=== PATIENT | male | born 1940 | race Caucasian/White ===

== ENCOUNTER 2016-10-29 13:57 | Emergency (ER) | payer BC ==
[~2016-10-29] VITALS: Ht 177.8 cm; Wt 97.7 kg
[~2016-10-29 13:57] MED LIST: CALC500C70 PO; IBUP-103 PO; LSX40 PO; Lasix PO; OXYC1TAB3 PO; PRLSR20 PO; Potassium PO; RANI300T2 PO; SERT25TA PO; TURM1CAP4 PO
[2016-10-29 14:00] VITALS: TEMP 36.5; Ht 177.8 cm; Wt 97.7 kg
--- NOTE | 2016-10-29 14:47 | EMERGENCY ROOM VISIT NOTE ---
ED Visit Note First contact with patient: 14:10 I did evaluate and examine this patient myself. I did guide management for the patient. I agree with the PA's assessment as discussed. Please see the PAs dictation for further details. I did independently review the head CT.
--- NOTE | 2016-10-29 15:18 | DIAGNOSTIC IMAGING REPORT ---
HEAD CT NONCONTRAST CT DOSE: 623.48 mGy.cm HISTORY: Trauma [facility] from fall TECHNIQUE: Multiaxial CT images of the head were performed without the use of intravenous contrast. Comparison: None. Findings: The paranasal sinuses and mastoid air cells are clear. Moderate prefrontal extracranial soft tissue edema. Density characteristics of the brain are unremarkable. Ventricular system is midline. There is no evidence for acute intracranial hemorrhage. Impression: 1. No acute intracranial abnormality. 2. Right prefrontal extracranial soft tissue edema. Electronically signed by: Rico Diaz M.D. 10/29/2016 3:16 PM Dictated Date/Time: 10/29/2016 3:14 PM
[2016-10-29 15:31] VITALS: BP 152/84; PULSE 73; O2SAT 99
--- NOTE | 2016-10-29 15:39 | EMERGENCY ROOM VISIT NOTE ---
History First contact with patient: 14:10 Chief Complaint: HEAD INJURY (MINOR) Stated Complaint: HEAD INJURY History of Present Illness The patient is a 76 year old male who presents to the Emergency Room with complaints of injuries after he tripped and fell while playing tennis this afternoon. The patient reports landing mostly on his face, but does report abrasions to his left knee. He can walk without significant pain. He denies any loss of consciousness, epistaxis, dental pain, neck pain or headache. Tetanus immunization is up-to-date. The patient rates his discomfort a 2 out of 10. Review of Systems 10 system review was performed and was negative except for pertinent positives and negatives as indicated in history of present illness Past Medical/Surgical History Medical Problems: (1) Metastatic adenocarcinoma to prostate (2) Secondary Malignant Neoplasm Of Bone (3) Spinal Stenosis, Lumbar Region (4) Tobacco Use Disorder Surgical Problems: (1) History of hernia repair (2) Previous back surgery Family History FH: diabetes mellitus FH: heart disease Social History Smoking Status: Never Smoker Alcohol Use: occasionally Marital Status: Occupation Status: retired Current/Historical Medications Scheduled Calcium/Vitamin D (Os-Rigo 500 Plus D), 1 TAB PO DAILY Furosemide (Furosemide), 1 TAB PO QOD Omeprazole (Prilosec), 20 MG PO DAILY Ranitidine Hcl (Zantac), 300 MG PO HS Sertraline (Zoloft), 1 TAB PO DAILY Turmeric (Curcuma Longa) (Turmeric), 1 CAP PO DAILY [Lasix], 60 MG PO QOD [Potassium], 10 MEQ PO with 40mg of Lasix [Potassium], 20 MEQ PO With 40mg of Lasix Scheduled PRN Ibuprofen Tab (Advil), 200 MG PO for Pain Oxycodone Immediate Rel Tab (Roxicodone Ir), 1 TAB PO QID PRN for Pain Oxycodone Ir (Roxicodone Ir), 10 MG PO Q12 PRN for Severe Pain Allergies Coded Allergies: NO KNOWN DRUG ALLERGIES (Verified Allergy, Unknown, NONE, 05/16/15) Dust (Verified Adverse Reaction, Mild, ITCHY EYES,RUNNY NOSE, 11/17/15) Common Ragweed (Verified Adverse Reaction, Unknown, RASH, 11/17/15) Physical Exam Vital Signs Date Time Temp Pulse Resp B/P Pulse Ox O2 Delivery O2 Flow Rate FiO2 10/29/16 15:31 73 16 152/84 99 10/29/16 14:02 20 10/29/16 14:00 36.5 77 20 145/83 95 Room Air Physical Exam CONSTITUTIONAL: Healthy and well nourished. Alert and oriented X 3 with positive affect. Patient does not appear in any acute distress. HEENT: Examination shows abrasions to the right forehead and bridge of the nose. No epistaxis, subconjunctival hemorrhage, hemotympanum, raccoon's eyes or Henriquez sign. Pupils equal, round and reactive. NECK: Full active range of motion without discomfort. RESPIRATORY: Clear to auscultation bilaterally with no wheezing, crackles, rhonchi or stridor. CARDIOVASCULAR: Regular rate and rhythm with no murmurs, rubs or gallops. GASTROINTESTINAL: Bowel sounds present in all quadrants. Soft and nontender to palpation. MUSCULOSKELETAL: Examination shows an abrasion to the left anterior knee, otherwise has full range of motion without discomfort. No tenderness to palpation through the thoracolumbar spine. Distal pulses are intact. INTEGUMENTARY: No rash or other significant dermatologic conditions noted. NEUROLOGIC: No focal neurologic deficits noted. Medical Decision & Procedures ER Provider Diagnostic Interpretation: Noncontrast CT of the head does not show any intracranial bleed or fracture. Radiologist report is as follows: HEAD CT NONCONTRAST CT DOSE: 623.48 mGy.cm HISTORY: Trauma [facility] from fall TECHNIQUE: Multiaxial CT images of the head were performed without the use of intravenous contrast. Comparison: None. Findings: The paranasal sinuses and mastoid air cells are clear. Moderate prefrontal extracranial soft tissue edema. Density characteristics of the brain are unremarkable. Ventricular system is midline. There is no evidence for acute intracranial hemorrhage. Impression: 1. No acute intracranial abnormality. 2. Right prefrontal extracranial soft tissue edema. ED Course Patient history and physical exam were performed. Nurse's notes were reviewed. The patient denied any significant discomfort on exam. Did recommend that the patient undergo head CT, but the patient initially refused. The patient was then seen and examined by Dr. Chapa, ED attending physician,. The patient was agreeable to undergo head CT imaging. CT of the head was performed and was normal. The patient was given additional wound care instructions, including use of an antibiotic ointment, vitamin E oil and high SPF factor sunblock in the future. The patient is leaving over the weekend for [place]. He was instructed to protect these wounds so that they do not burn, which would increase scarring in the future. The patient was encouraged to take ibuprofen or Tylenol as needed for pain. Ice as needed for swelling. The patient was happy with plan of care, voiced understanding of all discharge instructions, and denied any significant discomfort at the time of discharge. Medical Decision Impression Primary Impression: Facial abrasion Additional Impressions: Fall from slip, trip, or stumble Abrasion, left knee, initial encounter Departure Information Forms HOME CARE DOCUMENTATION FORM, IMPORTANT VISIT INFORMATION Patient Instructions [facility] Additional Instructions Keep wounds clean and covered with antibiotic ointment until they heal. After the tissue looks dry, apply vitamin E oil twice daily for 2 additional weeks. Keep wounds covered with gauze while in [place] to avoid tissue burning, which which will increase scarring in the future. Over the next year, anytime you are outside, apply a high SPF factor sunblock to avoid scar darkening. Watch for any signs of wound infection. Problem Qualifiers Primary Impression: Facial abrasion Encounter type: initial encounter Qualified Codes: S00.81XA - Abrasion of other part of head, initial encounter Additional Impressions: Fall from slip, trip, or stumble Encounter type: initial encounter Qualified Codes: W01.0XXA - Fall on same level from slipping, tripping and stumbling without subsequent striking against object, initial encounter
== END 2016-10-29 15:33 | disposition home or self-care (01) ==
LOC: C.EDB 13:58 → C.EDD 15:33
DX: S00.81XA Abrasion of other part of head, initial encounter (principal); W01.0XXA Fall on same level from slipping, tripping and stumbling without subsequent striking against object, initial encounter; C61 Malignant neoplasm of prostate; F17.200 Nicotine dependence, unspecified, uncomplicated; C79.51 Secondary malignant neoplasm of bone

== ENCOUNTER → 2016-11-18 | Outpatient (CLI) | payer BC ==
[~2016-11-18] MED LIST changes: +OPTIRAY 320 IV PRN
--- NOTE | 2016-11-18 14:11 | DIAGNOSTIC IMAGING REPORT ---
CHEST CT WITH CONTRAST CT DOSE: 1527.04 mGy.cm HISTORY: Prostate cancer. TECHNIQUE: Multiaxial CT images of the chest were performed following the intravenous administration of contrast. COMPARISON: Chest CT 05/13/2016. FINDINGS: Stable 8 mm nodule within the left upper lobe on image 112. There is new 6 mm linear density within the right upper lobe anteriorly on image 101. This may represent an area of scarring. Stable 6 mm nodule within the right lower lobe on image 123. No new pulmonary nodules identified. A few tiny nodular densities within the right lung base persist. No suspicious lytic or blastic osseous lesions. The mediastinal vascular structures are within normal limits. No mediastinal or hilar lymphadenopathy. No pleural effusion or pneumothorax. Limited views of the upper abdomen demonstrate a normal liver and spleen. IMPRESSION: No significant change compared to the prior study. Stable subcentimeter pulmonary nodules. Electronically signed by: Jared Jessica M.D. 11/18/2016 2:10 PM Dictated Date/Time: 11/18/2016 2:04 PM
--- NOTE | 2016-11-18 14:15 | DIAGNOSTIC IMAGING REPORT ---
ABDOMEN AND PELVIS CT WITH IV AND ORAL CONTRAST CT DOSE: HISTORY: Prostate carcinoma CT TECHNIQUE: Multiaxial CT images of the abdomen and pelvis were performed following the use of intravenous and oral contrast. COMPARISON STUDY: 05/13/2016 FINDINGS: Study is essentially unchanged in the prior exam. Blastic bony metastatic disease primarily involving the left pubic ring and bony pelvis remains stable. There are no new or interval blastic bony metastatic changes. Liver spleen and pancreas are unremarkable. Kidneys negative for hydronephrosis. There is no significant abdominal pelvic or inguinal althea change. Infiltrative change of the subcutaneous fat anterior and superior to the symphysis pubis is stable. This appears to be on a post treatment fibrotic basis. IMPRESSION: 1. Stable unchanged evaluation of the abdomen and pelvis. 2. Stable blastic bony metastatic change. 3. No evidence for new interval or progressive process Electronically signed by: Rico Diaz M.D. 11/18/2016 2:14 PM Dictated Date/Time: 11/18/2016 2:05 PM
== END | disposition home or self-care (01) ==
LOC: C.CTS 13:32
PROVIDERS: ATTEND Internal Medicine Hematology & Oncology
DX: C61 Malignant neoplasm of prostate (principal); C79.51 Secondary malignant neoplasm of bone; R91.8 Other nonspecific abnormal finding of lung field

== ENCOUNTER → 2017-05-29 | Outpatient (CLI) | payer BC ==
--- NOTE | 2017-05-29 11:57 | DIAGNOSTIC IMAGING REPORT ---
ABD/PELVIS IV CONTRAST ONLY CLINICAL HISTORY: 76 years-old Male presenting with PROSTATE CA. TECHNIQUE: Multidetector CT of the abdomen and pelvis was performed after the administration of oral and intravenous contrast. IV contrast: 93 mL of Optiray 320. A dose lowering technique was used consistent with the principles of ALARA (as low as reasonably achievable). COMPARISON: 11/18/2016. CT DOSE (mGy.cm): The estimated cumulative dose is 1531.26 mGy.cm. FINDINGS: Cost Estimating Clerk topogram: Unremarkable. Lung bases: Subpleural reticular and bandlike opacities at the lung bases likely atelectasis. Normal heart size. Aortic valve calcification. No pericardial or pleural effusion. Liver: Normal morphology. No liver lesion. Patent hepatic vasculature. Biliary: No intrahepatic or extrahepatic biliary ductal dilatation. Normal gallbladder. Pancreas: Mild parenchymal atrophy. Spleen: Normal. Adrenal glands: Normal. Kidneys and ureters: Normal. No hydronephrosis. Bladder: Moderate circumferential bladder wall thickening. Minimal associated perivesicular fat stranding in the space of Retzius. Pelvic organs: Prostate and seminal vesicles normal. Bowel: Normal. No bowel obstruction. Peritoneal cavity: No free fluid or intraperitoneal gas. Vasculature: Atherosclerosis of the normal caliber abdominal aorta. IVC patent. Lymph nodes: No enlarged lymph nodes in the abdomen or pelvis. Abdominal wall: Evidence of bilateral inguinal hernia repair with associated infiltration of the extraperitoneal ventral superior pelvis, unchanged from prior. Recurrent bilateral fat-containing hernias noted. Musculoskeletal: Significant sclerotic lesions in the pelvic bones similar distribution to prior exam consistent with known osseous metastatic disease. Degenerative changes of the spine noted. No new blastic lesion identified. Postsurgical changes of L4 laminectomy. IMPRESSION: 1. No change from the prior exam. Stable blastic osseous lesions in the pelvis without additional sites of metastatic disease identified. 2. 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 Electronically signed by: Baljit Del Valle M.D. 05/29/2017 11:56 AM Dictated Date/Time: 05/29/2017 11:49 AM
--- NOTE | 2017-05-29 12:12 | DIAGNOSTIC IMAGING REPORT ---
(CHEST) THORAX WITH CLINICAL HISTORY: 76 years-old Male presenting with PROSTATE CA. TECHNIQUE: Multidetector CT imaging of the chest was performed after the administration of intravenous contrast. IV contrast: 93 mL of Optiray 320. A dose lowering technique was used consistent with the principles of ALARA (as low as reasonably achievable). COMPARISON: 11/18/2016. CT DOSE (mGy.cm): The estimated cumulative dose is 1531.[address] of the abdomen and pelvis. FINDINGS: Business Reporting Developer topogram: Unremarkable. On soft tissue windows, normal thyroid and thoracic inlet. No axillary, supraclavicular, hilar, or mediastinal lymphadenopathy. Atherosclerosis of the aorta. Normal heart size. No pericardial or pleural effusion. Upper abdomen normal. On lung windows, bandlike opacities at the lung bases likely atelectasis or scarring. Respiratory motion mildly degrades evaluation of the lung bases. Solid fissural 5 mm nodule in the superior segment of the lower lobe (series 4 image 109) series, unchanged. Solid 7 mm nodule in the left upper lobe (series 499), unchanged. No new pulmonary nodule. Airways patent. Mild lower lobe bronchial wall thickening may be present. On bone windows, degenerative changes of the spine. Flowing anterior osteophytosis likely indicates diffuse radiographic skeletal hyperostosis. No osseous lesion identified. IMPRESSION: 1. Stable subcentimeter pulmonary nodules. No new nodule. No lymphadenopathy. Electronically signed by: Baljit Del Valle M.D. 05/29/2017 12:11 PM Dictated Date/Time: 05/29/2017 12:05 PM
== END | disposition home or self-care (01) ==
LOC: C.CTS 11:02
PROVIDERS: ATTEND Nurse Practitioner Family
DX: C61 Malignant neoplasm of prostate (principal); R91.8 Other nonspecific abnormal finding of lung field

== ENCOUNTER → 2017-06-11 | Outpatient (CLI) | payer BC ==
[~2017-06-11] MED LIST changes: -OPTIRAY 320 IV PRN
== END | disposition home or self-care (01) ==
LOC: C.FOODA 09:03
PROVIDERS: ATTEND Nurse Practitioner Family
DX: Z71.3 Dietary counseling and surveillance (principal); R73.03 Prediabetes; C61 Malignant neoplasm of prostate; C79.51 Secondary malignant neoplasm of bone; Z79.899 Other long term (current) drug therapy

== ENCOUNTER → 2017-11-21 | Outpatient (CLI) | payer BC ==
[~2017-11-21] MED LIST changes: +OPTIRAY 320 IV PRN
--- NOTE | 2017-11-21 12:16 | DIAGNOSTIC IMAGING REPORT ---
(CHEST) THORAX WITH CT DOSE: 1421.68 mGy.cm HISTORY: Prostate carcinoma PROSTATE CA TECHNIQUE: Multiaxial CT images of the chest were performed following the intravenous administration of contrast. A dose lowering technique was utilized adhering to the principles of ALARA. COMPARISON: 05/29/2017 FINDINGS: The lungs are clear. The mediastinal vascular structures are within normal limits. No mediastinal or hilar lymphadenopathy. No pleural effusion or pneumothorax. Limited views of the upper abdomen demonstrate a normal liver and spleen. Micronodular area procedure described is compatible is stable. There are no new or interval findings. Aeration of the lung bases is now within normal limits. Moderate degenerative change of the osseous structures considered stable. IMPRESSION: Stable micronodularity of the lungs with no evidence for new interval or progressive process. Lung bases are now clear. The above report was generated using voice recognition software. It may contain grammatical, syntax or spelling errors. Electronically signed by: Rico Diaz M.D. 11/21/2017 12:15 PM Dictated Date/Time: 11/21/2017 12:06 PM
--- NOTE | 2017-11-21 12:23 | DIAGNOSTIC IMAGING REPORT ---
ABD/PELVIS IV AND ORAL CONT CT DOSE: HISTORY: Prostate carcinoma PROSTATE CA TECHNIQUE: Multiaxial CT images of the abdomen and pelvis were performed following the use of intravenous and oral contrast. A dose lowering technique was utilized adhering to the principles of ALARA. COMPARISON STUDY: 05/29/2017 FINDINGS: The lung bases are clear. The liver, spleen, gallbladder, pancreas, kidneys, and adrenal glands are within normal limits. No bowel wall thickening or obstruction. The pelvic organs are unremarkable. The blastic metastatic deposits of the bony pelvis are considered stable. Blastic changes anterior aspect of the left femoral neck is also stable. Postoperative changes of the anterior abdominal wall are stable. IMPRESSION: 1. Stable blastic metastatic disease of the pelvis and left hip.. 2. Minimal/mild bladder wall thickening stable from the prior study. 3. Unchanged exam from the prior study with no new or interval process. The above report was generated using voice recognition software. It may contain grammatical, syntax or spelling errors. Electronically signed by: Rico Diaz M.D. 11/21/2017 12:21 PM Dictated Date/Time: 11/21/2017 12:15 PM
== END | disposition home or self-care (01) ==
LOC: C.CTS 11:41
PROVIDERS: ATTEND Internal Medicine Hematology & Oncology
DX: C61 Malignant neoplasm of prostate (principal)

== ENCOUNTER → 2018-04-10 | Outpatient (CLI) | payer BC ==
[~2018-04-10] MED LIST changes: -OPTIRAY 320 IV PRN; +OXYC-737 PO; +OXYC-90 PO; -OXYC1TAB3 PO
--- NOTE | 2018-04-10 15:15 | DIAGNOSTIC IMAGING REPORT ---
BONE SCAN WHOLE BODY CLINICAL HISTORY: PROSTATE CA COMPARISON STUDY: 08/02/2015 FINDINGS: The patient was injected with 27.5 mCi of technetium 99m MDP. Three-hour delayed whole body images were acquired. There are foci of increased activity within the shoulders, right cervical ventricular joint, wrists and knees and feet. This distribution favors a degenerative/arthritic etiology. There are foci of increased activity within the lumbar spine. A November 2017 CT scan of the abdomen and pelvis reveals corresponding arthritic change which likely explains this activity. There is mild increased activity at the level of the left acetabulum and left ischio pubic ring, and symphysis pubis.. There are corresponding blastic changes on the CT scan indicative of metastatic disease. The activity is significantly diminished when compared the prior July 2015 study suggesting interval treatment response. There is a new focus of unexplained increased activity within the left anterior fifth rib. There is a stable focus of increased activity within the right anterior first rib. There is a subtle focus of increased activity at the level of the right L1 pedicle IMPRESSION: 1. Interval decrease in the abnormal increased activity involving the left acetabulum and left ischio pubic ramus and symphysis pubis. The findings likely represent an interval treatment response 2. Subtle new unexplained focus of increased activity at the level of the right L1 pedicle 3. New focus of unexplained increased activity within the left anterior fifth rib. Electronically signed by: Jose Daniel Cody M.D. 04/10/2018 3:14 PM Dictated Date/Time: 04/10/2018 3:07 PM
== END | disposition home or self-care (01) ==
LOC: C.NUCL 10:59
PROVIDERS: ATTEND Nurse Practitioner Family
DX: C61 Malignant neoplasm of prostate (principal)

== ENCOUNTER 2023-08-30 11:50 | Inpatient (IN) ==
[~2023-08-30 11:50] MED LIST changes: -CALC500C70 PO; -IBUP-103 PO; -LSX40 PO; -Lasix PO; -OXYC-737 PO; -OXYC-90 PO; -PRLSR20 PO; -Potassium PO; -RANI300T2 PO; +RAPID SEQUENCE INDUCTION BAG ONE; -SERT25TA PO; -TURM1CAP4 PO
[2023-08-30] MEDS ORDERED: CEFEPIME 2,000 MG/20 ML VIAL IV STA (11:56)
--- NOTE | 2023-08-30 11:59 | Emergency Department Note ---
Impression & Plan Respiratory failure, Sepsis, Pneumonia ED Provider Note NAME: ARNOLD DEMPSEY AGE: 82 SEX: M : 1940 ARRIVES VIA: Ambulance INFORMANT: Patient ED PROVIDER(S): Nadir Ludwig DO CHIEF COMPLAINT: AMS HPI: Patient is an 82-year-old male who was feeling very weak last night per family. He was found unresponsive this morning. EMS was called. He was hypoxic into the 60s and unresponsive except to painful stimuli he would move. Upon arrival to the ER he is awake and able to state his name. He notes that he does have some right-sided chest pain. He denies any head pain belly pain or back pain. He denies any urinary symptoms. EMS notes additional information that they gave him a gram of Tylenol in combination with IV fluids and his mentation improved. He is a full code per EMS. ADDITIONAL HISTORY OBTAINED: Per HPI Chronic Medical/Social Conditions Affecting Care: Per HPI PAST MEDICAL HISTORY:See Below PAST SURGICAL HISTORY:See Below FAMILY HISTORY:See Below SOCIAL HISTORY:See Below HOME MEDICATIONS:See Below ALLERGIES:See Below VITALS:See Below PHYSICAL EXAMINATION: GENERAL: Sitting up in bed, alert, chronically ill-appearing on nonrebreather, disheveled, coughing EYE EXAM: normal conjunctiva. PERRL and EOM's grossly intact. OROPHARYNX: Dry mucous membranes NECK: supple, no nuchal rigidity, no adenopathy, non-tender LUNGS: Clear to auscultation. Normal chest wall mechanics HEART: no murmurs, S1 normal and S2 normal ABDOMEN: abdomen soft, non-tender, normo-active bowel sounds, no masses, no rebound or guarding. UPPER EXTREMITIES: upper extremities are grossly normal. LOWER EXTREMITIES: Left calf larger than right NEURO EXAM: Awake, alert, oriented to person and following commands. No focal weakness in the upper or lower extremities. Unable to perform drift or finger- nose. MEDICAL DECISION MAKING: Patient is an 82-year-old male who presents ER initially brought in unresponsive. Was found to be hypoxic placed on nonrebreather. IV was established blood work is obtained. Labs show no significant leukocytosis. No anemia. He was titrated down from nonrebreather to 5 L. INR therapeutic at 2.4. VBG with pH 7.4. BMP was unremarkable. Lactate slightly up at 2.1. Mag was mildly low at 1.6. CK elevated at 2500. Troponin elevated in the 30s. Pro-Rigo elevated at 30. Patient was covered with cefepime and IV vancomycin. He was given 2.5 L normal saline for more than 30 cc/kg of ideal body weight. Patient was updated bedside. Heart rate trended down. Mentation improved. CT head was negative. He was admitted to the hospital for further workup of his sepsis secondary to pneumonia. Consults/Care Managements Discussions: Per [facility] Triage Nursing notes reviewed. Limited review of prior medical records performed Vital Signs: reviewed and remarkable for hypoxic, tachycardic and febrile Differential diagnosis: Differential diagnosis includes etiologies such as sepsis, UTI, pneumonia, metabolic, electrolyte abnormalities, cardiac sources, intracerebral event, toxicologic, neurological, as well as others were entertained. ER treatment provided: See below Diagnostics interpreted by me include EKG and cardiac monitoring as listed below: -Cardiac Monitoring: An order was placed for continuous cardiac monitoring. The monitor shows a rate of 90 with sinus rhythm. -ECG: Sinus rhythm rate of 105 Normal axis Poor baseline QTc 430 -Laboratory studies:Interpreted by me as stated above in MDM and shown below. Imaging studies: Xrays: As interpreted by me: Portable AP upright 1 view of the chest shows right lower lobe infiltrate CTs show: CT head was negative Procedures:none Critical Care: I have personally spent 31 minutes of critical care time in the direct management of this patient. This includes bedside care, interpretation of diagnostic studies, and testing, discussion with consultants, patient, and family members, and other required patient management activities. This 31 minutes is in excess of all separately billable procedures. Past Med/Surg History Medical History Palliative care by specialist Cancer related pain Chronic anticoagulation Sacroiliac joint pain Trochanteric bursitis Avascular necrosis of bone of left hip (~06/26/23) History of DVT (deep vein thrombosis) History of skin cancer Hypertension Prostate cancer 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 ADVISED TO HOLD DOS.); Hx Alcohol Use: Yes Alcohol type: beer Hx Substance Use: No Preferred Language: Azeri Communication Ability: Effective Hearing Ability: Normal Rip Sawyer Required: No Beliefs That Will Affect Care: None marital status: Current Living Situation: Spouse current occupational status: retired current occupation: retired Feels Safe at Home: Yes Assistive Devices: Glasses Allergies Allergies Allergy/AdvReac Type Severity Reaction Status Date / Time No Known Drug Allergies Allergy Unknown NONE Verified 06/17/23 08:31 house dust AdvReac Mild ITCHY Verified 06/17/23 08:31 EYES, RUNNY NOSE ragweed pollen AdvReac Unknown RASH Verified 06/17/23 08:31 Home Meds Home Medications Medication Instructions Recorded Confirmed omega 3 350 mg-dha 235 mg-epa 90 1 tab PO QAM 05/26/18 08/30/23 mg-fish oil 597 mg capsule,delay rel ([place]-3) cyanocobalamin (vitamin B-12) 1,000 mcg PO DAILY 03/10/19 08/30/23 1,000 mcg capsule donepezil 10 mg tablet 10 mg PO DAILY 11/08/19 08/30/23 calcium carbonate 500 mg-vitamin 1 tab PO DAILY 10/03/20 08/30/23 D3 3.125 mcg (125 unit) tablet (Calcium) docusate sodium 100 mg capsule 200 mg PO DAILY 10/03/20 08/30/23 (Colace) multivitamin 1 tab PO DAILY 10/03/20 08/30/23 rosuvastatin 5 mg tablet (Crestor) 5 mg PO DAILY 12/26/21 08/30/23 polyethylene glycol 3350 17 17 g PO DAILY PRN constipation 10/15/22 08/30/23 gram/dose oral powder (Miralax) sennosides 8.6 mg capsule (senna) 17.2 mg PO HS PRN constipation 10/15/22 08/30/23 trazodone 50 mg tablet 25 mg PO HS sleep 05/08/23 08/30/23 venlafaxine 150 mg 150 mg PO DAILY 05/08/23 08/30/23 capsule,extended release 24 hr (Effexor XR) venlafaxine 37.5 mg 37.5 mg PO DAILY 05/08/23 08/30/23 capsule,extended release 24 hr warfarin 5 mg tablet See Rx Instructions PO UD 08/14/23 08/30/23 fentanyl 25 mcg/hr transdermal 25 mcg transdermal Q72H 08/30/23 08/30/23 patch gabapentin 300 mg capsule 300 mg PO TID 08/30/23 08/30/23 Previous Rx's Medication Instructions Recorded naloxone 4 mg/actuation nasal spray 1 spray intranasal Q3M PRN opioid 03/12/21 overdose #2 ea dexamethasone 0.5 mg tablet 1 mg (2 x 0.5 mg) PO DAILY bone 06/26/23 pain left posterior hip and back 30 days #60 tabs oxycodone 15 mg tablet 15 mg PO Q4H PRN pain 1 month #150 06/26/23 tabs fentanyl 50 mcg/hr transdermal 1 patch transdermal Q72H very 07/31/23 patch severe cancer pain 1 month #10 ea Results & Data (ED) Vital Signs Vital Signs - 24 hr 08/30/23 11:30 08/30/23 11:47 08/30/23 11:55 Temperature Temperature Source Pulse Rate 114 H 106 H Pulse Rate from SpO2 Sensor Pulse Rhythm Regular Pulse Strength Respiratory Rate Respiratory Effort / Characteristics Respiratory Depth Respiratory Pattern Blood Pressure 100/63 Blood Pressure Mean 75 Blood Pressure Position Pulse Oximetry 95 95 Oxygen Delivery Method Oxymask Oxymask Oxygen Flow Rate 5 5 Sepsis Recent Fever Within 48 Hours Sepsis New/Unexplained Change in Mental Status Sepsis Action Taken by Nursing 08/30/23 12:05 08/30/23 12:09 08/30/23 12:13 Temperature 38.8 C H Temperature Source Rectal Pulse Rate 114 H 110 H Pulse Rate from SpO2 Sensor 108 H Pulse Rhythm Regular Pulse Strength Normal Respiratory Rate 20 Respiratory Effort / Characteristics Non-Labored Spontaneous Labored Respiratory Depth Normal Normal Respiratory Pattern Regular Regular Blood Pressure 100/63 99/70 L Blood Pressure Mean 75 79 Blood Pressure Position Sitting Pulse Oximetry 95 96 Oxygen Delivery Method Non-rebreather Oxymask Oxymask Oxygen Flow Rate 5 5 Sepsis Recent Fever Within 48 Hours Yes Sepsis New/Unexplained Change in Mental Status Yes Sepsis Action Taken by Nursing Physician Notified 08/30/23 12:15 08/30/23 12:29 08/30/23 12:30 Temperature Temperature Source Pulse Rate 110 H 107 H 107 H Pulse Rate from SpO2 Sensor 110 H 105 H Pulse Rhythm Pulse Strength Respiratory Rate Respiratory Effort / Characteristics Respiratory Depth Respiratory Pattern Blood Pressure 95/62 L 97/66 L Blood Pressure Mean 73 76 Blood Pressure Position Pulse Oximetry 92 92 Oxygen Delivery Method Oxymask Oxygen Flow Rate 5 Sepsis Recent Fever Within 48 Hours Sepsis New/Unexplained Change in Mental Status Sepsis Action Taken by Nursing 08/30/23 12:45 08/30/23 13:02 08/30/23 13:10 Temperature Temperature Source Pulse Rate 105 H 104 H 101 H Pulse Rate from SpO2 Sensor 105 H 105 H 99 H Pulse Rhythm Pulse Strength Respiratory Rate 14 17 Respiratory Effort / Characteristics Respiratory Depth Respiratory Pattern Blood Pressure 100/67 112/64 102/62 Blood Pressure Mean 78 80 75 Blood Pressure Position Pulse Oximetry 93 91 98 Oxygen Delivery Method Oxymask Oxymask Oxygen Flow Rate 5 5 Sepsis Recent Fever Within 48 Hours Sepsis New/Unexplained Change in Mental Status Sepsis Action Taken by Nursing 08/30/23 13:15 08/30/23 13:30 08/30/23 13:45 Temperature Temperature Source Pulse Rate 100 H 101 H Pulse Rate from SpO2 Sensor 100 H 105 H Pulse Rhythm Pulse Strength Respiratory Rate 17 15 Respiratory Effort / Characteristics Respiratory Depth Respiratory Pattern Blood Pressure 102/62 100/62 116/68 Blood Pressure Mean 75 74 78 Blood Pressure Position Pulse Oximetry 95 82 L Oxygen Delivery Method Oxygen Flow Rate Sepsis Recent Fever Within 48 Hours Sepsis New/Unexplained Change in Mental Status Sepsis Action Taken by Nursing 08/30/23 13:45 08/30/23 14:00 08/30/23 14:16 Temperature Temperature Source Pulse Rate 100 H 97 H 99 H Pulse Rate from SpO2 Sensor 101 H 99 H Pulse Rhythm Pulse Strength Respiratory Rate 17 15 16 Respiratory Effort / Characteristics Respiratory Depth Respiratory Pattern Blood Pressure 116/68 107/59 L 110/54 L Blood Pressure Mean 84 75 72 Blood Pressure Position Pulse Oximetry 91 95 Oxygen Delivery Method Oxymask Oxygen Flow Rate 5 Sepsis Recent Fever Within 48 Hours Sepsis New/Unexplained Change in Mental Status Sepsis Action Taken by Nursing 08/30/23 14:45 08/30/23 15:00 08/30/23 15:15 Temperature Temperature Source Pulse Rate 94 H 90 85 Pulse Rate from SpO2 Sensor 92 H 93 H 86 Pulse Rhythm Pulse Strength Respiratory Rate 18 18 16 Respiratory Effort / Characteristics Respiratory Depth Respiratory Pattern Blood Pressure 102/59 L 108/63 91/65 L Blood Pressure Mean 73 78 73 Blood Pressure Position Pulse Oximetry 94 88 L 95 Oxygen Delivery Method Oxymask Oxygen Flow Rate 5 Sepsis Recent Fever Within 48 Hours Sepsis New/Unexplained Change in Mental Status Sepsis Action Taken by Nursing 08/30/23 15:30 08/30/23 17:08 Temperature Temperature Source Pulse Rate 88 90 Pulse Rate from SpO2 Sensor 89 Pulse Rhythm Pulse Strength Respiratory Rate 16 Respiratory Effort / Characteristics Respiratory Depth Respiratory Pattern Blood Pressure 108/62 Blood Pressure Mean 77 Blood Pressure Position Pulse Oximetry Oxygen Delivery Method Oxygen Flow Rate Sepsis Recent Fever Within 48 Hours Sepsis New/Unexplained Change in Mental Status Sepsis Action Taken by Nursing Laboratory Data 08/30/23 12:12 08/30/23 12:12 Lab Results 08/30/23 08/30/23 08/30/23 Range/Units 12:03 12:12 12:14 WBC 10.02 (4.8-10.8) K/ul RBC 4.09 L (4.70-6.10) M/uL Hgb 13.0 L (14.0-18.0) g/dl POC Hgb 13.3 L (14.0-18.0) g/dl Hct 40.3 L (42.0-52.0) % POC Hct 39 L (42-52) % MCV 98.5 (80.0-100.0) fL MCH 31.8 (25.0-34.0) pg MCHC 32.3 (32.0-36.0) g/dL RDW Std Deviation 55.3 H (36.4-46.3) fL RDW Coeff of Melissa 15.2 H (11.5-14.5) % Plt Count 204 (130-400) K/uL MPV 10.0 (9.4-12.4) fL Immature Gran % (Auto) 0.5 % Neut % (Auto) 79.1 % Lymph % (Auto) 10.9 % [place] % (Auto) 8.2 % Eos % (Auto) 0.9 % Baso % (Auto) 0.4 % Neut # (Auto) 7.93 H (1.40-6.50) K/uL Lymph # (Auto) 1.09 L (1.20-3.40) K/uL [place] # (Auto) 0.82 H (0.11-0.59) K/uL Eos # (Auto) 0.09 (0.00-0.50) K/uL Baso # (Auto) 0.04 (0.00-0.20) K/uL Immature Gran # (Auto) 0.05 (0.01-0.20) K/uL Absolute Nucleated RBC 0.02 (0.00-0.12) K/uL Nucleated RBC % (auto) 0.2 % Toxic Vacuolation 1+ Polychromasia 1+ Ovalocytes 1+ PT 24.4 H (9.0-12.0) Seconds INR 2.4 H (0.9-1.1) VBG pH (7.36-7.41) VBG pCO2 (38-50) mmHg VBG pO2 mmHg VBG HCO3 mmol/L VBG O2 Saturation % VBG Base Excess mEq/L POC Sodium 134 L (135-144) mmol/L Sodium 134 L (136-145) mmol/L POC Potassium 3.9 (3.3-5.0) mmol/L Potassium 3.9 (3.5-5.1) mmol/L POC Chloride 99 L (101-112) mmol/L Chloride 99 (98-107) mmol/L Carbon Dioxide 27 (21-32) mmol/L POC Total CO2 25 (24-31) mmol/L Anion Gap 8 (3-11) POC Anion Gap 15.0 L (16-25) mmol/L POC BUN 16 (7-18) mg/dl BUN 17 (6-23) mg/dl Creatinine 1.18 (0.6-1.4) mg/dl POC Creatinine 1.2 (0.6-1.3) mg/dl Est Cr Clr Drug Dosing 57.9 ml/min Est GFR ( Amer) 65.7 ml/min Est GFR (Non-Af Amer) 56.7 ml/min BUN/Creatinine Ratio 14.4 (10-20) Glucose 132 H (70-99(Fasting)) mg/dl POC Glucose (other) 131 H (70-99) mg/dl Lactate 2.1 H* (0.4-2.0) mmol/L Calcium 8.2 L (8.6-10.3) mg/dl POC Ioniz Calcium Black 1.11 L (1.12-1.32) mmol/l Magnesium 1.6 L (1.7-2.4) mg/dl Total Bilirubin 0.9 (0.2-1.0) mg/dl Direct Bilirubin 0.2 (0-0.2) mg/dl AST 65 H (13-39) U/L ALT 36 (7-52) U/L Alkaline Phosphatase 54 (34-104) U/L Total Creatine Kinase 2587 H (30-223) U/L Troponin I High Sens 22.7 H (0-20) pg/ml Total Protein 6.0 (6.0-8.3) gm/dl Albumin 3.2 L (3.4-5.0) gm/dl Procalcitonin 29.72 H (0-0.5) ng/ml Random Cortisol mcg/dl Urine Color Urine Appearance (Clear) Urine pH (4.5-7.5) Ur Specific [place] (1.000-1.030) Urine Protein (Negative) Urine Glucose (UA) (Negative) Urine Ketones (Negative) Urine Blood (Negative) Urine Nitrite (Negative) Urine Bilirubin (Negative) Urine Urobilinogen (Negative) Ur Leukocyte Esterase (Negative) Adenovirus (PCR) Not Detected (NotDetected) B. pertussis DNA (PCR) Not Detected (NotDetected) B.parapertussis DNA PCR Not Detected (NotDetected) C. pneumoniae DNA (PCR) Not Detected (NotDetected) Coronavirus OC43 (PCR) Not Detected (NotDetected) Coronavirus HKU1 (PCR) Not Detected (NotDetected) Coronavirus 229E (PCR) Not Detected (NotDetected) SARS-CoV-2 (PCR) Not Detected (NotDetected) Coronavirus NL63 (PCR) Not Detected (NotDetected) Human Metapneumovir PCR Not Detected (NotDetected) Influenza Type A (PCR) Not Detected (NotDetected) Influenza Type B (PCR) Not Detected (NotDetected) M. pneumoniae (PCR) Not Detected (NotDetected) Parainfluenza 1 (PCR) Not Detected (NotDetected) Parainfluenza 2 (PCR) Not Detected (NotDetected) Parainfluenza 3 (PCR) Not Detected (NotDetected) Parainfluenza 4 (PCR) Not Detected (NotDetected) RSV (PCR) Not Detected (NotDetected) Entero/Rhino (PCR) Not Detected (NotDetected) 08/30/23 08/30/23 08/30/23 Range/Units 12:16 12:31 14:09 WBC (4.8-10.8) K/ul RBC (4.70-6.10) M/uL Hgb (14.0-18.0) g/dl POC Hgb (14.0-18.0) g/dl Hct (42.0-52.0) % POC Hct (42-52) % MCV (80.0-100.0) fL MCH (25.0-34.0) pg MCHC (32.0-36.0) g/dL RDW Std Deviation (36.4-46.3) fL RDW Coeff of Melissa (11.5-14.5) % Plt Count (130-400) K/uL MPV (9.4-12.4) fL Immature Gran % (Auto) % Neut % (Auto) % Lymph % (Auto) % [place] % (Auto) % Eos % (Auto) % Baso % (Auto) % Neut # (Auto) (1.40-6.50) K/uL Lymph # (Auto) (1.20-3.40) K/uL [place] # (Auto) (0.11-0.59) K/uL Eos # (Auto) (0.00-0.50) K/uL Baso # (Auto) (0.00-0.20) K/uL Immature Gran # (Auto) (0.01-0.20) K/uL Absolute Nucleated RBC (0.00-0.12) K/uL Nucleated RBC % (auto) % Toxic Vacuolation Polychromasia Ovalocytes PT (9.0-12.0) Seconds INR (0.9-1.1) VBG pH 7.39 (7.36-7.41) VBG pCO2 45 (38-50) mmHg VBG pO2 35 mmHg VBG HCO3 27 mmol/L VBG O2 Saturation < 60.0 % VBG Base Excess 1.8 mEq/L POC Sodium (135-144) mmol/L Sodium (136-145) mmol/L POC Potassium (3.3-5.0) mmol/L Potassium (3.5-5.1) mmol/L POC Chloride (101-112) mmol/L Chloride (98-107) mmol/L Carbon Dioxide (21-32) mmol/L POC Total CO2 (24-31) mmol/L Anion Gap (3-11) POC Anion Gap (16-25) mmol/L POC BUN (7-18) mg/dl BUN (6-23) mg/dl Creatinine (0.6-1.4) mg/dl POC Creatinine (0.6-1.3) mg/dl Est Cr Clr Drug Dosing ml/min Est GFR ( Amer) ml/min Est GFR (Non-Af Amer) ml/min BUN/Creatinine Ratio (10-20) Glucose (70-99(Fasting)) mg/dl POC Glucose (other) (70-99) mg/dl Lactate (0.4-2.0) mmol/L Calcium (8.6-10.3) mg/dl POC Ioniz Calcium Black (1.12-1.32) mmol/l Magnesium (1.7-2.4) mg/dl Total Bilirubin (0.2-1.0) mg/dl Direct Bilirubin (0-0.2) mg/dl AST (13-39) U/L ALT (7-52) U/L Alkaline Phosphatase (34-104) U/L Total Creatine Kinase (30-223) U/L Troponin I High Sens 32.6 H (0-20) pg/ml Total Protein (6.0-8.3) gm/dl Albumin (3.4-5.0) gm/dl Procalcitonin (0-0.5) ng/ml Random Cortisol 7.51 mcg/dl Urine Color Yellow Urine Appearance Clear (Clear) Urine pH 6.0 (4.5-7.5) Ur Specific [place] 1.017 (1.000-1.030) Urine Protein Negative (Negative) Urine Glucose (UA) Negative (Negative) Urine Ketones Negative (Negative) Urine Blood Negative (Negative) Urine Nitrite Negative (Negative) Urine Bilirubin Negative (Negative) Urine Urobilinogen Negative (Negative) Ur Leukocyte Esterase Negative (Negative) Adenovirus (PCR) (NotDetected) B. pertussis DNA (PCR) (NotDetected) B.parapertussis DNA PCR (NotDetected) C. pneumoniae DNA (PCR) (NotDetected) Coronavirus OC43 (PCR) (NotDetected) Coronavirus HKU1 (PCR) (NotDetected) Coronavirus 229E (PCR) (NotDetected) SARS-CoV-2 (PCR) (NotDetected) Coronavirus NL63 (PCR) (NotDetected) Human Metapneumovir PCR (NotDetected) Influenza Type A (PCR) (NotDetected) Influenza Type B (PCR) (NotDetected) M. pneumoniae (PCR) (NotDetected) Parainfluenza 1 (PCR) (NotDetected) Parainfluenza 2 (PCR) (NotDetected) Parainfluenza 3 (PCR) (NotDetected) Parainfluenza 4 (PCR) (NotDetected) RSV (PCR) (NotDetected) Entero/Rhino (PCR) (NotDetected) 08/30/23 08/30/23 Range/Units 14:16 16:20 WBC (4.8-10.8) K/ul RBC (4.70-6.10) M/uL Hgb (14.0-18.0) g/dl POC Hgb (14.0-18.0) g/dl Hct (42.0-52.0) % POC Hct (42-52) % MCV (80.0-100.0) fL MCH (25.0-34.0) pg MCHC (32.0-36.0) g/dL RDW Std Deviation (36.4-46.3) fL RDW Coeff of Melissa (11.5-14.5) % Plt Count (130-400) K/uL MPV (9.4-12.4) fL Immature Gran % (Auto) % Neut % (Auto) % Lymph % (Auto) % [place] % (Auto) % Eos % (Auto) % Baso % (Auto) % Neut # (Auto) (1.40-6.50) K/uL Lymph # (Auto) (1.20-3.40) K/uL [place] # (Auto) (0.11-0.59) K/uL Eos # (Auto) (0.00-0.50) K/uL Baso # (Auto) (0.00-0.20) K/uL Immature Gran # (Auto) (0.01-0.20) K/uL Absolute Nucleated RBC (0.00-0.12) K/uL Nucleated RBC % (auto) % Toxic Vacuolation Polychromasia Ovalocytes PT (9.0-12.0) Seconds INR (0.9-1.1) VBG pH (7.36-7.41) VBG pCO2 (38-50) mmHg VBG pO2 mmHg VBG HCO3 mmol/L VBG O2 Saturation % VBG Base Excess mEq/L POC Sodium (135-144) mmol/L Sodium (136-145) mmol/L POC Potassium (3.3-5.0) mmol/L Potassium (3.5-5.1) mmol/L POC Chloride (101-112) mmol/L Chloride (98-107) mmol/L Carbon Dioxide (21-32) mmol/L POC Total CO2 (24-31) mmol/L Anion Gap (3-11) POC Anion Gap (16-25) mmol/L POC BUN (7-18) mg/dl BUN (6-23) mg/dl Creatinine (0.6-1.4) mg/dl POC Creatinine (0.6-1.3) mg/dl Est Cr Clr Drug Dosing ml/min Est GFR ( Amer) ml/min Est GFR (Non-Af Amer) ml/min BUN/Creatinine Ratio (10-20) Glucose (70-99(Fasting)) mg/dl POC Glucose (other) (70-99) mg/dl Lactate 3.0 H* 1.9 (0.4-2.0) mmol/L Calcium (8.6-10.3) mg/dl POC Ioniz Calcium Black (1.12-1.32) mmol/l Magnesium (1.7-2.4) mg/dl Total Bilirubin (0.2-1.0) mg/dl Direct Bilirubin (0-0.2) mg/dl AST (13-39) U/L ALT (7-52) U/L Alkaline Phosphatase (34-104) U/L Total Creatine Kinase (30-223) U/L Troponin I High Sens (0-20) pg/ml Total Protein (6.0-8.3) gm/dl Albumin (3.4-5.0) gm/dl Procalcitonin (0-0.5) ng/ml Random Cortisol mcg/dl Urine Color Urine Appearance (Clear) Urine pH (4.5-7.5) Ur Specific [place] (1.000-1.030) Urine Protein (Negative) Urine Glucose (UA) (Negative) Urine Ketones (Negative) Urine Blood (Negative) Urine Nitrite (Negative) Urine Bilirubin (Negative) Urine Urobilinogen (Negative) Ur Leukocyte Esterase (Negative) Adenovirus (PCR) (NotDetected) B. pertussis DNA (PCR) (NotDetected) B.parapertussis DNA PCR (NotDetected) C. pneumoniae DNA (PCR) (NotDetected) Coronavirus OC43 (PCR) (NotDetected) Coronavirus HKU1 (PCR) (NotDetected) Coronavirus 229E (PCR) (NotDetected) SARS-CoV-2 (PCR) (NotDetected) Coronavirus NL63 (PCR) (NotDetected) Human Metapneumovir PCR (NotDetected) Influenza Type A (PCR) (NotDetected) Influenza Type B (PCR) (NotDetected) M. pneumoniae (PCR) (NotDetected) Parainfluenza 1 (PCR) (NotDetected) Parainfluenza 2 (PCR) (NotDetected) Parainfluenza 3 (PCR) (NotDetected) Parainfluenza 4 (PCR) (NotDetected) RSV (PCR) (NotDetected) Entero/Rhino (PCR) (NotDetected) Administered Medications Discontinued Medications Sodium Chloride (Nss) 1,000 mls @ 999 mls/hr IV .Q1H1M SABINE Stop: 08/30/23 14:00 Last Admin: 08/30/23 12:34 Dose: 999 mls/hr Documented By: Infusion: 08/30/23 12:34 Dose: Infused Documented By: Admin: 08/30/23 12:12 Dose: 999 mls/hr Documented By: MEME Cefepime HCl (Maxipime) 2,000 mg in 20 mls @ 5 mls/min IV NOW STA; Protocol Stop: 08/30/23 11:59 Last Admin: 08/30/23 12:17 Dose: 5 mls/min Documented By: MEME Vancomycin HCl 1,750 mg/ (Sodium Chloride) 535 mls @ 200 mls/hr IV NOW ONE Stop: 08/30/23 14:32 Last Admin: 08/30/23 12:34 Dose: 200 mls/hr Documented By: MEME Sodium Chloride (Nss) 500 mls @ 999 mls/hr IV .Q31M ONE Stop: 08/30/23 13:26 Last Admin: 08/30/23 14:10 Dose: 999 mls/hr Documented By: MEME Piperacillin Sod/Tazobactam (Sod 4.5 gm/ Dextrose) 100 mls @ 200 mls/hr IV NOW ONE; Protocol Stop: 08/30/23 14:08 Last Admin: 08/30/23 13:54 Dose: 200 mls/hr Documented By: FELICE Magnesium Sulfate/Dextrose (Magnesium Sulfate / D5w) 1 gm in 100 mls @ 100 mls/hr IV NOW STA Stop: 08/30/23 14:49 Last Admin: 08/30/23 14:07 Dose: 100 mls/hr Documented By: MEME Sodium Chloride (Nss) 500 mls @ 999 mls/hr IV .Q31M ONE Stop: 08/30/23 15:18 Last Admin: 08/30/23 16:27 Dose: 999 mls/hr Documented By: FLORINA Sodium Chloride (Nss) 500 mls @ 500 mls/hr IV .Q1H SABINE Stop: 08/30/23 16:44 Last Admin: 08/30/23 16:27 Dose: 500 mls/hr Documented By: FLORINA Miscellaneous (Rapid Sequence Induction Bag) Confirm Administered Dose 1 each N/A .STK-MED ONE Stop: 08/30/23 11:44 Last Admin: 08/30/23 12:23 Dose: Not Given Documented By: MEME Imaging Data Radiologist's Impression: Chest X-Ray 08/30/23 11:47 SINGLE VIEW CHEST CLINICAL HISTORY: Sepsis. FINDINGS: An AP, portable, upright chest radiograph is compared to study dated 07/31/2016 and correlated with chest CT dated 03/04/2022. Correlation is made with PET/CT dated 06/11/2023. The heart is enlarged. The pulmonary vasculature is noncongested. Chronic mucosal thickening similar to previous. Airspace consolidation there is typical for pneumonia. Suspect a small right pleural effusion. The left lung is grossly clear noting basilar atelectasis. No pneumothorax is seen. The skeletal structures are osteopenic. Known thoracic spinal metastases are not well visualized by x-ray. The bony thorax is grossly intact. Arthritic change is seen in the shoulders. IMPRESSION: 1. Airspace consolidation at the right lung base is typical for pneumonia/aspiration pneumonitis. Clinical correlation will be required and radiographic follow-up to resolution is recommended. 2. Cardiomegaly without radiographic evidence of congestive failure. ACT 112: Negative or not required by law. Electronically signed by: Abel Adams M.D. 08/30/2023 12:[address] 08/30/23 11:56 CT SCAN OF THE BRAIN WITHOUT IV CONTRAST CLINICAL HISTORY: Change in mental status. COMPARISON STUDY: CT of the brain dated 10/29/2016. TECHNIQUE: Unenhanced axial CT scan of the brain is performed from the vertex to the skull base. A dose lowering technique was utilized adhering to the principles of ALARA. CT DOSE: 1375.09 mGy.cm FINDINGS: Brain parenchyma: There is age-related involutional change noting mild subcortical and periventricular microangiopathic disease. There is no hemorrhage, mass effect, or evidence of acute territorial ischemia by CT criteria. Diane-white matter differentiation is preserved. No extra-axial fluid collection is seen. Ventricles, sulci, cisterns: Prominent secondary to involutional change. Intracranial vasculature: There is atherosclerotic calcification of the cavernous carotid and vertebral arteries. Calvarium: Unremarkable. Sinuses and mastoids: There is trace mucosal thickening within the maxillary antra and ethmoid sinuses. The remaining paranasal sinuses are clear. The mastoid air cells are well pneumatized. Cerumen is noted in the external auditory canals. Orbits: The bony orbits are grossly intact. There are bilateral ocular lens implants. IMPRESSION: There is no hemorrhage, mass effect, or evidence of acute territorial ischemia by CT criteria. ACT 112: Negative or not required by law. Electronically signed by: Abel Adams M.D. 08/30/2023 1:05 PM Discharge Plan Visit Data Chief Complaint: Respiratory Distress ED Provider: Nadir Ludwig Discharge Problem: Respiratory failure, Sepsis, Pneumonia Forms Stand Alone Forms: My [facility] Prescriptions Prescriptions: No Action cyanocobalamin (vitamin B-12) 1,000 mcg capsule 1,000 mcg PO DAILY trazodone 50 mg tablet 25 mg PO HS rosuvastatin [Crestor] 5 mg tablet 5 mg PO DAILY senna 8.6 mg capsule 17.2 mg PO HS PRN (Reason: constipation) polyethylene glycol 3350 [Miralax] 17 gram/dose powder 17 g PO DAILY PRN (Reason: constipation) venlafaxine 37.5 mg capsule,extended release 24hr 37.5 mg PO DAILY multivitamin Tablet 1 tab PO DAILY docusate sodium [Colace] 100 mg capsule 200 mg PO DAILY venlafaxine [Effexor XR] 150 mg capsule,extended release 24hr 150 mg PO DAILY naloxone 4 mg/actuation spray,non-aerosol 1 spray intranasal Q3M PRN (Reason: opioid overdose) Qty: 2 0RF Rx Instructions: administer 1 dose into ONE nostril; alternate nostrils w each dose until assistance arrives warfarin 5 mg tablet See Rx Instructions PO UD Rx Instructions: 2.5mg q Sun, 5mg x 6 days per [facility] orally use as directed dexamethasone 0.5 mg tablet 1 mg PO DAILY 30 Days Qty: 60 2RF oxycodone 15 mg tablet 15 mg PO Q4H PRN (Reason: pain) 30 Days Qty: 150 0RF Rx Instructions: dose increased fentanyl 50 mcg/hr patch 72 hour 1 patch transdermal Q72H 30 Days Qty: 10 0RF [place]-3 350 mg-235 mg- 90 mg-597 mg Capsule,Delayed Release(Dr/Ec) 1 tab PO QAM donepezil 10 mg tablet 10 mg PO DAILY calcium carbonate-vitamin D3 [Calcium 500 + D (D3)] 500 mg(1,250mg) -125 unit tablet 1 tab PO DAILY gabapentin 300 mg Capsule 300 mg PO TID fentanyl 25 mcg/hr patch 72 hour 25 mcg transdermal Q72H Referrals Referrals: Lidya Barbour MD [Primary Care Provider] - Discharge Problem: Respiratory failure Qualifiers: Chronicity: acute Respiratory failure complication: hypoxia Qualified Code(s): J96.01 - Acute respiratory failure with hypoxia Sepsis Qualifiers: Sepsis type: sepsis due to unspecified organism Sepsis acute organ dysfunction status: unspecified Qualified Code(s): A41.9 - Sepsis, unspecified organism Pneumonia Qualifiers: Pneumonia type: due to unspecified organism Laterality: unspecified laterality
[2023-08-30] MEDS ORDERED: VANCOMYCIN CONSULT ACTIVE PRN (12:03)
[2023-08-30] MEDS ORDERED: VANCOMYCIN HCL 1,750 MG in SODIUM CHLORIDE 0.9% 500 ML IV ONE (12:03)
[2023-08-30] MEDS: SODIUM CHLORIDE 0.9% 1,000 ML IV SCH ×2 (12:12→12:34)
[2023-08-30 12:28] LABS: iSTAT Creatinine 1.2 mg/dl (0.6-1.3); iSTAT Hemoglobin 13.3 g/dl (14.0-18.0); iSTAT Ionized Calcium 1.11 mmol/l (1.12-1.32); iSTAT Potassium 3.9 mmol/L (3.3-5.0)
--- NOTE | 2023-08-30 12:29 | XRay Report ---
SINGLE VIEW CHEST CLINICAL HISTORY: Sepsis. FINDINGS: An AP, portable, upright chest radiograph is compared to study dated 07/31/2016 and correla ja with chest CT dated 03/04/2022. Correlation is made with PET/CT dated 06/11/2023. The heart is enla rged. The pulmonary vasculature is noncongested. Chronic mucosal thickening similar to previous. Airs pace consolidation there is typical for pneumonia. Suspect a small right pleural effusion. The left l zahraa is grossly clear noting basilar atelectasis. No pneumothorax is seen. The skeletal structures are osteopenic. Known thoracic spinal metastases are not well visualized by x-ray. The bony thorax is gr ossly intact. Arthritic change is seen in the shoulders. IMPRESSION: 1. Airspace consolidation at the right lung base is typical for pneumonia/aspiration pneumonitis. Cli nical correlation will be required and radiographic follow-up to resolution is recommended. 2. Cardiomegaly without radiographic evidence of congestive failure. ACT 112: Negative or not required by law. Electronically signed by: Abel Adams M.D. 08/30/2023 12:27 PM
[2023-08-30 12:30] LABS: Base Excess VBG 1.8 mEq/L; HCO3 VBG 27 mmol/L; Oxygen Saturation VBG < 60.0 %; PCO2 VBG 45 mmHg (38-50); PO2 VBG 35 mmHg; pH VBG 7.39 (7.36-7.41)
[2023-08-30 12:36] LABS: Hematocrit (blood only) 40.3 % (42.0-52.0); Mean Corpuscular Hemoglobin 31.8 pg (25.0-34.0); Mean Corpuscular Hgb Conc 32.3 g/dL (32.0-36.0); Mean Corpuscular Volume 98.5 fL (80.0-100.0); Nucleated RBC # (auto) 0.02 K/uL (0.00-0.12); Nucleated RBC % (auto) 0.2 %; Platelet Count 204 K/uL (130-400); RDW Coefficient of Variation 15.2 % (11.5-14.5); RDW Standard Deviation 55.3 fL (36.4-46.3); Red Blood Count 4.09 M/uL (4.70-6.10); White Blood Count 10.02 K/ul (4.8-10.8)
[2023-08-30 12:56] LABS: Appearance Urine Clear (Clear); Bilirubin Urine Negative (Negative); Blood Urine Negative (Negative); Color Urine Yellow; Glucose Urine UA Negative (Negative); Ketones Urine Negative (Negative); Leukocyte Esterase Urine Negative (Negative); Nitrite Urine Negative (Negative); Protein Urine Negative (Negative); Specific Gravity Urine 1.017 (1.000-1.030); Urobilinogen Urine Negative (Negative)
[2023-08-30] MEDS ORDERED: SODIUM CHLORIDE 0.9% 500 ML IV ONE ×2 (12:56→14:48)
[2023-08-30 12:58] LABS: Basophils # (auto) 0.04 K/uL (0.00-0.20); Basophils % (auto) 0.4 %; Eosinophils # (auto) 0.09 K/uL (0.00-0.50); Eosinophils % (auto) 0.9 %; Immature Granulocytes # (auto) 0.05 K/uL (0.01-0.20); Immature Granulocytes % (auto) 0.5 %; Lymphocytes # (auto) 1.09 K/uL (1.20-3.40); Lymphocytes % (auto) 10.9 %; Monocytes # (auto) 0.82 K/uL (0.11-0.59); Monocytes % (auto) 8.2 %; Neutrophils # (auto) 7.93 K/uL (1.40-6.50); Neutrophils % (auto) 79.1 %; Ovalocytes 1+; Polychromasia 1+; Toxic Vacuolation 1+
[2023-08-30 12:59] LABS: BUN Creatinine Ratio 14.4 (10-20); Calcium 8.2 mg/dl (8.6-10.3); Creatinine Clr Calc Pharmacy 57.9 ml/min; Est GFR (African American) 65.7 ml/min; Est GFR (Non-African American) 56.7 ml/min; Potassium 3.9 mmol/L (3.5-5.1)
[2023-08-30 13:02] LABS: Albumin Level 3.2 gm/dl (3.4-5.0); Bilirubin Direct 0.2 mg/dl (0-0.2); Bilirubin,Total 0.9 mg/dl (0.2-1.0); Magnesium 1.6 mg/dl (1.7-2.4)
[2023-08-30 13:03] LABS: INR 2.4 (0.9-1.1); Prothrombin Time 24.4 Seconds (9.0-12.0)
[2023-08-30 13:05] LABS: Troponin I High Sensitivity 22.7 pg/ml (0-20)
--- NOTE | 2023-08-30 13:06 | CT Scan Report ---
CT SCAN OF THE BRAIN WITHOUT IV CONTRAST CLINICAL HISTORY: Change in mental status. COMPARISON STUDY: CT of the brain dated 10/29/2016. TECHNIQUE: Unenhanced axial CT scan of the brain is performed from the vertex to the skull base. A do se lowering technique was utilized adhering to the principles of ALARA. CT DOSE: 1375.09 mGy.cm FINDINGS: Brain parenchyma: There is age-related involutional change noting mild subcortical and periventricula r microangiopathic disease. There is no hemorrhage, mass effect, or evidence of acute territorial isc hemia by CT criteria. Diane-white matter differentiation is preserved. No extra-axial fluid collection is seen. Ventricles, sulci, cisterns: Prominent secondary to involutional change. Intracranial vasculature: There is atherosclerotic calcification of the cavernous carotid and vertebr al arteries. Calvarium: Unremarkable. Sinuses and mastoids: There is trace mucosal thickening within the maxillary antra and ethmoid sinuse s. The remaining paranasal sinuses are clear. The mastoid air cells are well pneumatized. Cerumen is noted in the external auditory canals. Orbits: The bony orbits are grossly intact. There are bilateral ocular lens implants. IMPRESSION: There is no hemorrhage, mass effect, or evidence of acute territorial ischemia by CT crit gi. ACT 112: Negative or not required by law. Electronically signed by: Abel Adams M.D. 08/30/2023 1:05 PM
[2023-08-30 13:12] LABS: Adenovirus PCR Not Detected (NotDetected); Bordetella parapertussis PCR Not Detected (NotDetected); Bordetella pertussis PCR Not Detected (NotDetected); Chlamydia pneumoniae PCR Not Detected (NotDetected); Coronavirus 229E PCR Not Detected (NotDetected); Coronavirus CoV-2 (COVID19)PCR Not Detected (NotDetected); Coronavirus HKU1 PCR Not Detected (NotDetected); Coronavirus NL63 PCR Not Detected (NotDetected); Coronavirus OC43PCR Not Detected (NotDetected); Human Metapneumovirus PCR Not Detected (NotDetected); Influenza A PCR Not Detected (NotDetected); Influenza B PCR Not Detected (NotDetected); Mycoplasma pneumoniae PCR Not Detected (NotDetected); Parainfluenza Virus 1 PCR Not Detected (NotDetected); Parainfluenza Virus 2 PCR Not Detected (NotDetected); Parainfluenza Virus 3 PCR Not Detected (NotDetected); Parainfluenza Virus 4 PCR Not Detected (NotDetected); Respiratory Syncytial VirusPCR Not Detected (NotDetected); Rhinovirus/Enterovirus PCR Not Detected (NotDetected)
[2023-08-30] MEDS ORDERED: PIPERACILLIN/TAZOBACTAM 4.5 GM in DEXTROSE 5% MINI-B 100 ML IV ONE (13:39)
[2023-08-30] MEDS ORDERED: MAGNESIUM SULFATE / D5W 1 GM/100 ML BAG IV STA (13:50)
--- NOTE | 2023-08-30 13:58 | History & Physical Report ---
Date of Service August 30, 2023 Assessment & Plan (1) Acute metabolic encephalopathy: (2) Sepsis: (3) Acute hypoxic respiratory failure: (4) Pneumonia: (5) Lactic acidosis: (6) Rhabdomyolysis: (7) Hypomagnesemia: (8) Metastatic adenocarcinoma to prostate: (9) History of DVT (deep vein thrombosis): (10) Chronic anticoagulation: Plan: This is an 82-year-old male who has a significant past medical history of metastatic prostate cancer to bone, diet-controlled T2DM, chronic DVT on warfarin, asthma, dementia, chronic pain and depression with anxiety who presents to ED via EMS secondary to unresponsiveness. Acute metabolic encephalopathy Acute hypoxic respiratory failure Severe Sepsis Right lower lobe pneumonia -likely aspiration Lactic acidosis Admit to PCU continue supplemental oxygen received vanco/cefepime in ED will place on IV zosyn and doxy for now likely aspiration as hx states he choked on his pills carbon cutter on 08/29 and is immunosuppressed blood culture pending IV solumedorl 40 q8h IVF 80cc/hr x2L re eval fluid needs at that time trend lactate consult speech for swallow eval consider pulm consult if worsens pulm toilet with ISP, nebs, flutter valve consider vibration vest Elevated trop likely demand ischemia in setting of sepsis no st t wave changes, no chest pain will trend Rhabdomyolysis, nontraumatic setting of sepsis hold statin, continue IVF, trend CK Hypomagnesemia 1.6, replete Metastatic prostate to bone Chronic pain Follows with Dr. Senior, Dr. Barbour for radiation and cynthia Wilson for pain manage Continue fentanyl patch, will hold as needed oxycodone until encephalopathy He takes oxycodone for severe left hip pain Chronic DVT Long-term anticoagulation Continue warfarin, INR therapeutic Diet controlled T2DM Monitor fasting glucose Last A1c 6.0 in December, will repeat Dementia Depression with anxiety continue Effexor, trazodone, aricept DVT ppx: Warfarin FULL CODE Dispo: PCU PCP: Lidya Barbour Pt was seen and examined in collaboration with Dr. Skinner, please see addendum CBC, CMP, Mag, Trop, A1c, CK ordered for am. A total of 89 was spent coordinating, documenting, and providing care for this patient excluding time spent in the performance of separately billed services. This included personally viewing all current laboratories and imaging studies, medication reconciliation, outpatient chart review, and discussion with specialists. 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 Patient's is at bedside to elicit history. She states he was in his normal state of health unti l yesterday. Yesterday morning he was taking his morning pills whenever he started choking on them. He then tried to eat a cookie and continue to have difficulty swallowing. Since that time he had gotten a deeper voice. Later on throughout the day he developed a wet cough. Last night when he went to bed she felt his head felt warm, but did not take his temperature. She also started to note some congestion in his chest. She states he got up to go the bathroom in the middle the night and had difficulty getting back in bed; therefore, she helped him. When she woke up this morning he was still sleeping and she felt maybe he was tired at due to feeling ill. She thought maybe he was starting to get the flu. She went in to see him at approximately 10 AM whenever she was not able to arouse him despite numerous attempts including a wet washcloth and pulling the pillow out from under him. She then noticed his toenails were blue and therefore called EMS. He was noted to be hypoxic in the 60s upon their arrival. He was placed on a nonrebreather.En route he received 1 g of Tylenol as well as IV fluids and his mentation started to improve slightly. In ED patient meets sepsis criteria in setting of fever, tachycardia and chest x-ray with evidence of significant right-sided lower lobe pneumonia. He currently is hypoxic saturating in the low 90s on 5 L of oxygen. He was ordered IV cefepime, IV vancomycin and IV fluids. His CBC, CMP, VBG, troponin, CK, lactate, urinalysis, respiratory BioFire panel was independently interpreted by myself. His H&H is 13.0 and 40.3. He does not have a significant leukocytosis. His INR is therapeutic at 2.4. He does have a mildly elevated lactic acid at 2.1, elevated troponin at 22.7 and significantly elevated total creatinine kinase 25 87. His urinalysis and respiratory bio fire panel is negative. Initial head CT negative for acute abnormality. ROS limited but pt does complain of L hip pain and cough. He denies any chest pain, dizziness, lightheaded, BEE, neck pain, neck stiffness, n/v/d, abd pain, difficulty with bowel/bladder prior to today. Of significance in regards to patient's prostate cancer he follows with Dr. Senior. He also follows with Dr. Barbour of radiation oncology. Currently he is receiving Lupron, Zometa and has received palliative radiation. He is on chronic anticoagulation therapy and this is managed by Dr. Saravia. He follows with pain management and Jyoti Dick due to chronic pain in setting of metastatic prostate cancer. He is on a regimen of a 75 mcg fentanyl patch every 72 hours as well as 15 mg oxycodone every 4 hours as needed. states he typically takes this approximately twice a day. He is to follow with Dr. Cee of orthopedics this coming week due to chronic left hip pain. Initially there was concern this may be related to prostate cancer, but this has since been ruled out. Allergies Allergy/AdvReac Type Severity Reaction Status Date / Time No Known Drug Allergies Allergy Unknown NONE Verified 06/17/23 08:31 house dust AdvReac Mild ITCHY Verified 06/17/23 08:31 EYES, RUNNY NOSE ragweed pollen AdvReac Unknown RASH Verified 06/17/23 08:31 Home Medications Medication Instructions Recorded Confirmed Type omega 3 350 mg-dha 235 mg-epa 90 1 tab PO QAM 05/26/18 08/30/23 History mg-fish oil 597 mg capsule,delay rel (Morgan-3) cyanocobalamin (vitamin B-12) 1,000 mcg PO DAILY 03/10/19 08/30/23 History 1,000 mcg capsule donepezil 10 mg tablet 10 mg PO DAILY 11/08/19 08/30/23 History calcium carbonate 500 mg-vitamin 1 tab PO DAILY 10/03/20 08/30/23 History D3 3.125 mcg (125 unit) tablet (Calcium) docusate sodium 100 mg capsule 200 mg PO DAILY 10/03/20 08/30/23 History (Colace) multivitamin 1 tab PO DAILY 10/03/20 08/30/23 History naloxone 4 mg/actuation nasal spray 1 spray intranasal Q3M PRN opioid 03/12/21 08/30/23 Rx overdose #2 ea rosuvastatin 5 mg tablet (Crestor) 5 mg PO DAILY 12/26/21 08/30/23 History polyethylene glycol 3350 17 17 g PO DAILY PRN constipation 10/15/22 08/30/23 History gram/dose oral powder (Miralax) sennosides 8.6 mg capsule (senna) 17.2 mg PO HS PRN constipation 10/15/22 08/30/23 History trazodone 50 mg tablet 25 mg PO HS sleep 05/08/23 08/30/23 History venlafaxine 150 mg 150 mg PO DAILY 05/08/23 08/30/23 History capsule,extended release 24 hr (Effexor XR) venlafaxine 37.5 mg 37.5 mg PO DAILY 05/08/23 08/30/23 History capsule,extended release 24 hr dexamethasone 0.5 mg tablet 1 mg (2 x 0.5 mg) PO DAILY bone 06/26/23 08/30/23 Rx pain left posterior hip and back 30 days #60 tabs oxycodone 15 mg tablet 15 mg PO Q4H PRN pain 1 month #150 06/26/23 08/30/23 Rx tabs fentanyl 50 mcg/hr transdermal 1 patch transdermal Q72H very 07/31/23 08/30/23 Rx patch severe cancer pain 1 month #10 ea warfarin 5 mg tablet See Rx Instructions PO UD 08/14/23 08/30/23 History fentanyl 25 mcg/hr transdermal 25 mcg transdermal Q72H 08/30/23 08/30/23 History patch gabapentin 300 mg capsule 300 mg PO TID 08/30/23 08/30/23 History Past Med/Surg History Medical History Palliative care by specialist Cancer related pain Chronic anticoagulation Sacroiliac joint pain Trochanteric bursitis Avascular necrosis of bone of left hip (~06/26/23) History of DVT (deep vein thrombosis) History of skin cancer Hypertension Prostate cancer 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 ADVISED TO HOLD DOS.); Hx Alcohol Use: Yes Alcohol type: beer Hx Substance Use: No Preferred Language: Armenian Communication Ability: Effective Hearing Ability: Normal Countersinker Balance Screw Hole Required: No Beliefs That Will Affect Care: None marital status: Current Living Situation: Spouse current occupational status: retired current occupation: retired Feels Safe at Home: Yes Assistive Devices: Glasses Review of Systems Review of Systems: Unobtainable due to cognitive status and Unobtainable due to reduced consciousness Physical Exam Physical Exam: Constitutional: Critically ill male, no acute distress, nonrebreather in place, vitals as above, sitting up in bed, awake and alert and responds to verbal stimuli Head: Normocephalic, Atraumatic Eyes: conjunctivae normal, anicteric sclerae ENMT: external ear and nose normal, oropharynx normal, mucous membranes dry Neck: trachea midline, no thyromegaly normal visual inspection Respiratory: normal respiratory effort, course breath sounds throughout + rhonchi. Normal insp/exp effort, no accessory muscle use Cardiovascular: tachycardic rate, reg rhythm, no murmur, no edema, b/l venous stasis changes Vessels: no JVD or carotid bruit Chest: normal inspection of chest Abdomen: normal bowel sounds, soft, nontender, no hepatosplenomegaly Musculoskeletal: no cyanosis or clubbing, extremities AROM x 4 Skin: no rashes, warm and dry normal turgor Neurologic: PERRL, EOMI, accommodation nl, no face palsy, no dysarthria CN's II-XI intact bilaterally and moves all extremities Psychiatric: A+Ox1 self/, not oriented to date/time/place, euthymic affect : naranjo cath draining yellow urine Results & Data Results & Data Vital Signs (Past 12 Hours) Vital Signs Temp Pulse Resp BP Pulse Ox O2 Del Method O2 Flow Rate 08/30/23 13:02 104 H 14 112/64 91 Oxymask 5 08/30/23 12:45 105 H 100/67 93 Oxymask 5 08/30/23 12:30 107 H 97/66 L 92 Oxymask 5 08/30/23 12:29 107 H 08/30/23 12:15 110 H 95/62 L 92 08/30/23 12:13 110 H 99/70 L 96 Oxymask 5 08/30/23 12:09 Oxymask 5 08/30/23 12:05 38.8 C H 114 H 20 100/63 95 Non-rebreather 08/30/23 11:55 106 H 100/63 08/30/23 11:47 114 H 95 Oxymask 5 08/30/23 11:30 95 Oxymask 5 Laboratory Results I have independently reviewed and interpreted patient's admitting labs including CBC, CMP, PTT, PT/INR, mag, ck, lactate, and troponin. As well as biofire, UA, PT/INR. Diagnostic Findings Chest X-Ray 08/30/23 11:47 SINGLE VIEW CHEST CLINICAL HISTORY: Sepsis. FINDINGS: An AP, portable, upright chest radiograph is compared to study dated 07/31/2016 and correlated with chest CT dated 03/04/2022. Correlation is made with PET/CT dated 06/11/2023. The heart is enlarged. The pulmonary vasculature is noncongested. Chronic mucosal thickening similar to previous. Airspace consolidation there is typical for pneumonia. Suspect a small right pleural effusion. The left lung is grossly clear noting basilar atelectasis. No pneumothorax is seen. The skeletal structures are osteopenic. Known thoracic spinal metastases are not well visualized by x-ray. The bony thorax is grossly intact. Arthritic change is seen in the shoulders. IMPRESSION: 1. Airspace consolidation at the right lung base is typical for pneumonia/aspiration pneumonitis. Clinical correlation will be required and radiographic follow-up to resolution is recommended. 2. Cardiomegaly without radiographic evidence of congestive failure. ACT 112: Negative or not required by law. Electronically signed by: Abel Adams M.D. 08/30/2023 12:[address] 08/30/23 11:56 CT SCAN OF THE BRAIN WITHOUT IV CONTRAST CLINICAL HISTORY: Change in mental status. COMPARISON STUDY: CT of the brain dated 10/29/2016. TECHNIQUE: Unenhanced axial CT scan of the brain is performed from the vertex to the skull base. A dose lowering technique was utilized adhering to the principles of ALARA. CT DOSE: 1375.09 mGy.cm FINDINGS: Brain parenchyma: There is age-related involutional change noting mild subcortical and periventricular microangiopathic disease. There is no hemorrhage, mass effect, or evidence of acute territorial ischemia by CT criteria. Diane-white matter differentiation is preserved. No extra-axial fluid collection is seen. Ventricles, sulci, cisterns: Prominent secondary to involutional change. Intracranial vasculature: There is atherosclerotic calcification of the cavernous carotid and vertebral arteries. Calvarium: Unremarkable. Sinuses and mastoids: There is trace mucosal thickening within the maxillary antra and ethmoid sinuses. The remaining paranasal sinuses are clear. The mastoid air cells are well pneumatized. Cerumen is noted in the external auditory canals. Orbits: The bony orbits are grossly intact. There are bilateral ocular lens implants. IMPRESSION: There is no hemorrhage, mass effect, or evidence of acute territorial ischemia by CT criteria. ACT 112: Negative or not required by law. Electronically signed by: Abel Adams M.D. 08/30/2023 1:05 PM Medications Administered Current Inpatient Medications Vancomycin HCl 1,750 mg/ (Sodium Chloride) 535 mls @ 200 mls/hr IV NOW ONE Stop: 08/30/23 14:32 Last Admin: 08/30/23 12:34 Dose: 200 mls/hr Piperacillin Sod/Tazobactam (Sod 4.5 gm/ Dextrose) 100 mls @ 200 mls/hr IV NOW ONE; Protocol Stop: 08/30/23 14:08 Last Admin: 08/30/23 13:54 Dose: 200 mls/hr Magnesium Sulfate/Dextrose (Magnesium Sulfate / D5w) 1 gm in 100 mls @ 100 mls/hr IV NOW STA Stop: 08/30/23 14:49 Miscellaneous Information (Vancomycin Consult Active) 1 each N/A UD PRN PRN Reason: Consult Stop: 09/29/23 12:02 ECG Additional Comments: I have independently reviewed and interpreted patient's admitting EKG which revealed: 105, ST, nonspecific st t wave changes, artifact Code Status & VTE Plan Code Status FULL CODE VTE Prophylaxis Plan VTE Prophylaxis will be ordered: No Supervising Physician Co-Signing Physician Notes Care coordinated with Flower Wilson PA-C. Agree with above note. Patient seen and examined. Please refer to her notes for full details. Vital signs reviewed. Physical exam: General exam: Alert and awake oriented x 2 . Not in acute distress. CVS: S1 and S2 heard, regular rate and rhythm, no murmurs. RS: Clear to auscultation, b/l ronchi ABD: Soft, bowel sounds present, nontender, no distention. IMAGE ARCHIVIST: alert and oriented x2 obeys simple commands, moves extremities. EXT: No edema, no erythema. Labs: Reviewed. Assessment and plan: 82M with hx of metastatic prostrate cancer, chronic pain on pain meds, hx of DVT on Coumadin, DM was found to be unresponsive today am. For EMS his oxygen sats were in 60;'s.He was placed on non rebreather, given tylenol and fluids and brought to ER. He was spiking temp. noticed choking on pills and cookie yesterday. CXR showed possible aspiration pneumonia. HIS mental status was better in ER. Initially he was only oriented to name . By Evening he was oriented x2. Has difficulty with dates. He was more alert and answering simple questions. CT head was ok. Whole day he was saturating fine on 5lts but in evening he was requiring 11lts.Neb was given.Received fluids for sepsis. Got repeat cxr but no congestion seen. Sepsis Aspiration pneumonia lactic acid 2.1 to 3.0 to 1.6 received iv vanco and cefepime in er placed on iv zosyn and doxy mrsa screen iv fluids ns@100ml/hr on dexamethasone 1mg at home rhonchi on exam placed on solumedrol 40mg tid close monitor Hypoxia from aspiration pneumonia initially required 5lts currently requiring 11lts repeat cxr no congstion nebs prn close monitor. Chronic pain continue fentanyl patch held po pain meds if mental status worsens need to d/c fentanyl patch close monitor. Rhabdomyolysis iv fluids follow repeat labs. Hx of DVT on coumadin inr 2.4 Other diagnosis and plan of care as per Flower Wilson PA-C.. Hemant dale MD. (2) Sepsis Sepsis acute organ dysfunction status: with acute organ dysfunction Sepsis type: sepsis due to unspecified organism Severe sepsis acute organ dysfunction type: encephalopathy Severe sepsis shock status: without septic shock Qualified Code(s): A41.9 - Sepsis, unspecified organism; R65.20 - Severe sepsis without septic shock; G93.41 - Metabolic encephalopathy (4) Pneumonia Aspiration pneumonia type: due to regurgitated food Laterality: right Lung location: lower lobe of lung Pneumonia type: aspiration pneumonia Qualified Code(s): J69.0 - Pneumonitis due to inhalation of food and vomit (6) Rhabdomyolysis Rhabdomyolysis type: non-traumatic Qualified Code(s): M62.82 - Rhabdomyolysis
[2023-08-30] MEDS ORDERED: SODIUM CHLORIDE 0.9% 500 ML IV SCH (15:45)
[2023-08-30] MEDS ORDERED: ALBUTEROL 0.083% NEBU SOLN 3 ML VIAL ONE (19:28)
[2023-08-30] MEDS ORDERED: SODIUM CHLORIDE 0.9% 1,000 ML IV SCH (19:33)
[2023-08-30] MEDS ORDERED: MAGNESIUM HYDROXIDE SUSP 30 ML UDC PO PRN (19:33)
[2023-08-30] MEDS ORDERED: POLYETHYLENE (MIRALAX) 17 GM PACK PO PRN (19:33)
[2023-08-30] MEDS ORDERED: ALUMINUM/MAGNESIUM SUSP 30 ML UDC PO PRN (19:33)
[2023-08-30] MEDS ORDERED: ALBUTEROL 0.083% NEBU SOLN 3 ML VIAL NEB PRN (19:33)
[2023-08-30] MEDS ORDERED: ONDANSETRON INJ 2 MG/ML 2 ML VIAL IV PRN (19:33)
--- NOTE | 2023-08-30 19:56 | XRay Report ---
SINGLE VIEW CHEST CLINICAL HISTORY: Hypoxia. FINDINGS: 2 AP, portable, upright chest radiographs are compared to study performed earlier the same day 08/30/2023 and correlated with chest CT dated 03/04/2022. Correlation is made with PET/CT dated . The heart is enlarged. The pulmonary vasculature is noncongested. Chronic interstitial thick ening similar to previous. Airspace consolidation at the right lung base there is unchanged and typic al for pneumonia. Suspect a small right pleural effusion. The left lung is grossly clear noting basil ar atelectasis. No pneumothorax is seen. The skeletal structures are osteopenic. Known thoracic spina l metastases are not well visualized by x-ray. The bony thorax is grossly intact. Arthritic change is seen in the shoulders. IMPRESSION: 1. Airspace consolidation at the right lung base is unchanged from today's earlier examination. 2. Cardiomegaly without radiographic evidence of congestive failure. ACT 112: Negative or not required by law. Electronically signed by: Abel Adams M.D. 08/30/2023 7:54 PM
[2023-08-30] MEDS ORDERED: WARFARIN SOD 5 MG TAB PO SCH (20:00)
[2023-08-30] MEDS: methylPREDNISolone 40 MG in SYRINGE 0 ML IV SCH (21:32)
[2023-08-30] MEDS ORDERED: LEVALBUTEROL 1.25 MG/3 ML NEB NEB STA (21:46)
[2023-08-30] MEDS ORDERED: XOPENEX/ATROVENT 1.25mg/0.5MG NEB COMBO NEB STA (21:46)
[2023-08-30] MEDS ORDERED: ACETAMINOPHEN 325 MG TAB PO STA (21:50)
[2023-08-30] MEDS ORDERED: IPRATROPIUM BROMIDE NEB SOLN 0.02% 2.5 ML VIAL INH STA (21:50)
[2023-08-30] MEDS ORDERED: [UNRECOGNIZED DRUG - REMARK] SCH (21:59)
[2023-08-30] MEDS ORDERED: [UNRECOGNIZED DRUG - REMARK] SCH (21:59)
[2023-08-30] MEDS ORDERED: fentaNYL 25 MCG/HR TDSY TD SCH (22:00)
[2023-08-30] MEDS ORDERED: fentaNYL 50 MCG/HR TDSY TD SCH (22:00)
[2023-08-30] MEDS ORDERED: MAGNESIUM SULFATE / D5W 1 GM/100 ML BAG IV ONE (22:00)
[2023-08-30] MEDS: DOXYCYCLINE HYCLATE 100 MG in DEXTROSE 5% MINI-B 100 ML IV SCH (22:33)
[2023-08-30] MEDS: PIPERACILLIN/TAZOBACTAM 4.5 GM in DEXTROSE 5% MINI-B 100 ML IV SCH (22:33)
[2023-08-30] MEDS ORDERED: FUROSEMIDE INJ 20 MG/2 ML VIAL IV ONE (22:54)
[2023-08-30 23:16] LABS: Base Excess ABG -3.4 mEq/L (-9-1.8); HCO3 ABG 21 mmol/L (19-24); Oxygen Saturation ABG 94.9 % (90-95); PCO2 ABG 37 mmHg (35-46); PO2 ABG 67 mmHg (80-95); pH ABG 7.37 (7.35-7.45)
--- NOTE | 2023-08-30 23:19 | Communication Note ---
Date of Service: August 30, 2023 Patient noted to have bloody Lopez catheter drainage and urinary retention despite Lopez catheter replacement. Possible Lopez trauma during ER stay from patient trying to get out of bed as per RN. Hemoglobin 11 from 13 yesterday INR 2.2 AP Painful hematuria History metastatic prostate cancer as per records Acute on chronic anemia secondary to above, hemoglobin drop from baseline Coumadin coagulopathy, past history DVT Check UA CT abdomen pelvis Re: Painful hematuria Urology consult Re: Urinary tension, hematuria Hold Coumadin Vitamin K given hematuria causing significant hemoglobin drop Follow H&H, transfuse PRBC if hemoglobin less than 7 and or for symptomatic anemia Phone consent for prospective blood transfusion obtained from over the phone given patient dementia. Patient mentioned increased confusion at home from pain medicine. Continue to hold fentanyl patch given patient admission for delirium until follow-up evaluation inpatient by patient's palliative care provider (Dr. Wilson).
[2023-08-30 23:31] LABS: Allen Test Pos (Pos)
[2023-08-30] MEDS: POTASSIUM CHLORIDE / WTR 10 MEQ/100 ML PLCT IV SCH (23:57)
[2023-08-31] MEDS ORDERED: CHECK FENTANYL 50 MCG SCH
--- NOTE | 2023-08-31 00:10 | XRay Report ---
SINGLE VIEW CHEST CLINICAL HISTORY: Dyspnea. FINDINGS: An AP, portable, upright chest radiograph is compared to study of performed earlier the day 08/30/2023 and correlated with chest CT dated 03/04/2022. Correlation is made with PET/CT dated 06/11/2023. The heart is enlarged. The pulmonary vasculature is noncongested. Chronic interstitial th ickening similar to previous. Airspace consolidation in the right middle lower lung has minimally inc reased from examination. Suspect a small right pleural effusion. The left lung is grossly clear notin g basilar atelectasis. No pneumothorax is seen. The skeletal structures are osteopenic. Known thoraci c spinal metastases are not well visualized by x-ray. The bony thorax is grossly intact. Arthritic ch erin is seen in the shoulders. IMPRESSION: 1. Airspace consolidation in the right mid to lower lung has minimally increased as compared to today 's earlier examinations. 2. Cardiomegaly without radiographic evidence of congestive failure. ACT 112: Negative or not required by law. Electronically signed by: Abel Adams M.D. 08/31/2023 12:08 AM
[2023-08-31] MEDS: POTASSIUM CHLORIDE / WTR 10 MEQ/100 ML PLCT IV SCH (01:13)
[2023-08-31] MEDS ORDERED: ACETAMINOPHEN 1,000 MG/100 ML VIAL IV STA (02:43)
[2023-08-31 03:57] LABS: Albumin Globulin Ratio 1.1 (0.9-2); Albumin Level 2.8 gm/dl (3.4-5.0); BUN Creatinine Ratio 16.8 (10-20); Bilirubin,Total 1.1 mg/dl (0.2-1.0); Calcium 7.7 mg/dl (8.6-10.3); Creatinine Clr Calc Pharmacy 52.1 ml/min; Est GFR (African American) 57.9 ml/min; Globulin 2.5 gm/dl (2.5-4.0); Magnesium 2.1 mg/dl (1.7-2.4); Potassium 4.3 mmol/L (3.5-5.1); Total Protein 5.3 gm/dl (6.0-8.3)
[2023-08-31 04:03] LABS: Basophils # (auto) 0.02 K/uL (0.00-0.20); Basophils % (auto) 0.3 %; Dohle Bodies 1+; Hematocrit (blood only) 34.5 % (42.0-52.0); Hemoglobin 11.5 g/dl (14.0-18.0); Immature Granulocytes # (auto) 0.03 K/uL (0.01-0.20); Immature Granulocytes % (auto) 0.4 %; Lymphocytes # (auto) 0.24 K/uL (1.20-3.40); Lymphocytes % (auto) 3.2 %; Mean Corpuscular Hemoglobin 32.1 pg (25.0-34.0); Mean Corpuscular Hgb Conc 33.3 g/dL (32.0-36.0); Mean Corpuscular Volume 96.4 fL (80.0-100.0); Mean Platelet Volume 10.1 fL (9.4-12.4); Monocytes # (auto) 0.35 K/uL (0.11-0.59); Monocytes % (auto) 4.7 %; Neutrophils # (auto) 6.88 K/uL (1.40-6.50); Neutrophils % (auto) 91.4 %; Platelet Count 160 K/uL (130-400); RDW Standard Deviation 52.9 fL (36.4-46.3); Red Blood Count 3.58 M/uL (4.70-6.10); White Blood Count 7.52 K/ul (4.8-10.8)
[2023-08-31 04:07] LABS: INR 2.2 (0.9-1.1)
[2023-08-31] MEDS: methylPREDNISolone 40 MG in SYRINGE 0 ML IV SCH ×3 (04:40→20:20)
[2023-08-31] MEDS: PIPERACILLIN/TAZOBACTAM 4.5 GM in DEXTROSE 5% MINI-B 100 ML IV SCH ×3 (04:50→20:37)
--- NOTE | 2023-08-31 04:52 | Urology Consultation ---
Date of Consultation August 31, 2023 Assessment & Plan (1) Urinary retention: As noted in the history of present illness the patient had an 18 [place] coud catheter placed secondary to urinary retention/hematuria. Approximately 1 hour after the Lopez catheter was placed I revisited the patient at the bedside and his Lopez catheter was patent and draining some blood-tinged urine. Would recommend keeping the Lopez catheter to gravity drainage If the patient's Lopez catheter becomes clogged can be manually irrigated and flushed. History of Present Illness Reason for Consultation: Hematuria and urinary retention Attending Physician: Hemant Skinner MD History of Present Illness I was contacted by the shift supervisor film processing urologist noting that patient previously had a Lopez catheter in that was inadvertently pulled out. The patient, earlier this evening, noted to the floor nurses that he was having some suprapubic dis comfort. The patient was bladder scanned for in excess of 300 cc of urine. Nursing staff attempted to place a Lopez catheter success and therefore urology was consulted. I arrived to the floor patient noted he did have some suprapubic discomfort. He did consent to me attempting to place a Lopez catheter. Patient's chart was reviewed and patient does not have any listed allergies to latex or Betadine. I attempted to place a regular 16 [place] Lopez without success under sterile conditions. I therefore obtained an 18 [place] coud catheter and under sterile conditions was able to place this catheter. Upon placing the Lopez blood-tinged urine immediately began draining. There were no clots noted in the catheter. The patient's foreskin was replaced to the anatomic position to prevent a paraphimosis. I then flushed and irrigated the catheter which was performed easily. The patient was bladder scan immediately following this procedure and there is only 10 cc of residual urine left. The patient noted that his suprapubic discomfort had improved. Allergies Allergy/AdvReac Type Severity Reaction Status Date / Time No Known Drug Allergies Allergy Unknown NONE Verified 06/17/23 08:31 house dust AdvReac Mild ITCHY Verified 06/17/23 08:31 EYES, RUNNY NOSE ragweed pollen AdvReac Unknown RASH Verified 06/17/23 08:31 Home Medications Medication Instructions Recorded Confirmed Type omega 3 350 mg-dha 235 mg-epa 90 1 tab PO QAM 05/26/18 08/30/23 History mg-fish oil 597 mg capsule,delay rel ([place]ook-3) cyanocobalamin (vitamin B-12) 1,000 mcg PO DAILY 03/10/19 08/30/23 History 1,000 mcg capsule donepezil 10 mg tablet 10 mg PO DAILY 11/08/19 08/30/23 History calcium carbonate 500 mg-vitamin 1 tab PO DAILY 10/03/20 08/30/23 History D3 3.125 mcg (125 unit) tablet (Calcium) docusate sodium 100 mg capsule 200 mg PO DAILY 10/03/20 08/30/23 History (Colace) multivitamin 1 tab PO DAILY 10/03/20 08/30/23 History naloxone 4 mg/actuation nasal spray 1 spray intranasal Q3M PRN opioid 03/12/21 08/30/23 Rx overdose #2 ea rosuvastatin 5 mg tablet (Crestor) 5 mg PO DAILY 12/26/21 08/30/23 History polyethylene glycol 3350 17 17 g PO DAILY PRN constipation 10/15/22 08/30/23 History gram/dose oral powder (Miralax) sennosides 8.6 mg capsule (senna) 17.2 mg PO HS PRN constipation 10/15/22 08/30/23 History trazodone 50 mg tablet 25 mg PO HS sleep 05/08/23 08/30/23 History venlafaxine 150 mg 150 mg PO DAILY 05/08/23 08/30/23 History capsule,extended release 24 hr (Effexor XR) venlafaxine 37.5 mg 37.5 mg PO DAILY 05/08/23 08/30/23 History capsule,extended release 24 hr dexamethasone 0.5 mg tablet 1 mg (2 x 0.5 mg) PO DAILY bone 06/26/23 08/30/23 Rx pain left posterior hip and back 30 days #60 tabs oxycodone 15 mg tablet 15 mg PO Q4H PRN pain 1 month #150 06/26/23 08/30/23 Rx tabs fentanyl 50 mcg/hr transdermal 1 patch transdermal Q72H very 07/31/23 08/30/23 Rx patch severe cancer pain 1 month #10 ea warfarin 5 mg tablet See Rx Instructions PO UD 08/14/23 08/30/23 History fentanyl 25 mcg/hr transdermal 25 mcg transdermal Q72H 08/30/23 08/30/23 History patch gabapentin 300 mg capsule 300 mg PO TID 08/30/23 08/30/23 History Patient History Medical History Palliative care by specialist Cancer related pain Chronic anticoagulation Sacroiliac joint pain Trochanteric bursitis Avascular necrosis of bone of left hip (~06/26/23) History of DVT (deep vein thrombosis) History of skin cancer Hypertension Prostate cancer 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 ADVISED TO HOLD D OS.); Hx Alcohol Use: Yes Alcohol type: beer Hx Substance Use: No Preferred Language: Yoruba Communication Ability: Impaired Communication Ability Comment: Baseline Dementia, Hearing Ability: Normal Home Economist Required: No Beliefs That Will Affect Care: None marital status: Current Living Situation: Spouse current occupational status: retired current occupation: retired Other Information That Helps Us Care for You: No Feels Safe at Home: Yes Safety Concerns: Feels Safe At This Time Assistive Devices: Glasses Review of Systems Constitutional: no fever and no chills Gastrointestinal: + abdominal pain (Suprapubic discomfort) Genitourinary: + as per Subjective / HPI Physical Exam Gastrointestinal (Abdomen): Abdomen is soft and nonrigid. Palpation of the suprapubic region did appear to cause the patient some discomfort. Results & Data Vital Signs (Past 12 Hours) Vital Signs Temp Pulse Pulse Pulse Resp BP BP 08/31/23 03:45 37.5 C 77 18 107/68 08/30/23 22:15 37 C 85 18 143/83 H 08/30/23 22:07 83 22 08/30/23 19:50 91 H 19 08/30/23 19:40 90 19 08/30/23 19:31 89 18 08/30/23 19:30 84 19 133/78 08/30/23 19:24 133/78 08/30/23 19:24 82 16 08/30/23 19:20 84 20 08/30/23 19:10 88 19 08/30/23 19:00 87 18 151/88 H 08/30/23 18:08 85 19 117/63 08/30/23 17:08 90 08/30/23 17:00 94 H 17 115/67 Pulse Ox O2 Del Method O2 Flow Rate 08/31/23 03:45 99 Aerosol Mask 10 08/30/23 22:15 94 Oxymask 10 08/30/23 22:07 89 L Oxymask 13 08/30/23 19:50 08/30/23 19:40 93 08/30/23 19:31 91 Oxymask 11 08/30/23 19:30 92 Oxymask 5 08/30/23 19:24 08/30/23 19:24 89 L 08/30/23 19:20 83 L 08/30/23 19:10 75 L 08/30/23 19:00 91 Oxymask 5 08/30/23 18:08 98 Oxymask 5 08/30/23 17:08 08/30/23 17:00 93 Oxymask 5 PG Care Time/CCT Total # of Minutes Spent Total Time Spent with Patient: Total time spent is greater than 50% in coordination of care (as documented) at patient's floor/unit and/or counseling patient: Coding Level of Care Code 75244 INT INP/OBS CARE 2/55MIN Diagnoses Urinary retention R33.9
[2023-08-31] MEDS ORDERED: PHYTONADIONE 5 MG in DEXTROSE 5% 50 ML IV ONE (06:15)
[2023-08-31 07:16] LABS: Hematocrit (blood only) 35.1 % (42.0-52.0); Hemoglobin 11.4 g/dl (14.0-18.0)
[2023-08-31 07:34] LABS: Estimated Average Glucose 160 mg/dl; Hemoglobin A1C 7.2 % (4.5-5.6)
--- NOTE | 2023-08-31 08:30 | CT Scan Report ---
Exam(s): CT ABDOMEN + PELVIS Without Contrast EXAM: CT Abdomen and Pelvis Without Intravenous Contrast CLINICAL HISTORY: Reason for exam: painful hematuria. TECHNIQUE: Axial computed tomography images of the abdomen and pelvis without intravenous contrast. CTDI is 28.14 mGy and DLP is 1676.25 mGy-cm. Automated exposure control was utilized for the study. A dose lowering technique was utilized adhering to the principles of ALARA. COMPARISON: No relevant prior studies available. FINDINGS: Limitations: Limited evaluation in the absence of contrast. Lung bases: Dependent airspace disease in the lungs with bronchiectasis which may relate to chronic infection/aspiration changes. Pleural space: Small right pleural effusion. ABDOMEN: Liver: Unremarkable. Gallbladder and bile ducts: Unremarkable. No calcified stones. No ductal dilation. Pancreas: Unremarkable. No ductal dilation. Spleen: Unremarkable. No splenomegaly. Adrenals: Unremarkable. No mass. Kidneys and ureters: No evidence of radiopaque renal calculi or signs of collecting system dilatation. Stomach and bowel: Unremarkable. No obstruction. No mucosal thickening. PELVIS: Appendix: No findings to suggest acute appendicitis. Bladder: Lopez within the bladder with diffuse gas in the bladder dome. Cystitis not excluded. Consider correlation with laboratory values. Reproductive: Unremarkable as visualized. ABDOMEN and PELVIS: Intraperitoneal space: Surgical material and Catherine noted within the lower anterior abdomen. No free air. No significant fluid collection. Bones/joints: Abnormal sclerosis noted within the right symphysis pubis and left superior pubic ramus, inferior pubic ramus, and pubis symphysis. Abnormal sclerosis in the left acetabulum. Additional abnormal sclerosis noted within the thoracic spine. Findings may be due to osteoblastic metastatic disease. Please note that no history of metastatic disease was provided. Recommend further workup with bone scintigraphy and correlation with PSA values. Degenerative changes in the spine. Laminectomy changes noted at L4. No acute fracture. No dislocation. Soft tissues: Unremarkable. Vasculature: Atherosclerotic disease. No abdominal aortic aneurysm. Lymph nodes: Unremarkable. No enlarged lymph nodes. IMPRESSION: 1. Limited evaluation in the absence of contrast. 2. No evidence of radiopaque renal calculi or signs of collecting system dilatation. 3. Lopez within the bladder with diffuse gas in the bladder dome. Cystitis not excluded. Consider correlation with laboratory values. 4. Abnormal sclerosis noted within the right symphysis pubis and left superior pubic ramus, inferior pubic ramus, and pubis symphysis. Abnormal sclerosis in the left acetabulum. Additional abnormal sclerosis noted within the thoracic spine. Findings may be due to osteoblastic metastatic disease. Please note that no history of metastatic disease was provided. Recommend further workup with bone scintigraphy and correlation with PSA values. 5. Small right pleural effusion. 6. Dependent airspace disease in the lungs with bronchiectasis which may relate to chronic infection/aspiration changes. Electronically signed by: Vamsi Nicolas MD 08/31/23 08:30 AM
[2023-08-31] MEDS: DOXYCYCLINE HYCLATE 100 MG in DEXTROSE 5% MINI-B 100 ML IV SCH ×2 (09:18→20:40)
[2023-08-31] MEDS: OMEGA-3 (PURIFIED FISH OIL) 1 GM CAP PO SCH (09:19)
[2023-08-31] MEDS: DONEPEZIL HCL 10 MG TAB PO SCH (09:19)
[2023-08-31] MEDS: DOCUSATE SODIUM 100 MG CAP PO SCH (09:19)
[2023-08-31] MEDS: VENLAFAXINE HCL XR 37.5 MG CAPXR PO SCH (09:20)
[2023-08-31] MEDS: VENLAFAXINE HCL XR 150 MG CAPXR PO SCH (09:21)
--- NOTE | 2023-08-31 10:56 | Hospitalist Progress Note ---
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 Acute metabolic encephalopathy Acute hypoxic respiratory failure Severe Sepsis Right lower lobe pneumonia -likely aspiration Lactic acidosis Pt tachycardic, febrile at 38.8 with pulmonary infection Procalcitonin sig elevated at 29.72 lactate was elevated at 2.1 to 3.0 before being normal at 1.9 after fluid resuscitation Increased oxygen requirement Chest XR noted RML/RLL opacities, UA with no signs of infection received vanco/cefepime in ED Continue on IV zosyn and doxy blood culture x 2 pending, sputum Cx pending IV solumedorl 40 q8h (pt on dexamethasone at home) Received 2 bags of IVF consult speech for swallow eval- video swallow in AM pulm toilet with ISP, nebs, flutter valve Consider pulm consult Elevated trop hs-trop elevated at 22.7 to 32.6 to 30.5 Echo ordered and pending no st t wave changes on EKG, no chest pain likely demand ischemia in setting of sepsis Rhabdomyolysis, nontraumatic CK elevated at 2587 setting of sepsis hold statin, continue IVF, trend CK with AM labs Hypomagnesemia 1.6 on admission replete as needed Metastatic prostate to bone Chronic pain Follows with Dr. Senior, Dr. Barbour for radiation and cynthia Wilson for pain management Continue fentanyl patch, will hold as needed oxycodone until encephalopathy He takes oxycodone for severe left hip pain Appreciate pain management/palliative recs for meds in setting of acute encephalopathy Chronic DVT Long-term anticoagulation Continue warfarin INR therapeutic Trend INR with daily labs Diet controlled T2DM hgba1c of 7.2 on admission Pt on high dose steroids ISS while hospitalized, consider basal with persistent elevated blood glucose levels Glycemic consult placed Dementia Depression with anxiety continue Effexor, trazodone, aricept Diet: currently NPO until video swallow in AM DVT ppx: Warfarin FULL CODE Dispo: PT/OT ordered Admission and Anticipated Discharge Date Admission Date: August 30, 2023 Subjective Pt seen in the AM, at bedside. states that his mental status is much better. States that his fentanyl patch dose was increased in the last month. Pt does not use oxygen at baseline. Pt AAOx2, states he is comfortable. Review of Systems Review of Systems: All systems reviewed & are unremarkable except as noted in Subjective Physical Exam Physical Exam: General: Alert. No acute distress Skin: No noted rashes or bruises Psych: Appropriate mood and affect Neuro: difficulty with movements in the bed HEENT: NC/AT Chest: Nontender to palpation. Resp: no increased effort of breathing while using oxymask Abdomen: Soft Extremities: edema in lower extremities bilaterally. Results & Data Results & Data Vital Signs (Past 12 Hours) Vital Signs Temp Pulse Pulse Resp BP Pulse Ox O2 Del Method 08/31/23 07:16 36.1 C L 71 20 125/72 100 Oxymask 08/31/23 06:52 36.7 C 74 18 150/88 H 100 Oxymask 08/31/23 06:37 36.5 C 74 20 123/75 100 Oxymask 08/31/23 03:45 37.5 C 77 18 107/68 99 Aerosol Mask O2 Flow Rate 08/31/23 07:16 11.0 08/31/23 06:52 11 08/31/23 06:37 08/31/23 03:45 10 (2) Sepsis Sepsis acute organ dysfunction status: with acute organ dysfunction Sepsis type: sepsis due to unspecified organism Severe sepsis acute organ dysfunction type: encephalopathy Severe sepsis shock status: without septic shock Qualified Code(s): A41.9 - Sepsis, unspecified organism; R65.20 - Severe sepsis without septic shock; G93.41 - Metabolic encephalopathy (4) Pneumonia Aspiration pneumonia type: due to regurgitated food Laterality: right Lung location: lower lobe of lung Pneumonia type: aspiration pneumonia Qualified Code(s): J69.0 - Pneumonitis due to inhalation of food and vomit (6) Rhabdomyolysis Rhabdomyolysis type: non-traumatic Qualified Code(s): M62.82 - Rhabdomyolysis
[2023-08-31] MEDS ORDERED: WARFARIN SOD 2.5 MG TAB PO SCH (16:00)
[2023-08-31] MEDS ORDERED: CARBOHYDRATES FOR HYPOGLYCEMIA PO PRN (16:39)
[2023-08-31] MEDS ORDERED: GLUCOSE 10 TAB/TUBE PO PRN (16:39)
[2023-08-31] MEDS ORDERED: GLUCAGON FOR INJ 1 MG VIAL SQ PRN (16:39)
[2023-08-31] MEDS ORDERED: GLUCOSE 40% GEL 15 GM TUBE PO PRN (16:39)
[2023-08-31] MEDS ORDERED: DEXTROSE 50% 50 ML SYRINGE IV PRN (16:39)
[2023-08-31] MEDS ORDERED: PHARMACY GLYCEMIC MGMT CONSULT PRN (16:39)
[2023-08-31] MEDS: INSULIN ASPART PER UNIT CHARGE SC SCH (17:10)
[2023-08-31] MEDS ORDERED: INSULIN ASPART PER UNIT CHARGE SC SCH (21:00)
[2023-09-01] MEDS: INSULIN ASPART PER UNIT CHARGE SC SCH ×5 (00:42→21:17)
[2023-09-01] MEDS: ACETAMINOPHEN 325 MG TAB PO PRN ×2 (00:45→08:08)
[2023-09-01] MEDS ORDERED: OLANZapine 10 MG/2.1 ML SDV IM PRN ×2 (03:06→21:06)
[2023-09-01] MEDS: methylPREDNISolone 40 MG in SYRINGE 0 ML IV SCH ×3 (05:33→19:28)
[2023-09-01] MEDS: PIPERACILLIN/TAZOBACTAM 4.5 GM in DEXTROSE 5% MINI-B 100 ML IV SCH ×3 (05:33→19:28)
--- NOTE | 2023-09-01 06:07 | Electrocardiogram Report ---
Test Reason : Blood Pressure : / mmHG Vent. Rate : 105 BPM Atrial Rate : 105 BPM P-R Int : 164 ms QRS Dur : 072 ms QT Int : 326 ms P-R-T Axes : 075 043 060 degrees QTc Int : 430 ms Sinus tachycardia Nonspecific ST abnormality Abnormal ECG When compared with ECG of 05-MAY-2015 09:47, Vent. rate has increased BY 40 BPM QRS voltage has decreased Confirmed by Carl Treviño ([id number]) on 09/01/2023 6:06:58 AM Referred By: REFERRED SELF Confirmed By:Carl Treviño
[2023-09-01 06:52] LABS: Hematocrit (blood only) 35.3 % (42.0-52.0); Hemoglobin 11.9 g/dl (14.0-18.0); Mean Corpuscular Hemoglobin 31.6 pg (25.0-34.0); Mean Corpuscular Hgb Conc 33.7 g/dL (32.0-36.0); Mean Corpuscular Volume 93.9 fL (80.0-100.0); Mean Platelet Volume 10.4 fL (9.4-12.4); Platelet Count 181 K/uL (130-400); RDW Coefficient of Variation 14.7 % (11.5-14.5); RDW Standard Deviation 50.8 fL (36.4-46.3); Red Blood Count 3.76 M/uL (4.70-6.10); White Blood Count 10.84 K/ul (4.8-10.8)
[2023-09-01 07:14] LABS: Basophils # (auto) 0.02 K/uL (0.00-0.20); Basophils % (auto) 0.2 %; Immature Granulocytes # (auto) 0.15 K/uL (0.01-0.20); Immature Granulocytes % (auto) 1.4 %; Lymphocytes % (auto) 3.7 %; Monocytes # (auto) 0.41 K/uL (0.11-0.59); Monocytes % (auto) 3.8 %; Neutrophils # (auto) 9.86 K/uL (1.40-6.50); Neutrophils % (auto) 90.9 %; Polychromasia 1+
[2023-09-01 07:15] LABS: Albumin Level 3.1 gm/dl (3.4-5.0); BUN Creatinine Ratio 29.3 (10-20); Calcium 8.3 mg/dl (8.6-10.3); Creatinine Clr Calc Pharmacy 78.9 ml/min; Est GFR (African American) 94.8 ml/min; Est GFR (Non-African American) 81.8 ml/min; Potassium 3.6 mmol/L (3.5-5.1); Total Protein 6.1 gm/dl (6.0-8.3)
[2023-09-01 07:26] LABS: INR 1.3 (0.9-1.1)
[2023-09-01] MEDS: DOCUSATE SODIUM 100 MG CAP PO SCH (07:46)
[2023-09-01] MEDS: OMEGA-3 (PURIFIED FISH OIL) 1 GM CAP PO SCH (07:46)
[2023-09-01] MEDS: DOXYCYCLINE HYCLATE 100 MG in DEXTROSE 5% MINI-B 100 ML IV SCH ×2 (07:47→21:54)
[2023-09-01] MEDS ORDERED: LANTUS PER UNIT CHARGE SC ONE (08:00)
[2023-09-01] MEDS: VENLAFAXINE HCL XR 150 MG CAPXR PO SCH (08:08)
[2023-09-01] MEDS: DONEPEZIL HCL 10 MG TAB PO SCH (08:08)
[2023-09-01] MEDS: VENLAFAXINE HCL XR 37.5 MG CAPXR PO SCH (08:09)
[2023-09-01] MEDS ORDERED: POTASSIUM PHOS 3 MMOL/1 ML INFUSION IV STA (08:31)
[2023-09-01] MEDS ORDERED: POTASSIUM PHOSPHATE 21 MMOL in SODIUM CHLORIDE 0.9% 500 ML IV ONE (08:45)
[2023-09-01] MEDS: SODIUM CHLORIDE 0.9% 1,000 ML IV SCH (10:26)
[2023-09-01] MEDS: fentaNYL 25 MCG/HR TDSY TD SCH (10:26)
--- NOTE | 2023-09-01 10:31 | Pharmacy Report ---
Pharmacy Glycemic Short Note 2 - Date of Service September 01, 2023 - Glycemic Short BSG Results (Last 24 hours): 08/31/23 09/01/23 09/01/23 17:07 00:02 06:06 Glucose POC Glucose 252 H 165 H 173 H 09/01/23 06:11 Glucose 182 H POC Glucose OUTPATIENT ANTIDIABETIC REGIMEN: * diet controlled ASSESSMENT: * 82 year old admitted with concerns for aspiration pneumonia. Pharmacy consulted for glycemic management. Patient ordered ongoing steroids. Patient received 9 units of insulin yesterday, all of which were correctional insulin * Fasting BSG 173 mg/dL - patient NPO for video swallow test this morning. Will add conservative dose of basal insulin this AM as likely BSGs trending up from ongoing steroids. PLAN FOR INPATIENT GLYCEMIC CONTROL: * Hold outpatient oral diabetes medications * Basal insulin * Lantus 8 units x 1 now * Bolus insulin * NovoLog per scale ACHS or Q6hrs while NPO * Goal Range: Low 110 mg/dL - High 140 mg/dL * Correction Factor: 15 mg/dL/unit * Nutritional / Prandial insulin per carb ratio of 1 unit per 6 grams CHO consumed
--- NOTE | 2023-09-01 10:32 | Hospitalist Progress Note ---
Date of Service September 01, 2023 Assessment & Plan (1) Acute metabolic encephalopathy: (2) Sepsis: (3) Acute hypoxic respiratory failure: (4) Pneumonia: (5) Lactic acidosis: (6) Rhabdomyolysis: (7) Hypomagnesemia: (8) Metastatic adenocarcinoma to prostate: (9) History of DVT (deep vein thrombosis): (10) Chronic anticoagulation: Plan: This is an 82-year-old male who has a significant past medical history of metastatic prostate cancer to bone, diet-controlled T2DM, chronic DVT on warfarin, asthma, dementia, chronic pain and depression with anxiety who presented to the ED via EMS secondary to unresponsiveness. Acute metabolic encephalopathy Acute hypoxic respiratory failure Severe Sepsis Right lower lobe pneumonia -likely aspiration Lactic acidosis Pt tachycardic, febrile at 38.8 with pulmonary infection on admission Procalcitonin sig elevated at 29.72 lactate was elevated at 2.1 to 3.0 before being normal at 1.9 after fluid resuscitation Increased oxygen requirement, does not use oxygen at baseline Chest XR noted RML/RLL opacities, UA with no signs of infection received vanco/cefepime in ED Continue on IV zosyn and doxy blood culture x 2 with NGTD, sputum Cx with NGTD UA unremarkable on admission, repeated 08/31 with urine Cx pending IV solumedrol 40mg q8h (pt on dexamethasone at home) consult speech for swallow eval - video swallow on 09/01 noted zenker's diverticulm, GI consult placed -minced and moist diet, thin liquids, no straws, mouth care ACHS. pulm toilet with ISP, nebs, flutter valve Consider pulm consult Delirium in the setting of Dementia Pt with history of Dementia, Depression with anxiety On Effexor, trazodone, aricept at home Episodes of agitation, has Zyprexa ordered prn Delirium precautions. Frequent reorientation, avoid sedating medications Holding home oxycodone, fentanyl patch decreased to 25mcg Hematuria Urinary Retention Pt with episode of hematuria and urinary retention with naranjo on 08/31 Seen by urology -recommended keeping the naranjo catheter w/ gravity drainage - manually irrigating and flushing if clogged Warfarin was discontinued on 08/31 and received Vit K INR dropped from 2.2 to 1.3 Warfarin re-started on 09/01 Chronic DVT Long-term anticoagulation On warfarin Warfarin was discontinued on 08/31 and received Vit K for hematuria INR dropped from 2.2 to 1.3 Warfarin re-started on 09/01, consider Lovenox bridge in setting of cancer while balancing need to avoid bleeding/hematuria Elevated trop hs-trop elevated at 22.7 to 32.6 to 30.5 Echo ordered and pending no st t wave changes on EKG, no chest pain likely demand ischemia in setting of sepsis Rhabdomyolysis, nontraumatic CK elevated at 2587 to 2243 setting of sepsis IVF fluids again, gentle on 09/01 hold statin, continue IVF, trend CK with AM labs Hypomagnesemia 1.6 on admission replete as needed Metastatic prostate to bone Chronic pain Follows with Dr. Senior, Dr. Barbour for radiation and Jyoti Wilson DNP for pain management Continue fentanyl patch, will hold as needed oxycodone until encephalopathy resolves He takes oxycodone for severe left hip pain Appreciate pain management/palliative recs for meds in setting of acute encephalopathy Fentanyl patch resumed at lower dose of 25mcg DMII hgba1c of 7.2 on admission Pt on high dose steroids ISS while hospitalized, consider basal with persistent elevated blood glucose levels Glycemic consult placed Diet:Minced and moist diet due to aspiration concerns DVT ppx: Warfarin FULL CODE Dispo: PT/OT ordered Admission and Anticipated Discharge Date Admission Date: August 30, 2023 Subjective Pt seen in the AM, at bedside. states that his mental status is much better. States that his fentanyl patch dose was increased in the last month. Pt does not use oxygen at baseline. Pt AAOx2, states he is comfortable. Review of Systems Review of Systems: All systems reviewed & are unremarkable except as noted in Subjective Physical Exam Physical Exam: General: Alert. Agitated, moving Skin: No noted rashes or bruises Neuro: difficulty with movements in the bed HEENT: NC/AT Chest: Nontender to palpation. Resp: no increased effort of breathing Abdomen: Soft Extremities: edema in lower extremities bilaterally. Results & Data Results & Data Vital Signs (Past 12 Hours) Vital Signs Temp Pulse Resp BP Pulse Ox O2 Del Method O2 Flow Rate 09/01/23 08:06 36.3 C L 108 H 18 159/93 H 94 Nasal Cannula 2 09/01/23 03:14 36.8 C 71 18 158/96 H 96 Nasal Cannula 4 (2) Sepsis Sepsis acute organ dysfunction status: with acute organ dysfunction Sepsis type: sepsis due to unspecified organism Severe sepsis acute organ dysfunction type: encephalopathy Severe sepsis shock status: without septic shock Qualified Code(s): A41.9 - Sepsis, unspecified organism; R65.20 - Severe sepsis without septic shock; G93.41 - Metabolic encephalopathy (4) Pneumonia Aspiration pneumonia type: due to regurgitated food Laterality: right Lung location: lower lobe of lung Pneumonia type: aspiration pneumonia Qualified Code(s): J69.0 - Pneumonitis due to inhalation of food and vomit (6) Rhabdomyolysis Rhabdomyolysis type: non-traumatic Qualified Code(s): M62.82 - Rhabdomyolysis
[2023-09-01 11:11] LABS: Appearance Urine Cloudy (Clear); Bacteria Urine Automated Negative (Negative); Bilirubin Urine Negative (Negative); Blood Urine 3+ (Negative); Color Urine Yellow; Epithelial Cell Urine Auto 20-30 /lpf (0-5); Glucose Urine UA Negative (Negative); Ketones Urine Trace (Negative); Leukocyte Esterase Urine Trace (Negative); Nitrite Urine Negative (Negative); Protein Urine 2+ (Negative); Specific Gravity Urine 1.035 (1.000-1.030); Urobilinogen Urine Negative (Negative); pH Urine 5.5 (4.5-7.5)
[2023-09-01 11:32] LABS: RBC Urine Automated >30 /hpf (0-4)
[2023-09-01] MEDS: NICOTINE 14 MG/24 HR PATCH TD SCH (12:26)
--- NOTE | 2023-09-01 12:48 | Fluoroscopy Report ---
FL video swallow HISTORY: Assess for aspiration/silent aspiration TECHNIQUE: Video fluoroscopic evaluation of swallowing was performed in the AP and lateral projection s by the speech pathology staff. The patient is fed nectar-thick and thin liquid barium, a barium coa ja wafer, and barium pudding. FLUOROSCOPY TIME: 2 minutes and 19 seconds. A cine loop submitted. Ka,r: 14.6 mGy COMPARISON STUDY: None. FINDINGS: There is normal hyoid excursion and epiglottic deflection. Trace silent aspiration with the thin liquid barium only. There is moderate cricopharyngeus dysfunction seen throughout the examinati on. There is a questionable tiny associated Zenker's diverticulum. IMPRESSION: 1. Trace silent aspiration with the thin liquid barium. 2. Moderate cricopharyngeus dysfunction seen throughout the examination with a questionable tiny asso ciated Zenker's diverticulum. 3. Please see the speech pathologist report for detailed findings and recommendations. ACT 112: Negative or not required by law. Electronically signed by: Jared eJssica M.D. 09/01/2023 12:47 PM
[2023-09-01] MEDS: WARFARIN SOD 5 MG TAB PO SCH (15:48)
[2023-09-01] MEDS: CHECK fentaNYL PATCH PLACEMENT SCH (15:49)
[2023-09-01] MEDS: traZODone HCL 50 MG TAB PO SCH (20:56)
[2023-09-01] MEDS ORDERED: OLANZapine 10 MG/2.1 ML SDV IM STA (21:02)
[2023-09-01] MEDS: LANTUS PER UNIT CHARGE SC SCH (21:20)
[2023-09-02] MEDS: SODIUM CHLORIDE 0.9% 1,000 ML IV SCH ×2 (00:06→20:36)
[2023-09-02] MEDS: CHECK fentaNYL PATCH PLACEMENT SCH ×3 (00:32→16:56)
[2023-09-02] MEDS: PIPERACILLIN/TAZOBACTAM 4.5 GM in DEXTROSE 5% MINI-B 100 ML IV SCH ×3 (03:32→20:07)
[2023-09-02] MEDS: methylPREDNISolone 40 MG in SYRINGE 0 ML IV SCH ×3 (03:32→20:33)
[2023-09-02 08:09] LABS: Hematocrit (blood only) 35.1 % (42.0-52.0); Hemoglobin 12.1 g/dl (14.0-18.0); Mean Corpuscular Hemoglobin 32.4 pg (25.0-34.0); Mean Corpuscular Hgb Conc 34.5 g/dL (32.0-36.0); Mean Corpuscular Volume 93.9 fL (80.0-100.0); Mean Platelet Volume 10.4 fL (9.4-12.4); Platelet Count 177 K/uL (130-400); RDW Coefficient of Variation 15.2 % (11.5-14.5); RDW Standard Deviation 52.1 fL (36.4-46.3); Red Blood Count 3.74 M/uL (4.70-6.10); White Blood Count 8.25 K/ul (4.8-10.8)
[2023-09-02 08:32] LABS: BUN Creatinine Ratio 29.1 (10-20); Bilirubin,Total 0.8 mg/dl (0.2-1.0); Calcium 7.8 mg/dl (8.6-10.3); Est GFR (African American) 96.2 ml/min; Globulin 2.9 gm/dl (2.5-4.0); Magnesium 2.2 mg/dl (1.7-2.4); Phosphorus 2.2 mg/dl (2.5-4.9); Potassium 3.8 mmol/L (3.5-5.1); Total Protein 5.9 gm/dl (6.0-8.3)
[2023-09-02] MEDS ORDERED: POTASSIUM PHOS 3 MMOL/1 ML INFUSION IV STA (08:40)
[2023-09-02] MEDS ORDERED: STAT IV/IM STA (08:42)
[2023-09-02 08:43] LABS: Basophils # (auto) 0.01 K/uL (0.00-0.20); Basophils % (auto) 0.1 %; Immature Granulocytes # (auto) 0.02 K/uL (0.01-0.20); Immature Granulocytes % (auto) 0.2 %; Lymphocytes # (auto) 0.34 K/uL (1.20-3.40); Lymphocytes % (auto) 4.1 %; Monocytes # (auto) 0.31 K/uL (0.11-0.59); Monocytes % (auto) 3.8 %; Neutrophils # (auto) 7.57 K/uL (1.40-6.50); Neutrophils % (auto) 91.8 %
[2023-09-02 08:53] LABS: INR 1.2 (0.9-1.1); Prothrombin Time 12.5 Seconds (9.0-12.0)
[2023-09-02] MEDS: INSULIN ASPART PER UNIT CHARGE SC SCH ×4 (09:07→20:37)
[2023-09-02] MEDS: DOCUSATE SODIUM 100 MG CAP PO SCH (09:08)
[2023-09-02] MEDS: OMEGA-3 (PURIFIED FISH OIL) 1 GM CAP PO SCH (09:09)
[2023-09-02] MEDS: DONEPEZIL HCL 10 MG TAB PO SCH (09:09)
[2023-09-02] MEDS: LANTUS PER UNIT CHARGE SC SCH ×2 (09:09→20:37)
[2023-09-02] MEDS: DOXYCYCLINE HYCLATE 100 MG in DEXTROSE 5% MINI-B 100 ML IV SCH ×2 (09:09→20:33)
[2023-09-02] MEDS: NICOTINE 14 MG/24 HR PATCH TD SCH (09:10)
[2023-09-02] MEDS: VENLAFAXINE HCL XR 37.5 MG CAPXR PO SCH (09:10)
[2023-09-02] MEDS: VENLAFAXINE HCL XR 150 MG CAPXR PO SCH (09:10)
[2023-09-02] MEDS ORDERED: ENOXAPARIN 1 MG/KG SC SCH (09:15)
[2023-09-02] MEDS ORDERED: POTASSIUM PHOSPHATE 21 MMOL in SODIUM CHLORIDE 0.9% 500 ML IV ONE (09:30)
[2023-09-02] MEDS: CALCIUM GLUCONATE 10% 1,000 MG in SODIUM CHLOR 0.9% MINI-B 50 ML IV SCH ×2 (09:52→10:09)
--- NOTE | 2023-09-02 10:08 | Gastrointestinal Consultation ---
Date of Consultation September 02, 2023 Assessment & Plan (1) Zenker diverticulum: Plan 1. Diet per speech path w aspiration precautions. 2. OP EGD to be scheduled w Dr. Joyce Tijerina who may be able to endoscopically repair the Zenker's during the procedure. Our office will contact the pt's family to arrange. Will also notify OP PCP - pt is also receiving palliative care though is a full code - would want PCP to cancel if not appropriate for overall goals at that time. Supervising Physician Co-Signing Physician Notes Patient was seen and examined on 09/02 with CARLO Appiah whose note reflects our findings and plan. Questionable small Zencker's noted on video swallow study. Patient with multiple comorbidities as well as demetia and metastatic prostate cancer. WOuld not pursue aggressive diagnostics at this time given acute presentation. This can be further discussed between patient and PCP once he recovers from this acute illness. please call with questions. History of Present Illness Reason for Consultation: doloress on video swallow Requesting Physician: Dr. Villanueva Attending Physician: Taina Villanueva MD History of Present Illness Mr. Baljit Quesada is an 82 yr old male pt of Dr. Lidya martin a hx of metastatic prostate cancer (to bones), dementia, T2DM, chronic DVT on warfarin, asthma, chronic pain on narcotics, depression/anxiety who was brought to the ED yesterday when he was found unresponsive. He is being tx for rhabdo, sepsis, RLQ pneumonia. GI is consulted for Zenker's. A video swallow (per speech) reported moderate pharyngeal dysphagia, suggestion of esophageal dysphagia as well as films showing a small Zenker's. This morning, with assist from nursing he ate small amts of a soft diet. He is awake, alert and though doesn't provide much of a history, clearly asked me to take his restraints off, saying, "I'm not going anywhere." Allergies Allergy/AdvReac Type Severity Reaction Status Date / Time No Known Drug Allergies Allergy Unknown NONE Verified 06/17/23 08:31 house dust AdvReac Mild ITCHY Verified 06/17/23 08:31 EYES, RUNNY NOSE ragweed pollen AdvReac Unknown RASH Verified 06/17/23 08:31 Home Medications Medication Instructions Recorded Confirmed Type omega 3 350 mg-dha 235 mg-epa 90 1 tab PO QAM 05/26/18 08/30/23 History mg-fish oil 597 mg capsule,delay rel (Excelsior-3) cyanocobalamin (vitamin B-12) 1,000 mcg PO DAILY 03/10/19 08/30/23 History 1,000 mcg capsule donepezil 10 mg tablet 10 mg PO DAILY 11/08/19 08/30/23 History calcium carbonate 500 mg-vitamin 1 tab PO DAILY 10/03/20 08/30/23 History D3 3.125 mcg (125 unit) tablet (Calcium) docusate sodium 100 mg capsule 200 mg PO DAILY 10/03/20 08/30/23 History (Colace) multivitamin 1 tab PO DAILY 10/03/20 08/30/23 History naloxone 4 mg/actuation nasal spray 1 spray intranasal Q3M PRN opioid 03/12/21 08/30/23 Rx overdose #2 ea rosuvastatin 5 mg tablet (Crestor) 5 mg PO DAILY 12/26/21 08/30/23 History polyethylene glycol 3350 17 17 g PO DAILY PRN constipation 10/15/22 08/30/23 History gram/dose oral powder (Miralax) sennosides 8.6 mg capsule (senna) 17.2 mg PO HS PRN constipation 10/15/22 08/30/23 History trazodone 50 mg tablet 25 mg PO HS sleep 05/08/23 08/30/23 History venlafaxine 150 mg 150 mg PO DAILY 05/08/23 08/30/23 History capsule,extended release 24 hr (Effexor XR) venlafaxine 37.5 mg 37.5 mg PO DAILY 05/08/23 08/30/23 History capsule,extended release 24 hr dexamethasone 0.5 mg tablet 1 mg (2 x 0.5 mg) PO DAILY bone 06/26/23 08/30/23 Rx pain left posterior hip and back 30 days #60 tabs oxycodone 15 mg tablet 15 mg PO Q4H PRN pain 1 month #150 06/26/23 08/30/23 Rx tabs fentanyl 50 mcg/hr transdermal 1 patch transdermal Q72H very 07/31/23 08/30/23 Rx patch severe cancer pain 1 month #10 ea warfarin 5 mg tablet See Rx Instructions PO UD 08/14/23 08/30/23 History fentanyl 25 mcg/hr transdermal 25 mcg transdermal Q72H 08/30/23 08/30/23 History patch gabapentin 300 mg capsule 300 mg PO TID 08/30/23 08/30/23 History Patient History Medical History Palliative care by specialist Cancer related pain Chronic anticoagulation Sacroiliac joint pain Trochanteric bursitis Avascular necrosis of bone of left hip (~06/26/23) History of DVT (deep vein thrombosis) History of skin cancer Hypertension Prostate cancer 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 ADVISED TO HOLD DOS.); Hx Alcohol Use: Yes Alcohol type: beer Hx Substance Use: No Preferred Language: Arabic Communication Ability: Impaired Communication Ability Comment: Baseline Dementia, Hearing Ability: Normal Slubber Operator Required: No Beliefs That Will Affect Care: None marital status: Current Living Situation: Spouse current occupational status: retired current occupation: retired Feels Safe at Home: Yes Assistive Devices: Cane Review of Systems Review of Systems: Unable to obtain ROS from the pt. Physical Exam Constitutional: Awake, alert, responsive, verbal, though limited insight - indirect brief answer. Eyes: PERRL, conjunctivae normal, anicteric sclerae ENMT: external ear and nose normal, oropharynx normal Neck: trachea midline, no thyromegaly Respiratory: normal respiratory effort, lungs clear to auscultation Cardiovascular: RRR, no murmur, no edema Gastrointestinal (Abdomen): normal bowel sounds, soft, nontender, no hepatosplenomegaly Musculoskeletal: no cyanosis or clubbing, extremities motor strength 5/5 Skin: no rashes, warm and dry Psychiatric: Orientation: alert and cooperative Apperance: appropriately groomed Eye Contact: good eye contact Though falls back asleep quickly when talking to him. Lymphatic: no cervical or axillary lymphadenopathy Results & Data Vital Signs (Past 12 Hours) Vital Signs Temp Pulse Resp BP Pulse Ox O2 Del Method O2 Flow Rate 09/02/23 07:35 36.5 C 68 18 149/84 H 95 Nasal Cannula 2 09/02/23 02:45 36.3 C L 66 20 146/79 H 96 Room Air 09/01/23 23:22 36.6 C 84 18 151/88 H 96 Room Air Laboratory Results WBC 10.8, Hb 11.9, Hct 35.3, Plts 181, PT 14, INR 1.3, Na 136, K 3.6, Cl 105, CO2 25, BUN 7 , Cr 0.58, glucose 94 Diagnostic Findings Video Swallow: 1. Trace silent aspiration with the thin liquid barium. 2. Moderate cricopharyngeus dysfunction seen throughout the examination with a questionable tiny associated Zenker's diverticulum. 3. Please see the speech pathologist report for detailed findings and recommendations. Speech path summary reviewed.
[2023-09-02] MEDS: ENOXAPARIN 100 MG/1ML SYR SQ SCH ×3 (12:08→23:38)
--- NOTE | 2023-09-02 16:24 | Hospitalist Progress Note ---
Date of Service September 02, 2023 Assessment & Plan (1) Acute metabolic encephalopathy: (2) Sepsis: (3) Acute hypoxic respiratory failure: (4) Pneumonia: (5) Lactic acidosis: (6) Rhabdomyolysis: (7) Hypomagnesemia: (8) Metastatic adenocarcinoma to prostate: (9) History of DVT (deep vein thrombosis): (10) Chronic anticoagulation: Plan: This is an 82-year-old male who has a significant past medical history of metastatic prostate cancer to bone, diet-controlled T2DM, chronic DVT on warfarin, asthma, dementia, chronic pain and depression with anxiety who presented to the ED via EMS secondary to unresponsiveness. Discussed code status with the and her sister at bedside on 09/01- want pt to be FULL CODE, all heroic measures taken. Acute metabolic encephalopathy Acute hypoxic respiratory failure Severe Sepsis Right lower lobe pneumonia -likely aspiration Lactic acidosis Pt tachycardic, febrile at 38.8 with pulmonary infection on admission Procalcitonin sig elevated at 29.72 lactate was elevated at 2.1 to 3.0 before being normal at 1.9 after fluid resuscitation Increased oxygen requirement, does not use oxygen at baseline. Currently requiring 2L and at times on RA Chest XR noted RML/RLL opacities, UA with no signs of infection received vanco/cefepime in ED Continue on IV zosyn and doxy blood culture x 2 with NGTD, sputum Cx with NGTD UA unremarkable on admission, repeated 08/31 with urine Cx with NGTD IV solumedrol 40mg q8h (pt on dexamethasone at home) consult speech for swallow eval - video swallow on 09/01 noted zenker's diverticulm, GI consult placed- recommending EGD outpt -minced and moist diet, thin liquids, no straws, mouth care ACHS. pulm toilet with ISP, nebs, flutter valve Consider pulm consult Delirium in the setting of Dementia Pt with history of Dementia, Depression with anxiety On Effexor, trazodone, aricept at home Episodes of agitation, has Zyprexa ordered prn Delirium precautions. Frequent reorientation, avoid sedating medications Holding home oxycodone, fentanyl patch decreased to 25mcg Hematuria Urinary Retention Pt with episode of hematuria and urinary retention with naranjo on 08/31 Seen by urology -recommended keeping the naranjo catheter w/ gravity drainage - manually irrigating and flushing if clogged Warfarin was discontinued on 08/31 and received Vit K Has since been restarted (see discussion below) Chronic DVT Long-term anticoagulation On warfarin Warfarin was discontinued on 08/31 and received Vit K for hematuria INR dropped from 2.2 to 1.2 Warfarin re-started on 09/01, lovenox bridge started on 09/02 Elevated trop hs-trop elevated at 22.7 to 32.6 to 30.5 Echo with no hypokinesis no st t wave changes on EKG, no chest pain likely demand ischemia in setting of sepsis Rhabdomyolysis, nontraumatic CK elevated at 2587 to 2243 to 1310 setting of sepsis IVF fluids again, gentle on 09/01, 09/02 hold statin, continue IVF, trend CK with AM labs Hypomagnesemia 1.6 on admission replete as needed Metastatic prostate to bone Chronic pain Follows with Dr. Senior, Dr. Barbour for radiation and Jyoti Wilson DNP for pain management Continue fentanyl patch, will hold as needed oxycodone until encephalopathy resolves He takes oxycodone for severe left hip pain Appreciate pain management/palliative recs for meds in setting of acute encephalopathy Fentanyl patch resumed at lower dose of 25mcg Discussed code status with the and her sister at bedside on 09/01- want pt to be FULL CODE, all heroic measures taken. DMII hgba1c of 7.2 on admission Pt on high dose steroids ISS while hospitalized, consider basal with persistent elevated blood glucose levels Glycemic consult placed Diet:Minced and moist diet due to aspiration concerns DVT ppx: Warfarin with lovenox bridge FULL CODE Dispo: PT/OT ordered Admission and Anticipated Discharge Date Admission Date: August 30, 2023 Subjective Pt seen in the AM, in restraints. Noone at bedside. Was drowsy. Review of Systems Review of Systems: Unobtainable due to cognitive status Physical Exam Physical Exam: General: Drowsy. Skin: No noted rashes or bruises Neuro: no gross deficits while laying in bed HEENT: NC/AT Chest: Nontender to palpation. Resp: no increased effort of breathing Abdomen: Soft Extremities: edema in lower extremities bilaterally. Results & Data Results & Data Vital Signs (Past 12 Hours) Vital Signs Temp Pulse Pulse Resp BP Pulse Ox O2 Del Method 09/02/23 15:28 36.4 C L 79 18 132/78 96 Nasal Cannula 09/02/23 11:20 36.4 C L 73 18 146/87 H 95 Nasal Cannula 09/02/23 07:59 67 09/02/23 07:35 36.5 C 68 18 149/84 H 95 Nasal Cannula O2 Flow Rate 09/02/23 15:28 2 09/02/23 11:20 2 09/02/23 07:59 09/02/23 07:35 2 (2) Sepsis Sepsis acute organ dysfunction status: with acute organ dysfunction Sepsis type: sepsis due to unspecified organism Severe sepsis acute organ dysfunction type: encephalopathy Severe sepsis shock status: without septic shock Qualified Code(s): A41.9 - Sepsis, unspecified organism; R65.20 - Severe sepsis without septic shock; G93.41 - Metabolic encephalopathy (4) Pneumonia Aspiration pneumonia type: due to regurgitated food Laterality: right Lung location: lower lobe of lung Pneumonia type: aspiration pneumonia Qualified Code(s): J69.0 - Pneumonitis due to inhalation of food and vomit (6) Rhabdomyolysis Rhabdomyolysis type: non-traumatic Qualified Code(s): M62.82 - Rhabdomyolysis
[2023-09-02] MEDS: WARFARIN SOD 5 MG TAB PO SCH (16:56)
[2023-09-02] MEDS: traZODone HCL 50 MG TAB PO SCH (20:37)
--- NOTE | 2023-09-02 23:03 | Palliative Care Consultation ---
Date of Consultation September 02, 2023 Assessment & Plan (1) Cancer related pain: TDF restarted at 25mcg Suggest dilaudid 0.1mg IV q4h prn BTP or dyspnea, hold for somnolence or RR<14/min As he recovers and regains mobility/activity, TDF dosing will likely need to be readjusted given his high level of activity He was due to see ortho this week for possible hip surgery but this appt has been cancelled for now and needs t be resched for after dc (2) Dyspnea and respiratory abnormalities: (3) Palliative care by specialist: Met with pt/family. Provided overview of Palliative Medicine, a subspecialty that provides specialized medical care for people living with a serious illness by offering a focus on quality of life. Palliative Medicine is often conflated with hospice: I advised patient/family that Palliative and hospice can be partners but we are not the same. It is important to understand the difference so that we may be informed, and not afraid. Palliative Medicine works to improve QOL through reduction of symptom burden/more control over their illness, for both the patient and family. Palliative medicine clinicians are board certified, specially-trained and another member of the patient's medical care team. We often provide an extra layer of support because our care is based on the needs of the patient, not the prognosis; as such, it's appropriate at any age/advancing stage of a serious illness and can be provided along with curative treatment. Palliative Medicine clinicians are also trained in advanced communication methodologies, to facilitate complex discussions about advanced illness planning, which are needed to help assure that the treatment choices match the patient's goals, aka delivering Goal Concordant care. Finally, we discussed that hospice is a visiting nurse service that focuses on care delivered at the very end of life for patients with terminal illness, with life expectancy less than 6 month. (4) Avascular necrosis of bone of left hip: (5) Prostate cancer metastatic to bone: (6) Acute hypoxic respiratory failure: (7) Metastatic adenocarcinoma to prostate: Plan * Please begin airway clearance with flutter and IS * Pain mgt reccs as noted above * Israel has a relatively high pain threshold and high activity level prior to this admission. 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 We reviewed he will need formal PT eval to determine where his needs are from a dc planning aspect. Pt and are very clear they would prefer to come home and are willing to engage VNS and home PT +/- outpatient PT if needed but do not want inpatient rehab or SNF rehab. * I will continue following Israel and his family through this admission with plans for follow up in outpatient [facility] within4 weeks of dc. Thank you for allowing us to participate in the ongoing care of this patient. Please don't hesitate to call or page with any additional concerns. Dr. Jyoti Wilson DNP Director, Palliative Care History of Present Illness Reason for Consultation: cancer pain mgt Attending Physician: Edilson Tompkins MD History of Present Illness Baljit Quesada (Fox) is well known to me from outpatient [facility] where he is followed for cancer related symptom mgt He is seen today with , daughter and niece at bedside reports he had an aspiration of his pills over the weekend with growing resp failure soon thereafter. She reports he always has some trouble with swallowing but usually it is when he tries to take all his meds together rather than a few at a time. She says she tries to space out his meds thru the day to avoid this but sometimes he ignores her and "just throws them all in his mouth and well, this time, some of them went down his windpipe. I heard him coughing a bit but nothing unusual for him." He then became more lethargic, less responsive, she could not get him to respond to her and then she noticed his nailbeds were getting blue and called 911. Israel is now admitted with aspiration PNA HIs also shares he was due for TDF change on Friday but came to hospital. During admission process she reports "they stopped all his pain meds" and as a result, he went into opioid withdrawal by Friday with worsening mental status changes, agitation, delirium, restlessness and states he was needing restraints. His TDF was restarted at a lower dose and today she feels he seems a bit more like himself, awake and alert at times and more appropriately answering the family. Israel is lying in bed and appears tired He states he is feeling exhausted but hates being in the hospital and wants to go home He feels pain is ok for now, though it is noted that this is gentleman who is very physically active and for past few days has not had his usual level of activity which includes playing tennis and cardio for 3-5 miles daily Allergies Allergy/AdvReac Type Severity Reaction Status Date / Time No Known Drug Allergies Allergy Unknown NONE Verified 06/17/23 08:31 house dust AdvReac Mild ITCHY Verified 06/17/23 08:31 EYES, RUNNY NOSE ragweed pollen AdvReac Unknown RASH Verified 06/17/23 08:31 Home Medications Medication Instructions Recorded Confirmed Type omega 3 350 mg-dha 235 mg-epa 90 1 tab PO QAM 05/26/18 08/30/23 History mg-fish oil 597 mg capsule,delay rel ([place]-3) cyanocobalamin (vitamin B-12) 1,000 mcg PO DAILY 03/10/19 08/30/23 History 1,000 mcg capsule donepezil 10 mg tablet 10 mg PO DAILY 11/08/19 08/30/23 History calcium carbonate 500 mg-vitamin 1 tab PO DAILY 10/03/20 08/30/23 History D3 3.125 mcg (125 unit) tablet (Calcium) docusate sodium 100 mg capsule 200 mg PO DAILY 10/03/20 08/30/23 History (Colace) multivitamin 1 tab PO DAILY 10/03/20 08/30/23 History naloxone 4 mg/actuation nasal spray 1 spray intranasal Q3M PRN opioid 03/12/21 08/30/23 Rx overdose #2 ea rosuvastatin 5 mg tablet (Crestor) 5 mg PO DAILY 12/26/21 08/30/23 History polyethylene glycol 3350 17 17 g PO DAILY PRN constipation 10/15/22 08/30/23 History gram/dose oral powder (Miralax) sennosides 8.6 mg capsule (senna) 17.2 mg PO HS PRN constipation 10/15/22 08/30/23 History trazodone 50 mg tablet 25 mg PO HS sleep 05/08/23 08/30/23 History venlafaxine 150 mg 150 mg PO DAILY 05/08/23 08/30/23 History capsule,extended release 24 hr (Effexor XR) venlafaxine 37.5 mg 37.5 mg PO DAILY 05/08/23 08/30/23 History capsule,extended release 24 hr dexamethasone 0.5 mg tablet 1 mg (2 x 0.5 mg) PO DAILY bone 06/26/23 08/30/23 Rx pain left posterior hip and back 30 days #60 tabs oxycodone 15 mg tablet 15 mg PO Q4H PRN pain 1 month #150 06/26/23 08/30/23 Rx tabs fentanyl 50 mcg/hr transdermal 1 patch transdermal Q72H very 07/31/23 08/30/23 Rx patch severe cancer pain 1 month #10 ea warfarin 5 mg tablet See Rx Instructions PO UD 08/14/23 08/30/23 History fentanyl 25 mcg/hr transdermal 25 mcg transdermal Q72H 08/30/23 08/30/23 History patch gabapentin 300 mg capsule 300 mg PO TID 08/30/23 08/30/23 History Patient History Medical History Palliative care by specialist Cancer related pain Chronic anticoagulation Sacroiliac joint pain Trochanteric bursitis Avascular necrosis of bone of left hip (~06/26/23) History of DVT (deep vein thrombosis) History of skin cancer Hypertension Prostate cancer 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: No Beliefs That Will Affect Care: None marital status: Current Living Situation: Spouse current occupational status: retired current occupation: retired Feels Safe at Home: Yes Assistive Devices: Cane Review of Systems Review of Systems: see HPI Physical Exam Physical Exam: Resting in bed, semi reclined around 90 degrees Awake and alert but drifts off easily flushed and tired appearing mild resp distress with prolonged conversation limited anterior exam without gross wheezing, few scatt rhonchi s1s2, no gross JVD abd soft, nontender generalized weakness noted skin flushed, warm to touch but not diaphoretic Results & Data Vital Signs (Past 12 Hours) Vital Signs Temp Pulse Resp BP Pulse Ox O2 Del Method O2 Flow Rate 09/02/23 19:32 170/94 H 09/02/23 19:02 36.8 C 81 18 170/98 H 96 Nasal Cannula 2 09/02/23 15:28 36.4 C L 79 18 132/78 96 Nasal Cannula 2 09/02/23 11:20 36.4 C L 73 18 146/87 H 95 Nasal Cannula 2 PG Care Time/CCT Total # of Minutes Spent Total Time Spent: 90 Total Time Spent with Patient: Total time spent is greater than 50% in coordination of care (as documented) at patient's floor/unit and/or counseling patient: I spent 90 minutes overall addressing this case: 15 min in medical data review/discussion with referring provider(s) and/or preparation for the visit 30 min in direct interaction with the patient/exam 10 min in Advance Care Planning/Goals of Care discussions as detailed above in note (must be >16min) 15 min in subsequent review and synthesis of assessment and plan 20 min communicating with other providers regarding the patient's case: [place] [address] IN/OBS CONSULT LVL 5,80M Patient Type New Medical Decision Making High Complexity Diagnoses Cancer related pain G89.3 Dyspnea and respiratory abnormalities R06.00; R06.89 Palliative care by specialist Z51.5 Avascular necrosis of bone of left hip M87.052 Prostate cancer metastatic to bone C61; C79.51 Acute hypoxic respiratory failure J96.01 Metastatic adenocarcinoma to prostate C79.82
[2023-09-03] MEDS: CHECK fentaNYL PATCH PLACEMENT SCH ×3 (00:30→17:21)
[2023-09-03] MEDS: methylPREDNISolone 40 MG in SYRINGE 0 ML IV SCH ×3 (03:52→20:29)
[2023-09-03] MEDS: PIPERACILLIN/TAZOBACTAM 4.5 GM in DEXTROSE 5% MINI-B 100 ML IV SCH ×3 (03:52→20:27)
[2023-09-03 06:45] LABS: Basophils # (auto) 0.01 K/uL (0.00-0.20); Basophils % (auto) 0.1 %; Hematocrit (blood only) 35.1 % (42.0-52.0); Hemoglobin 11.7 g/dl (14.0-18.0); Immature Granulocytes # (auto) 0.07 K/uL (0.01-0.20); Immature Granulocytes % (auto) 0.7 %; Lymphocytes % (auto) 5.2 %; Mean Corpuscular Hgb Conc 33.3 g/dL (32.0-36.0); Mean Corpuscular Volume 95.9 fL (80.0-100.0); Mean Platelet Volume 10.1 fL (9.4-12.4); Monocytes % (auto) 4.1 %; Neutrophils % (auto) 89.9 %; Platelet Count 161 K/uL (130-400); RDW Standard Deviation 53.7 fL (36.4-46.3); Red Blood Count 3.66 M/uL (4.70-6.10); White Blood Count 9.68 K/ul (4.8-10.8)
[2023-09-03 07:22] LABS: Albumin Globulin Ratio 1.1 (0.9-2); Albumin Level 2.8 gm/dl (3.4-5.0); BUN Creatinine Ratio 30.7 (10-20); Bilirubin,Total 0.7 mg/dl (0.2-1.0); Calcium 7.7 mg/dl (8.6-10.3); Creatinine Clr Calc Pharmacy 87.7 ml/min; Est GFR (African American) 98.3 ml/min; Est GFR (Non-African American) 84.8 ml/min; Globulin 2.6 gm/dl (2.5-4.0); INR 1.4 (0.9-1.1); Phosphorus 2.4 mg/dl (2.5-4.9); Potassium 3.8 mmol/L (3.5-5.1); Prothrombin Time 15.5 Seconds (9.0-12.0); Total Protein 5.4 gm/dl (6.0-8.3)
[2023-09-03] MEDS: INSULIN ASPART PER UNIT CHARGE SC SCH ×4 (08:18→20:42)
[2023-09-03] MEDS: VENLAFAXINE HCL XR 37.5 MG CAPXR PO SCH (08:23)
[2023-09-03] MEDS: OMEGA-3 (PURIFIED FISH OIL) 1 GM CAP PO SCH (08:23)
[2023-09-03] MEDS: DONEPEZIL HCL 10 MG TAB PO SCH (08:23)
[2023-09-03] MEDS: VENLAFAXINE HCL XR 150 MG CAPXR PO SCH (08:23)
[2023-09-03] MEDS: NICOTINE 14 MG/24 HR PATCH TD SCH (08:24)
[2023-09-03] MEDS: DOXYCYCLINE HYCLATE 100 MG in DEXTROSE 5% MINI-B 100 ML IV SCH ×2 (08:24→21:36)
[2023-09-03] MEDS: DOCUSATE SODIUM 100 MG CAP PO SCH (08:32)
[2023-09-03] MEDS: LANTUS PER UNIT CHARGE SC SCH ×2 (08:32→20:44)
[2023-09-03] MEDS: SODIUM CHLORIDE 0.9% 1,000 ML IV SCH (09:09)
[2023-09-03] MEDS: ENOXAPARIN 100 MG/1ML SYR SQ SCH ×2 (09:10→21:35)
--- NOTE | 2023-09-03 15:40 | Hospitalist Progress Note ---
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 Discussed code status with the and her sister at bedside on 09/01- want pt to be FULL CODE, all heroic measures taken. Acute metabolic encephalopathy Acute hypoxic respiratory failure Severe Sepsis Right lower lobe pneumonia -likely aspiration Lactic acidosis Pt tachycardic, febrile at 38.8 with pulmonary infection on admission Procalcitonin sig elevated at 29.72 lactate was elevated at 2.1 to 3.0 before being normal at 1.9 after fluid resuscitation Increased oxygen requirement, does not use oxygen at baseline. Currently requiring 2L and at times on RA Chest XR noted RML/RLL opacities, UA with no signs of infection received vanco/cefepime in ED Continue on IV zosyn and doxy blood culture x 2 with NGTD, sputum Cx with NGTD UA unremarkable on admission, repeated 08/31 with urine Cx with NGTD IV solumedrol 40mg q8h (pt on dexamethasone at home) consult speech for swallow eval - video swallow on 09/01 noted zenker's diverticulm, GI consult placed- recommending EGD outpt -minced and moist diet, thin liquids, no straws, mouth care ACHS. pulm toilet with ISP, nebs, flutter valve Clinically much better today without any respiratory symptoms at rest Will continue current IV antibiotic and plan to discharge on oral to finish the course He will get PT OT evaluation prior to discharge likely tomorrow Delirium in the setting of Dementia Pt with history of Dementia, Depression with anxiety On Effexor, trazodone, aricept at home Episodes of agitation, has Zyprexa ordered prn Delirium precautions. Frequent reorientation, avoid sedating medications Holding home oxycodone, fentanyl patch decreased to 25mcg Clinically much better but remains weak and lethargic Advised to take less of narcotic pain medications on discharge Hematuria Urinary Retention Pt with episode of hematuria and urinary retention with naranjo on 08/31 Seen by urology -recommended keeping the naranjo catheter w/ gravity drainage - manually irrigating and flushing if clogged Warfarin was discontinued on 08/31 and received Vit K Has since been restarted (see discussion below) Hematuria has been resolved Chronic DVT Long-term anticoagulation On warfarin Warfarin was discontinued on 08/31 and received Vit K for hematuria INR dropped from 2.2 to 1.2 Warfarin re-started on 09/01, lovenox bridge started on 09/02 We will continue Coumadin and Lovenox for now and check INR tomorrow Elevated trop hs-trop elevated at 22.7 to 32.6 to 30.5 Echo with no hypokinesis no st t wave changes on EKG, no chest pain likely demand ischemia in setting of sepsis Rhabdomyolysis, nontraumatic CK elevated at 2587 to 2243 to 1310 setting of sepsis IVF fluids again, gentle on 09/01, 09/02 hold statin, continue IVF, trend CK with AM labs Hypomagnesemia 1.6 on admission replete as needed Metastatic prostate to bone Chronic pain Follows with Dr. Senior, Dr. Barbour for radiation and Jyoti Wilson DNP for pain management Continue fentanyl patch, will hold as needed oxycodone until encephalopathy resolves He takes oxycodone for severe left hip pain Appreciate pain management/palliative recs for meds in setting of acute encephalopathy Fentanyl patch resumed at lower dose of 25mcg Discussed code status with the and her sister at bedside on 09/01- want pt to be FULL CODE, all heroic measures taken. DMII hgba1c of 7.2 on admission Pt on high dose steroids ISS while hospitalized, consider basal with persistent elevated blood glucose levels Glycemic consult placed Diet:Minced and moist diet due to aspiration concerns DVT ppx: Warfarin with lovenox bridge FULL CODE Dispo: PT/OT ordered Admission and Anticipated Discharge Date Admission Date: August 30, 2023 Subjective 09/03/2023 The patient was seen and examined in telemetry unit in presence of the He remains very weak and lethargic but wants to go home No fever and or chills and denies any other significant symptoms Will have formal PT and OT evaluation prior to discharge Review of Systems Review of Systems: All systems reviewed and are unremarkable except as noted below Physical Exam Physical Exam: Sitting at the edge of the bed without any apparent distress Constitutional: well developed, well nourished, + ill appearing and + obese Eyes: PERRL, conjunctivae normal, anicteric sclerae ENMT: external ear and nose normal, oropharynx normal Neck: trachea midline, no thyromegaly Respiratory: no respiratory distress Auscultation: lungs clear to auscultation bilaterally Cardiovascular: Rate/Rhythm: regular rate and regular rhythm; not tachycardic Heart Sounds: normal S1 and normal S2; no murmur Extremities: no edema Gastrointestinal (Abdomen): Inspection/Auscultation: + abdomen distended (Soft) and normal bowel sounds Percussion/Palpation: abdomen soft; abdomen nontender Musculoskeletal: No acute arthritis involving any of the joint Neurologic: normal touch/pain/proprioception and moves all extremities; no focal motor deficits Lymphatic: no cervical or axillary lymphadenopathy Results & Data Results & Data Vital Signs (Past 12 Hours) Vital Signs Temp Pulse Pulse Resp BP BP Pulse Ox 09/03/23 11:21 36.4 C L 83 19 176/93 H 97 09/03/23 10:58 78 09/03/23 07:35 36.5 C 71 18 174/95 H 95 O2 Del Method 09/03/23 11:21 Room Air 09/03/23 10:58 09/03/23 07:35 Room Air Laboratory Results Short CBC 09/03/23 Range/Units 06:19 WBC 9.68 (4.8-10.8) K/ul Hgb 11.7 L (14.0-18.0) g/dl Hct 35.1 L (42.0-52.0) % Plt Count 161 (130-400) K/uL BMP 09/03/23 06:19 Sodium 138 Potassium 3.8 Chloride 108 H Carbon Dioxide 24 BUN 23 Creatinine 0.75 Glucose 144 H Calcium 7.7 L Cardiac Enzymes 09/03/23 Range/Units 06:19 Total Creatine Kinase 484 H (30-223) U/L Liver Function 09/03/23 Range/Units 06:19 Total Bilirubin 0.7 (0.2-1.0) mg/dl AST 62 H (13-39) U/L ALT 63 H (7-52) U/L Alkaline Phosphatase 47 (34-104) U/L Albumin 2.8 L (3.4-5.0) gm/dl Medications Administered Current Inpatient Medications Acetaminophen (Acetaminophen 325 Mg Tab) 650 mg PO Q4H PRN PRN Reason: Pain or Fever Stop: 09/29/23 19:32 Last Admin: 09/01/23 08:08 Dose: 650 mg Al Hydrox/Mg Hydrox/Simethicone (Aluminum/Magnesium Susp 30 Ml Udc) 15 ml PO Q4H PRN PRN Reason: Dyspepsia Stop: 09/29/23 19:32 Albuterol (Albuterol 0.083% Nebu Soln 3 Ml Vial) 2.5 mg NEB Q6R PRN; Protocol PRN Reason: sob/wheezing Stop: 09/29/23 19:32 Dextrose (Dextrose 50% 50 Ml Syringe) 25 - 50 ml IV UD PRN; Protocol PRN Reason: Hypoglycemia Protocol Stop: 09/30/23 16:38 Docusate Sodium (Docusate Sodium 100 Mg Cap) 200 mg PO DAILY SABINE Stop: 09/30/23 08:59 Last Admin: 09/03/23 08:32 Dose: 200 mg Donepezil HCl (Donepezil Hcl 10 Mg Tab) 10 mg PO DAILY SABINE Stop: 09/30/23 08:59 Last Admin: 09/03/23 08:23 Dose: 10 mg Enoxaparin Sodium (Enoxaparin 100 Mg/1ml Syr) 90 mg SQ Q12H SABINE Stop: 10/02/23 09:59 Last Admin: 09/03/23 09:10 Dose: 90 mg Fentanyl (Fentanyl 25 Mcg/Hr Tdsy) 25 mcg TD Q3D SABINE Stop: 09/15/23 09:14 Last Admin: 09/01/23 10:26 Dose: 25 mcg Fish Oil (Prince-3 (Purified Fish Oil) 1 Gm Cap) 1 gm PO QAM SABINE Stop: 09/30/23 08:59 Last Admin: 09/03/23 08:23 Dose: 1 gm Glucagon (Glucagon For Inj 1 Mg Vial) 1 mg SQ UD PRN; Protocol PRN Reason: Hypoglycemia Protocol Stop: 09/30/23 16:38 Glucose (Glucose 10 Tab/Tube) 4 - 8 tab PO UD PRN; Protocol PRN Reason: Hypoglycemia Treatment Stop: 09/30/23 16:38 Glucose (Glucose 40% Gel 15 Gm Tube) 15 - 30 gm PO UD PRN; Protocol PRN Reason: Hypoglycemia Protocol Stop: 09/30/23 16:38 Piperacillin Sod/Tazobactam (Sod 4.5 gm/ Dextrose) 100 mls @ 25 mls/hr IV Q8H [facility]; Protocol Stop: 09/06/23 19:59 Last Admin: 09/03/23 13:01 Dose: 25 mls/hr Doxycycline Hyclate 100 mg/ (Dextrose) 100 mls @ 50 mls/hr IV Q12H [facility] Stop: 09/06/23 20:59 Last Infusion: 09/03/23 10:38 Dose: Infused Methylprednisolone 40 mg/ (Syringe) 0.64 mls @ 1.5 mls/min IV Q8H [facility] Stop: 09/29/23 19:59 Last Admin: 09/03/23 13:01 Dose: 1.5 mls/min Sodium Chloride (Nss) 1,000 mls @ 80 mls/hr IV .[id number] [facility] Stop: 09/03/23 18:59 Last Admin: 09/03/23 09:09 Dose: 80 mls/hr Insulin Aspart (Insulin Aspart Per Unit Charge) 0 units SC ACHS [facility] Stop: 10/01/23 16:29 Last Admin: 09/03/23 12:59 Dose: 2 units Insulin Glargine (Lantus Per Unit Charge) 0 units SC BID [facility]; Protocol Stop: 10/01/23 20:59 Last Admin: 09/03/23 08:32 Dose: 8 units Magnesium Hydroxide (Magnesium Hydroxide Susp 30 Ml Udc) 30 ml PO Q12H PRN PRN Reason: Constipation Stop: 09/29/23 19:32 Miscellaneous (Carbohydrates For Hypoglycemia ) 15 - 30 gm PO UD PRN PRN Reason: Hypoglycemia Protocol Stop: 09/30/23 16:38 Miscellaneous (Check Fentanyl Patch Placement) 1 each N/A QS [facility] Stop: 10/01/23 15:59 Last Admin: 09/03/23 08:21 Dose: 1 each Miscellaneous (Fentanyl Patch Remove & Waste) 1 each N/A Q3D [facility] Stop: 10/01/23 09:14 Last Admin: 09/01/23 10:26 Dose: Not Given Miscellaneous (Remove Nicoderm Patch) 1 each N/A DAILY@0859 [facility] Stop: 10/02/23 08:58 Last Admin: 09/03/23 08:22 Dose: 1 each Miscellaneous Information (Pharmacy Glycemic Mgmt Consult) 1 each N/A UD PRN PRN Reason: Consult Stop: 09/30/23 16:38 Nicotine (Nicotine 14 Mg/24 Hr Patch) 14 mg TD QAM [facility] Stop: 10/01/23 09:44 Last Admin: 09/03/23 08:24 Dose: 14 mg Olanzapine (Olanzapine 10 Mg/2.1 Ml Sdv) 5 mg IM Q6H PRN PRN Reason: Agitation Stop: 10/01/23 03:05 Ondansetron HCl (Ondansetron Inj 2 Mg/Ml 2 Ml Vial) 4 mg IV Q6H PRN PRN Reason: Nausea Stop: 09/29/23 19:32 Polyethylene Glycol (Polyethylene (Miralax) 17 Gm Pack) 17 gm PO DAILY PRN PRN Reason: Constipation Stop: 09/29/23 19:32 Trazodone HCl (Trazodone Hcl 50 Mg Tab) 50 mg PO HS [facility] Stop: 10/01/23 20:59 Last Admin: 09/02/23 20:37 Dose: 50 mg Venlafaxine HCl (Venlafaxine Hcl Xr 37.5 Mg Capxr) 37.5 mg PO DAILY [facility] Stop: 09/30/23 08:59 Last Admin: 09/03/23 08:23 Dose: 37.5 mg Venlafaxine HCl (Venlafaxine Hcl Xr 150 Mg Capxr) 150 mg PO DAILY [facility] Stop: 09/30/23 08:59 Last Admin: 09/03/23 08:23 Dose: 150 mg Warfarin Sodium (Warfarin Sod 5 Mg Tab) 5 mg PO [id number]@1600 [facility] Stop: 10/01/23 15:59 Last Admin: 09/02/23 16:56 Dose: 5 mg Warfarin Sodium (Warfarin Sod 2.5 Mg Tab) 2.5 mg PO Nolan@1600 [facility] Stop: 10/07/23 15:59 (2) Sepsis Sepsis type: sepsis due to unspecified organism Sepsis acute organ dysfunction status: with acute organ dysfunction Severe sepsis acute organ dysfunction type: encephalopathy Severe sepsis shock status: without septic shock Qualified Code(s): A41.9 - Sepsis, unspecified organism; R65.20 - Severe sepsis without septic shock; G93.41 - Metabolic encephalopathy (4) Pneumonia Pneumonia type: aspiration pneumonia Aspiration pneumonia type: due to regurgitated food Laterality: right Lung location: lower lobe of lung Qualified Code(s): J69.0 - Pneumonitis due to inhalation of food and vomit (6) Rhabdomyolysis Rhabdomyolysis type: non-traumatic Qualified Code(s): M62.82 - Rhabdomyolysis
[2023-09-03] MEDS ORDERED: WARFARIN SOD 2 MG TAB PO ONE (16:00)
[2023-09-03] MEDS: WARFARIN SOD 5 MG TAB PO SCH (17:21)
[2023-09-03] MEDS: ACETAMINOPHEN 325 MG TAB PO PRN (17:47)
[2023-09-03] MEDS ORDERED: cloNIDine HCL 0.1 MG TAB PO ONE (20:05)
[2023-09-03] MEDS ORDERED: LABETALOL HCL IV 5 MG/ML 20ML IV STA (20:06)
[2023-09-03] MEDS: traZODone HCL 50 MG TAB PO SCH (20:21)
[2023-09-04] MEDS: CHECK fentaNYL PATCH PLACEMENT SCH ×2 (01:02→08:59)
[2023-09-04] MEDS: PIPERACILLIN/TAZOBACTAM 4.5 GM in DEXTROSE 5% MINI-B 100 ML IV SCH ×2 (04:16→11:46)
[2023-09-04] MEDS: methylPREDNISolone 40 MG in SYRINGE 0 ML IV SCH ×2 (04:17→11:47)
[2023-09-04] MEDS: DOCUSATE SODIUM 100 MG CAP PO SCH (09:02)
[2023-09-04] MEDS: INSULIN ASPART PER UNIT CHARGE SC SCH ×2 (09:03→13:13)
[2023-09-04] MEDS: OMEGA-3 (PURIFIED FISH OIL) 1 GM CAP PO SCH (09:03)
[2023-09-04] MEDS: DONEPEZIL HCL 10 MG TAB PO SCH (09:03)
[2023-09-04] MEDS: DOXYCYCLINE HYCLATE 100 MG in DEXTROSE 5% MINI-B 100 ML IV SCH (09:03)
[2023-09-04] MEDS: VENLAFAXINE HCL XR 37.5 MG CAPXR PO SCH (09:04)
[2023-09-04] MEDS: LANTUS PER UNIT CHARGE SC SCH (09:04)
[2023-09-04] MEDS: VENLAFAXINE HCL XR 150 MG CAPXR PO SCH (09:04)
[2023-09-04] MEDS: ENOXAPARIN 100 MG/1ML SYR SQ SCH (09:12)
[2023-09-04] MEDS: NICOTINE 14 MG/24 HR PATCH TD SCH (10:50)
[2023-09-04] MEDS: fentaNYL 25 MCG/HR TDSY TD SCH (10:51)
--- NOTE | 2023-09-04 10:51 | Hospitalist Progress Note ---
Date of Service September 04, 2023 Assessment & Plan (1) Acute metabolic encephalopathy: (2) Sepsis: (3) Acute hypoxic respiratory failure: (4) Pneumonia: (5) Lactic acidosis: (6) Rhabdomyolysis: (7) Hypomagnesemia: (8) Metastatic adenocarcinoma to prostate: (9) History of DVT (deep vein thrombosis): (10) Chronic anticoagulation: Plan: This is an 82-year-old male who has a significant past medical history of metastatic prostate cancer to bone, diet-controlled T2DM, chronic DVT on warfarin, asthma, dementia, chronic pain and depression with anxiety who presented to the ED via EMS secondary to unresponsiveness. Discussed code status with the and her sister at bedside on 09/01- want pt to be FULL CODE, all heroic measures taken. Acute metabolic encephalopathy Acute hypoxic respiratory failure Severe Sepsis Right lower lobe pneumonia -likely aspiration Lactic acidosis Pt tachycardic, febrile at 38.8 with pulmonary infection on admission Procalcitonin sig elevated at 29.72 lactate was elevated at 2.1 to 3.0 before being normal at 1.9 after fluid resuscitation Increased oxygen requirement, does not use oxygen at baseline. Currently requiring 2L and at times on RA Chest XR noted RML/RLL opacities, UA with no signs of infection received vanco/cefepime in ED Continue on IV zosyn and doxy blood culture x 2 with NGTD, sputum Cx with NGTD UA unremarkable on admission, repeated 08/31 with urine Cx with NGTD IV solumedrol 40mg q8h (pt on dexamethasone at home) consult speech for swallow eval - video swallow on 09/01 noted zenker's diverticulm, GI consult placed- recommending EGD outpt -minced and moist diet, thin liquids, no straws, mouth care ACHS. pulm toilet with ISP, nebs, flutter valve Clinically much better today without any respiratory symptoms at rest Will continue current IV antibiotic and plan to discharge on oral to finish the course PT OT evaluation recommended to go to rehab The patient and the are refusing to go to rehab Remains medically stable though generally weak He will be discharged home this afternoon Delirium in the setting of Dementia Pt with history of Dementia, Depression with anxiety On Effexor, trazodone, aricept at home Episodes of agitation, has Zyprexa ordered prn Delirium precautions. Frequent reorientation, avoid sedating medications Holding home oxycodone, fentanyl patch decreased to 25mcg Clinically much better but remains weak and lethargic Advised to take less of narcotic pain medications on discharge No more acute delirium Hematuria Urinary Retention Pt with episode of hematuria and urinary retention with naranjo on 08/31 Seen by urology -recommended keeping the naranjo catheter w/ gravity drainage - manually irrigating and flushing if clogged Warfarin was discontinued on 08/31 and received Vit K Has since been restarted (see discussion below) Hematuria has been resolved Need to have an appointment with urologist as an outpatient Chronic DVT Long-term anticoagulation On warfarin Warfarin was discontinued on 08/31 and received Vit K for hematuria INR dropped from 2.2 to 1.2 Warfarin re-started on 09/01, lovenox bridge started on 09/02 We will continue Coumadin and Lovenox for now and check INR tomorrow INR is pending for today Elevated trop hs-trop elevated at 22.7 to 32.6 to 30.5 Echo with no hypokinesis no st t wave changes on EKG, no chest pain likely demand ischemia in setting of sepsis Rhabdomyolysis, nontraumatic CK elevated at 2587 to 2243 to 1310 setting of sepsis IVF fluids again, gentle on 09/01, 09/02 hold statin, continue IVF, trend CK with AM labs CK has been normalized-at 230 Hypomagnesemia 1.6 on admission replete as needed Metastatic prostate to bone Chronic pain Follows with Dr. Senior, Dr. Barbour for radiation and Jyoti Wilson DNP for pain management Continue fentanyl patch, will hold as needed oxycodone until encephalopathy resolves He takes oxycodone for severe left hip pain Appreciate pain management/palliative recs for meds in setting of acute encephalopathy Fentanyl patch resumed at lower dose of 25mcg Discussed code status with the and her sister at bedside on 09/01- want pt to be FULL CODE, all heroic measures taken. DMII [id number] of 7.2 on admission Pt on high dose steroids ISS while hospitalized, consider basal with persistent elevated blood glucose levels Glycemic consult placed Diet:Minced and moist diet due to aspiration concerns DVT ppx: Warfarin with lovenox bridge FULL CODE Dispo: PT/OT ordered Likely discharge this afternoon Discussed with the patient and the in detail The patient wants to go home even knowing the risk of falling at home is more compared with the [facility] or rehab facility He will be discharged home this afternoon Admission and Anticipated Discharge Date Admission Date: August 30, 2023 Subjective 09/03/2023 The patient was seen and examined in telemetry unit in presence of the He remains very weak and lethargic but wants to go home No fever and or chills and denies any other significant symptoms Will have formal PT and OT evaluation prior to discharge 09/04/2023 The patient was seen and examined in telemetry unit He has been feeling much better but remains generally weak He has had physical therapy and recommended rehab The patient and the are refusing rehab and will likely go home this afternoon Review of Systems Review of Systems: All systems reviewed and are unremarkable except as noted below Physical Exam Physical Exam: Sitting at the edge of the bed without any apparent distress Constitutional: well developed, well nourished, + ill appearing and + obese Eyes: PERRL, conjunctivae normal, anicteric sclerae ENMT: external ear and nose normal, oropharynx normal Neck: trachea midline, no thyromegaly Respiratory: no respiratory distress Auscultation: lungs clear to auscultation bilaterally Cardiovascular: Rate/Rhythm: regular rate and regular rhythm; not tachycardic Heart Sounds: normal S1 and normal S2; no murmur Extremities: no edema Gastrointestinal (Abdomen): Inspection/Auscultation: + abdomen distended (Soft) and normal bowel sounds Percussion/Palpation: abdomen soft; abdomen nontender Neurologic: normal touch/pain/proprioception and moves all extremities; no focal motor deficits Lymphatic: no cervical or axillary lymphadenopathy Results & Data Results & Data Vital Signs (Past 12 Hours) Vital Signs Temp Pulse Pulse Resp BP Pulse Ox O2 Del Method 09/04/23 07:27 36.4 C L 81 20 167/97 H 92 Room Air 09/04/23 04:40 36.4 C L 67 18 178/84 H 95 Room Air 09/03/23 23:40 37.0 C 71 18 145/82 H 94 Room Air 09/03/23 23:00 72 Laboratory Results Cardiac Enzymes 09/04/23 Range/Units 05:32 Total Creatine Kinase 230 H (30-223) U/L Medications Administered Current Inpatient Medications Acetaminophen (Acetaminophen 325 Mg Tab) 650 mg PO Q4H PRN PRN Reason: Pain or Fever Stop: 09/29/23 19:32 Last Admin: 09/03/23 17:47 Dose: 650 mg Al Hydrox/Mg Hydrox/Simethicone (Aluminum/Magnesium Susp 30 Ml Udc) 15 ml PO Q4H PRN PRN Reason: Dyspepsia Stop: 09/29/23 19:32 Albuterol (Albuterol 0.083% Nebu Soln 3 Ml Vial) 2.5 mg NEB Q6R PRN; Protocol PRN Reason: sob/wheezing Stop: 09/29/23 19:32 Dextrose (Dextrose 50% 50 Ml Syringe) 25 - 50 ml IV UD PRN; Protocol PRN Reason: Hypoglycemia Protocol Stop: 09/30/23 16:38 Docusate Sodium (Docusate Sodium 100 Mg Cap) 200 mg PO DAILY [facility] Stop: 09/30/23 08:59 Last Admin: 09/04/23 09:02 Dose: 200 mg Donepezil HCl (Donepezil Hcl 10 Mg Tab) 10 mg PO DAILY [facility] Stop: 09/30/23 08:59 Last Admin: 09/04/23 09:03 Dose: 10 mg Enoxaparin Sodium (Enoxaparin 100 Mg/1ml Syr) 90 mg SQ Q12H [facility] Stop: 10/02/23 09:59 Last Admin: 09/04/23 09:12 Dose: 90 mg Fentanyl (Fentanyl 25 Mcg/Hr Tdsy) 25 mcg TD Q3D [facility] Stop: 09/15/23 09:14 Last Admin: 09/01/23 10:26 Dose: 25 mcg Fish Oil ([place]-3 (Purified Fish Oil) 1 Gm Cap) 1 gm PO QAM [facility] Stop: 09/30/23 08:59 Last Admin: 09/04/23 09:03 Dose: 1 gm Glucagon (Glucagon For Inj 1 Mg Vial) 1 mg SQ UD PRN; Protocol PRN Reason: Hypoglycemia Protocol Stop: 09/30/23 16:38 Glucose (Glucose 10 Tab/Tube) 4 - 8 tab PO UD PRN; Protocol PRN Reason: Hypoglycemia Treatment Stop: 09/30/23 16:38 Glucose (Glucose 40% Gel 15 Gm Tube) 15 - 30 gm PO UD PRN; Protocol PRN Reason: Hypoglycemia Protocol Stop: 09/30/23 16:38 Piperacillin Sod/Tazobactam (Sod 4.5 gm/ Dextrose) 100 mls @ 25 mls/hr IV Q8H [facility]; Protocol Stop: 09/06/23 19:59 Last Infusion: 09/04/23 08:16 Dose: Infused Doxycycline Hyclate 100 mg/ (Dextrose) 100 mls @ 50 mls/hr IV Q12H [facility] Stop: 09/06/23 20:59 Last Admin: 09/04/23 09:03 Dose: 50 mls/hr Methylprednisolone 40 mg/ (Syringe) 0.64 mls @ 1.5 mls/min IV Q8H [facility] Stop: 09/29/23 19:59 Last Admin: 09/04/23 04:17 Dose: 1.5 mls/min Insulin Aspart (Insulin Aspart Per Unit Charge) 0 units SC ACHS [facility] Stop: 10/01/23 16:29 Last Admin: 09/04/23 09:03 Dose: 2 units Insulin Glargine (Lantus Per Unit Charge) 0 units SC BID [facility]; Protocol Stop: 10/01/23 20:59 Last Admin: 09/04/23 09:04 Dose: 8 units Magnesium Hydroxide (Magnesium Hydroxide Susp 30 Ml Udc) 30 ml PO Q12H PRN PRN Reason: Constipation Stop: 09/29/23 19:32 Miscellaneous (Carbohydrates For Hypoglycemia ) 15 - 30 gm PO UD PRN PRN Reason: Hypoglycemia Protocol Stop: 09/30/23 16:38 Miscellaneous (Check Fentanyl Patch Placement) 1 each N/A QS [facility] Stop: 10/01/23 15:59 Last Admin: 09/04/23 08:59 Dose: 1 each Miscellaneous (Fentanyl Patch Remove & Waste) 1 each N/A Q3D [facility] Stop: 10/01/23 09:14 Last Admin: 09/01/23 10:26 Dose: Not Given Miscellaneous (Remove Nicoderm Patch) 1 each N/A DAILY@0859 [facility] Stop: 10/02/23 08:58 Last Admin: 09/04/23 09:00 Dose: 1 each Miscellaneous Information (Pharmacy Glycemic Mgmt Consult) 1 each N/A UD PRN PRN Reason: Consult Stop: 09/30/23 16:38 Nicotine (Nicotine 14 Mg/24 Hr Patch) 14 mg TD QAM [facility] Stop: 10/01/23 09:44 Last Admin: 09/03/23 08:24 Dose: 14 mg Olanzapine (Olanzapine 10 Mg/2.1 Ml Sdv) 5 mg IM Q6H PRN PRN Reason: Agitation Stop: 10/01/23 03:05 Ondansetron HCl (Ondansetron Inj 2 Mg/Ml 2 Ml Vial) 4 mg IV Q6H PRN PRN Reason: Nausea Stop: 09/29/23 19:32 Polyethylene Glycol (Polyethylene (Miralax) 17 Gm Pack) 17 gm PO DAILY PRN PRN Reason: Constipation Stop: 09/29/23 19:32 Trazodone HCl (Trazodone Hcl 50 Mg Tab) 50 mg PO HS [facility] Stop: 10/01/23 20:59 Last Admin: 09/03/23 20:21 Dose: 50 mg Venlafaxine HCl (Venlafaxine Hcl Xr 37.5 Mg Capxr) 37.5 mg PO DAILY [facility] Stop: 09/30/23 08:59 Last Admin: 09/04/23 09:04 Dose: 37.5 mg Venlafaxine HCl (Venlafaxine Hcl Xr 150 Mg Capxr) 150 mg PO DAILY [facility] Stop: 09/30/23 08:59 Last Admin: 09/04/23 09:04 Dose: 150 mg Warfarin Sodium (Warfarin Sod 5 Mg Tab) 5 mg PO [id number] [facility] Stop: 10/01/23 15:59 Last Admin: 09/03/23 17:21 Dose: 5 mg Warfarin Sodium (Warfarin Sod 2.5 Mg Tab) 2.5 mg PO Nolan@1600 [facility] Stop: 10/07/23 15:59 (2) Sepsis Sepsis acute organ dysfunction status: with acute organ dysfunction Sepsis type: sepsis due to unspecified organism Severe sepsis acute organ dysfunction type: encephalopathy Severe sepsis shock status: without septic shock Qualified Code(s): A41.9 - Sepsis, unspecified organism; R65.20 - Severe sepsis without septic shock; G93.41 - Metabolic encephalopathy (4) Pneumonia Aspiration pneumonia type: due to regurgitated food Laterality: right Lung location: lower lobe of lung Pneumonia type: aspiration pneumonia Qualified Code(s): J69.0 - Pneumonitis due to inhalation of food and vomit (6) Rhabdomyolysis Rhabdomyolysis type: non-traumatic Qualified Code(s): M62.82 - Rhabdomyolysis
[2023-09-04 11:10] VITALS: BP 164/96; RESP 19; TEMP 98.2; O2SAT 94
[2023-09-04 11:44] LABS: INR 2.2 (0.9-1.1); Prothrombin Time 22.8 Seconds (9.0-12.0)
[2023-09-04] MEDS ORDERED: DOXYCYCLINE HYCLATE 100 MG CAP PO STA (16:37)
[2023-09-04] MEDS ORDERED: CEFDINIR 300 MG CAP PO STA (16:37)
--- NOTE | 2023-09-04 16:47 | Discharge Summary ---
Date of Service September 04, 2023 Admission HPI Per Admitting Provider This is an 82-year-old male who has a significant past medical history of metastatic prostate cancer to bone, diet-controlled T2DM, chronic DVT on warfarin, asthma, dementia, chronic pain and depression with anxiety who presents to ED via EMS secondary to unresponsiveness. Patient's is at bedside to elicit history. She states he was in his normal state of health until yesterday. Yesterday morning he was taking his morning pills whenever he started choking on them. He then tried to eat a cookie and continue to have difficulty swallowing. Since that time he had gotten a deeper voice. Later on throughout the day he developed a wet cough. Last night when he went to bed she felt his head felt warm, but did not take his temperature. She also started to note some congestion in his chest. She states he got up to go the bathroom in the middle the night and had difficulty getting back in bed; therefore, she helped him. When she woke up this morning he was still sleeping and she felt maybe he was tired at due to feeling ill. She thought maybe he was starting to get the flu. She went in to see him at approximately 10 AM whenever she was not able to arouse him despite numerous attempts including a wet washcloth and pulling the pillow out from under him. She then noticed his toenails were blue and therefore called EMS. He was noted to be hypoxic in the 60s upon their arrival. He was placed on a nonrebreather.En route he received 1 g of Tylenol as well as IV fluids and his mentation started to improve slightly. In ED patient meets sepsis criteria in setting of fever, tachycardia and chest x-ray with evidence of significant right-sided lower lobe pneumonia. He currently is hypoxic saturating in the low 90s on 5 L of oxygen. He was ordered IV cefepime, IV vancomycin and IV fluids. His CBC, CMP, VBG, troponin, CK, lactate, urinalysis, respiratory BioFire panel was independently interpreted by myself. His H&H is 13.0 and 40.3. He does not have a significant leukocytosis. His INR is therapeutic at 2.4. He does have a mildly elevated lactic acid at 2.1, elevated troponin at 22.7 and significantly elevated total creatinine kinase 2587. His urinalysis and respiratory bio fire panel is negative. Initial head CT negative for acute abnormality. ROS limited but pt does complain of L hip pain and cough. He denies any chest pain, dizziness, lightheaded, BEE, neck pain, neck stiffness, n/v/d, abd pain, difficulty with bowel/bladder prior to today. Of significance in regards to patient's prostate cancer he follows with Dr. Senior. He also follows with Dr. Barbour of radiation oncology. Currently he is receiving Lupron, Zometa and has received palliative radiation. He is on chronic anticoagulation therapy and this is managed by Dr. Saravia. He follows with pain management and Jyoti Dick due to chronic pain in setting of metastatic prostate cancer. He is on a regimen of a 75 mcg fentanyl patch every 72 hours as well as 15 mg oxycodone every 4 hours as needed. states he typically takes this approximately twice a day. He is to follow with Dr. Cee of orthopedics this coming week due to chronic left hip pain. Initially there was concern this may be related to prostate cancer, but this has since been ruled out. Admission Exam Per Admitting Provider Physical Exam: Constitutional: Critically ill male, no acute distress, nonrebreather in place, vitals as above, sitting up in bed, awake and alert and responds to verbal stimuli Head: Normocephalic, Atraumatic Eyes: conjunctivae normal, anicteric sclerae ENMT: external ear and nose normal, oropharynx normal, mucous membranes dry Neck: trachea midline, no thyromegaly normal visual inspection Respiratory: normal respiratory effort, course breath sounds throughout + rhonchi. Normal insp/exp effort, no accessory muscle use Cardiovascular: tachycardic rate, reg rhythm, no murmur, no edema, b/l venous stasis changes Vessels: no JVD or carotid bruit Chest: normal inspection of chest Abdomen: normal bowel sounds, soft, nontender, no hepatosplenomegaly Musculoskeletal: no cyanosis or clubbing, extremities AROM x 4 Skin: no rashes, warm and dry normal turgor Neurologic: PERRL, EOMI, accommodation nl, no face palsy, no dysarthria CN's II-XI intact bilaterally and moves all extremities Psychiatric: A+Ox1 self/, not oriented to date/time/place, euthymic affect : naranjo cath draining yellow urine Principal Diagnosis Acute metabolic and cephalopathy, acute hypoxic respiratory failure, sepsis secondary to right lower lobe pneumonia, chronic DVT, hematuria with urinary retention, metastatic prostate cancer Discharge Exam Sitting at the edge of the bed without any apparent distress Constitutional well developed, well nourished, + ill appearing and + obese Eyes PERRL, conjunctivae normal, anicteric sclerae ENMT external ear and nose normal, oropharynx normal Neck trachea midline, no thyromegaly Respiratory no respiratory distress Auscultation: lungs clear to auscultation bilaterally Cardiovascular Rate/Rhythm: regular rate and regular rhythm; not tachycardic Heart Sounds: normal S1 and normal S2; no murmur Extremities: no edema Gastrointestinal (Abdomen) Inspection/Auscultation: + abdomen distended (Soft) and normal bowel sounds Percussion/Palpation: abdomen soft; abdomen nontender Neurologic normal touch/pain/proprioception and moves all extremities; no focal motor deficits Lymphatic no cervical or axillary lymphadenopathy Discharge Data Allergies Allergy/AdvReac Type Severity Reaction Status Date / Time No Known Drug Allergies Allergy Unknown NONE Verified 06/17/23 08:31 house dust AdvReac Mild ITCHY Verified 06/17/23 08:31 EYES, RUNNY NOSE ragweed pollen AdvReac Unknown RASH Verified 06/17/23 08:31 Consultations 08/30/23 12:55 ED Decision to Admit Stat 08/31/23 03:24 Consult Urology Routine 08/31/23 06:15 Consult Palliative Care Routine 09/01/23 15:15 Consult Gastroenterology Routine Ordered Studies 08/30/23 11:56 CT head/brain wo con Stat 08/31/23 02:43 CT abd pelvis wo con Urgent 09/01/23 13:20 FL video swallow Routine Hospital Course (1) Acute metabolic encephalopathy: (2) Sepsis: (3) Acute hypoxic respiratory failure: (4) Pneumonia: (5) Lactic acidosis: (6) Rhabdomyolysis: (7) Hypomagnesemia: (8) Metastatic adenocarcinoma to prostate: (9) History of DVT (deep vein thrombosis): (10) Chronic anticoagulation: This is an 82-year-old male who has a significant past medical history of metastatic prostate cancer to bone, diet-controlled T2DM, chronic DVT on warfarin, asthma, dementia, chronic pain and depression with anxiety who presented to the ED via EMS secondary to unresponsiveness. Discussed code status with the and her sister at bedside on 12/18- want pt to be FULL CODE, all heroic measures taken. Acute metabolic encephalopathy Acute hypoxic respiratory failure Severe Sepsis Right lower lobe pneumonia -likely aspiration Lactic acidosis Pt tachycardic, febrile at 38.8 with pulmonary infection on admission Procalcitonin sig elevated at 29.72 lactate was elevated at 2.1 to 3.0 before being normal at 1.9 after fluid resuscitation Increased oxygen requirement, does not use oxygen at baseline. Currently requiring 2L and at times on RA Chest XR noted RML/RLL opacities, UA with no signs of infection received vanco/cefepime in ED Continue on IV zosyn and doxy blood culture x 2 with NGTD, sputum Cx with NGTD UA unremarkable on admission, repeated 08/31 with urine Cx with NGTD IV solumedrol 40mg q8h (pt on dexamethasone at home) consult speech for swallow eval - video swallow on 09/01 noted zenker's diverticulm, GI consult placed- recommending EGD outpt -minced and moist diet, thin liquids, no straws, mouth care ACHS. pulm toilet with ISP, nebs, flutter valve Clinically much better today without any respiratory symptoms at rest Will continue current IV antibiotic and plan to discharge on oral to finish the course PT OT evaluation recommended to go to rehab The patient and the are refusing to go to rehab Remains medically stable though generally weak He will be discharged home this afternoon Delirium in the setting of Dementia Pt with history of Dementia, Depression with anxiety On Effexor, trazodone, aricept at home Episodes of agitation, has Zyprexa ordered prn Delirium precautions. Frequent reorientation, avoid sedating medications Holding home oxycodone, fentanyl patch decreased to 25mcg Clinically much better but remains weak and lethargic Advised to take less of narcotic pain medications on discharge No more acute delirium Hematuria Urinary Retention Pt with episode of hematuria and urinary retention with naranjo on 08/31 Seen by urology -recommended keeping the naranjo catheter w/ gravity drainage - manually irrigating and flushing if clogged Warfarin was discontinued on 08/31 and received Vit K Has since been restarted (see discussion below) Hematuria has been resolved Need to have an appointment with urologist as an outpatient Chronic DVT Long-term anticoagulation On warfarin Warfarin was discontinued on 08/31 and received Vit K for hematuria INR dropped from 2.2 to 1.2 Warfarin re-started on 09/01, lovenox bridge started on 09/02 We will continue Coumadin and Lovenox for now and check INR tomorrow INR is pending for today Elevated trop hs-trop elevated at 22.7 to 32.6 to 30.5 Echo with no hypokinesis no st t wave changes on EKG, no chest pain likely demand ischemia in setting of sepsis Rhabdomyolysis, nontraumatic CK elevated at 2587 to 2243 to 1310 setting of sepsis IVF fluids again, gentle on 09/01, 09/02 hold statin, continue IVF, trend CK with AM labs CK has been normalized-at 230 Hypomagnesemia 1.6 on admission replete as needed Metastatic prostate to bone Chronic pain Follows with Dr. Senior, Dr. Barbour for radiation and Jyoti Wilson DNP for pain management Continue fentanyl patch, will hold as needed oxycodone until encephalopathy resolves He takes oxycodone for severe left hip pain Appreciate pain management/palliative recs for meds in setting of acute encephalopathy Fentanyl patch resumed at lower dose of 25mcg Discussed code status with the and her sister at bedside on 09/01- want pt to be FULL CODE, all heroic measures taken. DMII hgba1c of 7.2 on admission Pt on high dose steroids ISS while hospitalized, consider basal with persistent elevated blood glucose levels Glycemic consult placed Diet:Minced and moist diet due to aspiration concerns DVT ppx: Warfarin with lovenox bridge FULL CODE Dispo: PT/OT ordered Likely discharge this afternoon Discussed with the patient and the in detail The patient wants to go home even knowing the risk of falling at home is more compared with the penitentiary or rehab facility He will be discharged home this afternoon Total Time Total Time Spent Total Time Spent (In Minutes): 45 minutes Discharge Plan Discharge Items Patient Disposition: Home - Home Health Services Reason For Visit: PNEUMONIA, RESPIRATORY FAILURE Discharge Diagnosis: Acute metabolic and cephalopathy, acute hypoxic respiratory failure, sepsis secondary to right lower lobe pneumonia, chronic DVT, hematuria with urinary retention, metastatic prostate cancer Condition on Discharge: Fair Activity: Resume your previous activity Non-emergency contact: Primary Care Provider Call non-emergency contact if: you have any medication questions and your symptoms worsen Follow-up/Referrals: Lidya Barbour MD [Primary Care Provider] - (Date & Time 09/10/2023 9:40 AM Provider Paige Paula MD Department General Internal Medicine [facility] ) Darrell Washington MD [Physician] - 09/18/23 10:00 am Diet: Carb Consistent or DM2 and Heart Healthy Addtl Attending Provider Instructions: Please take precautions to avoid falls Please finish the course of antibiotic Take your other medications as advised Please have regular follow-up with the coagulation clinic to maintain your INR between 2-3 Please give appointment with the healthcare providers Try to use less of your narcotic pain medication to avoid confusion and constipation Pending Studies at Discharge: No Stand-Alone Forms: My [facility] [email or web address], Smoking Cessation Medications and DC Order Prescriptions: New doxycycline hyclate 100 mg tablet 100 mg PO BID 5 Days Qty: 10 0RF cefdinir 300 mg capsule 300 mg PO BID 5 Days Qty: 10 0RF nicotine 14 mg/24 hr patch 24 hour 1 patch transdermal DAILY Qty: 28 0RF Continued cyanocobalamin (vitamin B-12) 1,000 mcg capsule 1,000 mcg PO DAILY trazodone 50 mg tablet 25 mg PO HS rosuvastatin [Crestor] 5 mg tablet 5 mg PO DAILY senna 8.6 mg capsule 17.2 mg PO HS PRN (Reason: constipation) polyethylene glycol 3350 [Miralax] 17 gram/dose powder 17 g PO DAILY PRN (Reason: constipation) venlafaxine 37.5 mg capsule,extended release 24hr 37.5 mg PO DAILY multivitamin Tablet 1 tab PO DAILY docusate sodium [Colace] 100 mg capsule 200 mg PO DAILY venlafaxine [Effexor XR] 150 mg capsule,extended release 24hr 150 mg PO DAILY naloxone 4 mg/actuation spray,non-aerosol 1 spray intranasal Q3M PRN (Reason: opioid overdose) Qty: 2 0RF Rx Instructions: administer 1 dose into ONE nostril; alternate nostrils w each dose until assistance arrives warfarin 5 mg tablet See Rx Instructions PO UD Rx Instructions: 2.5mg q Sun, 5mg x 6 days per [facility] orally use as directed dexamethasone 0.5 mg tablet 1 mg PO DAILY 30 Days Qty: 60 2RF [place]-3 350 mg-235 mg- 90 mg-597 mg Capsule,Delayed Release(Dr/Ec) 1 tab PO QAM donepezil 10 mg tablet 10 mg PO DAILY calcium carbonate-vitamin D3 [Calcium 500 + D (D3)] 500 mg(1,250mg) -125 unit tablet 1 tab PO DAILY gabapentin 300 mg Capsule 300 mg PO TID fentanyl 25 mcg/hr patch 72 hour 25 mcg transdermal Q72H Discontinued oxycodone 15 mg tablet 15 mg PO Q4H PRN (Reason: pain) 30 Days Qty: 150 0RF Rx Instructions: dose increased fentanyl 50 mcg/hr patch 72 hour 1 patch transdermal Q72H 30 Days Qty: 10 0RF Discharge Orders: Discharge Order (Routine); Ordered 09/04/23 Ordered By: Edilson Lucio/Other Patient Handouts: Managing Type 2 Diabetes Admission Data Admit Date/Time: 08/30/23 13:01 Attending Provider: Edilson Tompkins Admit Provider: Hemant Skinner Primary Care Provider: Lidya Barbour Other Providers: Hemant Skinner; Prashant Richardson; Brett Alberto; Josias Jensen; Ethel Joseph; Hai Lozano; Cyndi Doe; Charu Puri; Juan Diaz; Naomi Ceballos; Duncan Rosenthal; Darrell Washington; Jyoti Wilson; Lachelle Dubon; [facility]; [facility]Referral [facility] Other Interventions: Discharge Summary Assessment (RN) Last Done: 09/04/23 16:24
[2023-09-04 16:59] VITALS: PULSE 84
[2023-09-07] MEDS ORDERED: WARFARIN SOD 2.5 MG TAB PO SCH (16:00)
--- NOTE | 2023-09-08 15:21 | Discharge Summary ---
Date of Service September 08, 2023 Admission HPI Per Admitting Provider This is an 82-year-old male who has a significant past medical history of metastatic prostate cancer to bone, diet-controlled T2DM, chronic DVT on warfarin, asthma, dementia, chronic pain and depression with anxiety who presents to ED via EMS secondary to unresponsiveness. Patient's is at bedside to elicit history. She states he was in his normal state of health until yesterday. Yesterday morning he was taking his morning pills whenever he started choking on them. He then tried to eat a cookie and continue to have difficulty swallowing. Since that time he had gotten a deeper voice. Later on throughout the day he developed a wet cough. Last night when he went to bed she felt his head felt warm, but did not take his temperature. She also started to note some congestion in his chest. She states he got up to go the bathroom in the middle the night and had difficulty getting back in bed; therefore, she helped him. When she woke up this morning he was still sleeping and she felt maybe he was tired at due to feeling ill. She thought maybe he was starting to get the flu. She went in to see him at approximately 10 AM whenever she was not able to arouse him despite numerous attempts including a wet washcloth and pulling the pillow out from under him. She then noticed his toenails were blue and therefore called EMS. He was noted to be hypoxic in the 60s upon their arrival. He was placed on a nonrebreather.En route he received 1 g of Tylenol as well as IV fluids and his mentation started to improve slightly. In ED patient meets sepsis criteria in setting of fever, tachycardia and chest x-ray with evidence of significant right-sided lower lobe pneumonia. He currently is hypoxic saturating in the low 90s on 5 L of oxygen. He was ordered IV cefepime, IV vancomycin and IV fluids. His CBC, CMP, VBG, troponin, CK, lactate, urinalysis, respiratory BioFire panel was independently interpreted by myself. His H&H is 13.0 and 40.3. He does not have a significant leukocytosis. His INR is therapeutic at 2.4. He does have a mildly elevated lactic acid at 2.1, elevated troponin at 22.7 and significantly elevated total creatinine kinase 2587. His urinalysis and respiratory bio fire panel is negative. Initial head CT negative for acute abnormality. ROS limited but pt does complain of L hip pain and cough. He denies any chest pain, dizziness, lightheaded, BEE, neck pain, neck stiffness, n/v/d, abd pain, difficulty with bowel/bladder prior to today. Of significance in regards to patient's prostate cancer he follows with Dr. Senior. He also follows with Dr. Barbour of radiation oncology. Currently he is receiving Lupron, Zometa and has received palliative radiation. He is on chronic anticoagulation therapy and this is managed by Dr. Saravia. He follows with pain management and Jyoti Dick due to chronic pain in setting of metastatic prostate cancer. He is on a regimen of a 75 mcg fentanyl patch every 72 hours as well as 15 mg oxycodone every 4 hours as needed. states he typically takes this approximately twice a day. He is to follow with Dr. Cee of orthopedics this coming week due to chronic left hip pain. Initially there was concern this may be related to prostate cancer, but this has since been ruled out. Admission Exam Per Admitting Provider Physical Exam: Constitutional: Critically ill male, no acute distress, nonrebreather in place, vitals as above, sitting up in bed, awake and alert and responds to verbal stimuli Head: Normocephalic, Atraumatic Eyes: conjunctivae normal, anicteric sclerae ENMT: external ear and nose normal, oropharynx normal, mucous membranes dry Neck: trachea midline, no thyromegaly normal visual inspection Respiratory: normal respiratory effort, course breath sounds throughout + rhonchi. Normal insp/exp effort, no accessory muscle use Cardiovascular: tachycardic rate, reg rhythm, no murmur, no edema, b/l venous stasis changes Vessels: no JVD or carotid bruit Chest: normal inspection of chest Abdomen: normal bowel sounds, soft, nontender, no hepatosplenomegaly Musculoskeletal: no cyanosis or clubbing, extremities AROM x 4 Skin: no rashes, warm and dry normal turgor Neurologic: PERRL, EOMI, accommodation nl, no face palsy, no dysarthria CN's II-XI intact bilaterally and moves all extremities Psychiatric: A+Ox1 self/, not oriented to date/time/place, euthymic affect : naranjo cath draining yellow urine Principal Diagnosis Acute metabolic and cephalopathy, acute hypoxic respiratory failure, sepsis secondary to right lower lobe pneumonia, chronic DVT, hematuria with urinary retention, metastatic prostate cancer Discharge Exam Sitting at the edge of the bed without any apparent distress Constitutional well developed, well nourished, + ill appearing and + obese Eyes PERRL, conjunctivae normal, anicteric sclerae ENMT external ear and nose normal, oropharynx normal Neck trachea midline, no thyromegaly Respiratory no respiratory distress Auscultation: lungs clear to auscultation bilaterally Cardiovascular Rate/Rhythm: regular rate and regular rhythm; not tachycardic Heart Sounds: normal S1 and normal S2; no murmur Extremities: no edema Gastrointestinal (Abdomen) Inspection/Auscultation: + abdomen distended (Soft) and normal bowel sounds Percussion/Palpation: abdomen soft; abdomen nontender Neurologic normal touch/pain/proprioception and moves all extremities; no focal motor deficits Lymphatic no cervical or axillary lymphadenopathy Discharge Data Allergies Allergy/AdvReac Type Severity Reaction Status Date / Time ragweed pollen Allergy Intermediate RASH Verified 09/07/23 23:10 house dust Allergy Mild ITCHY Verified 09/07/23 23:10 EYES, RUNNY NOSE Consultations 08/30/23 12:55 ED Decision to Admit Stat 08/31/23 03:24 Consult Urology Routine 08/31/23 06:15 Consult Palliative Care Routine 09/01/23 15:15 Consult Gastroenterology Routine Ordered Studies 08/30/23 11:56 CT head/brain wo con Stat 08/31/23 02:43 CT abd pelvis wo con Urgent 09/01/23 13:20 FL video swallow Routine Hospital Course (1) Acute metabolic encephalopathy: (2) Sepsis: (3) Acute hypoxic respiratory failure: (4) Pneumonia: (5) Lactic acidosis: (6) Rhabdomyolysis: (7) Hypomagnesemia: (8) Metastatic adenocarcinoma to prostate: (9) History of DVT (deep vein thrombosis): (10) Chronic anticoagulation: This is an 82-year-old male who has a significant past medical history of metastatic prostate cancer to bone, diet-controlled T2DM, chronic DVT on warfarin, asthma, dementia, chronic pain and depression with anxiety who presented to the ED via EMS secondary to unresponsiveness. Discussed code status with the and her sister at bedside on 09/01- want pt to be FULL CODE, all heroic measures taken. Acute metabolic encephalopathy Acute hypoxic respiratory failure Severe Sepsis Right lower lobe pneumonia -likely aspiration Lactic acidosis Pt tachycardic, febrile at 38.8 with pulmonary infection on admission Procalcitonin sig elevated at 29.72 lactate was elevated at 2.1 to 3.0 before being normal at 1.9 after fluid resuscitation Increased oxygen requirement, does not use oxygen at baseline. Currently requiring 2L and at times on RA Chest XR noted RML/RLL opacities, UA with no signs of infection received vanco/cefepime in ED Continue on IV zosyn and doxy blood culture x 2 with NGTD, sputum Cx with NGTD UA unremarkable on admission, repeated 08/31 with urine Cx with NGTD IV solumedrol 40mg q8h (pt on dexamethasone at home) consult speech for swallow eval - video swallow on 09/01 noted zenker's diverticulm, GI consult placed- recommending EGD outpt -minced and moist diet, thin liquids, no straws, mouth care ACHS. pulm toilet with ISP, nebs, flutter valve Clinically much better today without any respiratory symptoms at rest Will continue current IV antibiotic and plan to discharge on oral to finish the course PT OT evaluation recommended to go to rehab The patient and the are refusing to go to rehab Remains medically stable though generally weak He will be discharged home this afternoon Delirium in the setting of Dementia Pt with history of Dementia, Depression with anxiety On Effexor, trazodone, aricept at home Episodes of agitation, has Zyprexa ordered prn Delirium precautions. Frequent reorientation, avoid sedating medications Holding home oxycodone, fentanyl patch decreased to 25mcg Clinically much better but remains weak and lethargic Advised to take less of narcotic pain medications on discharge No more acute delirium Hematuria Urinary Retention Pt with episode of hematuria and urinary retention with naranjo on 08/31 Seen by urology -recommended keeping the naranjo catheter w/ gravity drainage - manually irrigating and flushing if clogged Warfarin was discontinued on 08/31 and received Vit K Has since been restarted (see discussion below) Hematuria has been resolved Need to have an appointment with urologist as an outpatient Chronic DVT Long-term anticoagulation On warfarin Warfarin was discontinued on 08/31 and received Vit K for hematuria INR dropped from 2.2 to 1.2 Warfarin re-started on 09/01, lovenox bridge started on 09/02 We will continue Coumadin and Lovenox for now and check INR tomorrow INR is pending for today Elevated trop hs-trop elevated at 22.7 to 32.6 to 30.5 Echo with no hypokinesis no st t wave changes on EKG, no chest pain likely demand ischemia in setting of sepsis Rhabdomyolysis, nontraumatic CK elevated at 2587 to 2243 to 1310 setting of sepsis IVF fluids again, gentle on 09/01, 09/02 hold statin, continue IVF, trend CK with AM labs CK has been normalized-at 230 Hypomagnesemia 1.6 on admission replete as needed Metastatic prostate to bone Chronic pain Follows with Dr. Senior, Dr. Barbour for radiation and Jyoti Wilson DNP for pain management Continue fentanyl patch, will hold as needed oxycodone until encephalopathy resolves He takes oxycodone for severe left hip pain Appreciate pain management/palliative recs for meds in setting of acute encephalopathy Fentanyl patch resumed at lower dose of 25mcg Discussed code status with the and her sister at bedside on 09/01- want pt to be FULL CODE, all heroic measures taken. DMII [id number] of 7.2 on admission Pt on high dose steroids ISS while hospitalized, consider basal with persistent elevated blood glucose levels Glycemic consult placed Diet:Minced and moist diet due to aspiration concerns DVT ppx: Warfarin with lovenox bridge FULL CODE Dispo: PT/OT ordered Likely discharge this afternoon Discussed with the patient and the in detail The patient wants to go home even knowing the risk of falling at home is more compared with the halfway or rehab facility He will be discharged home this afternoon Total Time Total Time Spent Total Time Spent (In Minutes): 40 minutes Discharge Plan Discharge Items Patient Disposition: Home - Home Health Services Reason For Visit: PNEUMONIA, RESPIRATORY FAILURE Discharge Diagnosis: Acute metabolic and cephalopathy, acute hypoxic respiratory failure, sepsis secondary to right lower lobe pneumonia, chronic DVT, hematuria with urinary retention, metastatic prostate cancer Condition on Discharge: Fair Activity: Resume your previous activity Non-emergency contact: Primary Care Provider Call non-emergency contact if: you have any medication questions and your symptoms worsen Follow-up/Referrals: Lidya Barbour MD [Primary Care Provider] - (Date & Time 09/10/2023 9:40 AM Provider Paige Paual MD Department General Internal Medicine [facility] ) Darrell Washington MD [Physician] - 09/18/23 10:00 am Diet: Carb Consistent or DM2 and Heart Healthy Addtl Attending Provider Instructions: Please take precautions to avoid falls Please finish the course of antibiotic Take your other medications as advised Please have regular follow-up with the coagulation clinic to maintain your INR between 2-3 Please give appointment with the healthcare providers Try to use less of your narcotic pain medication to avoid confusion and constipation Pending Studies at Discharge: No Stand-Alone Forms: My [facility] [employer], Smoking Cessation Medications and DC Order Prescriptions: New doxycycline hyclate 100 mg tablet 100 mg PO BID 5 Days Qty: 10 0RF Rx Instructions: STARTED 09/04/23 FOR 5 DAYS cefdinir 300 mg capsule 300 mg PO BID 5 Days Qty: 10 0RF Rx Instructions: STARTED 09/04/23 FOR 5 DAYS nicotine 14 mg/24 hr patch 24 hour 1 patch transdermal DAILY Qty: 28 0RF Continued cyanocobalamin (vitamin B-12) 1,000 mcg capsule 1,000 mcg PO DAILY trazodone 50 mg tablet 25 mg PO HS rosuvastatin [Crestor] 5 mg tablet 5 mg PO DAILY senna 8.6 mg capsule 17.2 mg PO HS PRN (Reason: constipation) polyethylene glycol 3350 [Miralax] 17 gram/dose powder 17 g PO DAILY PRN (Reason: constipation) venlafaxine 37.5 mg capsule,extended release 24hr 37.5 mg PO DAILY Rx Instructions: TOTAL DOSE 187.5 MG--TAKES 150 MG CAP. multivitamin Tablet 1 tab PO DAILY docusate sodium [Colace] 100 mg capsule 200 mg PO DAILY venlafaxine [Effexor XR] 150 mg capsule,extended release 24hr 150 mg PO DAILY Rx Instructions: TOTAL DOSE 187.5 MG--TAKES WITH 37.5 MG CAP. naloxone 4 mg/actuation spray,non-aerosol 1 spray intranasal Q3M PRN (Reason: opioid overdose) Qty: 2 0RF Rx Instructions: administer 1 dose into ONE nostril; alternate nostrils w each dose until assistance arrives warfarin 5 mg tablet See Rx Instructions PO UD Rx Instructions: 2.5mg q Sun, 5mg x 6 days per [facility] orally use as directed dexamethasone 0.5 mg tablet 1 mg PO DAILY 30 Days Qty: 60 2RF Mobile-3 350 mg-235 mg- 90 mg-597 mg Capsule,Delayed Release(Dr/Ec) 1 tab PO QAM donepezil 10 mg tablet 10 mg PO DAILY gabapentin 300 mg Capsule 300 mg PO TID Discontinued oxycodone 15 mg tablet 15 mg PO Q4H PRN (Reason: pain) 30 Days Qty: 150 0RF Rx Instructions: dose increased fentanyl 50 mcg/hr patch 72 hour 1 patch transdermal Q72H 30 Days Qty: 10 0RF No Action fentanyl 25 mcg/hr patch 72 hour 25 mcg transdermal Q72H 30 Days Qty: 10 0RF calcium carbonate-vitamin D3 500 mg-3.125 mcg (125 unit) Tablet 1 tab PO DAILY Discharge Orders: Discharge Order (Routine); Ordered 09/04/23 Ordered By: Edilson Lucio/Other Patient Handouts: Managing Type 2 Diabetes Admission Data Admit Date/Time: 08/30/23 13:01 Attending Provider: Edilson Tompkins Admit Provider: Hemant Skinner Primary Care Provider: Lidya Barbour Other Providers: Hemant Skinner; Prashant Richardson; Brett Alberto; Josias Jensen; Ethel Joseph; Hai Lozano; Wallace Doe; Charu Puri; Juan Diaz; Naomi Ceballos; Duncan Rosenthal; Darrell Washington; Jyoti Wilson; Lachelle Dubon; [facility]; [facility],Referral [facility] Other Interventions: Discharge Summary Assessment (RN) Last Done: 09/04/23 16:24
== END 2023-09-04 16:55 | disposition home health service (06) | DRG 871 ==
LOC: ED 11:50 → EDINP 13:01 → SUATTDRO 13:01 → 2S 19:34

== ENCOUNTER 2023-09-07 20:34 | Observation (INO) ==
--- OUTSIDE RECORDS SUMMARY | 2023-09-07 20:42 | External Medical Summary | Summary of Care ---
Author Name Unknown Organization [facility] [address] [facility] [address] Phone [phone] Care Team Providers Care Pick[employer] Material Handlers Name Role Phone Lidya Barbour MD Primary Care Provider + Reason for Visit * Reason Onset Date Comments Hospital Follow-Up 09/05/2023 [facility] Encounter Details Date Type Department Care Team (Late st Contact Info) Description 09/05/2023 Telephone Ancillary [place] [address] [place] [address] Narcisa Martinez, [facility] Hospital Follow-Up ([facility]) Allergies Active Allergy Reactions Criticality Noted Date Comments Dust Low 03/02/2019 Other reaction(s): ITCHY EYES,RUNNY NOSE Pollen 09/07/2018 documented as of this encounter (statuses as of 09/05/2023) Medications Medication Sig Dispensed Refills Start Date End Date Status vitamin b 12 (CYANOCOBALAMIN) 1000 MCG TABSIndications:Depre ssion with anxiety (1) pill twice daily- per Dr. Damon 60 Tab 5 07/17/2016 Active Zoledronic Acid 4 MG/5ML Intravenous Concentrate Administer 4 mg intravenously. Every 3 months 0 05/28/2018 Active fish oil concentrate (OMEGA-3) 1000 MG CAPSIndications:[place] ja triglycerides with high cholesterol Take 1 Capsule by mouth in the morning. 0 10/16/2018 Active cholestyramine (QUESTRAN) 4 GM powderIndications:Jocelyn rrhea TAKE 4g (1 PACKET) BY MOUTH 2 TIMES A DAY WITH MORNING AND EVENING MEALS NEEDED FOR DIARRHEA. 60 Packet 5 09/22/2019 Active venlafaxine XR (EFFEXOR XR) 150 MG CP24 Take 1 Capsule by mouth in the morning. 0 12/15/2019 Active warfarin sodium (COUMADIN) 5 MG Tablet Take 1 Tablet by mouth every evening. 30 Tab 0 12/15/2019 Active LUPRON DEPOT, 3-MONTH, 22.5 MG KIT Inject 22.56 mg into a large muscle every 3 months. 0 12/15/2019 Active fentaNYL 62.5 MCG/HR Transdermal Patch 72 Hour Apply to skin every three days. 0 08/28/2020 Active Donepezil HCl 10 MG Oral Tablet (ARICEPT) Take 1 Tablet by mouth in the morning. 0 08/22/2020 Active Docusate Sodium 100 MG Oral Capsule Take 1 Capsule by mouth in the morning and 1 Capsule before bedtime. 0 Active oxyCODONE HCl 10 MG Oral Tablet (Roxicodone) Take 1.5 Tablets by mouth every 4 hours as needed for Pain. 0 12/12/2021 Active Calcium-Vitamin D 500-125 MG-UNIT Oral Tablet Take by mouth . 0 Active Sildenafil Citrate 100 MG Oral Tablet (Viagra)Indications:I mpotence of organic origin Take by mouth 1 Tablet as needed for Erectile Dysfunction. 10 Tablet 5 07/09/2022 Active Venlafaxine HCl ER 37.5 MG Oral Capsule Extended Release 24 Hour (Effexor XR) Take 1 Capsule by mouth daily. 0 02/11/2023 Active Rosuvastatin Calcium 5 MG Oral Tablet (Crestor)Indications: Hyperlipidemia with target LDL less than 100 Take 1 Tablet by mouth in the morning. 30 Tablet 5 06/16/2023 Active Gabapentin 300 MG Oral Capsule (Neurontin)Indication s:Peripheral polyneuropathy One pill once a day for 2 days then 1 pill twice a day for 2 days and then switch to 1 pill 3 times a day. 90 Capsule 5 07/04/2023 Active dexAMETHasone 0.5 MG Oral Tablet (Decadron) 2 Tablets. 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 03/14/2020 Intermittent asthma with rel iever use up to twice per week without complication 12/15/2019 Multiple pulmonary nodules 12/15/2019 MCI (mild cognitive impairment) 03/26/2017 Anxiety 03/26/2017 Controlled substance agreement signed 01/27/2016 Prostate cancer metastatic to bone 10/05/2015 Lumbar spinal stenosis 03/11/2015 documented as of this encounter (statuses as of 09/05/2023) Resolved Problems Problem Noted Date Diagnosed Date Resolved Date Skin cancer 05/31/2013 12/14/2020 BILAT INGUINAL HERNIA 10/01/20042018 documented as of this encounter (statuses as of 09/05/2023) Immunizations Name Administration Dates Next Due COVID-19 mRNA, LNP-s, No Pre serve, 2-Dose Series (Moderna) 07/11/2021,11/03/2020,10/07/2020 COVID-19, MRNA-LNP, 23-24, P F, 50 MCG/0.5 mL, 12 YRS AND ABOVE, IM (MODERNA-Spikevax) 08/03/2023 Covid-19, Mrna, Lnp-s, Pf, B ivalent, 50 Mcg, IM, 12 yrs and above (Moderna) 06/29/2022 Pneumococcal Conjugate Vacc, 13 Valent (Prevnar) 07/17/2016 Pneumococcal Polysaccharide PPV23 (Pneumovax) 05/17/2012,02/01/2010 Season Influenza, Quad, PF, Adjuvanted, 65+ Yrs, IM (FLUAD) 07/07/2020 Seasonal Influenza, PF, 6 M & above, IM , (FluLaval or Fluzone) 05/28/2018 Seasonal Influenza, Quadriva lent Hd (Fluzone Hd) 06/19/2021 Seasonal Influenza, Quadriva lent, No Preserve, IM 05/27/2017,06/07/2016,08/23/2015 Seasonal Influenza, Split, I IV3, With Preserve, Inj 06/16/2014,05/31/2013,08/27/2012 Seasonal Influenza, Trivalen t, Adjuvanted, 65+ yrs 06/29/2022,06/18/2019 TDAP (age 10 and older)(Boostrix) 01/07/2023, Zoster Vaccine Recombinant (Shingrix) 03/13/2022 ,12/19/2021 documented as of this encounter Social History Tobacco Use Types Packs/Day Years Used Date Smoking Tobacco: Never Cigarettes 8 Smokeless Tobacco: Current Snuff Comments:Pt uses chewing tob acco Alcohol Use Standard Drinks/Week Comments Yes 0 (1 standard drink = 0.6 oz pur e alcohol) occasional- 2/week PHQ-2 Answer Date Recorded PHQ Adult Total Score 0 07/09/2023 Hunger Vital Sign Answer Date Recorded Worried About Running Out of Food in the Last Ye ar Never true 03/14/2020 Ran Out of Food in the Last Year Never true 03/14/2020 Sex and Gender Information Value Date Recorded Sex Assigned at Male 01/08/2019 8:48 AM EDT Gender Identity Male 01/08/2019 8:48 AM EDT Sexual Orientation Straight 01/08/2019 8: 48 AM EDT Job Start Date Occupation Industry Not on file Not on file Not on file documented as of this encounter Miscellaneous Notes * Telephone Encounter - Narcisa Martinez RN - 09/05/2023 9:48 AM EST Images from the original note were not included. Transitions of Care Note Reason for Referral:Recent Admission Phone visit for follow up: [facility] Admitted to: [facility], Date: 08/30/2023 Discharged to: Home with home health, Date: 09/04/23 Diagnosis driving hospitalization: Acute metabolic ad cephalopathy Acute hypoxic respiratory failure Sepsis secondary to right lower lob pneumonia Chronic DVT Hematuria with urinary retention Metastatic prostate cancer Source/Contact: Spouse SUBJECTIVE Consent: Verbal consent for review of hospital discharge: Yes REVIEW OF SYSTEMS Patient/Other Reports: Current patient/caregiver problems or concerns: Patient is sleeping at this time CV: Denies problems Pulmonary: SOB- with exertion Cough- occasional productive cough with white to brown sputum Chills/Sweats/Fever:Denies chills/sweats Denies fever Appetite:not much of an appetite. Drinking Boost Current diet: minced and moist, car consistent and heart healthy Bowel: episode of incontinence yesterday, stool soft not formed date of last BM: 09/04/2023 Bladder: ostomy/indwelling catheter: Lopez catheter dark yellow urine Wound (If applicable): N/A Pain:Location- L hip pain Current pain management effective: Yes Sleep:Denies problems FUNCTIONAL STATUS: ADL'S: Needs Assistance With:Bathing and Transferring IADL'S: Needs Assistance With:Grocery Shopping, Cooking food, Routine Housework, Taking medications, and Attending to safety Cognitive and Mental Health: denies problems, alert and oriented x 3, and able to communicate, understand instructions, process information. MEDICATION RECONCILIATION Medications: Discharge med list reviewed with patient or caregiver New medication(s) filled since hospitalization- see below Changed medication(s) since hospitalization see below Discontinued medication(s) since hospitalization- see below Reports all medications taken as prescribed. Encouraged Mone to purchase probiotics at pharmacy while Baljit is on antibiotics ASSESSMENT Medication Risk Assessment: No risks identified Did patient fail outpatient treatment? No Discharge instructions available for review? Yes PLAN Symptom Monitoring Interventions:Member/caregiver education - signs and symptoms to contact PrimaryCare (DO NOT DELETE-Three bhatia symptoms patient is to report to PCP) 1. Pain is uncontrolled by current medications 2. Cough worsens, develops wheezing or more SOB 3. Fever Chills DishwasherDirector Of Sustainability of Care interventions/Action Plan: 5 - 7 day follow-up with PCP in place - Date: Dr. Paula 09/[address] [place] 09/18/2023 at 10 am Educated on role of [facility] completed with patient/caregiver. Educated patient/caregiver on patient right to have input on [facility] plan of care. Verification of Home Health/DME if indicated: YES Waiting to hear from Home Health Identified Care Gaps: Yes Care Gaps closed this call: Appointment made or confirmed and Transition of Care follow-up communication Re-evaluation of Plan of Care and progress towards goals achievement: Patient education this visit: Verbal, Encouraged po fluids, suggested encourage Baljit to take 3 deep breaths during commercial breaks while watching TV take probiotic while on antibiotic Plan to discharge needs met, verbalizes understanding and agrees with plan. Narcisa Rdz, RN documented in this encounter Plan of Treatment Upcoming Encounters Date Type Department Care Team (Late st Contact Info) Description 09/10/2023 9:40 AM EST Office Visit General Internal Medicine [facility] [place] [address] [facility] [address] [place] [address] Paige Paula MD [address] [facility] [place] [id number] 01/15/2024 9:20 AM EDT Office Visit General Internal Medicine [place] Ilana Delvalle [address] [place] [address] Lidya Barbour MD [address] [facility] [place] [id number] Health Maintenance Due Date Last Done Comments Diabetic Eye Exam 1957 Diabetic Foot Exam 1957 Hepatitis B (1 of 3 - Risk 3-dose series) 1999 Influenza Vaccine (FLU shot) (#1) 2023 06/29/2022, 06/19/2021, 07/07/2020, Additional history exists HbA1c 01/08/2024 07/09/2023, 12/15, 07/09/2022, Additional history exists Albumin/Creatinine Ratio 07/04/2024 023, 07/09/2022, 08/29/2020 GFR 07/04/2024 07/04/2023, 03/16, 12/11/2021, Additional history exists Depression Screening 07/09/2024 07/09/2023 DTaP,Tdap,and Td Vaccines (3 - Td or Tdap) 01/07/2033 01/07/2023, 05/29/2012 Pneumococcal Vaccine: 65+ Years Completed 07/17/2016, 05/17/2012, 02/01/2010 Zoster Vaccines Completed 03/13/2022, 12/19/2021 COVID-19 Vaccine Completed 08/03/2023, , 07/11/2021, Additional history exists GARDASIL-HPV IMMUNIZATION SERIES Aged Out No longer eligible based on patient's age to complete this topic MENINGOCOCCAL (MENACTRA/MENVEO) Aged Out No longer eligible based on patient's age to complete this topic documented as of this encounter Medical Devices Not on filedocumented as of this encounter Advance Directives Latest Code Status on File Code Status Date Activated Date Inactivated Comments Full Code 09/05/2015 11:19 AM 09/05/2015 4:46 PM Th is order reflects the patients wishes and were consensually agreed upon. Care Teams Pickers Material Handlers Relationship Specialty Start Date End Date Lidya Barbour MD [address] [place] [id number] PCP - General Internal Medicine 09/25/16 documented as of this encounter
[2023-09-07 21:45] LABS: Alanine Aminotransferase 43 U/L (7-52); Albumin Globulin Ratio 1.1 (0.9-2); Albumin Level 3.1 gm/dl (3.4-5.0); Alkaline Phosphatase 54 U/L (34-104); Anion Gap 9 (3-11); BUN Creatinine Ratio 29.2 (10-20); Bilirubin,Total 0.7 mg/dl (0.2-1.0); Blood Urea Nitrogen 28 mg/dl (6-23); Calcium 8.3 mg/dl (8.6-10.3); Carbon Dioxide 24 mmol/L (21-32); Chloride 102 mmol/L (98-107); Creatinine Clr Calc Pharmacy 66.1 ml/min; Est GFR (African American) 84.4 ml/min; Est GFR (Non-African American) 72.8 ml/min; Globulin 2.9 gm/dl (2.5-4.0); Glucose 184 mg/dl (70-99(Fasting)); Sodium 135 mmol/L (136-145)
[2023-09-07 21:53] LABS: Basophils # (auto) 0.02 K/uL (0.00-0.20); Basophils % (auto) 0.1 %; Eosinophils # (auto) 0.22 K/uL (0.00-0.50); Eosinophils % (auto) 1.6 %; Hematocrit (blood only) 37.7 % (42.0-52.0); Hemoglobin 12.5 g/dl (14.0-18.0); Immature Granulocytes # (auto) 0.13 K/uL (0.01-0.20); Lymphocytes # (auto) 1.27 K/uL (1.20-3.40); Lymphocytes % (auto) 9.4 %; Mean Corpuscular Hemoglobin 32.1 pg (25.0-34.0); Mean Corpuscular Hgb Conc 33.2 g/dL (32.0-36.0); Mean Corpuscular Volume 96.7 fL (80.0-100.0); Mean Platelet Volume 10.5 fL (9.4-12.4); Monocytes # (auto) 0.44 K/uL (0.11-0.59); Monocytes % (auto) 3.2 %; Neutrophils # (auto) 11.47 K/uL (1.40-6.50); Neutrophils % (auto) 84.7 %; Platelet Count 291 K/uL (130-400); RDW Coefficient of Variation 15.4 % (11.5-14.5); RDW Standard Deviation 54.5 fL (36.4-46.3); White Blood Count 13.55 K/ul (4.8-10.8)
--- NOTE | 2023-09-07 22:20 | Emergency Department Note ---
History of Present Illness General Chief complaint: Urinary Symptoms Stated complaint: CATHETOR PAIN, BLEEDING, Time Seen by Provider: 09/07/23 22:02 History of Present Illness Maximum Pain Intensity: 7 This is an 82-year-old male that presents to the emergency department via private vehicle with complaints of "catheter pain, bleeding". The patient notes that he was discharged from here following several day hospitalization. He notes that the catheter was in place and left in place at time of discharge. A follow-up was scheduled with urology but not until September 18. Patient notes yesterday some discomfort in the lower abdomen and lower back. at bedside also helps provide some of the history and notes that the output has been dark and last amount was about 150 cc around 6 PM. She has been administering oxycodone which he was prescribed previously. No fevers, chills, nausea or vomiting. Home Medications Medication Instructions Recorded Confirmed Type omega 3 350 mg-dha 235 mg-epa 90 1 tab PO QAM 05/26/18 09/07/23 History mg-fish oil 597 mg capsule,delay rel (Lynco-3) cyanocobalamin (vitamin B-12) 1,000 mcg PO DAILY 03/10/19 09/07/23 History 1,000 mcg capsule donepezil 10 mg tablet 10 mg PO DAILY 11/08/19 09/07/23 History docusate sodium 100 mg capsule 200 mg PO DAILY 10/03/20 09/07/23 History (Colace) multivitamin 1 tab PO DAILY 10/03/20 09/07/23 History naloxone 4 mg/actuation nasal spray 1 spray intranasal Q3M PRN opioid 03/12/21 09/07/23 Rx overdose #2 ea rosuvastatin 5 mg tablet (Crestor) 5 mg PO DAILY 12/26/21 09/07/23 History polyethylene glycol 3350 17 17 g PO DAILY PRN constipation 10/15/22 09/07/23 History gram/dose oral powder (Miralax) sennosides 8.6 mg capsule (senna) 17.2 mg PO HS PRN constipation 10/15/22 09/07/23 History trazodone 50 mg tablet 25 mg PO HS sleep 05/08/23 09/07/23 History venlafaxine 150 mg 150 mg PO DAILY 05/08/23 09/07/23 History capsule,extended release 24 hr (Effexor XR) venlafaxine 37.5 mg 37.5 mg PO DAILY 05/08/23 09/07/23 History capsule,extended release 24 hr dexamethasone 0.5 mg tablet 1 mg (2 x 0.5 mg) PO DAILY bone 06/26/23 09/07/23 Rx pain left posterior hip and back 30 days #60 tabs warfarin 5 mg tablet See Rx Instructions PO UD 08/14/23 09/07/23 History gabapentin 300 mg capsule 300 mg PO TID 08/30/23 09/07/23 History cefdinir 300 mg capsule 300 mg PO BID 5 days #10 caps 09/04/23 09/07/23 Rx doxycycline hyclate 100 mg tablet 100 mg PO BID 5 days #10 tabs 09/04/23 09/07/23 Rx nicotine 14 mg/24 hr daily 1 patch transdermal DAILY #28 ea 09/04/23 09/07/23 Rx transdermal patch fentanyl 25 mcg/hr transdermal 25 mcg transdermal Q72H very 09/05/23 09/07/23 Rx patch severe bony metastatic cancer pain 1 month #10 ea calcium carbonate 500 mg-vitamin 1 tab PO DAILY 09/07/23 09/07/23 History D3 3.125 mcg (125 unit) tablet Allergies Allergy/AdvReac Type Severity Reaction Status Date / Time ragweed pollen Allergy Intermediate RASH Verified 09/07/23 23:10 house dust Allergy Mild ITCHY Verified 09/07/23 23:10 EYES, RUNNY NOSE Past Med/Surg History Medical History Palliative care by specialist Cancer related pain Chronic anticoagulation Sacroiliac joint pain Trochanteric bursitis Avascular necrosis of bone of left hip (~06/26/23) History of DVT (deep vein thrombosis) History of skin cancer Hypertension Prostate cancer 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 ADVISED TO HOLD DOS.); Preferred Language: Lao Communication Ability: Impaired Communication Ability Comment: BASELINE DEMENTIA Visual Impairment: No Limitations Hearing Ability: Normal Manager Energy Required: No Beliefs That Will Affect Care: None marital status: Current Living Situation: Spouse current occupational status: retired current occupation: retired Feels Safe at Home: Yes Safety Concerns: Feels Safe At This Time Assistive Devices: Cane Review of Systems A total of 10 systems reviewed and were otherwise negative Physical Exam Vital Signs Vital Signs - 24 hr 09/07/23 20:42 09/07/23 21:45 09/07/23 23:36 Temperature 36.5 C Temperature Source Temporal Artery Scan Pulse Rate 118 H Pulse Rate [Apical] 86 Pulse Rhythm Regular Pulse Strength Normal Respiratory Rate 18 18 Respiratory Effort / Characteristics Non-Labored Spontaneous Non-Labored Respiratory Depth Normal Respiratory Pattern Regular Blood Pressure 142/89 H Blood Pressure [Right Arm] 134/84 134/84 Blood Pressure Mean 106 Blood Pressure Mean [Right Arm] 100 100 Blood Pressure Position Sitting Pulse Oximetry 96 95 98 Oxygen Delivery Method Room Air Room Air Sepsis Recent Fever Within 48 Hours No Sepsis New/Unexplained Change in Mental Status N/A Sepsis Action Taken by Nursing No Action Required 09/08/23 00:25 09/08/23 01:28 Temperature Temperature Source Pulse Rate 86 Pulse Rate [Apical] 93 H Pulse Rhythm Pulse Strength Respiratory Rate 17 18 Respiratory Effort / Characteristics Non-Labored Respiratory Depth Normal Respiratory Pattern Blood Pressure Blood Pressure [Right Arm] 145/89 H Blood Pressure Mean Blood Pressure Mean [Right Arm] 107 Blood Pressure Position Pulse Oximetry 96 100 Oxygen Delivery Method Room Air Room Air Sepsis Recent Fever Within 48 Hours Sepsis New/Unexplained Change in Mental Status Sepsis Action Taken by Nursing VITAL SIGNS - Vital signs and nursing notes were reviewed. Stable and afebrile. GENERAL - 82-year-old male appearing his stated age who is in no acute distress. Communicates well with provider and answers questions appropriately. SKIN - Without rashes. HEAD - NC/AT. EYES - PERRL with EOMI bilaterally. Sclera anicteric. EARS - No deformities of external structures noted on gross examination bilaterally. NOSE - Midline and without cyanosis. No epistaxis or purulent drainage noted. MOUTH/OROPHARYNX - Without perioral cyanosis. NECK - No nuchal rigidity. LUNGS - Chest wall symmetric without accessory muscle use, intercostals retractions, or central cyanosis. Normal vesicular breath sounds CTA B/L. No wheezes, rales, or rhonchi appreciated. CARDIAC - RRR ABDOMEN - Abdominal contour normal without pulsations or visible masses. BS normoactive all four quadrants. Suprapubic abd ttp noted. No palpable masses, hepatosplenomegaly, or ascites noted. EXTREMITIES - No clubbing or peripheral cyanosis. +5/5 strength noted in UE/LE bilaterally. NEUROLOGIC - Cranial nerves II through XII grossly intact. PSYCH - A&O, and cooperates fully with examiner. Pt is very pleasant and interacts well with examiner. GUFoley catheter in place. There is some mild ecchymosis circumferentially to the penis. There is no urine in the collection bag. Course Administered Medications Discontinued Medications Fentanyl Citrate (Fentanyl Citrate Pf 100 Mcg/2 Ml Vial) 25 mcg IV NOW ONE Stop: 09/08/23 00:25 Last Admin: 09/08/23 00:30 Dose: 25 mcg Documented By: WILL Sodium Chloride (Nss) 500 mls @ 999 mls/hr IV .Q31M ONE Stop: 09/08/23 01:28 Last Infusion: 09/08/23 03:08 Dose: Infused Documented By: Admin: 09/08/23 01:15 Dose: 999 mls/hr Documented By: WILL Oxycodone HCl (Oxycodone Hcl Ir 5 Mg Tab (Immediate Release)) 5 mg PO NOW STA Stop: 09/07/23 22:22 Last Admin: 09/07/23 22:29 Dose: 5 mg Documented By: CHELY Medical Decision Making Laboratory Data 09/07/23 21:00 09/07/23 23:00 Lab Results 09/07/23 09/07/23 Range/Units 21:00 23:00 WBC 13.55 H (4.8-10.8) K/ul RBC 3.90 L (4.70-6.10) M/uL Hgb 12.5 L (14.0-18.0) g/dl Hct 37.7 L (42.0-52.0) % MCV 96.7 (80.0-100.0) fL MCH 32.1 (25.0-34.0) pg MCHC 33.2 (32.0-36.0) g/dL RDW Std Deviation 54.5 H (36.4-46.3) fL RDW Coeff of Melissa 15.4 H (11.5-14.5) % Plt Count 291 (130-400) K/uL MPV 10.5 (9.4-12.4) fL Immature Gran % (Auto) 1.0 % Neut % (Auto) 84.7 % Lymph % (Auto) 9.4 % [place] % (Auto) 3.2 % Eos % (Auto) 1.6 % Baso % (Auto) 0.1 % Neut # (Auto) 11.47 H (1.40-6.50) K/uL Lymph # (Auto) 1.27 (1.20-3.40) K/uL [place] # (Auto) 0.44 (0.11-0.59) K/uL Eos # (Auto) 0.22 (0.00-0.50) K/uL Baso # (Auto) 0.02 (0.00-0.20) K/uL Immature Gran # (Auto) 0.13 (0.01-0.20) K/uL PT 26.0 H (9.0-12.0) Seconds INR 2.5 H (0.9-1.1) APTT 35 H (21-31) Seconds PTT Ratio 1.2 Sodium 135 L (136-145) mmol/L Potassium TNP 3.1 L Chloride 102 (98-107) mmol/L Carbon Dioxide 24 (21-32) mmol/L Anion Gap 9 (3-11) BUN 28 H (6-23) mg/dl Creatinine 0.96 (0.6-1.4) mg/dl Est Cr Clr Drug Dosing 66.1 ml/min Est GFR ( Amer) 84.4 ml/min Est GFR (Non-Af Amer) 72.8 ml/min BUN/Creatinine Ratio 29.2 H (10-20) Glucose 184 H (70-99(Fasting)) mg/dl Calcium 8.3 L (8.6-10.3) mg/dl Total Bilirubin 0.7 (0.2-1.0) mg/dl AST TNP 24 ALT 43 (7-52) U/L Alkaline Phosphatase 54 (34-104) U/L Total Protein 6.0 (6.0-8.3) gm/dl Albumin 3.1 L (3.4-5.0) gm/dl Globulin 2.9 (2.5-4.0) gm/dl Albumin/Globulin Ratio 1.1 (0.9-2) Procalcitonin Cancelled 0.66 H Imaging Data Radiologist's Impression: Abdomen/Pelvis CT 09/07/23 22:20 Exam(s): CT ABDOMEN + PELVIS Without Contrast EXAM: CT Abdomen and Pelvis Without Intravenous Contrast CLINICAL HISTORY: Reason for exam: Low back/lower abd pain, Lopez catheter. TECHNIQUE: Axial computed tomography images of the abdomen and pelvis without intravenous contrast. CTDI is 24.05 mGy and DLP is 1326.81 mGy-cm. Automated exposure control was utilized for the study. A dose lowering technique was utilized adhering to the principles of ALARA. COMPARISON: August 31, 2023 and March 04, 2022. FINDINGS: Lung bases: See below. Pleural space: Very small right pleural effusion with mild adjacent right lower lobe atelectasis. ABDOMEN: Liver: Unremarkable. Gallbladder and bile ducts: Unremarkable. No calcified stones. No ductal dilation. Pancreas: Unremarkable. No ductal dilation. Spleen: Unremarkable. No splenomegaly. Adrenals: Unremarkable. No mass. Kidneys and ureters: Unremarkable. No obstructing stones. No hydronephrosis. Stomach and bowel: Unremarkable. No obstruction. No mucosal thickening. PELVIS: Appendix: No findings to suggest acute appendicitis. Bladder: Unremarkable. No stones. Reproductive: Unremarkable as visualized. ABDOMEN and PELVIS: Intraperitoneal space: Unremarkable. No free air. No significant fluid collection. Bones/joints: There is very heterogeneous abnormal sclerosis in the pelvis involving the pubic bones as well as left acetabulum and ischium. This likely represents metastatic disease; however, it is stable relative to prior studies. There is also stable sclerosis of the T8 vertebral body. No acute fracture. No dislocation. Soft tissues: Unremarkable. Vasculature: Unremarkable. No abdominal aortic aneurysm. Lymph nodes: Unremarkable. No enlarged lymph nodes. IMPRESSION: No acute findings in the abdomen or pelvis. Electronically signed by: Franco Moran MD 09/08/23 00:37 AM MDM Narrative Patient was seen and evaluated as above in room D06. Review was performed of nursing notes and vital signs. I did review pertinent previous visits and patient history. After obtaining a thorough history and physical examination the above work up was performed. Patient presents to us today with pain in the lower abdomen/suprapubic area. This has been ongoing for the past 2 days but worsened today. He is currently on doxycycline as well as cefdinir per review of notes following his recent hospitalization and discharge from this hospital. The notes that the last emptied the collection bag around 1800 hrs. and there has been no urine output since then. Patient also has been having trouble managing pain in the outpatient setting. Options of care were discussed with patient as well as . IV access was established. Labs were drawn. There is leukocytosis 13.55. Anemia with hemoglobin of 12.5. INR 2.5. There is hyponatremia 135. Hypokalemia 3.1. Hyperglycemia 184. Procalcitonin 0.66. CT scan was obtained of the abdomen and pelvis and revealed no acute findings. Bladder scans were performed multiple times and there was 100 cc seen. Several hours then passed and there was still no urine output. IV fluids were given and there was still no output. Lopez catheter was removed as it was felt to be malfunctioning. The patient continues to be in pain and has required analgesia here. At this time we will proceed with inpatient management to see if the patient can spontaneously void and manage his discomfort. He may require replacing his Lopez catheter versus further workup depending on clinical course. EKG reveals sinus tachycardia at a rate of 117 bpm. QTc 440. QRS 76. T wave abnormalities are noted. No chest pain or suspicion of ACS. While in the department, I personally reevaluated the patient several times and each time the patient was found to be resting comfortably. The patient was educated upon management, educated upon todays findings/results, educated upon importance of follow up from today's visit, educated upon symptoms in which to return, had questions answered prior to discharge, verbalized understanding, and was discharged home in good condition. Case was discussed with the attending physician. In the evaluation and treatment of this patient the following differential diagnoses were entertained: UTI, pyelonephritis, sepsis, bowel obstruction, among others. Impression & Plan Malfunction of Lopez catheter, Urinary retention, Abdominal pain, lower Discharge Plan Visit Data Chief Complaint: Urinary Symptoms Stated Complaint: CATHETOR PAIN, BLEEDING, ED Provider: Ira Ellis ED Midlevel Provider: Telly Monteiro Discharge Problem: Malfunction of Lopez catheter, Urinary retention, Abdominal pain, lower Patient Disposition: Admitted As Inpatient Condition: Good Discharge Instructions Interventions: ED Discharge Assessment Last Done: 09/08/23 03:36
[2023-09-07] MEDS ORDERED: oxyCODONE HCL IR 5 MG TAB (IMMEDIATE RELEASE) PO STA (22:21)
[2023-09-07 23:45] LABS: Potassium 3.1 mmol/L (3.5-5.1)
[2023-09-08 00:03] LABS: INR 2.5 (0.9-1.1); Partial Thromboplastin Ratio 1.2; Partial Thromboplastin Time 35 Seconds (21-31)
[2023-09-08] MEDS ORDERED: fentaNYL citrate PF 100 MCG/2 ML VIAL IV ONE (00:24)
--- NOTE | 2023-09-08 00:38 | CT Scan Report ---
Exam(s): CT ABDOMEN + PELVIS Without Contrast EXAM: CT Abdomen and Pelvis Without Intravenous Contrast CLINICAL HISTORY: Reason for exam: Low back/lower abd pain, Lopez catheter. TECHNIQUE: Axial computed tomography images of the abdomen and pelvis without intravenous contrast. CTDI is 24.05 mGy and DLP is 1326.81 mGy-cm. Automated exposure control was utilized for the study. A dose lowering technique was utilized adhering to the principles of ALARA. COMPARISON: August 31, 2023 and March 04, 2022. FINDINGS: Lung bases: See below. Pleural space: Very small right pleural effusion with mild adjacent right lower lobe atelectasis. ABDOMEN: Liver: Unremarkable. Gallbladder and bile ducts: Unremarkable. No calcified stones. No ductal dilation. Pancreas: Unremarkable. No ductal dilation. Spleen: Unremarkable. No splenomegaly. Adrenals: Unremarkable. No mass. Kidneys and ureters: Unremarkable. No obstructing stones. No hydronephrosis. Stomach and bowel: Unremarkable. No obstruction. No mucosal thickening. PELVIS: Appendix: No findings to suggest acute appendicitis. Bladder: Unremarkable. No stones. Reproductive: Unremarkable as visualized. ABDOMEN and PELVIS: Intraperitoneal space: Unremarkable. No free air. No significant fluid collection. Bones/joints: There is very heterogeneous abnormal sclerosis in the pelvis involving the pubic bones as well as left acetabulum and ischium. This likely represents metastatic disease; however, it is stable relative to prior studies. There is also stable sclerosis of the T8 vertebral body. No acute fracture. No dislocation. Soft tissues: Unremarkable. Vasculature: Unremarkable. No abdominal aortic aneurysm. Lymph nodes: Unremarkable. No enlarged lymph nodes. IMPRESSION: No acute findings in the abdomen or pelvis. Electronically signed by: Franco Moran MD 09/08/23 00:37 AM
[2023-09-08] MEDS ORDERED: SODIUM CHLORIDE 0.9% 500 ML IV ONE (00:58)
--- NOTE | 2023-09-08 01:31 | Emergency Department Note ---
ED Visit Note I was consulted by the Advanced Practice Provider, Telly Monteiro PA-C. I saw the patient personally and performed a substantive portion of the visit. This includes aspects of the HPI, MDM, diagnostic interpretations, and disposition/plan. Patient is an 82-year-old male presents with lower abdominal pain. Patient reportedly has been having increasing abdominal pain today. reports that they have not empty the Lopez bag in a number of hours. Reports there is nothing in the Lopez for the last few hours. Patient is having suprapubic and lower abdominal pain. Denies any nausea or vomiting. Denies any fevers. I personally interpreted the following studies: - Laboratory workup showed leukocytosis (WBC 13.55); hypokalemia (K 3.1); stable creatinine - CT abdomen/pelvis wo contrast negative for acute pathology. Lopez is noted in the bladder. On my assessment, patient is very uncomfortable and palpation of the suprapubic region does elicit some discomfort. However, with palpation of the dome of his bladder, no urine is expressed into his leg bag. Concern for Lopez catheter issue. Discussed options with the patient and his and they would like to try to remove the catheter. He is required multiple doses of opioid pain medication in the emergency department to control his pain. Will plan to admit the patient for pain control and will remove his Lopez catheter and he can be monitored on the inpatient setting for his spontaneous voiding trial and whether a Lopez needs to be reinserted. .
--- NOTE | 2023-09-08 03:05 | History & Physical Report ---
Date of Service September 08, 2023 Assessment & Plan (1) Penile pain: Plan: 82-year-old male with past medical history significant for metastatic prostate cancer to bone, diet-controlled T2DM, chronic DVT on warfarin, asthma, dementia, chronic pain and depression with anxiety recently in hospital for acute metabolic encephalopathy, sepsis and acute hypoxic respiratory failure secondary pneumonia, lactic acidosis rhabdomyolysis and was treated with IV antibiotics did okay and discharged on p.o. cefdinir and Doxy on 09/04/23. During hospitalization he was also had video swallow which showed Zenker's diverticulum and GI recommended EGD as outpatient. Speech recommended minced and moist diet, thin liquids no straws mouth care ACHS. Patient refused to go to rehab.He was also placed on naranjo for urinary retention. And today evening when the drained his catheter bag ,patient had lot of pain in lower abdomen and penile region. The penis seemed turned blue and black. Was brought in here. Naranjo catheter was removed. Currently patient is feeling better. Resting comfortably. Except for pain while pressing he does not have any significant symptoms currently. Denies any fevers. No cough. No runny nose or sore throat. Vision is okay. No headaches. No chest pain or shortness of breath. No nausea. No abdominal pain.Not drinking much water as per and also eating very less. His stools are dark in color. And urine is very d ark. Current resting comfortably and hemodynamically stable. Saturating okay on room air. Currently ambulating with walker. states the walker he got from the hospital was not much helpful so she is renting a rollator walker. Penile pain Ecchymosis seen on the penis Was placed on Naranjo last admission Naranjo was removed in the ER Will monitor for urinary retention with bladder scans Consult urology in a.m. Recent pneumonia Complete doxycycline course Placed on IV Unasyn for now Pro-Rigo is elevated but is much better than last admission Metastatic prostate cancer to bone Chronic pain Follows with Dr. Bush, Dr. Barbour for radiation Dr. Sarah Wilson for pain management Continue home pain medications Chronic DVT On Coumadin Follow PT/INR Diet-controlled diabetes Will monitor Dementia Depression with anxiety Continue Effexor, trazodone and Aricept Dark stools will check close Hemoccult DVT prophylaxis On Coumadin Follow-up with PT/INR Disposition Observation medical floor PT OT Full code History of Present Illness Chief Complaint: Urinary symptoms Primary Care Provider: Lidya Barbour MD 82-year-old male with past medical history significant for metastatic prostate cancer to bone, diet-controlled T2DM, chronic DVT on warfarin, asthma, dementia, chronic pain and depression with anxiety recently in hospital for acute metabolic encephalopathy, sepsis and acute hypoxic respiratory failure secondar y pneumonia, lactic acidosis rhabdomyolysis and was treated with IV antibiotics did okay and discharged on p.o. cefdinir and Doxy on 09/04/23. During hospitalization he was also had video swallow which showed Zenker's diverticulum and GI recommended EGD as outpatient. Speech recommended minced and moist diet, thin liquids no straws mouth care ACHS. Patient refused to go to rehab.He was also placed on naranjo for urinary retention. And today evening when the drained his catheter bag ,patient had lot of pain in lower abdomen and penile region. The penis seemed turned blue and black. Was brought in here. Naranjo catheter was removed. Currently patient is feeling better. Resting comfortably. Except for pain while pressing he does not have any significant symptoms currently. Denies any fevers. No cough. No runny nose or sore throat. Vision is okay. No headaches. No chest pain or shortness of breath. No nausea. No abdominal pain.Not drinking much water as per and also eating very less. His stools are dark in color. And urine is very dark. Current resting comfortably and hemodynamically stable. Saturating okay on room air. Currently ambulating with walker. states the walker he got from the hospital was not much helpful so she is renting a rollator walker. Past medical history. As mentioned above Past surgical history. Bone biopsy. Laparoscopic bilateral repair of recurrent hernia. Social history. . No smoking. Alcohol occasional. No drug use. Family history. Father had AL. Allergies Allergy/AdvReac Type Severity Reaction Status Date / Time ragweed pollen Allergy Intermediate RASH Verified 09/07/23 23:10 house dust Allergy Mild ITCHY Verified 09/07/23 23:10 EYES, RUNNY NOSE Home Medications Medication Instructions Recorded Confirmed Type omega 3 350 mg-dha 235 mg-epa 90 1 tab PO QAM 05/26/18 09/07/23 History mg-fish oil 597 mg capsule,delay rel ([place]-3) cyanocobalamin (vitamin B-12) 1,000 mcg PO DAILY 03/10/19 09/07/23 History 1,000 mcg capsule donepezil 10 mg tablet 10 mg PO DAILY 11/08/19 09/07/23 History docusate sodium 100 mg capsule 200 mg PO DAILY 10/03/20 09/07/23 History (Colace) multivitamin 1 tab PO DAILY 10/03/20 09/07/23 History naloxone 4 mg/actuation nasal spray 1 spray intranasal Q3M PRN opioid 03/12/21 09/07/23 Rx overdose #2 ea rosuvastatin 5 mg tablet (Crestor) 5 mg PO DAILY 12/26/21 09/07/23 History polyethylene glycol 3350 17 17 g PO DAILY PRN constipation 10/15/22 09/07/23 History gram/dose oral powder (Miralax) sennosides 8.6 mg capsule (senna) 17.2 mg PO HS PRN constipation 10/15/22 09/07/23 History trazodone 50 mg tablet 25 mg PO HS sleep 05/08/23 09/07/23 History venlafaxine 150 mg 150 mg PO DAILY 05/08/23 09/07/23 History capsule,extended release 24 hr (Effexor XR) venlafaxine 37.5 mg 37.5 mg PO DAILY 05/08/23 09/07/23 History capsule,extended release 24 hr dexamethasone 0.5 mg tablet 1 mg (2 x 0.5 mg) PO DAILY bone 06/26/23 09/07/23 Rx pain left posterior hip and back 30 days #60 tabs warfarin 5 mg tablet See Rx Instructions PO UD 08/14/23 09/07/23 History gabapentin 300 mg capsule 300 mg PO TID 08/30/23 09/07/23 History cefdinir 300 mg capsule 300 mg PO BID 5 days #10 caps 09/04/23 09/07/23 Rx doxycycline hyclate 100 mg tablet 100 mg PO BID 5 days #10 tabs 09/04/23 09/07/23 Rx nicotine 14 mg/24 hr daily 1 patch transdermal DAILY #28 ea 09/04/23 09/07/23 Rx transdermal patch fentanyl 25 mcg/hr transdermal 25 mcg transdermal Q72H very 09/05/23 09/07/23 Rx patch severe bony metastatic cancer pain 1 month #10 ea calcium carbonate 500 mg-vitamin 1 tab PO DAILY 09/07/23 09/07/23 History D3 3.125 mcg (125 unit) tablet Past Med/Surg History Medical History Palliative care by specialist Cancer related pain Chronic anticoagulation Sacroiliac joint pain Trochanteric bursitis Avascular necrosis of bone of left hip (~06/26/23) History of DVT (deep vein thrombosis) History of skin cancer Hypertension Prostate cancer 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 ADVISED TO HOLD DOS.); Preferred Language: Uzbek Communication Ability: Impaired Communication Ability Comment: BASELINE DEMENTIA Visual Impairment: No Limitations Hearing Ability: Normal Piping Manager Required: No Beliefs That Will Affect Care: None marital status: Current Living Situation: Spouse current occupational status: retired current occupation: retired Feels Safe at Home: Yes Safety Concerns: Feels Safe At This Time Assistive Devices: Cane Review of Systems Review of Systems: All systems reviewed & are unremarkable except as noted in HPI & below Physical Exam Physical Exam: General-Not in distress. Head- atraumatic Eyes- PERRL. ENT- oropharynx dry. Neck- supple, no JVD. Lungs- clear to auscultation no wheezing or crackles. Heart- regular rhythm; no murmur, no gallop. Abdomen- normal bowel sounds, soft, nontender, no distension. Extremities- no pretibial edema, no erythema seen. Neuro- alert, oriented ; PERRL, no facial palsy; no dysarthria; moves extremities. Ecchymosis seen on penis Skin- warm & dry Results & Data Results & Data Vital Signs (Past 12 Hours) Vital Signs Temp Pulse Pulse Resp BP BP Pulse Ox 09/08/23 01:28 93 H 18 145/89 H 100 09/08/23 00:25 86 17 96 09/07/23 23:36 134/84 98 09/07/23 21:45 86 18 134/84 95 09/07/23 20:42 36.5 C 118 H 18 142/89 H 96 O2 Del Method 09/08/23 01:28 Room Air 09/08/23 00:25 Room Air 09/07/23 23:36 09/07/23 21:45 Room Air 09/07/23 20:42 Room Air Diagnostic Findings Laboratory Results WBC 13.55 K/ul (4.8-10.8) H 09/07/23 21:00 RBC 3.90 M/uL (4.70-6.10) L 09/07/23 21:00 Hgb 12.5 g/dl (14.0-18.0) L 09/07/23 21:00 Hct 37.7 % (42.0-52.0) L 09/07/23 21:00 MCV 96.7 fL (80.0-100.0) 09/07/23 21:00 MCH 32.1 pg (25.0-34.0) 09/07/23 21:00 MCHC 33.2 g/dL (32.0-36.0) 09/07/23 21:00 RDW Std Deviation 54.5 fL (36.4-46.3) H 09/07/23 21:00 RDW Coeff of Melissa 15.4 % (11.5-14.5) H 09/07/23 21:00 Plt Count 291 K/uL (130-400) 09/07/23 21:00 MPV 10.5 fL (9.4-12.4) 09/07/23 21:00 Immature Gran % (Auto) 1.0 % 09/07/23 21:00 Neut % (Auto) 84.7 % 09/07/23 21:00 Lymph % (Auto) 9.4 % 09/07/23 21:00 [place] % (Auto) 3.2 % 09/07/23 21:00 Eos % (Auto) 1.6 % 09/07/23 21:00 Baso % (Auto) 0.1 % 09/07/23 21:00 Neut # (Auto) 11.47 K/uL (1.40-6.50) H 09/07/23 21:00 Lymph # (Auto) 1.27 K/uL (1.20-3.40) 09/07/23 21:00 [place] # (Auto) 0.44 K/uL (0.11-0.59) 09/07/23 21:00 Eos # (Auto) 0.22 K/uL (0.00-0.50) 09/07/23 21:00 Baso # (Auto) 0.02 K/uL (0.00-0.20) 09/07/23 21:00 Immature Gran # (Auto) 0.13 K/uL (0.01-0.20) 09/07/23 21:00 PT 26.0 Seconds (9.0-12.0) H 09/07/23 23:00 INR 2.5 (0.9-1.1) H 09/07/23 23:00 APTT 35 Seconds (21-31) H 09/07/23 23:00 PTT Ratio 1.2 09/07/23 23:00 Sodium 135 mmol/L (136-145) L 09/07/23 21:00 Potassium 3.1 mmol/L (3.5-5.1) L 09/07/23 23:00 Chloride 102 mmol/L (98-107) 09/07/23 21:00 Carbon Dioxide 24 mmol/L (21-32) 09/07/23 21:00 Anion Gap 9 (3-11) 09/07/23 21:00 BUN 28 mg/dl (6-23) H 09/07/23 21:00 Creatinine 0.96 mg/dl (0.6-1.4) 09/07/23 21:00 Est Cr Clr Drug Dosing 66.1 ml/min 09/07/23 21:00 Est GFR ( Amer) 84.4 ml/min 09/07/23 21:00 Est GFR (Non-Af Amer) 72.8 ml/min 09/07/23 21:00 BUN/Creatinine Ratio 29.2 (10-20) H 09/07/23 21:00 Glucose 184 mg/dl (70-99(Fasting)) H 09/07/23 21:00 Calcium 8.3 mg/dl (8.6-10.3) L 09/07/23 21:00 Total Bilirubin 0.7 mg/dl (0.2-1.0) 09/07/23 21:00 AST 24 U/L (13-39) 09/07/23 23:00 ALT 43 U/L (7-52) 09/07/23 21:00 Alkaline Phosphatase 54 U/L (34-104) 09/07/23 21:00 Total Protein 6.0 gm/dl (6.0-8.3) 09/07/23 21:00 Albumin 3.1 gm/dl (3.4-5.0) L 09/07/23 21:00 Globulin 2.9 gm/dl (2.5-4.0) 09/07/23 21:00 Albumin/Globulin Ratio 1.1 (0.9-2) 09/07/23 21:00 Procalcitonin 0.66 ng/ml (0-0.5) H 09/07/23 23:00 Impressions Abdomen/Pelvis CT 09/07/23 22:20 Exam(s): CT ABDOMEN + PELVIS Without Contrast EXAM: CT Abdomen and Pelvis Without Intravenous Contrast CLINICAL HISTORY: Reason for exam: Low back/lower abd pain, Naranjo catheter. TECHNIQUE: Axial computed tomography images of the abdomen and pelvis without intravenous contrast. CTDI is 24.05 mGy and DLP is 1326.81 mGy-cm. Automated exposure control was utilized for the study. A dose lowering technique was utilized adhering to the principles of ALARA. COMPARISON: August 31, 2023 and March 04, 2022. FINDINGS: Lung bases: See below. Pleural space: Very small right pleural effusion with mild adjacent right lower lobe atelectasis. ABDOMEN: Liver: Unremarkable. Gallbladder and bile ducts: Unremarkable. No calcified stones. No ductal dilation. Pancreas: Unremarkable. No ductal dilation. Spleen: Unremarkable. No splenomegaly. Adrenals: Unremarkable. No mass. Kidneys and ureters: Unremarkable. No obstructing stones. No hydronephrosis. Stomach and bowel: Unremarkable. No obstruction. No mucosal thickening. PELVIS: Appendix: No findings to suggest acute appendicitis. Bladder: Unremarkable. No stones. Reproductive: Unremarkable as visualized. ABDOMEN and PELVIS: Intraperitoneal space: Unremarkable. No free air. No significant fluid collection. Bones/joints: There is very heterogeneous abnormal sclerosis in the pelvis involving the pubic bones as well as left acetabulum and ischium. This likely represents metastatic disease; however, it is stable relative to prior studies. There is also stable sclerosis of the T8 vertebral body. No acute fracture. No dislocation. Soft tissues: Unremarkable. Vasculature: Unremarkable. No abdominal aortic aneurysm. Lymph nodes: Unremarkable. No enlarged lymph nodes. IMPRESSION: No acute findings in the abdomen or pelvis. Electronically signed by: Franco Moran MD 09/08/23 00:37 AM ECG Additional Comments: ECG. Sinus tach rate of 117. Nonspecific ST abnormalities. Code Status & VTE Plan VTE Prophylaxis Plan VTE Prophylaxis will be ordered: Yes
[2023-09-08] MEDS ORDERED: NALOXONE NASAL SPRAY 4 MG ER HOMEPACK PRN (04:58)
[2023-09-08] MEDS ORDERED: POTASSIUM CHLORIDE CRTAB 20 MEQ TABCR PO STA (04:58)
[2023-09-08] MEDS ORDERED: POLYETHYLENE (MIRALAX) 17 GM PACK PO PRN (04:58)
[2023-09-08] MEDS ORDERED: SODIUM CHLORIDE 0.9% 1,000 ML IV SCH (04:58)
[2023-09-08] MEDS ORDERED: SENNA 8.6 MG TAB PO PRN (04:58)
[2023-09-08] MEDS ORDERED: ACETAMINOPHEN 325 MG TAB PO PRN (04:58)
[2023-09-08] MEDS ORDERED: AMPICILLIN SOD/SULBACTAM SOD 3 GM VIAL IV SCH (04:58)
[2023-09-08 05:29] VITALS: RESP 18
[2023-09-08] MEDS: UNASYN 3000MG / NS q6h IV SCH ×2 (06:21→12:00)
--- NOTE | 2023-09-08 06:54 | Electrocardiogram Report ---
Test Reason : Blood Pressure : / mmHG Vent. Rate : 117 BPM Atrial Rate : 117 BPM P-R Int : 120 ms QRS Dur : 076 ms QT Int : 316 ms P-R-T Axes : 082 017 130 degrees QTc Int : 440 ms Sinus tachycardia Nonspecific ST and T wave abnormality Abnormal ECG When compared with ECG of 30-AUG-2023 11:55, Nonspecific T wave abnormality now evident in Lateral leads Confirmed by Prashant Hagan ([id number]) on 09/08/2023 6:54:02 AM Referred By: REFERRED SELF Confirmed By:Prashant Hagan
[2023-09-08] MEDS: POTASSIUM CHLORIDE / WTR 10 MEQ/100 ML PLCT IV SCH ×4 (06:58→10:56)
[2023-09-08 07:37] LABS: Basophils # (auto) 0.01 K/uL (0.00-0.20); Basophils % (auto) 0.1 %; Eosinophils # (auto) 0.12 K/uL (0.00-0.50); Eosinophils % (auto) 1.1 %; Hematocrit (blood only) 33.4 % (42.0-52.0); Hemoglobin 11.1 g/dl (14.0-18.0); Immature Granulocytes # (auto) 0.06 K/uL (0.01-0.20); Immature Granulocytes % (auto) 0.6 %; Lymphocytes # (auto) 0.82 K/uL (1.20-3.40); Lymphocytes % (auto) 7.7 %; Mean Corpuscular Hgb Conc 33.2 g/dL (32.0-36.0); Mean Corpuscular Volume 96.3 fL (80.0-100.0); Mean Platelet Volume 10.2 fL (9.4-12.4); Monocytes # (auto) 0.34 K/uL (0.11-0.59); Monocytes % (auto) 3.2 %; Neutrophils # (auto) 9.36 K/uL (1.40-6.50); Neutrophils % (auto) 87.3 %; Platelet Count 205 K/uL (130-400); RDW Coefficient of Variation 15.3 % (11.5-14.5); RDW Standard Deviation 53.3 fL (36.4-46.3); Red Blood Count 3.47 M/uL (4.70-6.10); White Blood Count 10.71 K/ul (4.8-10.8)
[2023-09-08 07:43] LABS: BUN Creatinine Ratio 35.6 (10-20); Calcium 7.8 mg/dl (8.6-10.3); Creatinine Clr Calc Pharmacy 86.4 ml/min; Est GFR (African American) 99.4 ml/min; Est GFR (Non-African American) 85.8 ml/min; Potassium 3.3 mmol/L (3.5-5.1)
[2023-09-08 08:54] VITALS: BP 128/78; PULSE 89; TEMP 98.1; O2SAT 98
[2023-09-08] MEDS ORDERED: VENLAFAXINE HCL XR 37.5 MG CAPXR PO SCH (09:00)
[2023-09-08] MEDS ORDERED: fentaNYL 25 MCG/HR TDSY TD SCH (09:00)
[2023-09-08] MEDS ORDERED: CALCIUM 600MG + VIT D 400 IU TAB PO SCH (09:00)
[2023-09-08] MEDS ORDERED: CYANOCOBALAMIN (B-12) 500 MCG TABLET PO SCH (09:00)
[2023-09-08] MEDS ORDERED: VENLAFAXINE HCL XR 150 MG CAPXR PO SCH (09:00)
[2023-09-08] MEDS ORDERED: dexAMETHasone 1 MG TAB PO SCH (09:00)
[2023-09-08] MEDS ORDERED: DOCUSATE SODIUM 100 MG CAP PO SCH (09:00)
[2023-09-08] MEDS ORDERED: MULTIVITAMIN TAB PO SCH (09:00)
[2023-09-08] MEDS ORDERED: DOXYCYCLINE HYCLATE 100 MG CAP PO SCH (09:00)
[2023-09-08] MEDS ORDERED: GABAPENTIN 300 MG CAP PO SCH (09:00)
[2023-09-08] MEDS ORDERED: ROSUVASTATIN CALCIUM 5 MG TAB PO SCH (09:00)
[2023-09-08] MEDS ORDERED: NICOTINE 14 MG/24 HR PATCH TD SCH (09:00)
--- NOTE | 2023-09-08 10:54 | Urology Consultation ---
Date of Consultation September 08, 2023 Assessment & Plan (1) Penile pain: Plan Metastatic prostate cancer; penile pain with a Lopez catheter in place Has been voiding adequately since catheter removal Will check a bladder scan to confirm this but it seems that he saturating diap ers appropriately No discomfort at the moment Can follow-up as an outpatient with Maximo Mccallumno acute issues to address right now from a standpoint History of Present Illness Attending Physician: Edilson Tompkins MD History of Present Illness 82-year-old gentleman with metastatic prostate cancer he was previously followed with Maximo Mccallum from urology Consulted because of some penile discomfort and bruising upon arrival Had a Lopez catheter in place, however this was removed in the ER and he reports that he has been voiding well since that time He is wearing a diaper and his diaper is saturated on arrival today He denies any significant discomfort at the moment and is much happier not having his catheter in place He is very anxious to go home Allergies Allergy/AdvReac Type Severity Reaction Status Date / Time ragweed pollen Allergy Intermediate RASH Verified 09/07/23 23:10 house dust Allergy Mild ITCHY Verified 09/07/23 23:10 EYES, RUNNY NOSE Home Medications Medication Instructions Recorded Confirmed Type omega 3 350 mg-dha 235 mg-epa 90 1 tab PO QAM 05/26/18 09/07/23 History mg-fish oil 597 mg capsule,delay rel ([place]-3) cyanocobalamin (vitamin B-12) 1,000 mcg PO DAILY 03/10/19 09/07/23 History 1,000 mcg capsule donepezil 10 mg tablet 10 mg PO DAILY 11/08/19 09/07/23 History docusate sodium 100 mg capsule 200 mg PO DAILY 10/03/20 09/07/23 History (Colace) multivitamin 1 tab PO DAILY 10/03/20 09/07/23 History naloxone 4 mg/actuation nasal spray 1 spray intranasal Q3M PRN opioid 03/12/21 09/07/23 Rx overdose #2 ea rosuvastatin 5 mg tablet (Crestor) 5 mg PO DAILY 12/26/21 09/07/23 History polyethylene glycol 3350 17 17 g PO DAILY PRN constipation 10/15/22 09/07/23 History gram/dose oral powder (Miralax) sennosides 8.6 mg capsule (senna) 17.2 mg PO HS PRN constipation 10/15/22 09/07/23 History trazodone 50 mg tablet 25 mg PO HS sleep 05/08/23 09/07/23 History venlafaxine 150 mg 150 mg PO DAILY 05/08/23 09/07/23 History capsule,extended release 24 hr (Effexor XR) venlafaxine 37.5 mg 37.5 mg PO DAILY 05/08/23 09/07/23 History capsule,extended release 24 hr dexamethasone 0.5 mg tablet 1 mg (2 x 0.5 mg) PO DAILY bone 06/26/23 09/07/23 Rx pain left posterior hip and back 30 days #60 tabs warfarin 5 mg tablet See Rx Instructions PO UD 08/14/23 09/07/23 History gabapentin 300 mg capsule 300 mg PO TID 08/30/23 09/07/23 History cefdinir 300 mg capsule 300 mg PO BID 5 days #10 caps 09/04/23 09/07/23 Rx doxycycline hyclate 100 mg tablet 100 mg PO BID 5 days #10 tabs 09/04/23 09/07/23 Rx nicotine 14 mg/24 hr daily 1 patch transdermal DAILY #28 ea 09/04/23 09/07/23 Rx transdermal patch fentanyl 25 mcg/hr transdermal 25 mcg transdermal Q72H very 09/05/23 09/07/23 Rx patch severe bony metastatic cancer pain 1 month #10 ea calcium carbonate 500 mg-vitamin 1 tab PO DAILY 09/07/23 09/07/23 History D3 3.125 mcg (125 unit) tablet Patient History Medical History Palliative care by specialist Cancer related pain Chronic anticoagulation Sacroiliac joint pain Trochanteric bursitis Avascular necrosis of bone of left hip (~06/26/23) History of DVT (deep vein thrombosis) History of skin cancer Hypertension Prostate cancer 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 ADVISED TO HOLD DOS.); Preferred Language: Palauan Communication Ability: Impaired Communication Ability Comment: BASELINE DEMENTIA Visual Impairment: No Limitations Hearing Ability: Normal Career Counselor Required: No Beliefs That Will Affect Care: None marital status: Current Living Situation: Spouse current occupational status: retired current occupation: retired Feels Safe at Home: Yes Safety Concerns: Feels Safe At This Time Assistive Devices: Cane Physical Exam Physical Exam: Ecchymosis of the penile skinuncircumcised phallus No gross abnormalities Saturated diaper Results & Data Vital Signs (Past 12 Hours) Vital Signs Temp Pulse Pulse Pulse Resp BP BP 09/08/23 08:52 36.7 C 89 18 128/78 09/08/23 04:00 37 C 95 H 18 159/94 H 09/08/23 03:36 82 19 136/78 09/08/23 01:28 93 H 18 145/89 H 09/08/23 00:25 86 17 09/07/23 23:36 134/84 Pulse Ox O2 Del Method 09/08/23 08:52 98 Room Air 09/08/23 04:00 97 Room Air 09/08/23 03:36 95 Room Air 09/08/23 01:28 100 Room Air 09/08/23 00:25 96 Room Air 09/07/23 23:36 98 PG Care Time/CCT Total # of Minutes Spent Total Time Spent with Patient: Total time spent is greater than 50% in coordination of care (as documented) at patient's floor/unit and/or counseling patient: Coding Level of Care Code 90692 OP VST NEW SF 15-29 MIN Diagnoses Penile pain N48.89
--- NOTE | 2023-09-08 13:01 | Hospitalist Progress Note ---
Date of Service September 08, 2023 Assessment & Plan (1) Penile pain: Plan: 82-year-old male with past medical history significant for metastatic prostate cancer to bone, diet-controlled T2DM, chronic DVT on warfarin, asthma, dementia, chronic pain and depression with anxiety recently in hospital for acute metabolic encephalopathy, sepsis and acute hypoxic respiratory failure secondary pneumonia, lactic acidosis rhabdomyolysis and was treated with IV antibiotics did okay and discharged on p.o. cefdinir and Doxy on 09/04/23. During hospitalization he was also had video swallow which showed Zenker's diverticulum and GI recommended EGD as outpatient. Speech recommended minced and moist diet, thin liquids no straws mouth care ACHS. Patient refused to go to rehab.He was also placed on naranjo for urinary retention. And today evening when the drained his catheter bag ,patient had lot of pain in lower abdomen and penile region. The penis seemed turned blue and black. Was brought in here. Naranjo catheter was removed. Currently patient is feeling better. Resting comfortably. Except for pain while pressing he does not have any significant symptoms currently. Denies any fevers. No cough. No runny nose or sore throat. Vision is okay. No headaches. No chest pain or shortness of breath. No nausea. No abdominal pain.Not drinking much water as per and also eating very less. His stools are dark in color. And urine is very d ark. Current resting comfortably and hemodynamically stable. Saturating okay on room air. Currently ambulating with walker. states the walker he got from the hospital was not much helpful so she is renting a rollator walker. Penile pain--- secondary to Naranjo catheter which has been removed on admission Ecchymosis seen on the penis Has been voiding since removal of Naranjo Will monitor for urinary retention with bladder scans Consult urology in a.m.-appreciate input and recommendation Urology signed out and outpatient appointment advised PT and OT recommendation During his recent admission he was recommended to go to rehab The patient and the refused to go to rehab Will get repeat PT OT evaluation and likely will need placement Palliative care encounter He has had palliative evaluation during last admission Consider to have outpatient palliative evaluation following discharge Not in hospice care right now Recent pneumonia Complete doxycycline course Placed on IV Unasyn for now Pro-Rigo is elevated but is much better than last admission We will continue the IV Unasyn for a day or 2 and can be stopped after getting further test results back Metastatic prostate cancer to bone Chronic pain Follows with Dr. Bush, Dr. Barbour for radiation Dr. Sarah Wilson for pain management Continue home pain medications Chronic DVT On Coumadin Follow PT/INR Diet-controlled diabetes Will monitor Dementia Depression with anxiety Continue Effexor, trazodone and Aricept Remains confused but no acute delirium Dark stools will check close Hemoccult DVT prophylaxis On Coumadin Follow-up with PT/INR Disposition Observation medical floor PT OT Full code Admission and Anticipated Discharge Date Admission Date: September 08, 2023 Subjective 09/08/2023 The patient was seen and examined in medical floor He remains confused and does not know definitely why he has been in the hospital Complains some lower abdominal pain No nausea or vomiting, no fever and or chills Review of Systems Review of Systems: Unobtainable due to cognitive status Physical Exam Physical Exam: Lying in bed without any acute distress Constitutional: well developed, well nourished, + ill appearing and + obese Eyes: PERRL, conjunctivae normal, anicteric sclerae ENMT: external ear and nose normal, oropharynx normal Neck: trachea midline, no thyromegaly Respiratory: no respiratory distress Auscultation: + diminished lung sounds Cardiovascular: Rate/Rhythm: regular rate and regular rhythm; not tachycardic Heart Sounds: normal S1 and normal S2; no murmur Extremities: + edema (Trace edema bilaterally) Gastrointestinal (Abdomen): Inspection/Auscultation: normal bowel sounds; abdomen not distended Percussion/Palpation: abdomen soft; abdomen nontender Musculoskeletal: No acute arthritis involving any joint Neurologic: normal touch/pain/proprioception, moves all extremities and + confused; no focal motor deficits Lymphatic: no cervical or axillary lymphadenopathy Results & Data Results & Data Vital Signs (Past 12 Hours) Vital Signs Temp Pulse Pulse Pulse Resp BP BP 09/08/23 08:52 36.7 C 89 18 128/78 09/08/23 04:00 37 C 95 H 18 159/94 H 09/08/23 03:36 82 19 136/78 09/08/23 01:28 93 H 18 145/89 H Pulse Ox O2 Del Method 09/08/23 08:52 98 Room Air 09/08/23 04:00 97 Room Air 09/08/23 03:36 95 Room Air 09/08/23 01:28 100 Room Air Laboratory Results Short CBC 09/07/23 09/08/23 Range/Units 21:00 07:05 WBC 13.55 H 10.71 (4.8-10.8) K/ul Hgb 12.5 L 11.1 L (14.0-18.0) g/dl Hct 37.7 L 33.4 L (42.0-52.0) % Plt Count 291 205 (130-400) K/uL BMP 09/07/23 09/07/23 09/08/23 21:00 23:00 07:05 Sodium 135 L 137 Potassium TNP 3.1 L 3.3 L Chloride 102 104 Carbon Dioxide 24 26 BUN 28 H 26 H Creatinine 0.96 0.73 Glucose 184 H 151 H Calcium 8.3 L 7.8 L Liver Function 09/07/23 09/07/23 Range/Units 21:00 23:00 Total Bilirubin 0.7 (0.2-1.0) mg/dl AST TNP 24 ALT 43 (7-52) U/L Alkaline Phosphatase 54 (34-104) U/L Albumin 3.1 L (3.4-5.0) gm/dl Medications Administered Current Inpatient Medications Acetaminophen (Acetaminophen 325 Mg Tab) 650 mg PO Q4H PRN PRN Reason: pain/fever Stop: 10/08/23 04:57 Calcium/Vitamin D (Calcium 600mg + Vit D 400 Iu Tab) 1 tab PO DAILY SABINE Stop: 10/08/23 08:59 Last Admin: 09/08/23 08:16 Dose: 1 tab Cyanocobalamin (Cyanocobalamin (B-12) 500 Mcg Tablet) 1,000 mcg PO DAILY SABINE Stop: 10/08/23 08:59 Last Admin: 09/08/23 08:16 Dose: 1,000 mcg Dexamethasone (Dexamethasone 1 Mg Tab) 1 mg PO DAILY SABINE Stop: 10/08/23 08:59 Last Admin: 09/08/23 08:16 Dose: 1 mg Docusate Sodium (Docusate Sodium 100 Mg Cap) 200 mg PO DAILY SABINE Stop: 10/08/23 08:59 Last Admin: 09/08/23 08:17 Dose: 200 mg Doxycycline Hyclate (Doxycycline Hyclate 100 Mg Cap) 100 mg PO BID [facility]INE Stop: 09/09/23 08:59 Last Admin: 09/08/23 08:17 Dose: 100 mg Fentanyl (Fentanyl 25 Mcg/Hr Tdsy) 25 mcg TD Q72H [facility] Stop: 09/22/23 08:59 Last Admin: 09/08/23 08:11 Dose: 25 mcg Gabapentin (Gabapentin 300 Mg Cap) 300 mg PO TID [facility] Stop: 10/08/23 08:59 Last Admin: 09/08/23 08:17 Dose: 300 mg Sodium Chloride (Nss) 1,000 mls @ 80 mls/hr IV .[id number] [facility] Stop: 09/09/23 05:57 Last Admin: 09/08/23 06:20 Dose: 80 mls/hr Ampicillin Sodium/Sulbactam Sodium 3,000 mg/ Sodium Chloride 100 mls @ 200 mls/hr IV Q6H [facility] Stop: 09/18/23 05:59 Last Infusion: 09/08/23 12:50 Dose: Infused Miscellaneous (Check Fentanyl Patch Placement) 1 each N/A QS [facility] Stop: 10/08/23 15:59 Miscellaneous (Fentanyl Patch Remove & Waste) 1 each N/A Q72H [facility] Stop: 10/08/23 08:58 Last Admin: 09/08/23 08:10 Dose: 1 each Miscellaneous (Remove Nicoderm Patch) 1 each N/A DAILY@0859 [facility] Stop: 10/08/23 08:58 Last Admin: 09/08/23 08:14 Dose: 1 each Multivitamins (Multivitamin Tab) 1 tab PO DAILY [facility] Stop: 10/08/23 08:59 Last Admin: 09/08/23 08:18 Dose: 1 tab Nicotine (Nicotine 14 Mg/24 Hr Patch) 14 mg TD DAILY [facility] Stop: 10/08/23 08:59 Last Admin: 09/08/23 08:15 Dose: 14 mg Polyethylene Glycol (Polyethylene (Miralax) 17 Gm Pack) 17 gm PO DAILY PRN PRN Reason: Constipation Stop: 10/08/23 04:57 Rosuvastatin Calcium (Rosuvastatin Calcium 5 Mg Tab) 5 mg PO DAILY [facility] Stop: 10/08/23 08:59 Last Admin: 09/08/23 08:18 Dose: 5 mg Sennosides (Senna 8.6 Mg Tab) 17.2 mg PO HS PRN PRN Reason: constipation Stop: 10/08/23 04:57 Trazodone HCl (Trazodone Hcl 50 Mg Tab) 25 mg PO HS [facility] Stop: 10/08/23 20:59 Venlafaxine HCl (Venlafaxine Hcl Xr 37.5 Mg Capxr) 37.5 mg PO DAILY [facility] Stop: 10/08/23 08:59 Last Admin: 09/08/23 08:18 Dose: 37.5 mg Venlafaxine HCl (Venlafaxine Hcl Xr 150 Mg Capxr) 150 mg PO DAILY [facility] Stop: 10/08/23 08:59 Last Admin: 09/08/23 08:18 Dose: 150 mg Warfarin Sodium (Warfarin Sod 5 Mg Tab) 5 mg PO MoTuWeThFrSa@1600 [facility] Stop: 10/08/23 15:59 Warfarin Sodium (Warfarin Sod 2.5 Mg Tab) 2.5 mg PO Nolan@1600 [facility] Stop: 10/14/23 15:59
[2023-09-08] MEDS ORDERED: WARFARIN SOD 5 MG TAB PO SCH (16:00)
[2023-09-08] MEDS ORDERED: CHECK fentaNYL PATCH PLACEMENT SCH (16:00)
[2023-09-08] MEDS ORDERED: traZODone HCL 50 MG TAB PO SCH (21:00)
[2023-09-14] MEDS ORDERED: WARFARIN SOD 2.5 MG TAB PO SCH (16:00)
== END 2023-09-08 15:00 | disposition home health service (06) ==
LOC: 3W 20:34 → ED 20:34 → 3W 09-08 03:36

== ENCOUNTER 2024-03-22 07:28 | Inpatient (IN) ==
--- OUTSIDE RECORDS SUMMARY | 2024-03-22 07:37 | External Medical Summary | Summary of Care ---
Author Name Unknown Organization [facility] Address [address] [facility] [place] [address] Phone [phone] Care Team Providers Care Pc Installation Engineer Name Role Phone Lidya Barbour MD Primary Care Provider + Reason for Visit * Reason Comments Re-Check 2 month return Encounter Details Date Type Department Care Team (Late st Contact Info) Description 11/25/2023 9:20 AM EDT Office Visit General Internal Medicine [facility] [place] [address] [facility] [place] [address] Lidya Barbour MD [address] [facility] [place] [address] Prostate cancer metastatic to bone (HCC)*; Controlled substance agreement signed; Type 2 diabetes mellitus with hemoglobin A1c goal of less than 7.0% (HCC); Multiple pulmonary nodules; MCI (mild cognitive impairment); Chronic deep vein thrombosis (DVT) of calf muscle vein of left lower extremity (HCC); Intermittent asthma with reliever use up to twice per week without complication; Hip pain, right Allergies Active Allergy Reactions Criticality Noted Date Comments Dust Low 03/02/2019 Other reaction(s): ITCHY EYES,RUNNY NOSE Pollen 09/07/2018 documented as of this encounter (statuses as of 03/08/2024) Medications Medication Sig Dispensed Refills Start Date End Date Status vitamin b 12 (CYANOCOBALAMIN) 1000 MCG TABSIndications:D epression with anxiety (1) pill twice daily- per Dr. Damon 60 Tab 5 07/17/2016 Active Zoledronic Acid 4 MG/5ML Intravenous Concentrate Administer 4 mg intravenously. Every 3 months 05/28/2018 Active venlafaxine XR (EFFEXOR XR) 150 MG CP24 Take 1 Capsule by mouth in the morning. 12/15/2019 Active warfarin sodium (COUMADIN) 5 MG Tablet Take 1 Tablet by mouth every evening. 30 Tab 12/15/2019 Active LUPRON DEPOT, 3-MONTH, 22.5 MG KIT Inject 22.56 mg into a large muscle every 3 months. 12/15/2019 Active fentaNYL 62.5 MCG/HR Transdermal Patch 72 Hour Apply to skin every three days. 08/28/2020 Active Donepezil HCl 10 MG Oral Tablet (ARICEPT) Take 1 Tablet by mouth in the morning. 08/22/2020 Active Docusate Sodium 100 MG Oral Capsule Take 1 Capsule by mouth in the morning and 1 Capsule before bedtime. Active oxyCODONE HCl 10 MG Oral Tablet (Roxicodone) Take 1.5 Tablets by mouth every 4 hours as needed for Pain. 12/12/2021 Active Calcium-Vitamin D 500-125 MG-UNIT Oral Tablet Take by mouth . Active Sildenafil Citrate 100 MG Oral Tablet (Viagra)Indicatio ns:Impotence of organic origin Take by mouth 1 Tablet as needed for Erectile Dysfunction. 10 Tablet 5 07/09/2022 Active Venlafaxine HCl ER 37.5 MG Oral Capsule Extended Release 24 Hour (Effexor XR) Take 1 Capsule by mouth daily. 02/11/2023 Active Acetylcysteine 600 MG Oral Capsule (NAC) 1 Capsule. 01/20/2023 Active Multiple Vitamin Oral Tablet 1 Tablet. Active Rosuvastatin Calcium 5 MG Oral Tablet (Crestor)Indicati ons:Hyperlipidemi a with target LDL less than 100 Take 1 Tablet by mouth in the morning. 30 Tablet 5 06/16/2023 12/16/2023 Discontinue d(Refill) traZODone HCl 50 MG Oral Tablet (Desyrel) Trazodone Oral 1/2 daily active 05/08/2023 03/02/2024 Discontinue d(Patient preference/ discontinua tion) documented as of this encounter (statuses as of 03/08/2024) Active Problems Problem Noted Date Diagnosed Date Type 2 diabetes mellitus wit h hemoglobin A1c goal of less than 7.0% 01/30/2022 Chronic deep vein thrombosis (DVT) of calf muscle vein of left lower extremity 12/14/2020 Intermittent asthma with rel iever use up to twice per week without complication 12/15/2019 Multiple pulmonary nodules 12/15/2019 MCI (mild cognitive impairment) 03/26/2017 Anxiety 03/26/2017 Controlled substance agreement signed 01/27/2016 Prostate cancer metastatic to bone 10/05/2015 Lumbar spinal stenosis 03/11/2015 documented as of this encounter (statuses as of 03/08/2024) Resolved Problems Problem Noted Date Diagnosed Date Resolved Date 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 03/14/2020 1 11/09/2022 Skin cancer 05/31/2013 12/14/2020 BILAT INGUINAL HERNIA 10/01/20042018 documented as of this encounter (statuses as of 03/08/2024) Immunizations Name Administration Dates Next Due COVID-19 mRNA, LNP-s, No Pre serve, 2-Dose Series (Moderna) 07/11/2021,11/03/2020,10/07/2020 COVID-19, MRNA-LNP, 23-24, P F, 50 MCG/0.5 mL, 12 YRS AND ABOVE, IM (MODERNA-Spikevax) 08/03/2023 Covid-19, Mrna, Lnp-s, Pf, B ivalent, 25 Mcg, IM,6-11 yrs (Moderna) 01/16/2022 Covid-19, Mrna, Lnp-s, Pf, B ivalent, 30 Mcg, IM, 12 yrs and above (Pfizer) 06/28/2022 Covid-19, Mrna, Lnp-s, Pf, B ivalent, 50 Mcg, IM, 12 yrs and above (Moderna) 06/29/2022 Pneumococcal Conjugate Vacc, 13 Valent (Prevnar) 07/17/2016 Pneumococcal Polysaccharide PPV23 (Pneumovax) 05/17/2012,02/01/2010 RSV Vac., Recomb, Adjuvant, PF,0.5 Ml (Arexvy) 11/13/2023 Season Influenza, Quad, PF, Adjuvanted, 65+ Yrs, IM (FLUAD) 07/07/2020 Seasonal Influenza, PF, 6 M & above, IM , (FluLaval or Fluzone) 05/28/2018 Seasonal Influenza, Quadriva lent Hd (Fluzone Hd) 06/19/2021 Seasonal Influenza, Quadriva lent Hd, 65+ Yrs 08/03/2023,06/29/2022,06/14/2022,06/19,07/07/2020,06/18/2019,05/28/2018 ,05/27/2017,06/07/2016,06/16/2014,05/16,08/27/2012 Seasonal Influenza, Quadriva lent, No Preserve, IM 05/27/2017,06/07/2016,08/23/2015 Seasonal Influenza, Split, I IV3, With Preserve, Inj 06/16/2014,05/31/2013,08/27/2012 Seasonal Influenza, Trivalen t, Adjuvanted, 65+ yrs 06/29/2022,06/18/2019 TDAP (age 10 and older)(Boostrix) 01/07/2023, Zoster Vaccine Recombinant (Shingrix) 03/13/2022 ,12/19/2021 documented as of this encounter Social History Tobacco Use Types Packs/Day Years Used Date Smoking Tobacco: Never Smokeless Tobacco: Former Snuff Comments:Pt uses chewing tob acco Alcohol [...] on file documented as of this encounter Last Filed Vital Signs Vital Sign Reading Time Taken Comments Blood Pressure 110/60 11/25/2023 9:39 AM EDT Pulse 81 11/25/2023 9:39 AM EDT Temperature 36.1 C (97 F) 11/25/2023 9:39 AM EDT Respiratory Rate 16 11/25/2023 9:39 AM EDT Oxygen Saturation 95% 11/25/2023 9:39 AM EDT Inhaled Oxygen Concentration - - Weight 89 kg (196 lb 3.2 oz) 11/25/2023 9:39 AM EDT Height - - Body Mass Index 28.56 11/20/2023 12:59 PM EST documented in this encounter Progress Notes * Lidya Barbour MD - 11/25/2023 9:51 AM EDT HPI: Baljit Quesada is a 83 year old male who presents with: Chief Complaint Patient presents with Re-Check 2 month return Patient is here for the recheck. Chart reviewed with the patient including current meds, last labs and HM. Reviewed last hospital admission and post discharge follow up with Dr. Pineda in month of August. At the time patient was diagnosed with right middle and left lower lobe aspiration pneumonia and had rhabdomyolysis. Patient was treated with IV and then oral antibiotic and also IV fluid. Patient also has a history of metastatic prostate cancer for which he has been following up with the urologist. Reviewed the last PET-CT which ruled out metastasis and was diagnosed with osteo arthritis especially at his right hip where he has a chronic pain. Last admission in August of 2023 patient also had a CT head which showed no acute changes. Patient was referred for PT and OT for further muscle strengthening. Last visit with Dr. Pineda he had a GI symptoms and he was advised to get barium swallow and also was started on PPI omeprazole 20 mg once a day. Recent urine culture was negative. Denies any fever or chills. Pt follows with Dr. Mcclain. Did receive 5 radiation treatment. Pt will be also seeing Ortho, Dr. Dong. Pt was referred to Dr. Miles. Pt was recommended against hip surgery. Pt will get back to about getting hip injected.pt also follows with PT for hip pain. Patient Active Problem List Diagnosis Code Lumbar spinal stenosis M48.061 Prostate cancer metastatic to bone (HCC) C61, C79.51 Controlled substance agreement signed Z79.899 MCI (mild cognitive impairment) G31.84 Anxiety F41.9 Intermittent asthma with reliever use up to twice per week without complication J45.20 Multiple pulmonary nodules R91.8 Chronic deep vein thrombosis (DVT) of calf muscle vein of left lower extremity ([facility]) I82.562 Type 2 diabetes mellitus with hemoglobin A1c goal of less than 7.0% ([facility]) E11.9 Current Outpatient Medications Medication Sig Dispense Refill vitamin b 12 (CYANOCOBALAMIN) 1000 MCG TABS (1) pill twice daily- per Dr. Damon 60 Tab 5 Zoledronic Acid 4 MG/5ML Intravenous Concentrate Administer 4 mg intravenously. Every 3 months venlafaxine XR (EFFEXOR XR) 150 MG CP24 Take 1 Capsule by mouth in the morning. warfarin sodium (COUMADIN) 5 MG Tablet Take 1 Tablet by mouth every evening. 30 Tab 0 LUPRON DEPOT, 3-MONTH, 22.5 MG KIT Inject 22.56 mg into a large muscle every 3 months. fentaNYL 62.5 MCG/HR Transdermal Patch 72 Hour Apply to skin every three days. Donepezil HCl 10 MG Oral Tablet (ARICEPT) Take 1 Tablet by mouth in the morning. Docusate Sodium 100 MG Oral Capsule Take 1 Capsule by mouth in the morning and 1 Capsule before bedtime. oxyCODONE HCl 10 MG Oral Tablet (Roxicodone) Take 1.5 Tablets by mouth every 4 hours as needed for Pain. Calcium-Vitamin D 500-125 MG-UNIT Oral Tablet Take by mouth . Venlafaxine HCl ER 37.5 MG Oral Capsule Extended Release 24 Hour (Effexor XR) Take 1 Capsule by mouth daily. Rosuvastatin Calcium 5 MG Oral Tablet (Crestor) Take 1 Tablet by mouth in the morning. 30 Tablet 5 Acetylcysteine 600 MG Oral Capsule (NAC) 1 Capsule. Multiple Vitamin Oral Tablet 1 Tablet. traZODone HCl 50 MG Oral Tablet (Desyrel) Trazodone Oral 1/2 daily active Sildenafil Citrate 100 MG Oral Tablet (Viagra) Take by mouth 1 Tablet as needed for Erectile Dysfunction. 10 Tablet 5 No current facility-administered medications for this visit. The patient's medication list was reviewed and updated as needed. 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 Tobacco Use Smoking status: Never Smokeless tobacco: Former Types: Snuff Tobacco comments: Pt uses chewing tobacco Vaping Use Vaping Use: Never used Substance and Sexual Activity Alcohol use: Yes Comment: occasional- 2/week Drug use: No Sexual activity: Yes Partners: Female Social Determinants of Health Food Insecurity: No Food Insecurity (03/14/2020) Hunger Vital Sign Worried About Running Out of Food in the Last Year: Never true Ran Out of Food in the Last Year: Never true Family History Problem Relation Age of Onset No Past Hx Mother age 85- natural causes Heart Disorder Father age 87- [place] All system negative except as per hpi. OBJECTIVE: BP 110/60 | Pulse 81 | Temp 36.1 C (97 F) (Tympanic) | Resp 16 | Wt 89 kg (196 lb 3.2 oz) | SpO2 95% | BMI 28.56 kg/m | BSA 2.09 m PHYSICAL EXAM: HEENT: PERRLA, EOMI, anicteric sclera, b/l tympanic membrane is pearly white, no erythema, no pharyngeal erythema, no lymphadenopathy, neck supple CVS: RRR, no murmurs, rubs or gallops, s1 s 2normal. RESP: clear to auscultation, no wheezing or crackles ABD: soft, NT/ND EXT: no edema, cyanosis, peripheral pulses palpable bilaterally No large joint swelling, no redness, range of motion normal. Skin normal. Gait normal. Mood stable No focal weakness ASSESSMENT AND PLAN: Prostate cancer metastatic to bone (HCC) (Primary) On fentanyl. Used to see urology and advised regular f/u. Pt used to Dr. Mccallum. Controlled substance agreement signed Type 2 diabetes mellitus with hemoglobin A1c goal of less than 7.0% ([facility]) Diet controlled. Multiple pulmonary nodules Doesn't see any lung. PET Ct was fine. MCI (mild cognitive impairment) Stable On Aricept. Chronic deep vein thrombosis (DVT) of calf muscle vein of left lower extremity (HCC) On coumadin. Intermittent asthma with reliever use up to twice per week without complication Well controlled. Continue only as needed. Hip pain, right Has been getting home PT twice weekly. Follow Up: Return in about 6 months (around 05/27/2024) for Return with Physician. | For: Return with Physician Lidya Barbour MD documented in this encounter Nursing Notes * Rosamaria Marie LPN - 11/25/2023 9:36 AM EDT Chief Complaint Patient presents with Re-Check 2 month return documented in this encounter Plan of Treatment Upcoming Encounters Date Type Department Care Team (Late st Contact Info) Description 05/10/2024 9:30 AM EDT Cardiac Studies Cardiac Studies, [facility] [address] [facility] [address] [place] [id number] 06/02/2024 10:00 AM EDT Office Visit General Internal Medicine [facility] [address] [facility] [place] [address] Lidya Barbour MD [address] [facility] [place] [id number] Health Maintenance Due Date Last Done Comments Diabetic Foot Exam 1958 COVID-19 Vaccine ( season) 2023 08/03/2023, 06/29/2022, 06/28/2022, Additional history exists HbA1c 05/27/2024 11/25/2023, 06/16, 01/07/2023, Additional history exists Albumin/Creatinine Ratio 07/04/2024 023, 07/09/2022, 08/29/2020 Depression Screening 07/09/2024 07/09/2023 GFR 10/06/2024 10/06/2023, 06/16, 04/05/2022, Additional history exists Diabetic Eye Exam 12/08/2024 12/09/2023 DTaP,Tdap,and Td Vaccines (3 - Td or Tdap) 01/07/2033 01/07/2023, 05/29/2012 Pneumococcal Vaccine: 65+ Years Completed 07/17/2016, 05/17/2012, 02/01/2010 Zoster Vaccines Completed 03/13/2022, 12/19/2021 Influenza Vaccine (FLU shot) Completed , 06/29/2022, 06/29/2022, Additional history exists GARDASIL-HPV IMMUNIZATION SERIES Aged Out No longer eligible based on patient's age to complete this topic Hepatitis B Aged Out No longer eligi ble based on patient's age to complete this topic MENINGOCOCCAL (MENACTRA/MENVEO) Aged Out No longer eligible based on patient's age to complete this topic documented as of this encounter Medical Devices Not on filedocumented as of this encounter Procedures Procedure Name Priority Date/Time Associated Diagnosis Comments HEMOGLOBIN A1C Routine 11/25/2023 10:29 AM EDT Type 2 diabetes mellitus with hemoglobin A1c goal of less than 7.0% (HCC) documented in this encounter Results * (ABNORMAL) HEMOGLOBIN A1C (11/25/2023 10:29 AM EDT) Hemoglobin A1C 6.1(H) 4.0 - 5.6 % 11/25/2023 7:56 PM EDT [facility] [place] [facility] Comment:The use of HbA1c to monitor glycemic status is based on normal hemoglobin and HbA composition. This test should not be used in patients with abnormal hemoglobin that affects the half life of the red blood cell or the in vivo glycation rates. Estimated Average Glucose 128(H) <126 mg/dL 11/25/2023 7:56 PM EDT [facility] [place] Blood Venous blood specimen / Unknown Venipuncture / Unknown 11/25/2023 10:29 AM EDT 11/25/2023 10:29 AM EDT Lidya Barbour MD LAB BLOOD ORDERA BLES [facility] [address] [place] [address] documented in this encounter Visit Diagnoses Diagnosis Prostate cancer metastatic to bone (HCC)- Primary Controlled substance agreement signed Encounter for long-term (current) use of other medications Type 2 diabetes mellitus with hemoglobin A1c goal of less than 7.0% (HCC) Multiple pulmonary nodules Other nonspecific abnormal finding of lung field MCI (mild cognitive impairment) Mild cognitive impairment, so stated Chronic deep vein thrombosis (DVT) of calf muscle vein of left lower extremity (HCC) Intermittent asthma with reliever use up to twice per week without complication Hip pain, right Pain in joint, pelvic region and thigh documented in this encounter Advance Directives * Full Code (Latest Code Status on File) Date Activated Date Inactivated Comments 09/05/2015 11:19 AM 09/05/2015 4:46 PM This orde r reflects the patients wishes and were consensually agreed upon. Care Teams Pc Installation Engineer Relationship Specialty Start Date End Date Lidya Barbour MD [address] [facility] [place] [address] PCP - General Internal Medicine 09/25/16 documented as of this encounter"
--- NOTE | 2024-03-22 07:59 | Emergency Department Note ---
Impression & Plan Supracondylar fracture of humerus ADMIT ED Provider Note HPI: History obtained from patient. The patient is a 83-year-old gentleman who is anticoagulated on Coumadin, presents the emergency department with generalized weakness as well as headache, left elbow pain, and right knee pain after a fall yesterday when he was playing tennis. Patient states the ambulance did arrive after his fall but at the time he did not feel that he needed medical attention in a hospital and therefore refused transport. Patient states he was having decreased ability to ambulate at home last evening into this morning and therefore came to the ER this morning to be assessed. He does have fentanyl patches on for chronic pain and also reports he took an oxycodone last night for pain. He is listless appearing on arrival but he is alert and able to respond to my commands appropriately. Patient is otherwise hemodynamically stable on arrival. ROS: - Per HPI Differential Diagnosis: Left elbow fracture, left elbow dislocation, right knee fracture, right knee dislocation, intracranial injury to include subdural hematoma, epidural hematoma, cervical spine fracture, amongst other potential pathologies. *Outpatient medications and allergy history reviewed. PE: General: Alert, listless appearing HEENT: Normocephalic, trachea midline Eyes: Extraocular eye movement is intact, no scleral erythema Pulmonary: Clear to auscultation bilaterally, no wheezing Cardio: Regular rate and rhythm GI: Abdomen is soft to palpation : No suprapubic tenderness MSK: Generalized swelling of the right knee with an overlying abrasion without surrounding erythema, mild swelling of the left elbow with limited range of motion secondary to pain, motor and sensory function is intact distally in the left hand, there is a palpable dorsalis pedis pulse in the right lower extremity Neuro: Alert, no focal deficits Psychiatric: Cooperative INDEPENDENT INTERPRETATIONS: dynamics ax technical architect: (As interpreted by myself): - An order was placed for continuous cardiac monitoring - Patient was noted to be in sinus rhythm with a rate of 65 EKG: (As interpreted by myself): Rate: 69 Rhythm: Normal sinus rhythm Intervals: Within normal limits ST changes: No ST elevation Time: 0809 Chest x-ray: (As interpreted by myself): No acute disease Interventions provided in ED: -IV fluid bolus Medical Decision Making: Patient presents after a fall yesterday when he was playing tennis. X-ray imaging shows evidence of a supracondylar fracture of the left humerus, patient also has evidence of a patellar fracture of the right knee where he is also having swelling and pain. CT imaging of the head and CT imaging of the cervical spine do not show any critical traumatic findings. CT imaging of the head does not show any evidence of intracranial hemorrhage. Lab work was obtained and shows no leukocytosis, hemoglobin is stable at 10.8, platelet count is normal, INR is therapeutic at 2.3. CMP does not show any critical findings, urinalysis is negative. I discussed the patient's x-ray imaging results with on-call orthopedics, Dr. Barboza. He recommends placement of a posterior splint to the left elbow and knee immobilizer for the right patellar fracture. Given the patient's multiple fractures, I did advise admission for ambulatory dysfunction and PT/OT consultation. Following prolonged discussion with the patient and his he is in agreement to stay. I did reach out to case management and they are unable to place him directly at an inpatient rehab facility for physical therapy. Case was therefore discussed with the on-call hospitalist service for [facility], and the patient was accepted to the service of Dr. Tompkins. Consultants/Discussions held with other healthcare providers: -Hospitalist, Dr. Tompkins Disposition discussion held by myself with: -Patient and at bedside Diagnosis: 1. Mechanical fall, acute 2. Supracondylar fracture of the left humerus, acute 3. Right sided patellar fracture, acute 4. Closed head injury, acute, on Coumadin 5. 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) Medical History (Updated 03/22/24 @ 14:03 by Rico Thomas DO) MCI (mild cognitive impairment) Multiple pulmonary nodules Asthma Greater trochanteric pain syndrome Zenker diverticulum Avascular necrosis of bone of left hip (~06/26/23) History of DVT (deep vein thrombosis) Osteoarthritis of left hip History of skin cancer Prostate cancer Lumbar stenosis with neurogenic claudication Surgical History (Updated 03/22/24 @ 09:28 by Calli Figueroa PA-C) History of lumbar laminectomy History of hernia repair History of cataract extraction LEFT 2mg versed given without problem Family History Mother , age 70` s Diabetes Father , age 86 COPD (chronic obstructive pulmonary disease) smoked for many years Daughter , age 39 Breast cancer Daughter Genetic carrier of heritable cancer had bilateral mastectomy Social History Smoking Status: Never smoker Second Hand Exposure: Yes; Do You Dip or Chew Tobacco: Yes (ON AND OFF, SINCE AGE 29. 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: No Beliefs That Will Affect Care: None marital status: Current Living Situation: Spouse current occupational status: retired current occupation: retired Feels Safe at Home: Yes Assistive Devices: Cane and Walker Allergies Allergies Allergy/AdvReac Type Severity Reaction Status Date / Time ragweed pollen Allergy Intermediate RASH Verified 01/16/24 09:45 house dust Allergy Mild ITCHY Verified 01/16/24 09:45 EYES, RUNNY NOSE Home Meds Home Medications Medication Instructions Recorded Confirmed cyanocobalamin (vitamin B-12) 1,000 mcg PO DAILY 03/10/19 03/22/24 1,000 mcg capsule donepezil 10 mg tablet 10 mg PO DAILY 11/08/19 03/22/24 multivitamin 1 tab PO DAILY 10/03/20 03/22/24 rosuvastatin 5 mg tablet (Crestor) 5 mg PO HS 12/26/21 03/22/24 polyethylene glycol 3350 17 17 g PO DAILY PRN constipation 10/15/22 03/22/24 gram/dose oral powder (Miralax) venlafaxine 150 mg 150 mg PO DAILY 05/08/23 03/22/24 capsule,extended release 24 hr (Effexor XR) venlafaxine 37.5 mg 37.5 mg PO DAILY 05/08/23 03/22/24 capsule,extended release 24 hr calcium carbonate 500 mg-vitamin 1 tab PO DAILY 09/07/23 03/22/24 D3 3.125 mcg (125 unit) tablet docusate sodium 100 mg capsule 100 mg PO BID Constipation 10/07/23 03/22/24 (Colace) leuprolide (3 month) 22.5 mg (3 22.5 mg IM [id number] 01/16/24 03/22/24 month) intramuscular syringe kit (Lupron Depot) zoledronic acid 4 mg/100 mL in 4 mg IV .q 3 months 01/16/24 03/22/24 mannitol 5 %-water intravenous piggybck furosemide 20 mg tablet 20 mg PO QAM 03/03/24 03/22/24 warfarin 5 mg tablet 5 mg PO QPM 03/03/24 03/22/24 acitretin 25 mg capsule 25 mg PO .Q OTHER DAY 03/22/24 03/22/24 fentanyl 12 mcg/hr transdermal 1 patch transdermal Q72H pain 03/22/24 03/22/24 patch fentanyl 50 mcg/hr transdermal 1 patch transdermal Q72H pain 03/22/24 03/22/24 patch oxycodone 10 mg tablet 10 mg PO Q4H PRN Pain 03/22/24 03/22/24 Previous Rx's Medication Instructions Recorded naloxone 4 mg/actuation nasal spray 1 spray intranasal Q3M PRN opioid 03/12/21 overdose #2 ea Results & Data (ED) Vital Signs Vital Signs - 24 hr 03/22/24 07:49 03/22/24 07:57 03/22/24 07:58 Temperature 36.3 C L Temperature Source Oral Pulse Rate 70 71 Pulse Rate [Right Finger] Pulse Rate from SpO2 Sensor Pulse Rhythm [Right Finger] Pulse Strength [Right Finger] Respiratory Rate 14 Respiratory Effort / Characteristics Respiratory Depth Normal Respiratory Pattern Blood Pressure 153/93 H Blood Pressure [Right Arm] Blood Pressure Mean 113 Blood Pressure Mean [Right Arm] Blood Pressure Position [Right Arm] Pulse Oximetry 96 Oxygen Delivery Method Room Air Room Air Sepsis Recent Fever Within 48 Hours No Sepsis New/Unexplained Change in Mental Status No Sepsis Action Taken by Nursing No Action Required 03/22/24 08:03 03/22/24 09:00 03/22/24 10:00 Temperature Temperature Source Pulse Rate 67 75 Pulse Rate [Right Finger] Pulse Rate from SpO2 Sensor 67 75 Pulse Rhythm [Right Finger] Pulse Strength [Right Finger] Respiratory Rate 14 15 12 Respiratory Effort / Characteristics Respiratory Depth Respiratory Pattern Blood Pressure 161/82 H 154/84 H 151/93 H Blood Pressure [Right Arm] Blood Pressure Mean 108 102 119 Blood Pressure Mean [Right Arm] Blood Pressure Position [Right Arm] Pulse Oximetry 98 95 97 Oxygen Delivery Method Room Air Room Air Sepsis Recent Fever Within 48 Hours Sepsis New/Unexplained Change in Mental Status Sepsis Action Taken by Nursing 03/22/24 11:00 03/22/24 12:00 03/22/24 12:05 Temperature Temperature Source Pulse Rate 69 Pulse Rate [Right Finger] 69 Pulse Rate from SpO2 Sensor Pulse Rhythm [Right Finger] Regular Pulse Strength [Right Finger] Normal Respiratory Rate 19 17 Respiratory Effort / Characteristics Non-Labored Respiratory Depth Normal Respiratory Pattern Regular Blood Pressure 182/117 H Blood Pressure [Right Arm] 162/103 H 159/83 H Blood Pressure Mean 123 Blood Pressure Mean [Right Arm] 122 108 Blood Pressure Position [Right Arm] Lying Pulse Oximetry 98 94 Oxygen Delivery Method Room Air Room Air Sepsis Recent Fever Within 48 Hours Sepsis New/Unexplained Change in Mental Status Sepsis Action Taken by Nursing Laboratory Data 03/22/24 08:00 03/22/24 08:00 Lab Results 03/22/24 03/22/24 Range/Units 08:00 09:29 WBC 8.02 (4.8-10.8) K/ul RBC 3.76 L (4.70-6.10) M/uL Hgb 10.8 L (14.0-18.0) g/dl Hct 34.3 L (42.0-52.0) % MCV 91.2 (80.0-100.0) fL MCH 28.7 (25.0-34.0) pg MCHC 31.5 L (32.0-36.0) g/dL RDW Std Deviation 53.5 H (36.4-46.3) fL RDW Coeff of Melissa 15.9 H (11.5-14.5) % Plt Count 205 (130-400) K/uL MPV 10.0 (9.4-12.4) fL Immature Gran % (Auto) 0.4 % Neut % (Auto) 76.6 % Lymph % (Auto) 10.5 % Banner % (Auto) 11.6 % Eos % (Auto) 0.4 % Baso % (Auto) 0.5 % Neut # (Auto) 6.15 (1.40-6.50) K/uL Lymph # (Auto) 0.84 L (1.20-3.40) K/uL Banner # (Auto) 0.93 H (0.11-0.59) K/uL Eos # (Auto) 0.03 (0.00-0.50) K/uL Baso # (Auto) 0.04 (0.00-0.20) K/uL Immature Gran # (Auto) 0.03 (0.01-0.20) K/uL PT 23.5 H (9.0-12.0) Seconds INR 2.3 H (0.9-1.1) Sodium 137 (136-145) mmol/L Potassium 4.0 (3.5-5.1) mmol/L Chloride 102 (98-107) mmol/L Carbon Dioxide 29 (21-32) mmol/L Anion Gap 6 (3-11) BUN 21 (6-23) mg/dl Creatinine 0.86 (0.6-1.4) mg/dl Est Cr Clr Drug Dosing 76.3 ml/min Est GFR ( Amer) 92.3 ml/min Est GFR (Non-Af Amer) 79.6 ml/min BUN/Creatinine Ratio 24.4 H (10-20) Glucose 132 H (70-99(Fasting)) mg/dl Calcium 8.9 (8.6-10.3) mg/dl Total Bilirubin 0.6 (0.2-1.0) mg/dl AST 22 (13-39) U/L ALT 17 (7-52) U/L Alkaline Phosphatase 67 (34-104) U/L Total Protein 6.9 (6.0-8.3) gm/dl Albumin 3.9 (3.4-5.0) gm/dl Globulin 3.0 (2.5-4.0) gm/dl Albumin/Globulin Ratio 1.3 (0.9-2) Lipase 13 (11-82) U/L Urine Color Yellow Urine Appearance Clear (Clear) Urine pH 5.5 (4.5-7.5) Ur Specific Closplint 1.022 (1.000-1.030) Urine Protein Negative (Negative) Urine Glucose (UA) Negative (Negative) Urine Ketones Negative (Negative) Urine Blood Negative (Negative) Urine Nitrite Negative (Negative) Urine Bilirubin Negative (Negative) Urine Urobilinogen Negative (Negative) Ur Leukocyte Esterase Negative (Negative) Administered Medications Discontinued Medications Sodium Chloride (Nss) 500 mls @ 999 mls/hr IV .Q31M STA Stop: 03/22/24 08:27 Last Infusion: 03/22/24 09:47 Dose: Infused Documented By: Admin: 03/22/24 09:16 Dose: 999 mls/hr Documented By: KALIE Imaging Data Radiologist's Impression: Cervical Spine CT 03/22/24 07:56 CT cervical spine wo con CLINICAL HISTORY: 83 years-old Male with fall. Acute neck pain status post fall COMPARISON: Head CT of same day TECHNIQUE: Multiple axial CT images of the cervical spine were obtained without contrast. A dose lowering technique was utilized adhering to the principles of ALARA. FINDINGS: Motion degraded exam. Prominent bridging osteophytosis is most pronounced anteriorly. Moderate to severe multilevel facet arthrosis. Study is motion degraded. Degenerative partial bony fusion involving the C6-C7 vertebral bodies with bridging anterior osteophytosis. Nuchal ligament calcifications. The cervical soft tissues appear unremarkable. The visualized lung apices appear clear. IMPRESSION: No acute cervical spine fracture or subluxation identified. ACT 112: Negative or not required by law. The above report was generated using voice recognition software. It may contain grammatical, syntax or spelling errors. Electronically signed by: Gregory Machado M.D. 03/22/2024 9:06 AM Chest X-Ray 03/22/24 07:56 XR chest 1V portable HISTORY: 83 years-old Male fall acute chest trauma status post fall COMPARISON: PET/CT 12/10/2023 TECHNIQUE: AP view of the chest FINDINGS: Cardiomediastinal and hilar silhouettes are within normal limits.. There is no pneumothorax, pleural effusion or overt pulmonary edema. Reticular interstitial densities redemonstrated suggestive of mild fibrotic change. Skeletal metastasis are better appreciated on the prior PET/CT. Degenerative changes of the shoulders and spine. IMPRESSION: No acute process of the chest. ACT 112: Negative or not required by law. The above report was generated using voice recognition software. It may contain grammatical, syntax or spelling errors. Electronically signed by: Gregory Machado M.D. 03/22/2024 8:57 AM Elbow X-Ray 03/22/24 07:56 LEFT ELBOW 2 VIEWS CLINICAL HISTORY: Fall. FINDINGS: AP and lateral views of the left elbow are obtained. No prior studies are available for comparison at the time of dictation. The skeletal structures are osteopenic. There is a comminuted and minimally offset supracondylar fracture of the left humerus. Corresponding joint effusion is noted. The proximal radius and ulna appear intact. There is no dislocation. Arthritic change is noted. There is a large enthesophyte at the triceps insertion. Soft tissue edema is present around the elbow. Atherosclerotic calcification is noted in the regional arteries. IMPRESSION: Supracondylar left humeral fracture with associated joint effusion. Electronically signed by: Abel Adams M.D. 03/22/2024 8:[address] 03/22/24 07:56 CT SCAN OF THE BRAIN WITHOUT IV CONTRAST CLINICAL HISTORY: Fall. COMPARISON STUDY: CT of the brain dated 08/30/2023. TECHNIQUE: Unenhanced axial CT scan of the brain is performed from the vertex to the skull base. A dose lowering technique was utilized adhering to the principles of ALARA. The skull base was scanned twice due to motion artifact. CT DOSE: 1016.05 mGy.cm FINDINGS: Brain parenchyma: There is age-related involutional change noting mild subcortical and periventricular microangiopathic disease. There is no hemorrhage, mass effect, or evidence of acute territorial ischemia by CT criteria. Diane-white matter differentiation is preserved. No extra-axial fluid collection is seen. Ventricles, sulci, cisterns: Prominent secondary to involutional change. Intracranial vasculature: There is atherosclerotic calcification of the cavernous carotid and vertebral arteries. Calvarium: The skeletal structures are osteopenic. No depressed calvarial fracture is seen. Sinuses and mastoids: There is trace mucosal thickening within the maxillary antra. Small retention cysts measure up to 8 mm. The remaining paranasal sinuses are clear. The mastoid air cells are well pneumatized. Orbits: The bony orbits are grossly intact. There are bilateral ocular lens implants. IMPRESSION: There is no hemorrhage, mass effect, or evidence of acute territorial ischemia by CT criteria. ACT 112: Negative or not required by law. Electronically signed by: Abel Adams M.D. 03/22/2024 8:46 AM Knee X-Ray 03/22/24 07:56 XR knee RT 1 or 2V routine HISTORY: 83 years-old Male fall acute pain of the right knee status post fall COMPARISON: None TECHNIQUE: 2 views of the right knee FINDINGS: There is an acute nondisplaced intra-articular midpatellar fracture. Mild prepatellar soft tissue swelling with moderate size joint effusion. 10 mm linear metallic density foreign body projects anterior and inferior to the patella. 8 mm probable loose body projects anterior to the proximal tibia on the lateral view. Mild to moderate tricompartmental osteoarthritis with arterial calcifications. IMPRESSION: 1. Acute nondisplaced intra-articular midpatellar fracture with moderate sized joint effusion. 2. 10 mm linear metallic density foreign body. ACT 112: Negative or not required by law. The above report was generated using voice recognition software. It may contain grammatical, syntax or spelling errors. Electronically signed by: Gregory Machado M.D. 03/22/2024 9:02 AM Discharge Plan Visit Data Chief Complaint: Fall Stated Complaint: Fall last night: R knee & L elbow pain ED Provider: Rico Thomas Discharge Problem: Supracondylar fracture of humerus Forms Stand Alone Forms: My [facility] [employer] Prescriptions Prescriptions: No Action cyanocobalamin (vitamin B-12) 1,000 mcg capsule 1,000 mcg PO DAILY rosuvastatin [Crestor] 5 mg tablet 5 mg PO HS polyethylene glycol 3350 [Miralax] 17 gram/dose powder 17 g PO DAILY PRN (Reason: constipation) Rx Instructions: otc unable to verify 03/22/24 venlafaxine 37.5 mg capsule,extended release 24hr 37.5 mg PO DAILY Rx Instructions: with 150 mg dose warfarin 5 mg tablet 5 mg PO QPM furosemide 20 mg tablet 20 mg PO QAM multivitamin Tablet 1 tab PO DAILY venlafaxine [Effexor XR] 150 mg capsule,extended release 24hr 150 mg PO DAILY Rx Instructions: with 37.5 mg dose docusate sodium [Colace] 100 mg capsule 100 mg PO BID naloxone 4 mg/actuation spray,non-aerosol 1 spray intranasal Q3M PRN (Reason: opioid overdose) Qty: 2 0RF Rx Instructions: unable to verify 03/22/24 administer 1 dose into ONE nostril; alternate nostrils w each dose until assistance arrives Lupron Depot (3 month) 22.5 mg syringe kit 22.5 mg IM .[id number] zoledronic gcdm-[id number]-fpinl 4 mg/100 mL piggyback 4 mg IV .q 3 months donepezil 10 mg tablet 10 mg PO DAILY calcium carbonate-vitamin D3 500 mg-3.125 mcg (125 unit) Tablet 1 tab PO DAILY acitretin 25 mg capsule 25 mg PO .Q OTHER DAY Rx Instructions: must take with food fentanyl 50 mcg/hr patch 72 hour 1 patch transdermal Q72H fentanyl 12 mcg/hr patch 72 hour 1 patch transdermal Q72H MDD 62mcg/hr oxycodone 10 mg tablet 10 mg PO Q4H PRN (Reason: Pain) Referrals Referrals: Lidya Barbour MD [Primary Care Provider] - Discharge Problem: Supracondylar fracture of humerus Qualifiers: Encounter type: initial encounter Fracture type: closed Laterality: left Q ualified Code(s): S42.412A - Displaced simple supracondylar fracture without intercondylar fracture of left humerus, initial encounter for closed fracture
--- NOTE | 2024-03-22 08:43 | XRay Report ---
LEFT ELBOW 2 VIEWS CLINICAL HISTORY: Fall. FINDINGS: AP and lateral views of the left elbow are obtained. No prior studies are available for [facility] at the time of dictation. The skeletal structures are osteopenic. There is a comminuted and m inimally offset supracondylar fracture of the left humerus. Corresponding joint effusion is noted. Th e proximal radius and ulna appear intact. There is no dislocation. Arthritic change is noted. There i s a large enthesophyte at the triceps insertion. Soft tissue edema is present around the elbow. Ather osclerotic calcification is noted in the regional arteries. IMPRESSION: Supracondylar left humeral fracture with associated joint effusion. Electronically signed by: Abel Adams M.D. 03/22/2024 8:42 AM
--- NOTE | 2024-03-22 08:47 | CT Scan Report ---
CT SCAN OF THE BRAIN WITHOUT IV CONTRAST CLINICAL HISTORY: Fall. COMPARISON STUDY: CT of the brain dated 08/30/2023. TECHNIQUE: Unenhanced axial CT scan of the brain is performed from the vertex to the skull base. A do se lowering technique was utilized adhering to the principles of ALARA. The skull base was scanned tw ice due to motion artifact. CT DOSE: 1016.05 mGy.cm FINDINGS: Brain parenchyma: There is age-related involutional change noting mild subcortical and periventricula r microangiopathic disease. There is no hemorrhage, mass effect, or evidence of acute territorial isc hemia by CT criteria. Diane-white matter differentiation is preserved. No extra-axial fluid collection is seen. Ventricles, sulci, cisterns: Prominent secondary to involutional change. Intracranial vasculature: There is atherosclerotic calcification of the cavernous carotid and vertebr al arteries. Calvarium: The skeletal structures are osteopenic. No depressed calvarial fracture is seen. Sinuses and mastoids: There is trace mucosal thickening within the maxillary antra. Small retention c ysts measure up to 8 mm. The remaining paranasal sinuses are clear. The mastoid air cells are well pn eumatized. Orbits: The bony orbits are grossly intact. There are bilateral ocular lens implants. IMPRESSION: There is no hemorrhage, mass effect, or evidence of acute territorial ischemia by CT yara angelo. ACT 112: Negative or not required by law. Electronically signed by: Abel Adams M.D. 03/22/2024 8:46 AM
--- NOTE | 2024-03-22 08:58 | XRay Report ---
XR chest 1V portable HISTORY: 83 years-old Male fall acute chest trauma status post fall COMPARISON: PET/CT 12/10/2023 TECHNIQUE: AP view of the chest FINDINGS: Cardiomediastinal and hilar silhouettes are within normal limits.. There is no pneumothorax, pleural effusion or overt pulmonary edema. Reticular interstitial densities redemonstrated suggestive of mild fibrotic change. Skeletal metastasis are better appreciated on the prior PET/CT. Degenerative change s of the shoulders and spine. IMPRESSION: No acute process of the chest. ACT 112: Negative or not required by law. The above report was generated using voice recognition software. It may contain grammatical, syntax o r spelling errors. Electronically signed by: Gregory Machado M.D. 03/22/2024 8:57 AM
[2024-03-22 09:03] LABS: Basophils # (auto) 0.04 K/uL (0.00-0.20); Basophils % (auto) 0.5 %; Eosinophils # (auto) 0.03 K/uL (0.00-0.50); Eosinophils % (auto) 0.4 %; Hematocrit (blood only) 34.3 % (42.0-52.0); Hemoglobin 10.8 g/dl (14.0-18.0); Immature Granulocytes # (auto) 0.03 K/uL (0.01-0.20); Immature Granulocytes % (auto) 0.4 %; Lymphocytes # (auto) 0.84 K/uL (1.20-3.40); Lymphocytes % (auto) 10.5 %; Mean Corpuscular Hemoglobin 28.7 pg (25.0-34.0); Mean Corpuscular Hgb Conc 31.5 g/dL (32.0-36.0); Mean Corpuscular Volume 91.2 fL (80.0-100.0); Monocytes # (auto) 0.93 K/uL (0.11-0.59); Monocytes % (auto) 11.6 %; Neutrophils # (auto) 6.15 K/uL (1.40-6.50); Neutrophils % (auto) 76.6 %; Platelet Count 205 K/uL (130-400); RDW Coefficient of Variation 15.9 % (11.5-14.5); RDW Standard Deviation 53.5 fL (36.4-46.3); Red Blood Count 3.76 M/uL (4.70-6.10); White Blood Count 8.02 K/ul (4.8-10.8)
--- NOTE | 2024-03-22 09:04 | XRay Report ---
XR knee RT 1 or 2V routine HISTORY: 83 years-old Male fall acute pain of the right knee status post fall COMPARISON: None TECHNIQUE: 2 views of the right knee FINDINGS: There is an acute nondisplaced intra-articular midpatellar fracture. Mild prepatellar soft tissue swe lling with moderate size joint effusion. 10 mm linear metallic density foreign body projects anterior and inferior to the patella. 8 mm probable loose body projects anterior to the proximal tibia on the lateral view. Mild to moderate tricompartmental osteoarthritis with arterial calcifications. IMPRESSION: 1. Acute nondisplaced intra-articular midpatellar fracture with moderate sized joint effusion. 2. 10 mm linear metallic density foreign body. ACT 112: Negative or not required by law. The above report was generated using voice recognition software. It may contain grammatical, syntax o r spelling errors. Electronically signed by: Gregory Machado M.D. 03/22/2024 9:02 AM
--- NOTE | 2024-03-22 09:08 | CT Scan Report ---
CT cervical spine wo con CLINICAL HISTORY: 83 years-old Male with fall. Acute neck pain status post fall COMPARISON: Head CT of same day TECHNIQUE: Multiple axial CT images of the cervical spine were obtained without contrast. A dose low ering technique was utilized adhering to the principles of ALARA. FINDINGS: Motion degraded exam. Prominent bridging osteophytosis is most pronounced anteriorly. Moder ate to severe multilevel facet arthrosis. Study is motion degraded. Degenerative partial bony fusion involving the C6-C7 vertebral bodies with bridging anterior osteophytosis. Nuchal ligament calcificat ions. The cervical soft tissues appear unremarkable. The visualized lung apices appear clear. IMPRESSION: No acute cervical spine fracture or subluxation identified. ACT 112: Negative or not required by law. The above report was generated using voice recognition software. It may contain grammatical, syntax o r spelling errors. Electronically signed by: Gregory Machado M.D. 03/22/2024 9:06 AM
[2024-03-22 09:09] LABS: Albumin Globulin Ratio 1.3 (0.9-2); Albumin Level 3.9 gm/dl (3.4-5.0); BUN Creatinine Ratio 24.4 (10-20); Bilirubin,Total 0.6 mg/dl (0.2-1.0); Calcium 8.9 mg/dl (8.6-10.3); Creatinine Clr Calc Pharmacy 76.3 ml/min; Est GFR (African American) 92.3 ml/min; Est GFR (Non-African American) 79.6 ml/min; Total Protein 6.9 gm/dl (6.0-8.3)
[2024-03-22] MEDS: SODIUM CHLORIDE 0.9% 500 ML IV STA (09:16)
[2024-03-22 09:21] LABS: INR 2.3 (0.9-1.1); Prothrombin Time 23.5 Seconds (9.0-12.0)
[2024-03-22 09:36] LABS: Appearance Urine Clear (Clear); Bilirubin Urine Negative (Negative); Blood Urine Negative (Negative); Color Urine Yellow; Glucose Urine UA Negative (Negative); Ketones Urine Negative (Negative); Leukocyte Esterase Urine Negative (Negative); Nitrite Urine Negative (Negative); Protein Urine Negative (Negative); Specific Gravity Urine 1.022 (1.000-1.030); Urobilinogen Urine Negative (Negative); pH Urine 5.5 (4.5-7.5)
--- NOTE | 2024-03-22 10:55 | History & Physical Report ---
Date of Service March 22, 2024 Assessment & Plan (1) Fall: Plan: This is an 83 y/o male with metastatic prostate cancer to bone, diet-controlled DM2, chronic DVT on warfarin, asthma, mild cognitive impairment, depression, anxiety, and other history as outlined who presents to the ED today after a mechanical fall yesterday. Pt is on chronic anticoagulation with warfarin and reportedly hit his head so CT ordered in the ED and was negative for intracranial bleeding. Work-up in the ED showed a left supracondylar fracture and right patellar fracture with has resulted in significant ambulatory dysfunction. Pt's feels like she cannot safely care for patient at home right now without additional services because of his needs for assistance so pt was referred for admission. - Admit to med surg - Consult orthopedics for additional recommendations - PT/OT evaluations - need to determine weight-bearing status of RLE - Fall precautions - Pt prefers to go home with services rather than rehab if possible - Continue baseline fentanyl patches and prn oxycodone for pain control (2) Left supracondylar humerus fracture: Plan: See plan for #1 (3) Nondisplaced fracture of right patella: Plan: See plan for #1 (4) Prostate cancer metastatic to bone: Plan: Chronic, stable Pt's reports that he is due for Lupron on Friday On chronic narcotics for pain control, follows with palliative care (5) Hypertension: Plan: Pt's BP noted to be elevated in the ED - suspect related to pain and anxiety. Not on anything for BP at home. Given IV hydralazine in the ED - will monitor response. Furosemide was started for LE edema with improvement (6) Chronic deep vein thrombosis (DVT) of left lower extremity: Plan: On chronic warfarin - INR therapeutic Continue same dosing - 5 mg daily Monitor INR Plan Pt seen and reviewed with collaborating physician, Dr. Tompkins. Plan of care dis cussed and as outlined above. Code status: full code DVT prophylaxis: on warfarin Admit to med surg for PT/OT evaluations, pain control Del Figueroa PA-C History of Present Illness Chief Complaint: Fall Primary Care Provider: Lidya Barbour MD This is an 83 y/o male with metastatic prostate cancer to bone, diet-controlled DM2, chronic DVT on warfarin, asthma, mild cognitive impairment, depression, anxiety, and other history as outlined who presents to the ED today after a fall yesterday. Pt was playing tennis yesterday and fell. EMS was called last night when pt's was unable to get him up to go to the bathroom but pt declined transport as he felt like he didn't need medical attention. However, overnight he had increased issues with ambulation so his called EMS again and pt was transported to the ED. Pt's assisted with details of the history due to pt's MCI. Pt was playing tennis on his home court yesterday when he caught his foot on a nail in the court surface and lost his balance and fell. He reports hitting his head, left elbow, and both knees in the fall. He denies LOC or syncopal event. He had a headache last night but this is better today. He has chronic pain related to prostate cancer that is metastatic to bone, which is controlled with fentanyl patch and prn oxycodone. His did give him an extra dose of oxycodone after the fall (usually only takes 1-2 times per day). He is on warfarin due to chronic LLE DVT and follows [facility] for dosing. No recent dose adjustments. Pt is adamant that he wants to return home, but his feels like she cannot provide the assistance he needs at present without additional support services. Pt is left hand dominant. Allergies Allergy/AdvReac Type Severity Reaction Status Date / Time ragweed pollen Allergy Intermediate RASH Verified 01/16/24 09:45 house dust Allergy Mild ITCHY Verified 01/16/24 09:45 EYES, RUNNY NOSE Home Medications Medication Instructions Recorded Confirmed Type cyanocobalamin (vitamin B-12) 1,000 mcg PO DAILY 03/10/19 03/22/24 History 1,000 mcg capsule donepezil 10 mg tablet 10 mg PO DAILY 11/08/19 03/22/24 History multivitamin 1 tab PO DAILY 10/03/20 03/22/24 History naloxone 4 mg/actuation nasal spray 1 spray intranasal Q3M PRN opioid 03/12/21 03/22/24 Rx overdose #2 ea rosuvastatin 5 mg tablet (Crestor) 5 mg PO HS 12/26/21 03/22/24 History polyethylene glycol 3350 17 17 g PO DAILY PRN constipation 10/15/22 03/22/24 History gram/dose oral powder (Miralax) venlafaxine 150 mg 150 mg PO DAILY 05/08/23 03/22/24 History capsule,extended release 24 hr (Effexor XR) venlafaxine 37.5 mg 37.5 mg PO DAILY 05/08/23 03/22/24 History capsule,extended release 24 hr calcium carbonate 500 mg-vitamin 1 tab PO DAILY 09/07/23 03/22/24 History D3 3.125 mcg (125 unit) tablet docusate sodium 100 mg capsule 100 mg PO BID Constipation 10/07/23 03/22/24 History (Colace) leuprolide (3 month) 22.5 mg (3 22.5 mg IM .[id number] 01/16/24 03/22/24 History month) intramuscular syringe kit (Lupron Depot) zoledronic acid 4 mg/100 mL in 4 mg IV .q 3 months 01/16/24 03/22/24 History mannitol 5 %-water intravenous piggybck furosemide 20 mg tablet 20 mg PO QAM 03/03/24 03/22/24 History warfarin 5 mg tablet 5 mg PO QPM 03/03/24 03/22/24 History acitretin 25 mg capsule 25 mg PO .Q OTHER DAY 03/22/24 03/22/24 History fentanyl 12 mcg/hr transdermal 1 patch transdermal Q72H pain 03/22/24 03/22/24 History patch fentanyl 50 mcg/hr transdermal 1 patch transdermal Q72H pain 03/22/24 03/22/24 History patch oxycodone 10 mg tablet 10 mg PO Q4H PRN Pain 03/22/24 03/22/24 History Past Med/Surg History Problem List (Updated 03/22/24 @ 12:04 by Calli Figueroa PA-C) Chronic deep vein thrombosis (DVT) of left lower extremity Nondisplaced fracture of right patella Left supracondylar humerus fracture Fall Low back pain Urinary retention (Acute) Malfunction of Lopez catheter (Acute) Palliative care by specialist Cancer related pain Chronic anticoagulation Sacroiliac joint pain Trochanteric bursitis Prostate cancer metastatic to bone (Chronic) Hypertension (Chronic) 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) Medical History (Updated 03/22/24 @ 12:04 by Calli Figueroa PA-C) MCI (mild cognitive impairment) Multiple pulmonary nodules Asthma Greater trochanteric pain syndrome Zenker diverticulum Avascular necrosis of bone of left hip (~06/26/23) History of DVT (deep vein thrombosis) Osteoarthritis of left hip History of skin cancer Prostate cancer Lumbar stenosis with neurogenic claudication Surgical History (Updated 03/22/24 @ 09:28 by Calli Figueroa PA-C) History of lumbar laminectomy History of hernia repair History of cataract extraction LEFT 2mg versed given without problem Family History Mother , age 70` s Diabetes Father , age 86 COPD (chronic obstructive pulmonary disease) smoked for many years Daughter , age 39 Breast cancer Daughter Genetic carrier of heritable cancer had bilateral mastectomy Social History Smoking Status: Never smoker Second Hand Exposure: Yes; Do You Dip or Chew Tobacco: Yes (ON AND OFF, SINCE AGE 29. ADVISED TO HOLD DOS.); Preferred Language: Kinyarwanda Communication Ability Comment: BASELINE DEMENTIA Visual Impairment: No Limitations Hearing Ability: Normal Hazmat Cdl A Driver Required: No Beliefs That Will Affect Care: None marital status: Current Living Situation: Spouse current occupational status: retired current occupation: retired Feels Safe at Home: Yes Assistive Devices: Cane and Walker Review of Systems Review of Systems: All systems reviewed & are unremarkable except as noted in Subjective Physical Exam Physical Exam: General: awake but nods off during the interview at times, NAD HEENT: no scleral icterus, moist oral mucosa Neck: supple, trachea midline Heart: RRR Lungs: CTA bilaterally on the anterior Abdomen: soft, +BS Extremities: LUE with Orthoglass splint in place - left hand NVI; bilateral knees with small scabbed abrasion; right knee with effusion and some ecchymosis; distal pulses intact Neurologic: moving all extremities but painful with movement of LUE and RLE in particular, drowsy at times but easily arousable, no dysarthria Results & Data Results & Data Vital Signs (Past 12 Hours) Vital Signs Temp Pulse Resp BP Pulse Ox O2 Del Method 03/22/24 07:57 Room Air 03/22/24 07:49 36.3 C L 70 14 153/93 H 96 Room Air Laboratory Results Lab Results 03/22/24 03/22/24 Range/Units 08:00 09:29 WBC 8.02 (4.8-10.8) K/ul RBC 3.76 L (4.70-6.10) M/uL Hgb 10.8 L (14.0-18.0) g/dl Hct 34.3 L (42.0-52.0) % MCV 91.2 (80.0-100.0) fL MCH 28.7 (25.0-34.0) pg MCHC 31.5 L (32.0-36.0) g/dL RDW Std Deviation 53.5 H (36.4-46.3) fL RDW Coeff of Melissa 15.9 H (11.5-14.5) % Plt Count 205 (130-400) K/uL MPV 10.0 (9.4-12.4) fL Immature Gran % (Auto) 0.4 % Neut % (Auto) 76.6 % Lymph % (Auto) 10.5 % Barry % (Auto) 11.6 % Eos % (Auto) 0.4 % Baso % (Auto) 0.5 % Neut # (Auto) 6.15 (1.40-6.50) K/uL Lymph # (Auto) 0.84 L (1.20-3.40) K/uL Barry # (Auto) 0.93 H (0.11-0.59) K/uL Eos # (Auto) 0.03 (0.00-0.50) K/uL Baso # (Auto) 0.04 (0.00-0.20) K/uL Immature Gran # (Auto) 0.03 (0.01-0.20) K/uL PT 23.5 H (9.0-12.0) Seconds INR 2.3 H (0.9-1.1) Sodium 137 (136-145) mmol/L Potassium 4.0 (3.5-5.1) mmol/L Chloride 102 (98-107) mmol/L Carbon Dioxide 29 (21-32) mmol/L Anion Gap 6 (3-11) BUN 21 (6-23) mg/dl Creatinine 0.86 (0.6-1.4) mg/dl Est Cr Clr Drug Dosing 76.3 ml/min Est GFR ( Amer) 92.3 ml/min Est GFR (Non-Af Amer) 79.6 ml/min BUN/Creatinine Ratio 24.4 H (10-20) Glucose 132 H (70-99(Fasting)) mg/dl Calcium 8.9 (8.6-10.3) mg/dl Total Bilirubin 0.6 (0.2-1.0) mg/dl AST 22 (13-39) U/L ALT 17 (7-52) U/L Alkaline Phosphatase 67 (34-104) U/L Total Protein 6.9 (6.0-8.3) gm/dl Albumin 3.9 (3.4-5.0) gm/dl Globulin 3.0 (2.5-4.0) gm/dl Albumin/Globulin Ratio 1.3 (0.9-2) Lipase 13 (11-82) U/L Urine Color Yellow Urine Appearance Clear (Clear) Urine pH 5.5 (4.5-7.5) Ur Specific [place] 1.022 (1.000-1.030) Urine Protein Negative (Negative) Urine Glucose (UA) Negative (Negative) Urine Ketones Negative (Negative) Urine Blood Negative (Negative) Urine Nitrite Negative (Negative) Urine Bilirubin Negative (Negative) Urine Urobilinogen Negative (Negative) Ur Leukocyte Esterase Negative (Negative) Diagnostic Findings Cervical Spine CT 03/22/24 07:56 CT cervical spine wo con CLINICAL HISTORY: 83 years-old Male with fall. Acute neck pain status post fall COMPARISON: Head CT of same day TECHNIQUE: Multiple axial CT images of the cervical spine were obtained without contrast. A dose lowering technique was utilized adhering to the principles of ALARA. FINDINGS: Motion degraded exam. Prominent bridging osteophytosis is most pronounced anteriorly. Moderate to severe multilevel facet arthrosis. Study is motion degraded. Degenerative partial bony fusion involving the C6-C7 vertebral bodies with bridging anterior osteophytosis. Nuchal ligament calcifications. The cervical soft tissues appear unremarkable. The visualized lung apices appear clear. IMPRESSION: No acute cervical spine fracture or subluxation identified. ACT 112: Negative or not required by law. The above report was generated using voice recognition software. It may contain grammatical, syntax or spelling errors. Electronically signed by: Gregory Machado M.D. 03/22/2024 9:06 AM Chest X-Ray 03/22/24 07:56 XR chest 1V portable HISTORY: 83 years-old Male fall acute chest trauma status post fall COMPARISON: PET/CT 12/10/2023 TECHNIQUE: AP view of the chest FINDINGS: Cardiomediastinal and hilar silhouettes are within normal limits.. There is no pneumothorax, pleural effusion or overt pulmonary edema. Reticular interstitial densities redemonstrated suggestive of mild fibrotic change. Skeletal metastasis are better appreciated on the prior PET/CT. Degenerative changes of the shoulders and spine. IMPRESSION: No acute process of the chest. ACT 112: Negative or not required by law. The above report was generated using voice recognition software. It may contain grammatical, syntax or spelling errors. Electronically signed by: Gregory Machado M.D. 03/22/2024 8:57 AM Elbow X-Ray 03/22/24 07:56 LEFT ELBOW 2 VIEWS CLINICAL HISTORY: Fall. FINDINGS: AP and lateral views of the left elbow are obtained. No prior studies are available for comparison at the time of dictation. The skeletal structures are osteopenic. There is a comminuted and minimally offset supracondylar fracture of the left humerus. Corresponding joint effusion is noted. The proximal radius and ulna appear intact. There is no dislocation. Arthritic change is noted. There is a large enthesophyte at the triceps insertion. Soft tissue edema is present around the elbow. Atherosclerotic calcification is noted in the regional arteries. IMPRESSION: Supracondylar left humeral fracture with associated joint effusion. Electronically signed by: Abel Adams M.D. 03/22/2024 8:[address] 03/22/24 07:56 CT SCAN OF THE BRAIN WITHOUT IV CONTRAST CLINICAL HISTORY: Fall. COMPARISON STUDY: CT of the brain dated 08/30/2023. TECHNIQUE: Unenhanced axial CT scan of the brain is performed from the vertex to the skull base. A dose lowering technique was utilized adhering to the principles of ALARA. The skull base was scanned twice due to motion artifact. CT DOSE: 1016.05 mGy.cm FINDINGS: Brain parenchyma: There is age-related involutional change noting mild subcortical and periventricular microangiopathic disease. There is no hemorrhage, mass effect, or evidence of acute territorial ischemia by CT criteria. Diane-white matter differentiation is preserved. No extra-axial fluid collection is seen. Ventricles, sulci, cisterns: Prominent secondary to involutional change. Intracranial vasculature: There is atherosclerotic calcification of the cavernous carotid and vertebral arteries. Calvarium: The skeletal structures are osteopenic. No depressed calvarial fracture is seen. Sinuses and mastoids: There is trace mucosal thickening within the maxillary antra. Small retention cysts measure up to 8 mm. The remaining paranasal sinuses are clear. The mastoid air cells are well pneumatized. Orbits: The bony orbits are grossly intact. There are bilateral ocular lens implants. IMPRESSION: There is no hemorrhage, mass effect, or evidence of acute territorial ischemia by CT criteria. ACT 112: Negative or not required by law. Electronically signed by: Abel Adams M.D. 03/22/2024 8:46 AM Knee X-Ray 03/22/24 07:56 XR knee RT 1 or 2V routine HISTORY: 83 years-old Male fall acute pain of the right knee status post fall COMPARISON: None TECHNIQUE: 2 views of the right knee FINDINGS: There is an acute nondisplaced intra-articular midpatellar fracture. Mild prepatellar soft tissue swelling with moderate size joint effusion. 10 mm linear metallic density foreign body projects anterior and inferior to the patella. 8 mm probable loose body projects anterior to the proximal tibia on the lateral view. Mild to moderate tricompartmental osteoarthritis with arterial calcifications. IMPRESSION: 1. Acute nondisplaced intra-articular midpatellar fracture with moderate sized joint effusion. 2. 10 mm linear metallic density foreign body. ACT 112: Negative or not required by law. The above report was generated using voice recognition software. It may contain grammatical, syntax or spelling errors. Electronically signed by: Gregory Machado M.D. 03/22/2024 9:02 AM Medications Administered Discontinued Medications Sodium Chloride (Nss) 500 mls @ 999 mls/hr IV .Q31M STA Stop: 03/22/24 08:27 Last Infusion: 03/22/24 09:47 Dose: Infused Documented By: Admin: 03/22/24 09:16 Dose: 999 mls/hr Documented By: KALIE Supervising Physician Co-Signing Physician Notes Attending addendum: The patient was seen and examined in emergency room in presence of the He suffered a fall while playing tennis yesterday, it was a mechanical fall and no symptoms before the fall Suffered right patellar and left supracondylar fracture with negative CT of the head Denies any significant symptoms other than pain from the fracture On examination Lying in bed without any acute distress Blood pressure has been noted to be very high at 182/117 Chest-clear to auscultate bilaterally HeartS1-S2 regular Abdomen-benign Examination of the extremities-left upper extremity is in sling Right knee is swollen and with bruising prepatellar area and does not have any definitive skin break 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, 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 x 3 His admission labs, medications and imaging studies reviewed Significant history of chronic DVT on warfarin with INR therapeutic at 2.3 today Status post mechanical fall with right mid patellar fracture with a questionable metallic object in the knee and Left supracondylar fracture.-Will need to have Ortho evaluation while in the hospital No evidence of bleeding on CT of the head Very high blood pressure-hydralazine 10 mg intravenously was given and likely to need antihypertensive PT OT evaluation and likely to need placement Agree with and take the responsibility of the assessment and plan as outlined above by RAMOS Carrillo Dr (1) Fall Encounter type: initial encounter Qualified Code(s): W19.XXXA - Unspecified fall, initial encounter (2) Left supracondylar humerus fracture Encounter type: initial encounter Fracture type: closed Qualified Code(s): S42.412A - Displaced simple supracondylar fracture without intercondylar fracture of left humerus, initial encounter for closed fracture (3) Nondisplaced fracture of right patella Encounter type: initial encounter Fracture morphology: unspecified fracture morphology Fracture type: closed Qualified Code(s): S82.001A - Unspecified fracture of right patella, initial encounter for closed fracture (5) Hypertension Hypertension type: unspecified Qualified Code(s): I10 - Essential (primary) hypertension (6) Chronic deep vein thrombosis (DVT) of left lower extremity Affected thrombotic vein of extremity: unspecified vein of extremity Qualified Code(s): I82.502 - Chronic embolism and thrombosis of unspecified deep veins of left lower extremity
[2024-03-22] MEDS: hydrALAZINE HCL 20 MG/ML VIAL IV STA (15:17)
--- NOTE | 2024-03-22 15:44 | Orthopedic Consultation ---
Date of Service March 22, 2024 Assessment & Plan (1) Supracondylar fracture of humerus: Patient is splinted in flexion Keep the splint clean, dry and intact May use sling for comfort May use left hand Follow up with [facility] in [address] Barboza or Dr. Cee (2) Nondisplaced fracture of right patella: Weightbearing as tolerated only with the knee immobilizer on Do not flex the right knee Use knee immobilizer with ambulation and while sleeping Follow up at [facility] in [address] Barboza or Dr. Cee for evaluation Patient was seen at bedside with Dr. Cee who performed the physical exam and plan. History of Present Illness Reason for Consultation: . Requesting Physician: Fred Smiley is an 83 y/o male who sustained multiple orthopedic injuries while playing tennis yesterday. He states that he tripped over something protruding from the ground and fell forward. He landed on a flexed right knee and on his left elbow. He had increasing pain through the night with the inability to ambulate. He was brought to [facility] ER this morning for evaluation. Patient is anticoagulated on coumadin. He uses a fentanyl patch and oxycodone for pain management of other medical problems. Allergies Allergy/AdvReac Type Severity Reaction Status Date / Time ragweed pollen Allergy Intermediate RASH Verified 01/16/24 09:45 house dust Allergy Mild ITCHY Verified 01/16/24 09:45 EYES, RUNNY NOSE Home Medications Medication Instructions Recorded Confirmed Type cyanocobalamin (vitamin B-12) 1,000 mcg PO DAILY 03/10/19 03/22/24 History 1,000 mcg capsule donepezil 10 mg tablet 10 mg PO DAILY 11/08/19 03/22/24 History multivitamin 1 tab PO DAILY 10/03/20 03/22/24 History naloxone 4 mg/actuation nasal spray 1 spray intranasal Q3M PRN opioid 03/12/21 03/22/24 Rx overdose #2 ea rosuvastatin 5 mg tablet (Crestor) 5 mg PO HS 12/26/21 03/22/24 History polyethylene glycol 3350 17 17 g PO DAILY PRN constipation 10/15/22 03/22/24 History gram/dose oral powder (Miralax) venlafaxine 150 mg 150 mg PO DAILY 05/08/23 03/22/24 History capsule,extended release 24 hr (Effexor XR) venlafaxine 37.5 mg 37.5 mg PO DAILY 05/08/23 03/22/24 History capsule,extended release 24 hr calcium carbonate 500 mg-vitamin 1 tab PO DAILY 09/07/23 03/22/24 History D3 3.125 mcg (125 unit) tablet docusate sodium 100 mg capsule 100 mg PO BID Constipation 10/07/23 03/22/24 History (Colace) leuprolide (3 month) 22.5 mg (3 22.5 mg IM .[id number] 01/16/24 03/22/24 History month) intramuscular syringe kit (Lupron Depot) zoledronic acid 4 mg/100 mL in 4 mg IV .q 3 months 01/16/24 03/22/24 History mannitol 5 %-water intravenous piggybck furosemide 20 mg tablet 20 mg PO QAM 03/03/24 03/22/24 History warfarin 5 mg tablet 5 mg PO QPM 03/03/24 03/22/24 History acitretin 25 mg capsule 25 mg PO .Q OTHER DAY 03/22/24 03/22/24 History fentanyl 12 mcg/hr transdermal 1 patch transdermal Q72H pain 03/22/24 03/22/24 History patch fentanyl 50 mcg/hr transdermal 1 patch transdermal Q72H pain 03/22/24 03/22/24 History patch oxycodone 10 mg tablet 10 mg PO Q4H PRN Pain 03/22/24 03/22/24 History Past Med/Surg History Problem List Supracondylar fracture of humerus (Acute) Chronic deep vein thrombosis (DVT) of left lower extremity Nondisplaced fracture of right patella Left supracondylar humerus fracture Fall Low back pain Urinary retention (Acute) Malfunction of Lopez catheter (Acute) Palliative care by specialist Cancer related pain Chronic anticoagulation Sacroiliac joint pain Trochanteric bursitis Prostate cancer metastatic to bone (Chronic) Hypertension (Chronic) 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) Medical History MCI (mild cognitive impairment) Multiple pulmonary nodules Asthma Greater trochanteric pain syndrome Zenker diverticulum Avascular necrosis of bone of left hip (~06/26/23) History of DVT (deep vein thrombosis) Osteoarthritis of left hip History of skin cancer Prostate cancer Lumbar stenosis with neurogenic claudication Surgical History History of lumbar laminectomy History of hernia repair History of cataract extraction LEFT 2mg versed given without problem Family History Mother , age 70` s Diabetes Father , age 86 COPD (chronic obstructive pulmonary disease) smoked for many years Daughter , age 39 Breast cancer Daughter Genetic carrier of heritable cancer had bilateral mastectomy Social History Smoking Status: Never smoker Second Hand Exposure: Yes; Do You Dip or Chew Tobacco: Yes (ON AND OFF, SINCE AGE 29. ADVISED TO HOLD DOS.); Preferred Language: Mohawk Communication Ability Comment: BASELINE DEMENTIA Visual Impairment: No Limitations Hearing Ability: Normal Barrel Cooper Required: No Beliefs That Will Affect Care: None marital status: Current Living Situation: Spouse current occupational status: retired current occupation: retired Feels Safe at Home: Yes Assistive Devices: Cane and Walker Review of Systems All systems reviewed & are unremarkable except as noted in HPI & below. Physical Exam Patient is alert and oriented x3, sitting up in the hospital bed. He is conversant. An orthoglass splint was already applied to his left elbow, in 70- 80 degrees of flexion. Good capillary refill in his left hand. Neurovascularly intact. Right knee has an effusion to the joint. Slight eccymosis over the anterior aspect of right knee. Leg is in extension with a knee immobilizer. Results & Data Results & Data Laboratory Results . Diagnostic Findings . PG Care Time/CCT Total # of Minutes Spent Total Time Spent with Patient: Total time spent is greater than 50% in coordination of care (as documented) at patient's floor/unit and/or counseling patient: Coding Level of Care Code 00593 OFFICE CONSULT LVL Diagnoses Supracondylar fracture of humerus S42.412A Encounter type: initial encounter Fracture type: closed Laterality: left Closed nondisplaced fracture of right patella, unspecified fracture morphology, initial encounter S82.001A Encounter type: initial encounter Fracture type: closed Fracture morphology: unspecified fracture morphology (1) Supracondylar fracture of humerus Encounter type: initial encounter Fracture type: closed Laterality: left Qualified Code(s): S42.412A - Displaced simple supracondylar fracture without intercondylar fracture of left humerus, initial encounter for closed fracture (2) Nondisplaced fracture of right patella Encounter type: initial encounter Fracture type: closed Fracture morphology: unspecified fracture morphology Qualified Code(s): S82.001A - Unspecified fracture of right patella, initial encounter for closed fracture
--- NOTE | 2024-03-22 16:05 | Electrocardiogram Report ---
Test Reason : Blood Pressure : / mmHG Vent. Rate : 069 BPM Atrial Rate : 069 BPM P-R Int : 188 ms QRS Dur : 084 ms QT Int : 400 ms P-R-T Axes : 058 033 038 degrees QTc Int : 428 ms Normal sinus rhythm When compared with ECG of 07-SEP-2023 20:53, Vent. rate has decreased BY 48 BPM T wave inversion no longer evident in Inferior leads Nonspecific T wave abnormality no longer evident in Lateral leads Confirmed by Josias Kendrick ([id number]) on 03/22/2024 4:05:25 PM Referred By: Confirmed By:Kael Kendrick
[2024-03-22] MEDS: DONEPEZIL HCL 10 MG TAB PO SCH (16:57)
[2024-03-22] MEDS: VENLAFAXINE HCL XR 37.5 MG CAPXR PO SCH (16:57)
[2024-03-22] MEDS: fentaNYL 12 MCG/HR TDSY TD SCH (16:58)
[2024-03-22] MEDS: fentaNYL 50 MCG/HR TDSY TD SCH (16:58)
[2024-03-22] MEDS: oxyCODONE HCL IR 5 MG TAB (IMMEDIATE RELEASE) PO PRN (16:58)
[2024-03-22] MEDS: VENLAFAXINE HCL XR 150 MG CAPXR PO SCH (16:58)
[2024-03-22] MEDS: CHECK fentaNYL PATCH PLACEMENT SCH (17:03)
[2024-03-22] MEDS: DOCUSATE SODIUM 100 MG CAP PO SCH (21:13)
[2024-03-22] MEDS: ROSUVASTATIN CALCIUM 5 MG TAB PO SCH (21:13)
[2024-03-23 07:06] LABS: Basophils # (auto) 0.02 K/uL (0.00-0.20); Basophils % (auto) 0.3 %; Eosinophils # (auto) 0.18 K/uL (0.00-0.50); Eosinophils % (auto) 2.5 %; Hematocrit (blood only) 33.5 % (42.0-52.0); Hemoglobin 10.3 g/dl (14.0-18.0); Immature Granulocytes # (auto) 0.01 K/uL (0.01-0.20); Immature Granulocytes % (auto) 0.1 %; Lymphocytes # (auto) 1.22 K/uL (1.20-3.40); Lymphocytes % (auto) 17.1 %; Mean Corpuscular Hemoglobin 28.5 pg (25.0-34.0); Mean Corpuscular Hgb Conc 30.7 g/dL (32.0-36.0); Mean Corpuscular Volume 92.5 fL (80.0-100.0); Mean Platelet Volume 9.5 fL (9.4-12.4); Monocytes # (auto) 0.91 K/uL (0.11-0.59); Monocytes % (auto) 12.7 %; Neutrophils # (auto) 4.81 K/uL (1.40-6.50); Neutrophils % (auto) 67.3 %; Platelet Count 184 K/uL (130-400); Red Blood Count 3.62 M/uL (4.70-6.10); White Blood Count 7.15 K/ul (4.8-10.8)
[2024-03-23 07:25] LABS: BUN Creatinine Ratio 20.5 (10-20); Calcium 8.3 mg/dl (8.6-10.3); Creatinine Clr Calc Pharmacy 82.7 ml/min; Est GFR (African American) 98.7 ml/min; Est GFR (Non-African American) 85.2 ml/min; Potassium 3.9 mmol/L (3.5-5.1)
[2024-03-23 07:34] LABS: INR 2.4 (0.9-1.1); Prothrombin Time 23.8 Seconds (9.0-12.0)
[2024-03-23] MEDS: CYANOCOBALAMIN (B-12) 500 MCG TABLET PO SCH (07:44)
[2024-03-23] MEDS: FUROSEMIDE 20 MG TAB PO SCH (07:44)
[2024-03-23] MEDS: CALCIUM 600MG + VIT D 400 IU TAB PO SCH (07:44)
[2024-03-23] MEDS: MULTIVITAMIN TAB PO SCH (07:44)
--- NOTE | 2024-03-23 15:00 | Hospitalist Progress Note ---
Date of Service March 23, 2024 Assessment & Plan (1) Fall: (2) Left supracondylar humerus fracture: (3) Nondisplaced fracture of right patella: (4) Prostate cancer metastatic to bone: (5) Hypertension: (6) Chronic deep vein thrombosis (DVT) of left lower extremity: Plan Pt is an 83 y/o male with PMhx significant for metastatic prostate cancer to bone, diet-controlled DM2, chronic DVT on warfarin, asthma, mild cognitive impairment, depression, anxiety, and other history as outlined who presents to the ED today after a mechanical fall yesterday. Pt is on chronic anticoagulation with warfarin and reportedly hit his head so CT ordered in the ED and was negative for intracranial bleeding. Work-up in the ED showed a left supracondylar fracture and right patellar fracture with has resulted in significant ambulatory dysfunction. Pt's feels like she cannot safely care for patient at home right now without additional services because of his needs for assistance so pt was referred for admission. Fall Left Humeral fracture Right patellar fracture Elbow xray noting "Supracondylar left humeral fracture with associated joint effusion." Knee xray noting "Acute nondisplaced intra-articular midpatellar fracture with moderate sized joint effusion." and "10 mm linear metallic density foreign body." Head CT unremarkable Cervical spine CT unremarkable Chest xray unremarkable Orthopedics consulted for further eval. Recommended the following: Supracondylar fracture of humerus -Patient is splinted in flexion -Keep the splint clean, dry and intact -May use sling for comfort -May use left hand -Follow up with [facility] in [address] Barboza or Dr. Cee Nondisplaced fracture of right patella -Weightbearing as tolerated only with the knee immobilizer on -Do not flex the right knee -Use knee immobilizer with ambulation and while sleeping -Follow up at [facility] Orthopedics in [address] Barboza or Dr. Cee for evaluation -Patient was seen at bedside with Dr. Cee who performed the physical exam and plan. PT/OT evaluations -PT recommending acute rehab - Pt prefers to go home with services rather than rehab if possible Continue baseline fentanyl patches and prn oxycodone for pain control Prostate cancer metastatic to bone Chronic, stable Pt's reports that he is due for Lupron on Friday On chronic narcotics for pain control, follows with palliative care Hypertension Pt's BP noted to be elevated in the ED - suspect related to pain and anxiety. Not on anything for BP at home. Given IV hydralazine in the ED - will monitor response. Furosemide was started for LE edema with improvement Chronic deep vein thrombosis (DVT) of left lower extremity On chronic warfarin - INR therapeutic Continue same dosing - 5 mg daily Monitor INR Continue other home meds as ordered. Diet: regular, minced and moist DVT prophylaxis: on warfarin Dispo: PT/OT recommending acute rehab Admission and Anticipated Discharge Date Admission Date: March 22, 2024 Subjective Pt was seen with at bedside. he is AAOx1. did not know the city or the year. Needed prompting. However adamant that he wants to go home and not rehab. Pain controlled. Review of Systems Review of Systems: All systems reviewed & are unremarkable except as noted in Subjective Physical Exam Physical Exam: General: Alert, orientedx1. No acute distress Skin: No noted rashes or bruises Psych: Appropriate mood and affect Neuro: AAOx1 HEENT: NC/AT Chest: Nontender to palpation. CV: RRR Resp: Breath sounds clear bilaterally, no increased effort of breathing. Abdomen: Soft, nontender, nondistended Extremities: left arm in sling, right knee in splint Results & Data Results & Data Vital Signs (Past 12 Hours) Vital Signs Temp Pulse Resp BP Pulse Ox O2 Del Method 03/23/24 08:00 36.7 C 70 16 145/72 H 97 Room Air 03/22/24 21:17 37.0 C 75 18 132/73 95 Room Air Diagnostic Findings Cervical Spine CT 03/22/24 07:56 CT cervical spine wo con CLINICAL HISTORY: 83 years-old Male with fall. Acute neck pain status post fall COMPARISON: Head CT of same day TECHNIQUE: Multiple axial CT images of the cervical spine were obtained without contrast. A dose lowering technique was utilized adhering to the principles of ALARA. FINDINGS: Motion degraded exam. Prominent bridging osteophytosis is most pronounced anteriorly. Moderate to severe multilevel facet arthrosis. Study is motion degraded. Degenerative partial bony fusion involving the C6-C7 vertebral bodies with bridging anterior osteophytosis. Nuchal ligament calcifications. The cervical soft tissues appear unremarkable. The visualized lung apices appear clear. IMPRESSION: No acute cervical spine fracture or subluxation identified. ACT 112: Negative or not required by law. The above report was generated using voice recognition software. It may contain grammatical, syntax or spelling errors. Electronically signed by: Gregory Machado M.D. 03/22/2024 9:06 AM Chest X-Ray 03/22/24 07:56 XR chest 1V portable HISTORY: 83 years-old Male fall acute chest trauma status post fall COMPARISON: PET/CT 12/10/2023 TECHNIQUE: AP view of the chest FINDINGS: Cardiomediastinal and hilar silhouettes are within normal limits.. There is no pneumothorax, pleural effusion or overt pulmonary edema. Reticular interstitial densities redemonstrated suggestive of mild fibrotic change. Skeletal metastasis are better appreciated on the prior PET/CT. Degenerative changes of the shoulders and spine. IMPRESSION: No acute process of the chest. ACT 112: Negative or not required by law. The above report was generated using voice recognition software. It may contain grammatical, syntax or spelling errors. Electronically signed by: Gregory Machado M.D. 03/22/2024 8:57 AM Elbow X-Ray 03/22/24 07:56 LEFT ELBOW 2 VIEWS CLINICAL HISTORY: Fall. FINDINGS: AP and lateral views of the left elbow are obtained. No prior studies are available for comparison at the time of dictation. The skeletal structures are osteopenic. There is a comminuted and minimally offset supracondylar fracture of the left humerus. Corresponding joint effusion is noted. The proximal radius and ulna appear intact. There is no dislocation. Arthritic change is noted. There is a large enthesophyte at the triceps insertion. Soft tissue edema is present around the elbow. Atherosclerotic calcification is noted in the regional arteries. IMPRESSION: Supracondylar left humeral fracture with associated joint effusion. Electronically signed by: Abel Adams M.D. 03/22/2024 8:[address] 03/22/24 07:56 CT SCAN OF THE BRAIN WITHOUT IV CONTRAST CLINICAL HISTORY: Fall. COMPARISON STUDY: CT of the brain dated 08/30/2023. TECHNIQUE: Unenhanced axial CT scan of the brain is performed from the vertex to the skull base. A dose lowering technique was utilized adhering to the principles of ALARA. The skull base was scanned twice due to motion artifact. CT DOSE: 1016.05 mGy.cm FINDINGS: Brain parenchyma: There is age-related involutional change noting mild subcortical and periventricular microangiopathic disease. There is no hemorrhage, mass effect, or evidence of acute territorial ischemia by CT criteria. Diane-white matter differentiation is preserved. No extra-axial fluid collection is seen. Ventricles, sulci, cisterns: Prominent secondary to involutional change. Intracranial vasculature: There is atherosclerotic calcification of the cavernous carotid and vertebral arteries. Calvarium: The skeletal structures are osteopenic. No depressed calvarial fracture is seen. Sinuses and mastoids: There is trace mucosal thickening within the maxillary antra. Small retention cysts measure up to 8 mm. The remaining paranasal sinuses are clear. The mastoid air cells are well pneumatized. Orbits: The bony orbits are grossly intact. There are bilateral ocular lens implants. IMPRESSION: There is no hemorrhage, mass effect, or evidence of acute territorial ischemia by CT criteria. ACT 112: Negative or not required by law. Electronically signed by: Abel Adams M.D. 03/22/2024 8:46 AM Knee X-Ray 03/22/24 07:56 XR knee RT 1 or 2V routine HISTORY: 83 years-old Male fall acute pain of the right knee status post fall COMPARISON: None TECHNIQUE: 2 views of the right knee FINDINGS: There is an acute nondisplaced intra-articular midpatellar fracture. Mild prepatellar soft tissue swelling with moderate size joint effusion. 10 mm linear metallic density foreign body projects anterior and inferior to the patella. 8 mm probable loose body projects anterior to the proximal tibia on the lateral view. Mild to moderate tricompartmental osteoarthritis with arterial calcifications. IMPRESSION: 1. Acute nondisplaced intra-articular midpatellar fracture with moderate sized joint effusion. 2. 10 mm linear metallic density foreign body. ACT 112: Negative or not required by law. The above report was generated using voice recognition software. It may contain grammatical, syntax or spelling errors. Electronically signed by: Gregory Machaod M.D. 03/22/2024 9:02 AM (1) Fall Encounter type: initial encounter Qualified Code(s): W19.XXXA - Unspecified fall, initial encounter (2) Left supracondylar humerus fracture Encounter type: initial encounter Fracture type: closed Qualified Code(s): S42.412A - Displaced simple supracondylar fracture without intercondylar fracture of left humerus, initial encounter for closed fracture (3) Nondisplaced fracture of right patella Encounter type: initial encounter Fracture type: closed Fracture morphology: unspecified fracture morphology Qualified Code(s): S82.001A - Unspecified fracture of right patella, initial encounter for closed fracture (5) Hypertension Hypertension type: unspecified Qualified Code(s): I10 - Essential (primary) hypertension (6) Chronic deep vein thrombosis (DVT) of left lower extremity Affected thrombotic vein of extremity: unspecified vein of extremity Qualified Code(s): I82.502 - Chronic embolism and thrombosis of unspecified deep veins of left lower extremity
[2024-03-23] MEDS: WARFARIN SOD 5 MG TAB PO SCH (16:27)
[2024-03-24 07:09] LABS: Hematocrit (blood only) 33.3 % (42.0-52.0); Hemoglobin 10.5 g/dl (14.0-18.0); Mean Corpuscular Hemoglobin 29.3 pg (25.0-34.0); Mean Corpuscular Hgb Conc 31.5 g/dL (32.0-36.0); Mean Platelet Volume 10.3 fL (9.4-12.4); Platelet Count 207 K/uL (130-400); RDW Coefficient of Variation 15.8 % (11.5-14.5); RDW Standard Deviation 53.5 fL (36.4-46.3); Red Blood Count 3.58 M/uL (4.70-6.10); White Blood Count 6.96 K/ul (4.8-10.8)
[2024-03-24 07:16] LABS: BUN Creatinine Ratio 20.3 (10-20); Calcium 8.5 mg/dl (8.6-10.3); Creatinine Clr Calc Pharmacy 81.6 ml/min; Est GFR (African American) 98.2 ml/min; Est GFR (Non-African American) 84.7 ml/min; Potassium 4.2 mmol/L (3.5-5.1)
[2024-03-24 07:29] LABS: INR 2.2 (0.9-1.1); Prothrombin Time 22.7 Seconds (9.0-12.0)
--- NOTE | 2024-03-24 12:25 | Hospitalist Progress Note ---
Date of Service March 24, 2024 Assessment & Plan (1) Fall: (2) Left supracondylar humerus fracture: (3) Nondisplaced fracture of right patella: (4) Prostate cancer metastatic to bone: (5) Hypertension: (6) Chronic deep vein thrombosis (DVT) of left lower extremity: Plan Pt is an 83 y/o male with PMhx significant for metastatic prostate cancer to bone, diet-controlled DM2, chronic DVT on warfarin, asthma, mild cognitive impairment, depression, anxiety, and other history as outlined who presents to the ED today after a mechanical fall yesterday. Pt is on chronic anticoagulation with warfarin and reportedly hit his head so CT ordered in the ED and was negative for intracranial bleeding. Work-up in the ED showed a left supracondylar fracture and right patellar fracture with has resulted in significant ambulatory dysfunction. Pt's feels like she cannot safely care for patient at home right now without additional services because of his needs for assistance so pt was referred for admission. Fall Left Humeral fracture Right patellar fracture Elbow xray noting "Supracondylar left humeral fracture with associated joint effusion." Knee xray noting "Acute nondisplaced intra-articular midpatellar fracture with moderate sized joint effusion." and "10 mm linear metallic density foreign body." Head CT unremarkable Cervical spine CT unremarkable Chest xray unremarkable Orthopedics consulted for further eval. Recommended the following: Supracondylar fracture of humerus -Patient is splinted in flexion -Keep the splint clean, dry and intact -May use sling for comfort -May use left hand -Follow up with [facility] [place] in [address] Barboza or Dr. Cee Nondisplaced fracture of right patella -Weightbearing as tolerated only with the knee immobilizer on -Do not flex the right knee -Use knee immobilizer with ambulation and while sleeping -Follow up at [facility] Orth[facility]ics in [address] Barboza or Dr. Cee for evaluation -Patient was seen at bedside with Dr. Cee who performed the physical exam and plan. PT/OT evaluations -PT recommending acute rehab - Pt now agreeable to rehab Continue baseline fentanyl patches and prn oxycodone for pain control Prostate cancer metastatic to bone Chronic, stable Pt's reports that he is due for Lupron on Friday On chronic narcotics for pain control, follows with palliative care Hypertension Pt's BP noted to be elevated in the ED - suspect related to pain and anxiety. Not on anything for BP at home. Given IV hydralazine in the ED - will monitor response. Furosemide was started for LE edema with improvement Chronic deep vein thrombosis (DVT) of left lower extremity On chronic warfarin - INR therapeutic Continue same dosing - 5 mg daily Monitor INR Continue other home meds as ordered. Diet: regular, minced and moist DVT prophylaxis: on warfarin Dispo: PT/OT recommending acute rehab Admission and Anticipated Discharge Date Admission Date: March 22, 2024 Subjective Pt was seen with at bedside. Pain controlled though they note he has not been asking for pain meds when he needs it. agreeable to rehab today. Review of Systems Review of Systems: All systems reviewed & are unremarkable except as noted in Subjective Physical Exam Physical Exam: General: Alert, orientedx1. No acute distress Skin: No noted rashes or bruises Psych: Appropriate mood and affect Neuro: AAOx1 HEENT: NC/AT Chest: Nontender to palpation. CV: RRR Resp: Breath sounds clear bilaterally, no increased effort of breathing. Abdomen: Soft, nontender, nondistended Extremities: left arm in sling, right knee in splint Results & Data Results & Data Vital Signs (Past 12 Hours) Vital Signs Temp Pulse Pulse Resp BP Pulse Ox O2 Del Method 03/24/24 07:45 36.6 C 70 12 140/72 95 Room Air 03/24/24 06:35 36.6 C 83 16 161/83 H 92 Room Air (1) Fall Encounter type: initial encounter Qualified Code(s): W19.XXXA - Unspecified fall, initial encounter (2) Left supracondylar humerus fracture Encounter type: initial encounter Fracture type: closed Qualified Code(s): S42.412A - Displaced simple supracondylar fracture without intercondylar fracture of left humerus, initial encounter for closed fracture (3) Nondisplaced fracture of right patella Encounter type: initial encounter Fracture morphology: unspecified fracture morphology Fracture type: closed Qualified Code(s): S82.001A - Unspecified fracture of right patella, initial encounter for closed fracture (5) Hypertension Hypertension type: unspecified Qualified Code(s): I10 - Essential (primary) hypertension (6) Chronic deep vein thrombosis (DVT) of left lower extremity Affected thrombotic vein of extremity: unspecified vein of extremity Qualified Code(s): I82.502 - Chronic embolism and thrombosis of unspecified deep veins of left lower extremity
[2024-03-25 08:24] LABS: Hematocrit (blood only) 34.1 % (42.0-52.0); Hemoglobin 10.8 g/dl (14.0-18.0); Mean Corpuscular Hemoglobin 29.1 pg (25.0-34.0); Mean Corpuscular Hgb Conc 31.7 g/dL (32.0-36.0); Mean Corpuscular Volume 91.9 fL (80.0-100.0); Mean Platelet Volume 9.9 fL (9.4-12.4); Platelet Count 230 K/uL (130-400); RDW Coefficient of Variation 15.7 % (11.5-14.5); RDW Standard Deviation 52.9 fL (36.4-46.3); Red Blood Count 3.71 M/uL (4.70-6.10); White Blood Count 6.18 K/ul (4.8-10.8)
[2024-03-25 08:40] LABS: BUN Creatinine Ratio 20.3 (10-20); Calcium 8.5 mg/dl (8.6-10.3); Creatinine Clr Calc Pharmacy 81.6 ml/min; Est GFR (African American) 98.2 ml/min; Est GFR (Non-African American) 84.7 ml/min; Potassium 3.9 mmol/L (3.5-5.1)
[2024-03-25 08:45] LABS: INR 2.6 (0.9-1.1); Prothrombin Time 26.1 Seconds (9.0-12.0)
--- NOTE | 2024-03-25 14:03 | Hospitalist Progress Note ---
Date of Service March 25, 2024 Assessment & Plan (1) Fall: (2) Left supracondylar humerus fracture: (3) Nondisplaced fracture of right patella: (4) Prostate cancer metastatic to bone: (5) Hypertension: (6) Chronic deep vein thrombosis (DVT) of left lower extremity: Plan Pt is an 83 y/o male with PMhx significant for metastatic prostate cancer to bone, diet-controlled DM2, chronic DVT on warfarin, asthma, mild cognitive impairment, depression, anxiety, and other history as outlined who presents to the ED today after a mechanical fall yesterday. Pt is on chronic anticoagulation with warfarin and reportedly hit his head so CT ordered in the ED and was negative for intracranial bleeding. Work-up in the ED showed a left supracondylar fracture and right patellar fracture with has resulted in significant ambulatory dysfunction. Pt's feels like she cannot safely care for patient at home right now without additional services because of his needs for assistance so pt was referred for admission. Fall Left Humeral fracture Right patellar fracture Elbow xray noting "Supracondylar left humeral fracture with associated joint effusion." Knee xray noting "Acute nondisplaced intra-articular midpatellar fracture with moderate sized joint effusion." and "10 mm linear metallic density foreign body." Head CT unremarkable Cervical spine CT unremarkable Chest xray unremarkable Orthopedics consulted for further eval. Recommended the following: Supracondylar fracture of humerus -Patient is splinted in flexion -Keep the splint clean, dry and intact -May use sling for comfort -May use left hand -Follow up with [facility] Ortho in [address] Barboza or Dr. Cee Nondisplaced fracture of right patella -Weightbearing as tolerated only with the knee immobilizer on -Do not flex the right knee -Use knee immobilizer with ambulation and while sleeping -Follow up at [facility] Orthopedics in [address] Barboza or Dr. Cee for evaluation -Patient was seen at bedside with Dr. Cee who performed the physical exam and plan. PT/OT evaluations -PT recommending acute rehab - Pt now agreeable to rehab Continue baseline fentanyl patches and prn oxycodone for pain control Prostate cancer metastatic to bone Chronic, stable Pt's reports that he is due for Lupron on Friday On chronic narcotics for pain control, follows with palliative care Hypertension Pt's BP noted to be elevated in the ED - suspect related to pain and anxiety. Not on anything for BP at home. Given IV hydralazine in the ED - will monitor response. Furosemide was started for LE edema with improvement Chronic deep vein thrombosis (DVT) of left lower extremity On chronic warfarin - INR therapeutic Continue same dosing - 5 mg daily Monitor INR Continue other home meds as ordered. Diet: regular, minced and moist DVT prophylaxis: on warfarin Dispo: PT/OT recommending acute rehab Admission and Anticipated Discharge Date Admission Date: March 22, 2024 Subjective Pt was seen with at bedside. Per , pt has been trying to get out of bed and move on his own. Still awaiting answer from rehab Review of Systems Review of Systems: All systems reviewed & are unremarkable except as noted in Subjective Physical Exam Physical Exam: General: Alert, orientedx1. No acute distress Skin: No noted rashes or bruises Psych: Appropriate mood and affect Neuro: AAOx1 HEENT: NC/AT Chest: Nontender to palpation. CV: RRR Resp: Breath sounds clear bilaterally, no increased effort of breathing. Abdomen: Soft, nontender, nondistended Extremities: left arm in sling, right knee in splint Results & Data Results & Data Vital Signs (Past 12 Hours) Vital Signs Temp Pulse Resp BP Pulse Ox O2 Del Method 03/25/24 07:21 36.4 C L 77 16 151/88 H 98 Room Air (1) Fall Encounter type: initial encounter Qualified Code(s): W19.XXXA - Unspecified fall, initial encounter (2) Left supracondylar humerus fracture Encounter type: initial encounter Fracture type: closed Qualified Code(s): S42.412A - Displaced simple supracondylar fracture without intercondylar fracture of left humerus, initial encounter for closed fracture (3) Nondisplaced fracture of right patella Encounter type: initial encounter Fracture morphology: unspecified fracture morphology Fracture type: closed Qualified Code(s): S82.001A - Unspecified fracture of right patella, initial encounter for closed fracture (5) Hypertension Hypertension type: unspecified Qualified Code(s): I10 - Essential (primary) hypertension (6) Chronic deep vein thrombosis (DVT) of left lower extremity Affected thrombotic vein of extremity: unspecified vein of extremity Qualifi ed Code(s): I82.502 - Chronic embolism and thrombosis of unspecified deep veins of left lower extremity
[2024-03-25] MEDS: POLYETHYLENE (MIRALAX) 17 GM PACK PO PRN (15:32)
[2024-03-26 06:50] LABS: Hematocrit (blood only) 33.7 % (42.0-52.0); Hemoglobin 10.8 g/dl (14.0-18.0); Mean Corpuscular Hemoglobin 29.4 pg (25.0-34.0); Mean Corpuscular Volume 91.8 fL (80.0-100.0); Mean Platelet Volume 9.8 fL (9.4-12.4); Platelet Count 241 K/uL (130-400); RDW Coefficient of Variation 15.9 % (11.5-14.5); RDW Standard Deviation 53.6 fL (36.4-46.3); Red Blood Count 3.67 M/uL (4.70-6.10); White Blood Count 8.55 K/ul (4.8-10.8)
[2024-03-26 07:06] LABS: BUN Creatinine Ratio 23.1 (10-20); Calcium 8.5 mg/dl (8.6-10.3); Creatinine Clr Calc Pharmacy 77.4 ml/min; Est GFR (African American) 96.1 ml/min; Est GFR (Non-African American) 82.9 ml/min; Potassium 4.1 mmol/L (3.5-5.1)
[2024-03-26 07:21] LABS: INR 2.8 (0.9-1.1); Prothrombin Time 27.7 Seconds (9.0-12.0)
[2024-03-26 07:56] VITALS: BP 136/76; PULSE 74; RESP 16; TEMP 97.9; O2SAT 96
--- NOTE | 2024-03-26 13:16 | Discharge Summary ---
Discharge Summary Date of Service March 26, 2024 Principal Dx & Hospital Course #1 = Principal Diagnosis (1) Fall: (2) Left supracondylar humerus fracture: (3) Nondisplaced fracture of right patella: (4) Prostate cancer metastatic to bone: (5) Hypertension: (6) Chronic deep vein thrombosis (DVT) of left lower extremity: Plan Pt is an 83 y/o male with PMhx significant for metastatic prostate cancer to bone, diet-controlled DM2, chronic DVT on warfarin, asthma, mild cognitive impairment, depression, anxiety, and other history as outlined who presents to the ED today after a mechanical fall yesterday. Pt is on chronic anticoagulation with warfarin and reportedly hit his head so CT ordered in the ED and was negative for intracranial bleeding. Work-up in the ED showed a left supracondylar fracture and right patellar fracture with has resulted in significant ambulatory dysfunction. Pt's feels like she cannot safely care for patient at home right now without additional services because of his needs for assistance so pt was referred for admission. Pt was seen by orthopedics who recommended conservative management. Pt was discharged to [facility] for acute rehab. Fall Left Humeral fracture Right patellar fracture Elbow xray noting "Supracondylar left humeral fracture with associated joint effusion." Knee xray noting "Acute nondisplaced intra-articular midpatellar fracture with moderate sized joint effusion." and "10 mm linear metallic density foreign body." Head CT unremarkable Cervical spine CT unremarkable Chest xray unremarkable Orthopedics consulted for further eval. Recommended the following: Supracondylar fracture of humerus -Patient is splinted in flexion -Keep the splint clean, dry and intact -May use sling for comfort -May use left hand -Follow up with [facility] in [address] Barboza or Dr. Cee Nondisplaced fracture of right patella -Weightbearing as tolerated only with the knee immobilizer on -Do not flex the right knee -Use knee immobilizer with ambulation and while sleeping -Follow up at [facility] in [address] Barboza or Dr. Cee for evaluation -Patient was seen at bedside with Dr. Cee who performed the physical exam and plan. PT/OT evaluations -PT recommending acute rehab -Pt discharged to [facility] for acute rehab Orthopedics followup for loose body in knee. Continue baseline fentanyl patches and prn oxycodone for pain control Pt notes pain in elbow sometimes increased, adjust pain meds as needed Close PCP and orthopedics followup after discharge. Prostate cancer metastatic to bone Chronic, stable On Lupron On chronic narcotics for pain control, follows with palliative care Hypertension Pt's BP noted to be elevated in the ED on admission - suspect related to pain and anxiety. Not on anything for BP at home. Given IV hydralazine in the ED. Furosemide was started for LE edema with improvement BP remained stable Chronic deep vein thrombosis (DVT) of left lower extremity On chronic warfarin - INR therapeutic Continue same dosing - 5 mg daily Monitor INR-INR 2.8 on discharge Continue other home meds as ordered. Diet: regular, minced and moist DVT prophylaxis: on warfarin Dispo: PT/OT recommending acute rehab. Discharged to [facility] Notes For Next Care Provider Discharged to acute rehab Per orthopedics: Supracondylar fracture of humerus -Patient is splinted in flexion -Keep the splint clean, dry and intact -May use sling for comfort -May use left hand -Follow up with [facility] in [address] Barboza or Dr. Cee Nondisplaced fracture of right patella -Weightbearing as tolerated only with the knee immobilizer on -Do not flex the right knee -Use knee immobilizer with ambulation and while sleeping -Follow up at [facility] in [address] Barboza or Dr. Cee for evaluation Medication Changes From Visit None- continue home fentanyl patches and prn oxycodone Admission HPI Per Admitting Provider This is an 83 y/o male with metastatic prostate cancer to bone, diet-controlled DM2, chronic DVT on warfarin, asthma, mild cognitive impairment, depression, anxiety, and other history as outlined who presents to the ED today after a fall yesterday. Pt was playing tennis yesterday and fell. EMS was called last night when pt's was unable to get him up to go to the bathroom but pt declined transport as he felt like he didn't need medical attention. However, overnight he had increased issues with ambulation so his called EMS again and pt was transported to the ED. Pt's assisted with details of the history due to pt's MCI. Pt was playing tennis on his home court yesterday when he caught his foot on a nail in the court surface and lost his balance and fell. He reports hitting his head, left elbow, and both knees in the fall. He denies LOC or syncopal event. He had a headache last night but this is better today. He has chronic pain related to prostate cancer that is metastatic to bone, which is controlled with fentanyl patch and prn oxycodone. His did give him an extra dose of oxycodone after the fall (usually only takes 1-2 times per day). He is on warfarin due to chronic LLE DVT and [facility]. No recent dose adjustments. Pt is adamant that he wants to return home, but his feels like she cannot provide the assistance he needs at present without additional support services. Pt is left hand dominant. Admission Exam Per Admitting Provider General: awake but nods off during the interview at times, NAD HEENT: no scleral icterus, moist oral mucosa Neck: supple, trachea midline Heart: RRR Lungs: CTA bilaterally on the anterior Abdomen: soft, +BS Extremities: LUE with Orthoglass splint in place - left hand NVI; bilateral knees with small scabbed abrasion; right knee with effusion and some ecchymosis; distal pulses intact Neurologic: moving all extremities but painful with movement of LUE and RLE in particular, drowsy at times but easily arousable, no dysarthria Discharge Exam General: Alert, orientedx1. No acute distress Psych: Appropriate mood and affect Neuro: AAOx1 HEENT: NC/AT Chest: Nontender to palpation. CV: RRR Resp: Breath sounds clear bilaterally, no increased effort of breathing. Abdomen: Soft, nontender Extremities: left arm in sling, right knee in splint Updated Medication List Medication Instructions Recorded Confirmed Type cyanocobalamin (vitamin B-12) 1,000 mcg PO DAILY 03/10/19 03/22/24 History 1,000 mcg capsule donepezil 10 mg tablet 10 mg PO DAILY 11/08/19 03/22/24 History multivitamin 1 tab PO DAILY 10/03/20 03/22/24 History naloxone 4 mg/actuation nasal spray 1 spray intranasal Q3M PRN opioid 03/12/21 03/22/24 Rx overdose #2 ea rosuvastatin 5 mg tablet (Crestor) 5 mg PO HS 12/26/21 03/22/24 History polyethylene glycol 3350 17 17 g PO DAILY PRN constipation 10/15/22 03/22/24 History gram/dose oral powder (Miralax) venlafaxine 150 mg 150 mg PO DAILY 05/08/23 03/22/24 History capsule,extended release 24 hr (Effexor XR) venlafaxine 37.5 mg 37.5 mg PO DAILY 05/08/23 03/22/24 History capsule,extended release 24 hr calcium carbonate 500 mg-vitamin 1 tab PO DAILY 09/07/23 03/22/24 History D3 3.125 mcg (125 unit) tablet docusate sodium 100 mg capsule 100 mg PO BID Constipation 10/07/23 03/22/24 History (Colace) leuprolide (3 month) 22.5 mg (3 22.5 mg IM .[id number] 01/16/24 03/22/24 History month) intramuscular syringe kit (Lupron Depot) zoledronic acid 4 mg/100 mL in 4 mg IV .q 3 months 01/16/24 03/22/24 History mannitol 5 %-water intravenous piggybck furosemide 20 mg tablet 20 mg PO QAM 03/03/24 03/22/24 History warfarin 5 mg tablet 5 mg PO QPM 03/03/24 03/22/24 History acitretin 25 mg capsule 25 mg PO .Q OTHER DAY 03/22/24 03/22/24 History fentanyl 12 mcg/hr transdermal 1 patch transdermal Q72H pain 03/22/24 03/22/24 History patch fentanyl 50 mcg/hr transdermal 1 patch transdermal Q72H pain 03/22/24 03/22/24 History patch oxycodone 10 mg tablet 10 mg PO Q4H PRN Pain 03/22/24 03/22/24 History Hospital Stay Data Consultations 03/22/24 10:40 Consult Orthopedic Surgery Routine ED Decision to Admit Stat Diagnostic Imagining Performed 03/22/24 07:56 CT cervical spine wo con Stat CT head/brain wo con Stat Cervical Spine CT 03/22/24 07:56 CT cervical spine wo con CLINICAL HISTORY: 83 years-old Male with fall. Acute neck pain status post fall COMPARISON: Head CT of same day TECHNIQUE: Multiple axial CT images of the cervical spine were obtained without contrast. A dose lowering technique was utilized adhering to the principles of ALARA. FINDINGS: Motion degraded exam. Prominent bridging osteophytosis is most pronounced anteriorly. Moderate to severe multilevel facet arthrosis. Study is motion degraded. Degenerative partial bony fusion involving the C6-C7 vertebral bodies with bridging anterior osteophytosis. Nuchal ligament calcifications. The cervical soft tissues appear unremarkable. The visualized lung apices appear clear. IMPRESSION: No acute cervical spine fracture or subluxation identified. ACT 112: Negative or not required by law. The above report was generated using voice recognition software. It may contain grammatical, syntax or spelling errors. Electronically signed by: Gregory Machado M.D. 03/22/2024 9:06 AM Chest X-Ray 03/22/24 07:56 XR chest 1V portable HISTORY: 83 years-old Male fall acute chest trauma status post fall COMPARISON: PET/CT 12/10/2023 TECHNIQUE: AP view of the chest FINDINGS: Cardiomediastinal and hilar silhouettes are within normal limits.. There is no pneumothorax, pleural effusion or overt pulmonary edema. Reticular interstitial densities redemonstrated suggestive of mild fibrotic change. Skeletal metastasis are better appreciated on the prior PET/CT. Degenerative changes of the shoulders and spine. IMPRESSION: No acute process of the chest. ACT 112: Negative or not required by law. The above report was generated using voice recognition software. It may contain grammatical, syntax or spelling errors. Electronically signed by: Gregory Machado M.D. 03/22/2024 8:57 AM Elbow X-Ray 03/22/24 07:56 LEFT ELBOW 2 VIEWS CLINICAL HISTORY: Fall. FINDINGS: AP and lateral views of the left elbow are obtained. No prior studies are available for comparison at the time of dictation. The skeletal structures are osteopenic. There is a comminuted and minimally offset supracondylar fracture of the left humerus. Corresponding joint effusion is noted. The proximal radius and ulna appear intact. There is no dislocation. Arthritic change is noted. There is a large enthesophyte at the triceps insertion. Soft tissue edema is present around the elbow. Atherosclerotic calcification is noted in the regional arteries. IMPRESSION: Supracondylar left humeral fracture with associated joint effusion. Electronically signed by: Abel Adams M.D. 03/22/2024 8:[address] 03/22/24 07:56 CT SCAN OF THE BRAIN WITHOUT IV CONTRAST CLINICAL HISTORY: Fall. COMPARISON STUDY: CT of the brain dated 08/30/2023. TECHNIQUE: Unenhanced axial CT scan of the brain is performed from the vertex to the skull base. A dose lowering technique was utilized adhering to the principles of ALARA. The skull base was scanned twice due to motion artifact. CT DOSE: 1016.05 mGy.cm FINDINGS: Brain parenchyma: There is age-related involutional change noting mild subcortical and periventricular microangiopathic disease. There is no hemorrhage, mass effect, or evidence of acute territorial ischemia by CT criteria. Diane-white matter differentiation is preserved. No extra-axial fluid collection is seen. Ventricles, sulci, cisterns: Prominent secondary to involutional change. Intracranial vasculature: There is atherosclerotic calcification of the cavernous carotid and vertebral arteries. Calvarium: The skeletal structures are osteopenic. No depressed calvarial fracture is seen. Sinuses and mastoids: There is trace mucosal thickening within the maxillary antra. Small retention cysts measure up to 8 mm. The remaining paranasal sinuses are clear. The mastoid air cells are well pneumatized. Orbits: The bony orbits are grossly intact. There are bilateral ocular lens implants. IMPRESSION: There is no hemorrhage, mass effect, or evidence of acute territorial ischemia by CT criteria. ACT 112: Negative or not required by law. Electronically signed by: Abel Adams M.D. 03/22/2024 8:46 AM Knee X-Ray 03/22/24 07:56 XR knee RT 1 or 2V routine HISTORY: 83 years-old Male fall acute pain of the right knee status post fall COMPARISON: None TECHNIQUE: 2 views of the right knee FINDINGS: There is an acute nondisplaced intra-articular midpatellar fracture. Mild prepatellar soft tissue swelling with moderate size joint effusion. 10 mm linear metallic density foreign body projects anterior and inferior to the patella. 8 mm probable loose body projects anterior to the proximal tibia on the lateral view. Mild to moderate tricompartmental osteoarthritis with arterial calcifications. IMPRESSION: 1. Acute nondisplaced intra-articular midpatellar fracture with moderate sized joint effusion. 2. 10 mm linear metallic density foreign body. ACT 112: Negative or not required by law. The above report was generated using voice recognition software. It may contain grammatical, syntax or spelling errors. Electronically signed by: Gregory Machado M.D. 03/22/2024 9:02 AM Discharge Instructions Given to Patient (Per Discharging Provider) Mr. Quesada, You are being discharged to acute rehab. The orthopedic surgeon and his team had the following recommendations for you: Concerning the supracondylar fracture of humerus: -Patient is splinted in flexion -Keep the splint clean, dry and intact -May use sling for comfort -May use left hand -Follow up with [facility] in [address] Dr[address] Barboza or Dr. Cee Concerning the nondisplaced fracture of right patella: -Weightbearing as tolerated only with the knee immobilizer on -Do not flex the right knee -Use knee immobilizer with ambulation and while sleeping -Follow up at [facility] in [address] Barboza or Dr. Cee for evaluation Please keep close follow up with your primary care provider after discharge. Please do not hesitate to come back to the emergency room if your symptoms worsen or return. It was a pleasure taking care of you while you were here. Total Time Total Time Spent Total Time Spent (In Minutes): 75
== END 2024-03-26 14:19 | DRG 563 ==
LOC: ED 07:28 → 3N 11:19 → SUATTDRO 11:19 → 3N 15:28

== ENCOUNTER 2024-04-06 21:51 | Inpatient (IN) ==
[2024-04-06] MEDS: SODIUM CHLORIDE 0.9% 1,000 ML IV ONE (22:19)
[2024-04-06] MEDS: ACETAMINOPHEN 1,000 MG/100 ML VIAL IV STA (22:19)
[2024-04-06] MEDS: ACETAMINOPHEN 1000 MG/100 ML IV IV ONE (22:20)
[2024-04-06 22:28] LABS: Base Excess VBG 4.8 mEq/L; HCO3 VBG 30 mmol/L; Oxygen Saturation VBG < 60.0 %; PCO2 VBG 45 mmHg (38-50); PO2 VBG 23 mmHg; pH VBG 7.43 (7.36-7.41)
[2024-04-06 22:31] LABS: Basophils # (auto) 0.01 K/uL (0.00-0.20); Basophils % (auto) 0.1 %; Eosinophils # (auto) 0.04 K/uL (0.00-0.50); Eosinophils % (auto) 0.5 %; Hematocrit (blood only) 34.3 % (42.0-52.0); Hemoglobin 10.9 g/dl (14.0-18.0); Immature Granulocytes # (auto) 0.06 K/uL (0.01-0.20); Immature Granulocytes % (auto) 0.7 %; Lymphocytes # (auto) 0.71 K/uL (1.20-3.40); Lymphocytes % (auto) 8.8 %; Mean Corpuscular Hemoglobin 28.8 pg (25.0-34.0); Mean Corpuscular Hgb Conc 31.8 g/dL (32.0-36.0); Mean Corpuscular Volume 90.5 fL (80.0-100.0); Mean Platelet Volume 9.9 fL (9.4-12.4); Monocytes % (auto) 8.6 %; Neutrophils # (auto) 6.59 K/uL (1.40-6.50); Neutrophils % (auto) 81.3 %; Platelet Count 252 K/uL (130-400); RDW Coefficient of Variation 15.5 % (11.5-14.5); RDW Standard Deviation 51.3 fL (36.4-46.3); Red Blood Count 3.79 M/uL (4.70-6.10); White Blood Count 8.11 K/ul (4.8-10.8)
[2024-04-06 22:46] LABS: Alanine Aminotransferase 23 U/L (7-52); Albumin Level 3.4 gm/dl (3.4-5.0); Alkaline Phosphatase 89 U/L (34-104); Anion Gap 6 (3-11); Aspartate Aminotransferase 23 U/L (13-39); BUN Creatinine Ratio 22.1 (10-20); Bilirubin Direct 0.1 mg/dl (0-0.2); Bilirubin,Total 0.4 mg/dl (0.2-1.0); Blood Urea Nitrogen 19 mg/dl (6-23); Calcium 8.6 mg/dl (8.6-10.3); Carbon Dioxide 30 mmol/L (21-32); Chloride 100 mmol/L (98-107); Est GFR (African American) 92.3 ml/min; Est GFR (Non-African American) 79.6 ml/min; Glucose 174 mg/dl (70-99(Fasting)); Lipase 24 U/L (11-82); Potassium 3.4 mmol/L (3.5-5.1); Sodium 136 mmol/L (136-145); Total Protein 6.8 gm/dl (6.0-8.3)
[2024-04-06 22:52] LABS: Troponin I High Sensitivity 13.9 pg/ml (0-20)
--- NOTE | 2024-04-06 23:13 | Emergency Department Note ---
Impression & Plan Pneumonia, COVID, Hypoxia ED Provider Note NAME: ARNOLD DEMPSEY AGE: 83 SEX: M : 1940 ARRIVES VIA: Ambulance INFORMANT: Patient, ED PROVIDER(S): Panfilo Barbour MD CHIEF COMPLAINT: Altered mental status, weak HPI: This is a an 83-year-old male presenting for altered mental status. Patient recently discharged from [facility], rehab, after being there for a fracture left upper extremity and right patella. Patient has mild dementia as per EMS. Reportedly patient had an episode where he became altered after going to the bathroom. He did not have any significant trauma. He was initially nonverbal but then can answer yes or no questions. He does nod to my questioning and moves extremities/follows some commands. ROS: See above HPI for pertinent positives & negatives. A total of 10 systems reviewed and were otherwise negative. PHYSICAL EXAMINATION: General: Lying in stretcher with eyes closed, follows some commands Head: Normocephalic and atraumatic Eyes: Normal inspection, extraocular muscles intact Ear, nose, throat: Normal external exam Neck: Normal range of motion Respiratory: lungs clear to auscultation bilaterally Cardiovascular: Regular rate/rhythm, no murmur GI: soft, nontender, no guarding or rebound Extremities: nontender, moves all extremities Neuro: Sleeping but arousable, moves all extremities Skin: Warm, dry, and intact MEDICAL DECISION MAKING: This is an 83-year-old male presenting for altered mental status. Patient appears weak, fatigued. He was diagnosed with COVID-19 few days ago. -Patient is currently febrile here. Low concern for acute sepsis as patient vital signs reviewed and within normal limits. -Blood was reviewed showing no significant abnormalities at this time he is COVID-19 positive. -Chest x-ray reveals a possible right lower lobe pneumonia -CT head reveals no intracranial process -After fluid resuscitation and antipyretic, patient does appear significantly more awake and alert at this time. Will admit for hypoxia however due to his likely pneumonia. Differential diagnosis: Stroke, COVID-19, pressure infection, pneumonia, sepsis ER treatment provided: See below Diagnostics interpreted by me: ECG: ECG independently interpreted by me with normal sinus rhythm, rate of 83, normal axis, normal PA, normal QRS, normal QTc, no ST segment elevations consistent with STEMI criteria Cardiac Monitoring: An order was placed for continuous cardiac monitoring. The monitor shows a rate of 89 with sinus rhythm rhythm. Laboratory studies: As stated above and show below. Imaging studies: See below. Past Med/Surg History Problem List (Updated 04/08/24 @ 00:14 by Panfilo Barbour MD) Hypoxia (Acute) COVID (Acute) Pneumonia (Acute) AMS (altered mental status) Supracondylar fracture of humerus (Acute) Chronic deep vein thrombosis (DVT) of left lower extremity Nondisplaced fracture of right patella Left supracondylar humerus fracture Fall Low back pain Urinary retention (Acute) Malfunction of Lopez catheter (Acute) Palliative care by specialist Cancer related pain Chronic anticoagulation Sacroiliac joint pain Trochanteric bursitis Prostate cancer metastatic to bone (Chronic) Hypertension (Chronic) 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) Medical History MCI (mild cognitive impairment) Multiple pulmonary nodules Asthma Greater trochanteric pain syndrome Zenker diverticulum Avascular necrosis of bone of left hip (~06/26/23) History of DVT (deep vein thrombosis) Osteoarthritis of left hip History of skin cancer Prostate cancer Lumbar stenosis with neurogenic claudication Surgical History History of lumbar laminectomy History of hernia repair History of cataract extraction LEFT 2mg versed given without problem Family History Mother , age 70` s Diabetes Father , age 86 COPD (chronic obstructive pulmonary disease) smoked for many years Daughter , age 39 Breast cancer Daughter Genetic carrier of heritable cancer had bilateral mastectomy Social History Smoking Status: Unknown if ever smoked Second Hand Exposure: Yes; Do You Dip or Chew Tobacco: Yes (ON AND OFF, SINCE AGE 29. ADVISED TO HOLD DOS.); Hx Alcohol Use: No Hx Substance Use: No Preferred Language: Israeli Communication Ability: Effective Communication Ability Comment: BASELINE DEMENTIA Visual Impairment: No Limitations Hearing Ability: Normal School Clerk Required: No Beliefs That Will Affect Care: None marital status: Current Living Situation: Spouse Current Living Situation Comment: lives with current occupational status: retired current occupation: retired Other Information That Helps Us Care for You: No Feels Safe at Home: Yes Assistive Devices: Cane Assistive Devices Comment: immmoblizier to right leg and sling to left arm Allergies Allergies Allergy/AdvReac Type Severity Reaction Status Date / Time ragweed pollen Allergy Intermediate RASH Verified 01/16/24 09:45 house dust Allergy Mild ITCHY Verified 01/16/24 09:45 EYES, RUNNY NOSE Home Meds Home Medications Medication Instructions Recorded Confirmed acitretin 25 mg capsule 25 mg PO Q2D 04/07/24 04/07/24 calcium carbonate 500 mg-vitamin 1 tab PO DAILY 04/07/24 04/07/24 D3 3.125 mcg (125 unit) tablet cyanocobalamin (vitamin B-12) 1,000 mcg PO DAILY 04/07/24 04/07/24 1,000 mcg capsule donepezil 10 mg tablet 10 mg PO DAILY 04/07/24 04/07/24 fentanyl 12 mcg/hr transdermal 12 mcg transdermal Q72H 04/07/24 04/07/24 patch fentanyl 50 mcg/hr transdermal 50 mcg topical Q72H 04/07/24 04/07/24 patch furosemide 20 mg tablet 20 mg PO DAILY 04/07/24 04/07/24 leuprolide (3 month) 22.5 mg IM USEASDIRECTD 04/07/24 04/07/24 multivitamin 1 tab PO DAILY 04/07/24 04/07/24 naloxone 4 mg/actuation nasal spray 4 mg intranasal UD 04/07/24 04/07/24 oxycodone 10 mg tablet 10 mg PO Q4H PRN Pain (Scale Score 04/07/24 04/07/24 7-10) rosuvastatin 5 mg tablet 5 mg PO DAILY 04/07/24 04/07/24 venlafaxine 150 mg 150 mg PO DAILY 04/07/24 04/07/24 capsule,extended release 24 hr venlafaxine 37.5 mg 37.5 mg PO DAILY 04/07/24 04/07/24 capsule,extended release 24 hr warfarin 5 mg tablet 5 mg PO DAILY 04/07/24 04/07/24 zoledronic acid 4 mg intravenous 4 mg IV UD 04/07/24 04/07/24 solution Results & Data (ED) Vital Signs Vital Signs - 24 hr 04/07/24 00:12 04/07/24 00:15 04/07/24 00:24 Pulse Rate 73 71 Respiratory Rate 16 14 Blood Pressure 119/61 Blood Pressure Mean 77 Pulse Oximetry 94 Oxygen Delivery Method Nasal Cannula Oxygen Flow Rate 2 04/07/24 00:30 04/07/24 00:42 04/07/24 00:45 Pulse Rate 77 Respiratory Rate 15 Blood Pressure 121/70 114/67 Blood Pressure Mean 99 85 Pulse Oximetry Oxygen Delivery Method Oxygen Flow Rate 04/07/24 00:45 04/07/24 00:54 04/07/24 01:00 Pulse Rate 71 69 Respiratory Rate 15 17 Blood Pressure 128/64 Blood Pressure Mean 83 Pulse Oximetry Oxygen Delivery Method Oxygen Flow Rate 04/07/24 01:06 Pulse Rate 69 Respiratory Rate 14 Blood Pressure Blood Pressure Mean Pulse Oximetry Oxygen Delivery Method Oxygen Flow Rate Laboratory Data 04/07/24 06:47 04/07/24 06:47 Lab Results 04/06/24 04/06/24 Range/Units 21:54 22:46 WBC 8.11 (4.8-10.8) K/ul RBC 3.79 L (4.70-6.10) M/uL Hgb 10.9 L (14.0-18.0) g/dl Hct 34.3 L (42.0-52.0) % MCV 90.5 (80.0-100.0) fL MCH 28.8 (25.0-34.0) pg MCHC 31.8 L (32.0-36.0) g/dL RDW Std Deviation 51.3 H (36.4-46.3) fL RDW Coeff of Melissa 15.5 H (11.5-14.5) % Plt Count 252 (130-400) K/uL MPV 9.9 (9.4-12.4) fL Immature Gran % (Auto) 0.7 % Neut % (Auto) 81.3 % Lymph % (Auto) 8.8 % [place] % (Auto) 8.6 % Eos % (Auto) 0.5 % Baso % (Auto) 0.1 % Neut # (Auto) 6.59 H (1.40-6.50) K/uL Lymph # (Auto) 0.71 L (1.20-3.40) K/uL [place] # (Auto) 0.70 H (0.11-0.59) K/uL Eos # (Auto) 0.04 (0.00-0.50) K/uL Baso # (Auto) 0.01 (0.00-0.20) K/uL Immature Gran # (Auto) 0.06 (0.01-0.20) K/uL VBG pH 7.43 H (7.36-7.41) VBG pCO2 45 (38-50) mmHg VBG pO2 23 mmHg VBG HCO3 30 mmol/L VBG O2 Saturation < 60.0 % VBG Base Excess 4.8 mEq/L Sodium 136 (136-145) mmol/L Potassium 3.4 L (3.5-5.1) mmol/L Chloride 100 (98-107) mmol/L Carbon Dioxide 30 (21-32) mmol/L Anion Gap 6 (3-11) BUN 19 (6-23) mg/dl Creatinine 0.86 (0.6-1.4) mg/dl Est Cr Clr Drug Dosing Not Reportable Est GFR ( Amer) 92.3 ml/min Est GFR (Non-Af Amer) 79.6 ml/min BUN/Creatinine Ratio 22.1 H (10-20) Glucose 174 H (70-99(Fasting)) mg/dl Lactate 1.6 (0.4-2.0) mmol/L Calcium 8.6 (8.6-10.3) mg/dl Total Bilirubin 0.4 (0.2-1.0) mg/dl Direct Bilirubin 0.1 (0-0.2) mg/dl AST 23 (13-39) U/L ALT 23 (7-52) U/L Alkaline Phosphatase 89 (34-104) U/L Troponin I High Sens 13.9 (0-20) pg/ml Total Protein 6.8 (6.0-8.3) gm/dl Albumin 3.4 (3.4-5.0) gm/dl Lipase 24 (11-82) U/L Adenovirus (PCR) Not Detected (NotDetected) B. pertussis DNA (PCR) Not Detected (NotDetected) B.parapertussis DNA PCR Not Detected (NotDetected) C. pneumoniae DNA (PCR) Not Detected (NotDetected) Coronavirus OC43 (PCR) Not Detected (NotDetected) Coronavirus HKU1 (PCR) Not Detected (NotDetected) Coronavirus 229E (PCR) Not Detected (NotDetected) SARS-CoV-2 (PCR) DETECTED A (NotDetected) Coronavirus NL63 (PCR) Not Detected (NotDetected) Human Metapneumovir PCR Not Detected (NotDetected) Influenza Type A (PCR) Not Detected (NotDetected) Influenza Type B (PCR) Not Detected (NotDetected) M. pneumoniae (PCR) Not Detected (NotDetected) Parainfluenza 1 (PCR) Not Detected (NotDetected) Parainfluenza 2 (PCR) Not Detected (NotDetected) Parainfluenza 3 (PCR) Not Detected (NotDetected) Parainfluenza 4 (PCR) Not Detected (NotDetected) RSV (PCR) Not Detected (NotDetected) Entero/Rhino (PCR) Not Detected (NotDetected) Administered Medications Cyanocobalamin (Cyanocobalamin (B-12) 500 Mcg Tablet) 1,000 mcg PO DAILY SABINE Stop: 05/07/24 08:59 Last Admin: 04/07/24 08:39 Dose: 1,000 mcg Documented By: PARVIN Donepezil HCl (Donepezil Hcl 10 Mg Tab) 10 mg PO DAILY SABINE Stop: 05/07/24 08:59 Last Admin: 04/07/24 08:39 Dose: 10 mg Documented By: PARVIN Fentanyl (Fentanyl 50 Mcg/Hr Tdsy) 1 patch TD Q72H SABINE Stop: 04/21/24 16:59 Last Admin: 04/07/24 17:03 Dose: 1 patch Documented By: PARVIN Fentanyl (Fentanyl 12 Mcg/Hr Tdsy) 1 patch TD Q72H SABINE Stop: 04/21/24 16:59 Last Admin: 04/07/24 17:03 Dose: 1 patch Documented By: PARVIN Furosemide (Furosemide 20 Mg Tab) 20 mg PO DAILY SABINE Stop: 05/07/24 08:59 Last Admin: 04/07/24 08:39 Dose: 20 mg Documented By: PARVIN Sodium Chloride (Nss) 1,000 mls @ 80 mls/hr IV .[id number] SABINE Stop: 04/08/24 05:26 Last Admin: 04/07/24 17:01 Dose: 80 mls/hr Documented By: Infusion: 04/07/24 17:01 Dose: Infused Documented By: Admin: 04/07/24 04:50 Dose: 80 mls/hr Documented By: GUILLERMINA Dexamethasone 6 mg/ Syringe 1.5 mls @ 1 mls/min IV DAILY [facility] Stop: 05/07/24 08:59 Last Admin: 04/07/24 08:39 Dose: 1 mls/min Documented By: PARVIN Piperacillin Sod/Tazobactam (Sod 4.5 gm/ Dextrose) 100 mls @ 25 mls/hr IV Q8H [facility]; Protocol Stop: 04/14/24 20:59 Last Admin: 04/07/24 20:57 Dose: 25 mls/hr Documented By: AWA Insulin Aspart (Insulin Aspart Per Unit Charge) 0 units SC ACHS [facility] Stop: 05/07/24 07:29 Last Admin: 04/07/24 20:56 Dose: 1 units Documented By: AWA Co-signed By: ADALBERTO Admin: 04/07/24 17:52 Dose: 4 units Documented By: PARVIN Co-signed By: VITALIY Admin: 04/07/24 13:00 Dose: Not Given Documented By: Admin: 04/07/24 09:48 Dose: Not Given Documented By: PARVIN Co-signed By: VITALIY Miscellaneous (Fentanyl Patch Remove & Waste) 1 each N/A Q3D [facility] Stop: 05/07/24 16:14 Last Admin: 04/07/24 16:39 Dose: Not Given Documented By: PARVIN Miscellaneous (Fentanyl Patch Remove & Waste) 1 each N/A Q3D [facility] Stop: 05/07/24 16:59 Last Admin: 04/07/24 17:03 Dose: Not Given Documented By: PARVIN Multivitamins (Multivitamin Tab) 1 tab PO QAM [facility] Stop: 05/07/24 08:59 Last Admin: 04/07/24 08:39 Dose: 1 tab Documented By: PARVIN Rosuvastatin Calcium (Rosuvastatin Calcium 5 Mg Tab) 5 mg PO DAILY [facility] Stop: 05/07/24 08:59 Last Admin: 04/07/24 08:39 Dose: 5 mg Documented By: PARVIN Venlafaxine HCl (Venlafaxine Hcl Xr 37.5 Mg Capxr) 37.5 mg PO DAILY [facility] Stop: 05/07/24 08:59 Last Admin: 04/07/24 08:39 Dose: 37.5 mg Documented By: PARVIN Venlafaxine HCl (Venlafaxine Hcl Xr 150 Mg Capxr) 150 mg PO DAILY [facility] Stop: 05/07/24 08:59 Last Admin: 04/07/24 08:39 Dose: 150 mg Documented By: PARVIN Warfarin Sodium (Warfarin Sod 5 Mg Tab) 5 mg PO DAILY@1600 [facility] Stop: 05/07/24 15:59 Last Admin: 04/07/24 17:03 Dose: 5 mg Documented By: PARVIN Discontinued Medications Acetaminophen (Acetaminophen 1000 Mg/100 Ml Iv) Confirm Administered Dose 1,000 mg IV .STK-MED ONE Stop: 04/06/24 22:13 Last Admin: 04/06/24 22:20 Dose: Not Given Documented By: MAGNO Sodium Chloride (Nss) 1,000 mls @ 999 mls/hr IV .Q1H1M ONE Stop: 04/06/24 23:17 Last Infusion: 04/06/24 23:41 Dose: Infused Documented By: JOSE MIGUEL Admin: 04/06/24 22:19 Dose: 999 mls/hr Documented By: MAGNO Acetaminophen (Ofirmev) 1,000 mg in 100 mls @ 400 mls/hr IV NOW STA Stop: 04/06/24 22:31 Last Infusion: 04/06/24 22:38 Dose: Infused Documented By: Admin: 04/06/24 22:19 Dose: 400 mls/hr Documented By: MAGNO Ceftriaxone Sodium (Rocephin) 2,000 mg in 50 mls @ 100 mls/hr IV Q24H [facility] Stop: 04/14/24 04:59 Last Infusion: 04/07/24 05:25 Dose: Infused Documented By: Admin: 04/07/24 04:54 Dose: 100 mls/hr Documented By: MCS Doxycycline Hyclate 100 mg/ (Dextrose) 100 mls @ 50 mls/hr IV Q12H [facility] Stop: 04/14/24 05:59 Last Infusion: 04/07/24 07:16 Dose: Infused Documented By: Admin: 04/07/24 04:56 Dose: 50 mls/hr Documented By: MCS Potassium Chloride (K Chacho / Wtr) 10 meq in 100 mls @ 100 mls/hr IV Q1H [facility] Stop: 04/07/24 06:44 Last Admin: 04/07/24 07:27 Dose: Not Given Documented By: Infusion: 04/07/24 06:37 Dose: Infused Documented By: Infusion: 04/07/24 06:09 Dose: Infused Documented By: Admin: 04/07/24 05:08 Dose: 100 mls/hr Documented By: GUILLERMINA Piperacillin Sod/Tazobactam (Sod 4.5 gm/ Dextrose) 100 mls @ 200 mls/hr IV NOW ONE; Protocol Stop: 04/07/24 15:59 Last Infusion: 04/07/24 17:31 Dose: Infused Documented By: Admin: 04/07/24 16:58 Dose: 200 mls/hr Documented By: PARVIN Ioversol (Optiray 320 125ml) 125 ml IV ONCE ONE Stop: 04/07/24 01:49 Last Admin: 04/07/24 01:48 Dose: 118 ml Documented By: MYRNA Discharge Plan Visit Data Chief Complaint: Altered Mental Status Stated Complaint: AMS, FEVER ED Provider: Panfilo Barbour Discharge Problem: Pneumonia, COVID, Hypoxia Patient Disposition: Admitted As Inpatient Discharge Instructions Interventions: ED Discharge Assessment Last Done: 04/07/24 03:47
--- NOTE | 2024-04-07 00:02 | CT Scan Report ---
Exam(s): CT HEAD Without Contrast EXAM: CT Head Without Intravenous Contrast CLINICAL HISTORY: Reason for exam: AMS. TECHNIQUE: Axial computed tomography images of the head/brain without intravenous contrast. CTDI is 38.03 mGy and DLP is 625.8 mGy-cm. Automated exposure control was utilized for the study. A dose lowering technique was utilized adhering to the principles of ALARA. COMPARISON: No relevant prior studies available. FINDINGS: No acute intracranial hemorrhage. No midline shift or mass effect. The territorial horton-white matter differentiation is maintained throughout. Age-related cerebral volume loss. Periventricular and subcortical white matter hypoattenuation, consistent with chronic microangiopathy. The visualized orbits appear grossly unremarkable. The calvarium is intact. The visualized paranasal sinuses and mastoid air cells are grossly clear. IMPRESSION: No acute intracranial hemorrhage, midline shift, or mass effect. Electronically signed by: Lucas Reddy MD 04/07/24 00:01 AM
[2024-04-07 00:14] LABS: Adenovirus PCR Not Detected (NotDetected); Bordetella parapertussis PCR Not Detected (NotDetected); Bordetella pertussis PCR Not Detected (NotDetected); Chlamydia pneumoniae PCR Not Detected (NotDetected); Coronavirus 229E PCR Not Detected (NotDetected); Coronavirus CoV-2 (COVID19)PCR DETECTED (NotDetected); Coronavirus HKU1 PCR Not Detected (NotDetected); Coronavirus NL63 PCR Not Detected (NotDetected); Coronavirus OC43PCR Not Detected (NotDetected); Human Metapneumovirus PCR Not Detected (NotDetected); Influenza A PCR Not Detected (NotDetected); Influenza B PCR Not Detected (NotDetected); Mycoplasma pneumoniae PCR Not Detected (NotDetected); Parainfluenza Virus 1 PCR Not Detected (NotDetected); Parainfluenza Virus 2 PCR Not Detected (NotDetected); Parainfluenza Virus 3 PCR Not Detected (NotDetected); Parainfluenza Virus 4 PCR Not Detected (NotDetected); Respiratory Syncytial VirusPCR Not Detected (NotDetected); Rhinovirus/Enterovirus PCR Not Detected (NotDetected)
[2024-04-07 00:37] LABS: Appearance Urine Clear (Clear); Bacteria Urine Automated None Seen (None Seen); Bilirubin Urine Negative (Negative); Blood Urine Negative (Negative); Cast Urine Automated 0-2 /lpf (0-2); Color Urine Yellow; Epithelial Cell Urine Auto 0-2 /hpf (0-2); Glucose Urine UA Negative (Negative); Ketones Urine Trace (Negative); Leukocyte Esterase Urine Negative (Negative); Nitrite Urine Negative (Negative); Protein Urine Trace (Negative); RBC Urine Automated 0-2 /hpf (0-2); Urobilinogen Urine Negative (Negative); WBC Urine Automated 0-5 /hpf (0-5)
[2024-04-07] MEDS: OPTIRAY 320 125ml IV ONE (01:48)
--- NOTE | 2024-04-07 01:53 | History & Physical Report ---
Date of Service April 07, 2024 Assessment & Plan (1) AMS (altered mental status): Plan: 83-year-old male with past medical history significant for type 2 diabetes, intermittent asthma, multiple pulm nodules, chronic DVT, prostate cancer metastatic to bone, lumbar spinal stenosis, mild cognitive impairment, anxiety was brought in by because of the confusion and in the ER was spiking temperatures. Patient was recently admitted to hospital with a fall with nondisplaced fracture of right patella and left supracondylar humerus fracture. Left humerus fracture splinted in flexion and on sling for comfort. Right patella fracture is in the knee immobilizer. Patient was discharged to [facility] on 03/26/24. Was discharged home today morning. Patient was diagnosed with COVID last Friday more than a week ago. Per when he was diagnosed with COVID he was very delirious . As per patient did okay in PT and discharged home today morning 04/06/24. But at home patient seemed extremely weak. He was having trouble getting up. But he was eating okay. Mild cough. No nausea. Had diarrhea in the morning. Was having lot of pain at the injury sites. Later helped him to go to bathroom. In the bathroom he held faucet of the sink and seemed to blackout. He was mumbling something. And was very shaky. And the asked if he wants to go to the hospital and seemed to nod his head. She called EMS and was brought in here. In the ER he was spiking temperature. Oxygen was 87% room air and on 2 L he saturating okay. [employer] COVID came back positive. Currently patient is very drowsy. On calling opens eyes. Can tell his name. Can lift his extremities on command except the left upper extremity which is in sling. But could not answer any other questions, goes back to sleep.. Altered mental status Spiking fever COVID-positive Per he was diagnosed with COVID last Friday more than a week ago Will follow CT chest rule out any PE or pneumonia Follow UA Empiric antibiotics Rocephin and Doxy Will place on Decadron IV fluids Isolation precautions Close monitor Type 2 diabetes Not on meds Diet control Sliding scale Chronic DVT On warfarin Follow PT/INR Prostate cancer metastatic to bone On Lupron shots On chronic narcotic pain medications for pain control which will be held for now as patient is drowsy Seems follows with palliative care Recent fall and left supracondylar humerus fracture Splint and sling Nondisplaced fracture right patella. Knee immobilizer Just got discharged from rehab PT OT when stable Lower extremity edema Lasix Mild dementia On Donepezil Monitor for delirium Anxiety/depression questionable Continue venlafaxine Hyperlipidemia On statin DVT prophylaxis On Coumadin Follow PT/INR Disposition Med/telemetry Full code. History of Present Illness Chief Complaint: Altered mental status and fevers Primary Care Provider: Lidya Barbour MD 83-year-old male with past medical history significant for type 2 diabetes, intermittent asthma, multiple pulm nodules, chronic DVT, prostate cancer metastatic to bone, lumbar spinal stenosis, mild cognitive impairment, anxiety was brought in by because of the confusion and in the ER was spiking temperatures. Patient was recently admitted to hospital with a fall with nondisplaced fracture of right patella and left supracondylar humerus fracture. Left humerus fracture splinted in flexion and on sling for comfort. Right patella fracture is in the knee immobilizer. Patient was discharged to [facility] on 03/26/24. Was discharged home today morning. Patient was diagnosed with COVID last Friday more than a week ago. Per when he was diag nosed with COVID he was very delirious . As per patient did okay in PT and discharged home today morning 04/06/24. But at home patient seemed extremely weak. He was having trouble getting up. But he was eating okay. Mild cough. No nausea. Had diarrhea in the morning. Was having lot of pain at the injury sites. Later helped him to go to bathroom. In the bathroom he held faucet of the sink and seemed to blackout. He was mumbling something. And was very shaky. And the asked if he wants to go to the hospital and seemed to nod his head. She called EMS and was brought in here. In the ER he was spiking temperature. Oxygen was 87% room air and on 2 L he saturating okay. [employer] COVID came back positive. Currently patient is very drowsy. On calling opens eyes. Can tell his name. Can lift his extremities on command except the left upper extremity which is in sling. But could not answer any other questions, goes back to sleep.. Past medical history. As mentioned above Past surgical history. Bone biopsy. Left Malar area skin flap. Laparoscopic bilateral repair of recurrent hernia. Repair of inguinal hernia. Social history. . Former use of smokeless tobacco. Alcohol occasional. No drug use. Family history. Father had CA. Allergies Allergy/AdvReac Type Severity Reaction Status Date / Time ragweed pollen Allergy Intermediate RASH Verified 01/16/24 09:45 house dust Allergy Mild ITCHY Verified 01/16/24 09:45 EYES, RUNNY NOSE Home Medications Medication Instructions Recorded Confirmed Type acitretin 25 mg capsule 25 mg PO Q2D 04/07/24 04/07/24 History calcium carbonate 500 mg-vitamin 1 tab PO DAILY 04/07/24 04/07/24 History D3 3.125 mcg (125 unit) tablet cyanocobalamin (vitamin B-12) 1,000 mcg PO DAILY 04/07/24 04/07/24 History 1,000 mcg capsule donepezil 10 mg tablet 10 mg PO DAILY 04/07/24 04/07/24 History fentanyl 12 mcg/hr transdermal 12 mcg transdermal Q72H 04/07/24 04/07/24 History patch fentanyl 50 mcg/hr transdermal 50 mcg topical Q72H 04/07/24 04/07/24 History patch furosemide 20 mg tablet 20 mg PO DAILY 04/07/24 04/07/24 History leuprolide (3 month) 22.5 mg IM USEASDIRECTD 04/07/24 04/07/24 History multivitamin 1 tab PO DAILY 04/07/24 04/07/24 History naloxone 4 mg/actuation nasal spray 4 mg intranasal UD 04/07/24 04/07/24 History oxycodone 10 mg tablet 10 mg PO Q4H PRN Pain (Scale Score 04/07/24 04/07/24 History 7-10) rosuvastatin 5 mg tablet 5 mg PO DAILY 04/07/24 04/07/24 History venlafaxine 150 mg 150 mg PO DAILY 04/07/24 04/07/24 History capsule,extended release 24 hr venlafaxine 37.5 mg 37.5 mg PO DAILY 04/07/24 04/07/24 History capsule,extended release 24 hr warfarin 5 mg tablet 5 mg PO DAILY 04/07/24 04/07/24 History zoledronic acid 4 mg intravenous 4 mg IV UD 04/07/24 04/07/24 History solution Past Med/Surg History Problem List (Updated 04/07/24 @ 02:05 by Hemant Skinner MD) AMS (altered mental status) Supracondylar fracture of humerus (Acute) Chronic deep vein thrombosis (DVT) of left lower extremity Nondisplaced fracture of right patella Left supracondylar humerus fracture Fall Low back pain Urinary retention (Acute) Malfunction of Lopez catheter (Acute) Palliative care by specialist Cancer related pain Chronic anticoagulation Sacroiliac joint pain Trochanteric bursitis Prostate cancer metastatic to bone (Chronic) Hypertension (Chronic) 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) Medical History MCI (mild cognitive impairment) Multiple pulmonary nodules Asthma Greater trochanteric pain syndrome Zenker diverticulum Avascular necrosis of bone of left hip (~06/26/23) History of DVT (deep vein thrombosis) Osteoarthritis of left hip History of skin cancer Prostate cancer Lumbar stenosis with neurogenic claudication Surgical History History of lumbar laminectomy History of hernia repair History of cataract extraction LEFT 2mg versed given without problem Family History Mother , age 70` s Diabetes Father , age 86 COPD (chronic obstructive pulmonary disease) smoked for many years Daughter , age 39 Breast cancer Daughter Genetic carrier of heritable cancer had bilateral mastectomy Social History Smoking Status: Unknown if ever smoked Second Hand Exposure: Yes; Do You Dip or Chew Tobacco: Yes (ON AND OFF, SINCE AGE 29. ADVISED TO HOLD DOS.); Hx Alcohol Use: No Hx Substance Use: No Preferred Language: Mosotho Communication Ability: Effective Communication Ability Comment: BASELINE DEMENTIA Visual Impairment: No Limitations Hearing Ability: Normal Magazine Journalist Required: No Beliefs That Will Affect Care: None marital status: Current Living Situation: Spouse Current Living Situation Comment: lives with current occupational status: retired current occupation: retired Other Information That Helps Us Care for You: No Feels Safe at Home: Yes Assistive Devices: Brace/Splint/Immobilizer, Denture - Upper, Denture - Lower, Hospital Bed and Slide Board Assistive Devices Comment: immmoblizier to right leg and sling to left arm Review of Systems Review of Systems: Unobtainable due to reduced consciousness Physical Exam Physical Exam: General- Drowsy Head- atraumatic Eyes- PERRL. ENT- oropharynx dry Neck- supple, no JVD. Lungs- clear to auscultation no wheezing or crackles Heart- regular rhythm; no murmur, no gallop. Abdomen- normal bowel sounds, soft, nontender, no distension. Extremities- no pretibial edema, left upper extremity in sling. Right knee immobilizer seen Neuro- Drowsy. can tell name on waking up.; PERRL, no facial palsy; no dysarthria; can lift extremities on command except left upper ext which is in sling from recent injury. Results & Data Results & Data Vital Signs (Past 12 Hours) Vital Signs Temp Pulse Pulse Resp BP BP Pulse Ox 04/07/24 01:30 120/64 04/07/24 01:27 70 19 04/07/24 01:15 79 19 04/07/24 01:15 141/77 H 04/07/24 01:06 69 14 04/07/24 01:00 128/64 04/07/24 00:54 69 17 04/07/24 00:45 71 15 04/07/24 00:45 114/67 04/07/24 00:42 77 15 04/07/24 00:30 121/70 04/07/24 00:24 71 14 04/07/24 00:15 119/61 94 04/07/24 00:12 73 16 04/06/24 23:45 121/75 04/06/24 23:42 76 17 93 04/06/24 23:30 136/64 04/06/24 23:15 77 20 131/67 94 04/06/24 23:03 77 16 129/64 94 04/06/24 22:08 84 04/06/24 22:07 87 L 04/06/24 22:05 39.2 C H 81 21 154/83 H 87 L O2 Del Method O2 Flow Rate 04/07/24 01:30 04/07/24 01:27 04/07/24 01:15 04/07/24 01:15 04/07/24 01:06 04/07/24 01:00 04/07/24 00:54 04/07/24 00:45 04/07/24 00:45 04/07/24 00:42 04/07/24 00:30 04/07/24 00:24 04/07/24 00:15 Nasal Cannula 2 04/07/24 00:12 04/06/24 23:45 04/06/24 23:42 04/06/24 23:30 04/06/24 23:15 Nasal Cannula 2 04/06/24 23:03 Nasal Cannula 2 04/06/24 22:08 04/06/24 22:07 Nasal Cannula 04/06/24 22:05 Room Air Diagnostic Findings Laboratory Results WBC 8.11 K/ul (4.8-10.8) 04/06/24 21:54 RBC 3.79 M/uL (4.70-6.10) L 04/06/24 21:54 Hgb 10.9 g/dl (14.0-18.0) L 04/06/24 21:54 Hct 34.3 % (42.0-52.0) L 04/06/24 21:54 MCV 90.5 fL (80.0-100.0) 04/06/24 21:54 MCH 28.8 pg (25.0-34.0) 04/06/24 21:54 MCHC 31.8 g/dL (32.0-36.0) L 04/06/24 21:54 RDW Std Deviation 51.3 fL (36.4-46.3) H 04/06/24 21:54 RDW Coeff of Melissa 15.5 % (11.5-14.5) H 04/06/24 21:54 Plt Count 252 K/uL (130-400) 04/06/24 21:54 MPV 9.9 fL (9.4-12.4) 04/06/24 21:54 Immature Gran % (Auto) 0.7 % 04/06/24 21:54 Neut % (Auto) 81.3 % 04/06/24 21:54 Lymph % (Auto) 8.8 % 04/06/24 21:54 [place] % (Auto) 8.6 % 04/06/24 21:54 Eos % (Auto) 0.5 % 04/06/24 21:54 Baso % (Auto) 0.1 % 04/06/24 21:54 Neut # (Auto) 6.59 K/uL (1.40-6.50) H 04/06/24 21:54 Lymph # (Auto) 0.71 K/uL (1.20-3.40) L 04/06/24 21:54 [place] # (Auto) 0.70 K/uL (0.11-0.59) H 04/06/24 21:54 Eos # (Auto) 0.04 K/uL (0.00-0.50) 04/06/24 21:54 Baso # (Auto) 0.01 K/uL (0.00-0.20) 04/06/24 21:54 Immature Gran # (Auto) 0.06 K/uL (0.01-0.20) 04/06/24 21:54 VBG pH 7.43 (7.36-7.41) H 04/06/24 21:54 VBG pCO2 45 mmHg (38-50) 04/06/24 21:54 VBG pO2 23 mmHg 04/06/24 21:54 VBG HCO3 30 mmol/L 04/06/24 21:54 VBG O2 Saturation < 60.0 % 04/06/24 21:54 VBG Base Excess 4.8 mEq/L 04/06/24 21:54 Sodium 136 mmol/L (136-145) 04/06/24 21:54 Potassium 3.4 mmol/L (3.5-5.1) L 04/06/24 21:54 Chloride 100 mmol/L (98-107) 04/06/24 21:54 Carbon Dioxide 30 mmol/L (21-32) 04/06/24 21:54 Anion Gap 6 (3-11) 04/06/24 21:54 BUN 19 mg/dl (6-23) 04/06/24 21:54 Creatinine 0.86 mg/dl (0.6-1.4) 04/06/24 21:54 Est Cr Clr Drug Dosing Not Reportable 04/06/24 21:54 Est GFR ( Amer) 92.3 ml/min 04/06/24 21:54 Est GFR (Non-Af Amer) 79.6 ml/min 04/06/24 21:54 BUN/Creatinine Ratio 22.1 (10-20) H 04/06/24 21:54 Glucose 174 mg/dl (70-99(Fasting)) H 04/06/24 21:54 Lactate 1.6 mmol/L (0.4-2.0) 04/06/24 21:54 Calcium 8.6 mg/dl (8.6-10.3) 04/06/24 21:54 Total Bilirubin 0.4 mg/dl (0.2-1.0) 04/06/24 21:54 Direct Bilirubin 0.1 mg/dl (0-0.2) 04/06/24 21:54 AST 23 U/L (13-39) 04/06/24 21:54 ALT 23 U/L (7-52) 04/06/24 21:54 Alkaline Phosphatase 89 U/L (34-104) 04/06/24 21:54 Troponin I High Sens 13.9 pg/ml (0-20) 04/06/24 21:54 Total Protein 6.8 gm/dl (6.0-8.3) 04/06/24 21:54 Albumin 3.4 gm/dl (3.4-5.0) 04/06/24 21:54 Lipase 24 U/L (11-82) 04/06/24 21:54 Urine Color Yellow 04/07/24 Unknown Urine Appearance Clear (Clear) 04/07/24 Unknown Urine pH 6.0 (4.5-7.5) 04/07/24 Unknown Ur Specific [place] 1.030 (1.000-1.030) 04/07/24 Unknown Urine Protein Trace (Negative) H 04/07/24 Unknown Urine Glucose (UA) Negative (Negative) 04/07/24 Unknown Urine Ketones Trace (Negative) H 04/07/24 Unknown Urine Blood Negative (Negative) 04/07/24 Unknown Urine Nitrite Negative (Negative) 04/07/24 Unknown Urine Bilirubin Negative (Negative) 04/07/24 Unknown Urine Urobilinogen Negative (Negative) 04/07/24 Unknown Ur Leukocyte Esterase Negative (Negative) 04/07/24 Unknown Urine WBC (Auto) 0-5 /hpf (0-5) 04/07/24 Unknown Urine RBC (Auto) 0-2 /hpf (0-2) 04/07/24 Unknown U Hyaline Cast (Auto) 0-2 /lpf (0-2) 04/07/24 Unknown U Epithel Cells (Auto) 0-2 /hpf (0-2) 04/07/24 Unknown Urine Bacteria (Auto) None Seen (None Seen) 04/07/24 Unknown Adenovirus (PCR) Not Detected (NotDetected) 04/06/24 22:46 B. pertussis DNA (PCR) Not Detected (NotDetected) 04/06/24 22:46 B.parapertussis DNA PCR Not Detected (NotDetected) 04/06/24 22:46 C. pneumoniae DNA (PCR) Not Detected (NotDetected) 04/06/24 22:46 Coronavirus OC43 (PCR) Not Detected (NotDetected) 04/06/24 22:46 Coronavirus HKU1 (PCR) Not Detected (NotDetected) 04/06/24 22:46 Coronavirus 229E (PCR) Not Detected (NotDetected) 04/06/24 22:46 SARS-CoV-2 (PCR) DETECTED (NotDetected) A 04/06/24 22:46 Coronavirus NL63 (PCR) Not Detected (NotDetected) 04/06/24 22:46 Human Metapneumovir PCR Not Detected (NotDetected) 04/06/24 22:46 Influenza Type A (PCR) Not Detected (NotDetected) 04/06/24 22:46 Influenza Type B (PCR) Not Detected (NotDetected) 04/06/24 22:46 M. pneumoniae (PCR) Not Detected (NotDetected) 04/06/24 22:46 Parainfluenza 1 (PCR) Not Detected (NotDetected) 04/06/24 22:46 Parainfluenza 2 (PCR) Not Detected (NotDetected) 04/06/24 22:46 Parainfluenza 3 (PCR) Not Detected (NotDetected) 04/06/24 22:46 Parainfluenza 4 (PCR) Not Detected (NotDetected) 04/06/24 22:46 RSV (PCR) Not Detected (NotDetected) 04/06/24 22:46 Entero/Rhino (PCR) Not Detected (NotDetected) 04/06/24 22:[address] 04/06/24 22:05 Exam(s): CT HEAD Without Contrast EXAM: CT Head Without Intravenous Contrast CLINICAL HISTORY: Reason for exam: AMS. TECHNIQUE: Axial computed tomography images of the head/brain without intravenous contrast. CTDI is 38.03 mGy and DLP is 625.8 mGy-cm. Automated exposure control was utilized for the study. A dose lowering technique was utilized adhering to the principles of ALARA. COMPARISON: No relevant prior studies available. FINDINGS: No acute intracranial hemorrhage. No midline shift or mass effect. The territorial horton-white matter differentiation is maintained throughout. Age-related cerebral volume loss. Periventricular and subcortical white matter hypoattenuation, consistent with chronic microangiopathy. The visualized orbits appear grossly unremarkable. The calvarium is intact. The visualized paranasal sinuses and mastoid air cells are grossly clear. IMPRESSION: No acute intracranial hemorrhage, midline shift, or mass effect. Electronically signed by: Lucas Reddy MD 04/07/24 00:01 AM ECG Additional Comments: ECG. Normal sinus rhythm at rate of 83. No significant change was found. Code Status & VTE Plan VTE Prophylaxis Plan VTE Prophylaxis will be ordered: Yes
--- NOTE | 2024-04-07 02:20 | CT Scan Report ---
Exam(s): CTA CHEST EXAM: CT Angiography Chest With Intravenous Contrast CLINICAL HISTORY: Reason for exam: PE. TECHNIQUE: Axial computed tomographic angiography images of the chest with intravenous contrast. CTDI is 26.5 mGy and DLP is 882.21 mGy-cm. Automated exposure control was utilized for the study. A dose lowering technique was utilized adhering to the principles of ALARA. MIP reconstructed images were created and reviewed. COMPARISON: No relevant prior studies available. FINDINGS: Pulmonary arteries: Unremarkable. No acute pulmonary embolism. Aorta: Atherosclerotic changes of the aorta. No thoracic aortic aneurysm. Lungs: Aspiration pneumonia at the RIGHT lung base. Aspirated debris occluding the RIGHT lower lobe bronchi. No mass. Pleural space: Unremarkable. No significant effusion. No pneumothorax. Heart: Unremarkable. No cardiomegaly. No significant pericardial effusion. No evidence of RV dysfunction. Bones/joints: Degenerative changes of the spine. No acute fracture. No dislocation. Soft tissues: Unremarkable. Lymph nodes: Unremarkable. No enlarged lymph nodes. IMPRESSION: 1. No acute pulmonary embolism. 2. Aspiration pneumonia at the RIGHT lung base. Aspirated debris occluding the RIGHT lower lobe bronchi. Electronically signed by: Lucas Reddy MD 04/07/24 02:18 AM
[2024-04-07] MEDS ORDERED: GLUCAGON FOR INJ 1 MG VIAL SQ PRN (04:27)
[2024-04-07] MEDS ORDERED: NITROGLYCERIN SL 0.4 MG/TAB TAB SL PRN (04:27)
[2024-04-07] MEDS ORDERED: DEXTROSE 50% 50 ML SYRINGE IV PRN (04:27)
[2024-04-07] MEDS ORDERED: CARBOHYDRATES FOR HYPOGLYCEMIA PO PRN (04:27)
[2024-04-07] MEDS ORDERED: POLYETHYLENE (MIRALAX) 17 GM PACK PO PRN (04:27)
[2024-04-07] MEDS ORDERED: GLUCOSE 10 TAB/TUBE PO PRN (04:27)
[2024-04-07] MEDS ORDERED: GLUCOSE 40% GEL 15 GM TUBE PO PRN (04:27)
[2024-04-07] MEDS: SODIUM CHLORIDE 0.9% 1,000 ML IV SCH (04:50)
[2024-04-07] MEDS: cefTRIAXone SODIUM 2,000 MG/50 ML BAG IV SCH (04:54)
[2024-04-07] MEDS: DOXYCYCLINE HYCLATE 100 MG in DEXTROSE 5% MINI-B 100 ML IV SCH (04:56)
[2024-04-07] MEDS: POTASSIUM CHLORIDE / WTR 10 MEQ/100 ML PLCT IV SCH (05:08)
--- NOTE | 2024-04-07 07:09 | XRay Report ---
XR chest 1V portable HISTORY: 83 years-old Male COVID, hypoxia acute shortness of breath COMPARISON: CTA chest of same day TECHNIQUE: AP view of the chest FINDINGS: Heart is mildly enlarged. Patchy right basilar consolidative opacities. No pneumothorax or pleural ef fusion. No overt pulmonary edema. Bones appear intact. IMPRESSION: Patchy right basilar opacities in conjunction with the mucous plugging seen on the same d ay CTA chest suggestive of aspiration pneumonia. ACT 112: Negative or not required by law. The above report was generated using voice recognition software. It may contain grammatical, syntax o r spelling errors. Electronically signed by: Gregory Machado M.D. 04/07/2024 7:07 AM
[2024-04-07 07:11] LABS: Basophils # (auto) 0.01 K/uL (0.00-0.20); Basophils % (auto) 0.1 %; Eosinophils # (auto) 0.05 K/uL (0.00-0.50); Eosinophils % (auto) 0.6 %; Hematocrit (blood only) 32.8 % (42.0-52.0); Hemoglobin 10.3 g/dl (14.0-18.0); Immature Granulocytes # (auto) 0.05 K/uL (0.01-0.20); Immature Granulocytes % (auto) 0.6 %; Lymphocytes # (auto) 0.95 K/uL (1.20-3.40); Lymphocytes % (auto) 10.9 %; Mean Corpuscular Hemoglobin 28.7 pg (25.0-34.0); Mean Corpuscular Hgb Conc 31.4 g/dL (32.0-36.0); Mean Corpuscular Volume 91.4 fL (80.0-100.0); Mean Platelet Volume 10.3 fL (9.4-12.4); Monocytes # (auto) 0.74 K/uL (0.11-0.59); Monocytes % (auto) 8.5 %; Neutrophils # (auto) 6.92 K/uL (1.40-6.50); Neutrophils % (auto) 79.3 %; Platelet Count 223 K/uL (130-400); RDW Coefficient of Variation 15.4 % (11.5-14.5); RDW Standard Deviation 51.8 fL (36.4-46.3); Red Blood Count 3.59 M/uL (4.70-6.10); White Blood Count 8.72 K/ul (4.8-10.8)
[2024-04-07 07:21] LABS: BUN Creatinine Ratio 18.3 (10-20); Calcium 8.1 mg/dl (8.6-10.3); Creatinine Clr Calc Pharmacy 88.3 ml/min; Est GFR (African American) 99.9 ml/min; Est GFR (Non-African American) 86.2 ml/min; Potassium 3.6 mmol/L (3.5-5.1)
[2024-04-07 07:32] LABS: INR 2.2 (0.9-1.1); Prothrombin Time 22.1 Seconds (9.0-12.0)
--- OUTSIDE RECORDS SUMMARY | 2024-04-07 08:24 | External Medical Summary ---
Author Name Unknown Address Unknown Organization [id number]:[facility] [address] [place] [id number] Laboratory Report Ordering Provider Test Date Status HY,DEPAMPHILIS 04/03/2024 05:40:00 Final Observation Date Value Abnormality Reference (Units ) Status WBC, Total 04/03/2024 05:40:00 3.59 Below low normal 4. 00-10.80 (K/uL) Final RBC 04/03/2024 05:40:00 3.57 4.50-5.25 (M/uL) Final Hemoglobin 04/03/2024 05:40:00 10.4 Below low normal 14 .0-16.8 (g/dL) Final HCT 04/03/2024 05:40:00 33.6 Below low normal 40. 0-48.4 (%) Final MCV 04/03/2024 05:40:00 94.1 82.0-99.5 (fL) Final MCH 04/03/2024 05:40:00 29.1 27.0-34.0 (pg) Final MCHC 04/03/2024 05:40:00 31.0 32.0-36.0 (g/dL) Final RDW 04/03/2024 05:40:00 15.6 11.5-15.5 (%) Final Platelets 04/03/2024 05:40:00 239 140-400 (K /uL) Final MPV 04/03/2024 05:40:00 10.2 6.6-11.1 ( fL) Final Performing Location [facility] [address] [place] [id number]
--- OUTSIDE RECORDS SUMMARY | 2024-04-07 08:24 | External Medical Summary ---
Author Name Unknown Address Unknown Organization [id number]:[facility] [place] [id number] Laboratory Report Ordering Provider Test Date Status KELLE MENJIVAR 04/06/2024 05:29:47 Final Warfarin Therapy
INR: 2 .0-3.0 conventional anticoagulation
INR: 2.5- 3.5 high intensity anticoagulation Observation Date Value Abnormality Reference (Units ) Status PT 04/06/2024 05:29:47 30.0 Above high normal 11 .6-15.2 (seconds) Final INR 04/06/2024 05:29:47 2.8 Above high normal 0. 8-1.2 Final Performing Location [facility] [place] [id number]
--- OUTSIDE RECORDS SUMMARY | 2024-04-07 08:24 | External Medical Summary ---
Author Name Unknown Address Unknown Organization [id number]:[facility] [place] [id number] Laboratory Report Ordering Provider Test Date Status KELLE MENJIVAR 03/29/2024 05:38:21 Final Warfarin Therapy
INR: 2 .0-3.0 conventional anticoagulation
INR: 2.5- 3.5 high intensity anticoagulation Observation Date Value Abnormality Reference (Units ) Status PT 03/29/2024 05:38:21 24.8 Above high normal 11 .6-15.2 (seconds) Final INR 03/29/2024 05:38:21 2.2 Above high normal 0. 8-1.2 Final Performing Location [facility] [place] [id number]
--- OUTSIDE RECORDS SUMMARY | 2024-04-07 08:24 | External Medical Summary ---
Author Name Unknown Address Unknown Organization [id number]:[facility] [place] [address] Laboratory Report Ordering Provider Test Date Status HY,DEPAMPHILIS 03/30/2024 05:57:25 Final Observation Date Value Abnormality Reference (Units ) Status WBC, Total 03/30/2024 05:57:25 5.18 4.00-10.8 0 (K/uL) Final RBC 03/30/2024 05:57:25 3.47 4.50-5.25 (M/uL) Final Hemoglobin 03/30/2024 05:57:25 10.2 Below low normal 14 .0-16.8 (g/dL) Final HCT 03/30/2024 05:57:25 32.7 Below low normal 40. 0-48.4 (%) Final MCV 03/30/2024 05:57:25 94.2 82.0-99.5 (fL) Final MCH 03/30/2024 05:57:25 29.4 27.0-34.0 (pg) Final MCHC 03/30/2024 05:57:25 31.2 32.0-36.0 (g/dL) Final RDW 03/30/2024 05:57:25 16.5 11.5-15.5 (%) Final Platelets 03/30/2024 05:57:25 235 140-400 (K /uL) Final MPV 03/30/2024 05:57:25 10.1 6.6-11.1 ( fL) Final Performing Location [facility] [place] [address]
--- OUTSIDE RECORDS SUMMARY | 2024-04-07 08:24 | External Medical Summary ---
Author Name Unknown Address Unknown Organization [id number]:[facility] [place] [address] Laboratory Report Ordering Provider Test Date Status HY,DEPAMPHILIS 03/30/2024 05:57:25 Final Observation Date Value Abnormality Reference (Units ) Status SYNC LEUKOCYTES IN BLOOD BY AUTOMATED COUNT 03/30/2024 05:57:25 5.18 4.00-10.80 (K/uL) Final Segs 03/30/2024 05:57:25 68.7 40.0-75.0 (%) Final Lymphs % 03/30/2024 05:57:25 13.5 Below low normal 18.0-42.0 (%) Final Monos 03/30/2024 05:57:25 16.8 Above high normal 1.0-11.0 (%) Final Eosinophils 03/30/2024 05:57:25 0.6 0.0-6.0 (%) Final Basos 03/30/2024 05:57:25 0.4 0.0-2.0 (%) Final Absolute Segs 03/30/2024 05:57:25 3.56 1.80-7.70 (K/uL) Final Lymphs, absolute 03/30/2024 05:57:25 0.70 Below low normal 1.00-4.80 (K/ul) Final Monos, Abs 03/30/2024 05:57:25 0.87 0.00-1.10 (K/uL) Final Eos, Abs 03/30/2024 05:57:25 0.03 0.00-0.70 (K/uL) Final Basos, Abs 03/30/2024 05:57:25 0.02 0.00-0.20 (K/uL) Final Performing Location [facility] [place] [address]
--- OUTSIDE RECORDS SUMMARY | 2024-04-07 08:24 | External Medical Summary ---
Author Name Unknown Address Unknown Organization [id number]:[facility] [address] [place] [id number] Laboratory Report Ordering Provider Test Date Status KELLE MENJIVAR 03/27/2024 05:43:14 Final Warfarin Therapy
INR: 2 .0-3.0 conventional anticoagulation
INR: 2.5- 3.5 high intensity anticoagulation Observation Date Value Abnormality Reference (Units ) Status PT 03/27/2024 05:43:14 25.1 Above high normal 11 .6-15.2 (seconds) Final INR 03/27/2024 05:43:14 2.3 Above high normal 0. 8-1.2 Final Performing Location [facility] [address] [place] [id number]
--- OUTSIDE RECORDS SUMMARY | 2024-04-07 08:24 | External Medical Summary | Summary of Care ---
Author Name Unknown Organization [facility] Address [address] [address] Phone [phone] Care Team Providers Care Interactive Video Technician Name Role Phone Lidya Barbour MD Primary Care Provider + Reason for Visit * Reason Onset Date Comments Hospital Follow-Up 03/29/2024 [facility] Encounter Details Date Type Department Care Team (Late st Contact Info) Description 03/29/2024 Telephone General Internal Medicine [facility] [place] [address] [place] [id number] Lidya Barbour MD [address] [place] [address] Hospital Follow-Up ([facility]) Allergies Active Allergy Reactions Criticality Noted Date Comments Dust Low 03/02/2019 Other reaction(s): ITCHY EYES,RUNNY NOSE Pollen 09/07/2018 Short Ragweed Pollen Ext Rash High 01/16/2024 documented as of this encounter (statuses as of 03/29/2024) Medications Medication Sig Dispensed Refills Start Date End Date Status vitamin b 12 (CYANOCOBALAMIN) 1000 MCG TABSIndications:Depr ession with anxiety (1) pill twice daily- per [...] Active Sildenafil Citrate 100 MG Oral Tablet (Viagra)Indications: Impotence of organic origin Take by mouth 1 Tablet as needed for Erectile Dysfunction. 10 Tablet 5 07/09/2022 Active Venlafaxine HCl ER 37.5 MG Oral Capsule Extended Release 24 Hour (Effexor XR) Take 1 Capsule by mouth daily. 02/11/2023 Active Acetylcysteine 600 MG Oral Capsule (NAC) 1 Capsule. 01/20/2023 Active Multiple Vitamin Oral Tablet 1 Tablet. Active Rosuvastatin Calcium 5 MG Oral Tablet (Crestor)Indications :Hyperlipidemia with target LDL less than 100 Take 1 Tablet by mouth in the morning. 30 Tablet 5 12/17/2023 Active Furosemide 20 MG Oral Tablet (Lasix)Indications:B ilateral leg edema Take 1 Tablet by mouth in the morning. 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 (Adult - for ages 18 years and over) Not on file 03/02/2024 Is your family able to pay t he heat, water, or electric bill? (Household - for ages 0-17 years) Not on file 03/02/2024 Does your family have access to good internet? (Household - for ages 0-17 years) Not on file 03/02/2024 Social Connections Answer Date Recorded How often do you feel lonely or isolated from those around you? (Adult - for ages 18 years and over) Not on file 03/02/2024 Sex and Gender Information Value Date Recorded Sex Assigned at Male 01/08/2019 8:48 AM EDT Gender Identity Male 01/08/2019 8:48 AM EDT Sexual Orientation Straight 01/08/2019 8: 48 AM EDT Job Start Date Occupation Industry Not on file Not on file Not on file documented as of this encounter Miscellaneous Notes * Telephone Encounter - Tiana Valencia RN - 03/29/2024 7:51 AM EDT Transitions of Care Note Reason for Referral: Recent Admission Phone visit for follow up: Inpatient Hospitalization Admitted to: [facility], Date: 03/22/2024 Discharged to: Inpatient Rehab, Date: 03/26/2024 [facility] call not indicated due to patient transferred to [facility] for inpatient rehab. documented in this encounter Plan of Treatment Upcoming Encounters Date Type Department Care Team (Late st Contact Info) Description 05/10/2024 9:30 AM EDT Cardiac Studies Cardiac Studies, [facility] [address] [facility] [place] [address] 06/02/2024 10:00 AM EDT Office Visit General Internal Medicine [facility] [address] [facility] [place] [address] Lidya Barbour MD [address] [facility] [place] [address] Health Maintenance Due Date Last Done Comments Diabetic Foot Exam 1958 COVID-19 Vaccine ( season) 2023 08/03/2023, 06/29/2022, 06/28/2022, Additional history exists Influenza Vaccine (FLU shot) (#1) 2024 08/03/2023, 06/29/2022, 06/29/2022, Additional history exists HbA1c 05/27/2024 11/25/2023, 06/16, 01/07/2023, Additional history exists Albumin/Creatinine Ratio 07/04/2024 023, 07/09/2022, 08/29/2020 Depression Screening 07/09/2024 07/09/2023 Diabetic Eye Exam 12/08/2024 12/09/2023 GFR 03/27/2025 03/27/2024, 09/16, 07/04/2023, Additional history exists DTaP,Tdap,and Td Vaccines (3 - Td or Tdap) 01/07/2033 01/07/2023, 05/29/2012 Pneumococcal Vaccine: 65+ Years Completed 07/17/2016, 05/17/2012, 02/01/2010 Zoster Vaccines Completed 03/13/2022, 12/19/2021 HPV (Gardasil) Vaccine Aged Out No lo nger eligible based on patient's age to complete this topic Hepatitis B Vaccine Aged Out No longe r eligible based on patient's age to complete this topic MENINGOCOCCAL (MENACTRA/MENVEO) Aged Out No longer eligible based on patient's age to complete this topic documented as of this encounter Medical Devices Not on filedocumented as of this encounter Advance Directives * Full Code (Latest Code Status on File) Date Activated Date Inactivated Comments 09/05/2015 11:19 AM 09/05/2015 4:46 PM This orde r reflects the patients wishes and were consensually agreed upon. Care Teams Interactive Video Technician Relationship Specialty Start Date End Date Lidya Barbour MD [address] [place] [address] PCP - General Internal Medicine 09/25/16 documented as of this encounter
--- OUTSIDE RECORDS SUMMARY | 2024-04-07 08:24 | External Medical Summary ---
Author Name Unknown Address Unknown Organization K09:[facility] [place] [id number] Laboratory Report Ordering Provider Test Date Status KELLE MENJIVAR 03/31/2024 06:15:11 Final Warfarin Therapy
INR: 2 .0-3.0 conventional anticoagulation
INR: 2.5- 3.5 high intensity anticoagulation Observation Date Value Abnormality Reference (Units ) Status PT 03/31/2024 06:15:11 22.7 Above high normal 11 .6-15.2 (seconds) Final INR 03/31/2024 06:15:11 2.0 Above high normal 0. 8-1.2 Final Performing Location [facility] [place] [id number]
--- OUTSIDE RECORDS SUMMARY | 2024-04-07 08:24 | External Medical Summary ---
Author Name Unknown Address Unknown Organization K0G[facility] [address] [place] [id number] Laboratory Report Ordering Provider Test Date Status KELLE MENJIVAR 03/28/2024 06:02:27 Final Warfarin Therapy
INR: 2 .0-3.0 conventional anticoagulation
INR: 2.5- 3.5 high intensity anticoagulation Observation Date Value Abnormality Reference (Units ) Status PT 03/28/2024 06:02:27 22.6 Above high normal 11 .6-15.2 (seconds) Final INR 03/28/2024 06:02:27 2.0 Above high normal 0. 8-1.2 Final Performing Location [facility] [address] [place] [id number]
--- OUTSIDE RECORDS SUMMARY | 2024-04-07 08:24 | External Medical Summary ---
Author Name Unknown Address Unknown [facility] [address] [place] [id number] Laboratory Report Ordering Provider Test Date Status HY,DEPAMPHILIS 04/03/2024 05:40:00 Final Observation Date Value Abnormality Reference (Units ) Status BUN 04/03/2024 05:40:00 20 6-20 (mg/dL) Final Creatinine 04/03/2024 05:40:00 0.9 0.6-1.2 (mg/dL) Final Glomerular filtration rate/1.73 sq M.predicted [Volume Rate/Area] in Serum, Plasma or Blood by Creatinine-based formula (CKD-EPI) 04/03/2024 05:40:00 85 >=60 (mL/min) Final eGFR is calculated based on the CKD-EPI 2020 equation. Sodium 04/03/2024 05:40:00 139 135-146 (m mol/L) Final Potassium 04/03/2024 05:40:00 3.7 3.5-5.1 (m mol/L) Final Cl 04/03/2024 05:40:00 101 98-107 (mm ol/L) Final CO2 04/03/2024 05:40:00 27 22-32 (mmo l/L) Final Anion gap 04/03/2024 05:40:00 11 7-15 (mmol /L) Final Glucose 04/03/2024 05:40:00 103 70-120 (mg /dL) Final Calcium 04/03/2024 05:40:00 8.5 8.4-10.2 ( mg/dL) Final Performing Location [facility] [address] [place] [id number]
--- OUTSIDE RECORDS SUMMARY | 2024-04-07 08:24 | External Medical Summary ---
Author Name Unknown Address Unknown Organization K09:[facility] [place] [id number] Laboratory Report Ordering Provider Test Date Status HY,DEPAMPHILIS 03/30/2024 05:57:25 Final Observation Date Value Abnormality Reference (Units ) Status BUN 03/30/2024 05:57:25 22 Above high normal 6-20 (mg/dL) Final Creatinine 03/30/2024 05:57:25 0.9 0.6-1.2 (mg/dL) Final Glomerular filtration rate/1.73 sq M.predicted [Volume Rate/Area] in Serum, Plasma or Blood by Creatinine-based formula (CKD-EPI) 03/30/2024 05:57:25 85 >=60 (mL/min) Final eGFR is calculated based on the CKD-EPI 2020 equation Sodium 03/30/2024 05:57:25 137 135-146 (m mol/L) Final Potassium 03/30/2024 05:57:25 3.9 3.5-5.1 (m mol/L) Final Cl 03/30/2024 05:57:25 100 98-107 (mm ol/L) Final CO2 03/30/2024 05:57:25 26 22-32 (mmo l/L) Final Anion gap 03/30/2024 05:57:25 11 7-15 (mmol /L) Final Glucose 03/30/2024 05:57:25 121 Above high normal 70 -120 (mg/dL) Final Calcium 03/30/2024 05:57:25 8.3 Below low normal 8.4 -10.2 (mg/dL) Final Performing Location [facility] [place] [address]
--- OUTSIDE RECORDS SUMMARY | 2024-04-07 08:25 | External Medical Summary ---
Author Name Unknown Address Unknown Organization K0G:[facility] [address] [place] [id number] Laboratory Report Ordering Provider Test Date Status HY,DEPAMPHILIS 03/27/2024 05:43:14 Final Observation Date Value Abnormality Reference (Units ) Status BUN 03/27/2024 05:43:14 18 6-20 (mg/dL) Final Creatinine 03/27/2024 05:43:14 0.9 0.6-1.2 (mg/dL) Final Glomerular filtration rate/1.73 sq M.predicted [Volume Rate/Area] in Serum, Plasma or Blood by Creatinine-based formula (CKD-EPI) 03/27/2024 05:43:14 85 >=60 (mL/min) Final eGFR is calculated based on the CKD-EPI 2020 equation Sodium 03/27/2024 05:43:14 140 135-146 (m mol/L) Final Potassium 03/27/2024 05:43:14 4.1 3.5-5.1 (m mol/L) Final Cl 03/27/2024 05:43:14 102 98-107 (mm ol/L) Final CO2 03/27/2024 05:43:14 29 22-32 (mmo l/L) Final Anion gap 03/27/2024 05:43:14 9 7-15 (mmol /L) Final Glucose 03/27/2024 05:43:14 122 Above high normal 70 -120 (mg/dL) Final Calcium 03/27/2024 05:43:14 9.1 8.4-10.2 ( mg/dL) Final Performing Location [facility] [address] [place] [id number]
--- OUTSIDE RECORDS SUMMARY | 2024-04-07 08:25 | External Medical Summary ---
Author Name Unknown Address Unknown Organization K0G:[facility] [address] [place] [id number] Laboratory Report Ordering Provider Test Date Status HY,DEPAMPHILIS 03/27/2024 05:43:14 Final Observation Date Value Abnormality Reference (Units ) Status WBC, Total 03/27/2024 05:43:14 7.40 4.00-10.8 0 (K/uL) Final RBC 03/27/2024 05:43:14 3.82 4.50-5.25 (M/uL) Final Hemoglobin 03/27/2024 05:43:14 11.2 Below low normal 14 .0-16.8 (g/dL) Final HCT 03/27/2024 05:43:14 36.1 Below low normal 40. 0-48.4 (%) Final MCV 03/27/2024 05:43:14 94.5 82.0-99.5 (fL) Final MCH 03/27/2024 05:43:14 29.3 27.0-34.0 (pg) Final MCHC 03/27/2024 05:43:14 31.0 32.0-36.0 (g/dL) Final RDW 03/27/2024 05:43:14 16.0 11.5-15.5 (%) Final Platelets 03/27/2024 05:43:14 235 140-400 (K /uL) Final MPV 03/27/2024 05:43:14 10.4 6.6-11.1 ( fL) Final Performing Location [facility] [address] [place] [id number]
[2024-04-07] MEDS: MULTIVITAMIN TAB PO SCH (08:39)
[2024-04-07] MEDS: dexAMETHasone 6 MG in SYRINGE 0 ML IV SCH (08:39)
[2024-04-07] MEDS: VENLAFAXINE HCL XR 37.5 MG CAPXR PO SCH (08:39)
[2024-04-07] MEDS: ROSUVASTATIN CALCIUM 5 MG TAB PO SCH (08:39)
[2024-04-07] MEDS: DONEPEZIL HCL 10 MG TAB PO SCH (08:39)
[2024-04-07] MEDS: FUROSEMIDE 20 MG TAB PO SCH (08:39)
[2024-04-07] MEDS: VENLAFAXINE HCL XR 150 MG CAPXR PO SCH (08:39)
[2024-04-07] MEDS: CYANOCOBALAMIN (B-12) 500 MCG TABLET PO SCH (08:39)
[2024-04-07] MEDS ORDERED: DEXAMETHASONE SOD INJ 4 MG/ML VIAL IV SCH (09:00)
[2024-04-07] MEDS: INSULIN ASPART PER UNIT CHARGE SC SCH (09:48)
--- NOTE | 2024-04-07 11:58 | Hospitalist Progress Note ---
Date of Service April 07, 2024 Assessment & Plan (1) AMS (altered mental status): Plan Pt is an 83-year-old male with past medical history significant for type 2 diabetes, intermittent asthma, multiple pulm nodules, chronic DVT, prostate cancer metastatic to bone, lumbar spinal stenosis, mild cognitive impairment, anxiety who was brought in by his because of confusion and weakness at home, noted fevers in the ED. Patient was recently admitted to hospital with a fall with nondisplaced fracture of right patella and left supracondylar humerus fracture. Left humerus fracture splinted in flexion and in sling for comfort. Right patella fracture is in the knee immobilizer. [facility]. Was discharged home today in the AM on the day of admission. Patient was diagnosed with COVID a week ago at [facility]. Per when he was diagnosed with COVID he was very delirious . As per patient did okay in PT and was discharged home on 04/06/24. But at home patient seemed extremely weak. He was having trouble getting up. But he was eating okay. Mild cough. No nausea. Had diarrhea in the morning. Was having lot of pain at the injury sites. Later helped him to go to bathroom. In the bathroom he held faucet of the sink and seemed to blackout. He was mumbling something. And was very shaky. And the asked if he wants to go to the hospital and seemed to nod his head. She called EMS and was brought in here. In the ER he had a fever. Oxygen was 87% room air and saturating well on 2 L. BioFire COVID came back positive. Aspiration Pneumonia COVID infection Acute hypoxic respiratory failure Pt with noted fever on admission Biofire positive for COVID Per he was diagnosed with COVID more than a week ago Chest XRAY and CT chest noting concern for aspiration pneumonia CTA chest notes no PE VBG unremarkable UA unremarkable Blood Cx x2 sets NGTD Was started on empiric antibiotics Rocephin and Doxy but switched to IV Zosyn for anaerobic coverage On Decadron for covid IV fluids Isolation precautions Oxygen supplementation as needed, wean as tolerated Speech consult, appreciate recs -pt previously seen in Aug 2023 and minced and moist diet recommended at that time Continue to monitor Acute metabolic Encephalopathy Head CT unremarkable Likely in setting of above Currently at baseline Delirium precautions. Frequent reorientation, avoid sedating medications Continue to monitor Chronic Anemia hgb at baseline of 10 AM anemia panel Type 2 diabetes Hgba1c of 7.2 in Dec, repeat pending with AM labs Not on meds Diet control Sliding scale insulin while hospitalized Chronic DVT On warfarin Follow PT/INR Prostate cancer metastatic to bone On Lupron shots On chronic narcotic pain medications for pain control, resumed Follows with palliative care Continue to monitor mental status in setting of narcotic use left supracondylar humerus fracture Continue sling Nondisplaced fracture right patella. Continue Knee immobilizer Just got discharged from rehab PT OT when stable Lower extremity edema Lasix Mild dementia On Donepezil Monitor for delirium Anxiety/depression Continue venlafaxine Hyperlipidemia On statin Diet: Clears at this time DVT prophylaxis: On Coumadin. Follow PT/INR Disposition: PT/OT ordered for recs once more Admission and Anticipated Discharge Date Admission Date: April 07, 2024 Subjective pt was seen with at bedside. States that [facility] originally recommended an additional week of therapy and it was even approved by their insurance. However per , pt really wanted to go home and so they relented with the agreement that he go home with a wheelchair and "that he listened to his " states they got home and he was very weak so brought him back Pt states that he is in pain in his right arm Review of Systems Review of Systems: All systems reviewed & are unremarkable except as noted in Subjective Physical Exam Physical Exam: General: Alert, orientedx3. No acute distress Psych: Appropriate mood and affect Neuro: difficulty with movements in the bed HEENT: NC/AT CV: RRR Resp: Breath sounds clear bilaterally, no increased effort of breathing Abdomen: Soft Extremities:edema in lower extremities bilaterally. Results & Data Results & Data Vital Signs (Past 12 Hours) Vital Signs Temp Pulse Pulse Pulse Resp BP BP 04/07/24 11:48 37.0 C 70 16 146/78 H 04/07/24 08:40 04/07/24 07:34 36.8 C 66 18 149/69 H 04/07/24 07:16 65 04/07/24 04:27 04/07/24 04:27 36.7 C 68 16 147/77 H 04/07/24 04:27 36.7 C 68 16 147/77 H 04/07/24 04:25 65 04/07/24 03:00 120/67 04/07/24 02:48 74 15 04/07/24 02:45 162/105 H 04/07/24 02:30 116/62 04/07/24 02:30 116/62 04/07/24 02:30 116/62 04/07/24 02:30 72 17 04/07/24 02:15 167/93 H 04/07/24 02:15 167/93 H 04/07/24 02:15 167/93 H 04/07/24 02:12 72 04/07/24 02:09 75 16 04/07/24 02:03 79 19 125/74 04/07/24 01:30 120/64 04/07/24 01:30 120/64 04/07/24 01:27 70 19 04/07/24 01:15 79 19 04/07/24 01:15 141/77 H 04/07/24 01:06 69 14 04/07/24 01:00 128/64 04/07/24 00:54 69 17 04/07/24 00:45 71 15 04/07/24 00:45 114/67 04/07/24 00:42 77 15 04/07/24 00:30 121/70 04/07/24 00:24 71 14 04/07/24 00:15 119/61 04/07/24 00:12 73 16 Pulse Ox O2 Del Method O2 Flow Rate 04/07/24 11:48 94 Nasal Cannula 2 04/07/24 08:40 Nasal Cannula 2 04/07/24 07:34 96 Room Air 04/07/24 07:16 04/07/24 04:27 Nasal Cannula 2 04/07/24 04:27 97 Nasal Cannula 2 04/07/24 04:27 97 Room Air 04/07/24 04:25 04/07/24 03:00 04/07/24 02:48 99 04/07/24 02:45 04/07/24 02:30 04/07/24 02:30 04/07/24 02:30 04/07/24 02:30 04/07/24 02:15 04/07/24 02:15 04/07/24 02:15 04/07/24 02:12 04/07/24 02:09 04/07/24 02:03 92 Nasal Cannula 2 04/07/24 01:30 04/07/24 01:30 04/07/24 01:27 04/07/24 01:15 04/07/24 01:15 04/07/24 01:06 04/07/24 01:00 04/07/24 00:54 04/07/24 00:45 04/07/24 00:45 04/07/24 00:42 04/07/24 00:30 04/07/24 00:24 04/07/24 00:15 94 Nasal Cannula 2 04/07/24 00:[address] 04/06/24 22:05 Exam(s): CT HEAD Without Contrast EXAM: CT Head Without Intravenous Contrast CLINICAL HISTORY: Reason for exam: AMS. TECHNIQUE: Axial computed tomography images of the head/brain without intravenous contrast. CTDI is 38.03 mGy and DLP is 625.8 mGy-cm. Automated exposure control was utilized for the study. A dose lowering technique was utilized adhering to the principles of ALARA. COMPARISON: No relevant prior studies available. FINDINGS: No acute intracranial hemorrhage. No midline shift or mass effect. The territorial horton-white matter differentiation is maintained throughout. Age-related cerebral volume loss. Periventricular and subcortical white matter hypoattenuation, consistent with chronic microangiopathy. The visualized orbits appear grossly unremarkable. The calvarium is intact. The visualized paranasal sinuses and mastoid air cells are grossly clear. IMPRESSION: No acute intracranial hemorrhage, midline shift, or mass effect. Electronically signed by: Lucas Reddy MD 04/07/24 00:01 AM Chest X-Ray 04/06/24 23:01 XR chest 1V portable HISTORY: 83 years-old Male COVID, hypoxia acute shortness of breath COMPARISON: CTA chest of same day TECHNIQUE: AP view of the chest FINDINGS: Heart is mildly enlarged. Patchy right basilar consolidative opacities. No pneumothorax or pleural effusion. No overt pulmonary edema. Bones appear intact. IMPRESSION: Patchy right basilar opacities in conjunction with the mucous plugging seen on the same day CTA chest suggestive of aspiration pneumonia. ACT 112: Negative or not required by law. The above report was generated using voice recognition software. It may contain grammatical, syntax or spelling errors. Electronically signed by: Gregory Machado M.D. 04/07/2024 7:07 AM Chest CTA 04/07/24 01:11 Exam(s): CTA CHEST EXAM: CT Angiography Chest With Intravenous Contrast CLINICAL HISTORY: Reason for exam: PE. TECHNIQUE: Axial computed tomographic angiography images of the chest with intravenous contrast. CTDI is 26.5 mGy and DLP is 882.21 mGy-cm. Automated exposure control was utilized for the study. A dose lowering technique was utilized adhering to the principles of ALARA. MIP reconstructed images were created and reviewed. COMPARISON: No relevant prior studies available. FINDINGS: Pulmonary arteries: Unremarkable. No acute pulmonary embolism. Aorta: Atherosclerotic changes of the aorta. No thoracic aortic aneurysm. Lungs: Aspiration pneumonia at the RIGHT lung base. Aspirated debris occluding the RIGHT lower lobe bronchi. No mass. Pleural space: Unremarkable. No significant effusion. No pneumothorax. Heart: Unremarkable. No cardiomegaly. No significant pericardial effusion. No evidence of RV dysfunction. Bones/joints: Degenerative changes of the spine. No acute fracture. No dislocation. Soft tissues: Unremarkable. Lymph nodes: Unremarkable. No enlarged lymph nodes. IMPRESSION: 1. No acute pulmonary embolism. 2. Aspiration pneumonia at the RIGHT lung base. Aspirated debris occluding the RIGHT lower lobe bronchi. Electronically signed by: Lucas Reddy MD 04/07/24 02:18 AM
[2024-04-07] MEDS: PIPER/TAZO 4.5g in D5W MINI-B 100 ML IV ONE (16:58)
[2024-04-07] MEDS: WARFARIN SOD 5 MG TAB PO SCH (17:03)
[2024-04-07] MEDS: fentaNYL 12 MCG/HR TDSY TD SCH (17:03)
[2024-04-07] MEDS: fentaNYL 50 MCG/HR TDSY TD SCH (17:03)
[2024-04-07 17:28] LABS: Appearance Urine Clear (Clear); Bilirubin Urine Negative (Negative); Blood Urine Negative (Negative); Color Urine Yellow; Glucose Urine UA Negative (Negative); Ketones Urine Negative (Negative); Leukocyte Esterase Urine Negative (Negative); Nitrite Urine Negative (Negative); Protein Urine Negative (Negative); Specific Gravity Urine 1.013 (1.000-1.030); Urobilinogen Urine Negative (Negative)
--- NOTE | 2024-04-07 19:47 | Electrocardiogram Report ---
Test Reason : Blood Pressure : / mmHG Vent. Rate : 083 BPM Atrial Rate : 083 BPM P-R Int : 172 ms QRS Dur : 084 ms QT Int : 350 ms P-R-T Axes : 071 008 091 degrees QTc Int : 411 ms Normal sinus rhythm Inferior infarct , age undetermined Abnormal ECG When compared with ECG of 22-MAR-2024 08:09, No significant change was found Confirmed by Prashant Hagan ([id number]) on 04/07/2024 7:47:09 PM Referred By: REFERRED SELF Confirmed By:Prashant Hagan
[2024-04-07] MEDS: PIPERACILLIN/TAZOBACTAM 4.5 GM in DEXTROSE 5% MINI-B 100 ML IV SCH (20:57)
[2024-04-08] MEDS: CHECK fentaNYL PATCH PLACEMENT SCH ×2
[2024-04-08] MEDS: ACETAMINOPHEN 1,000 MG/100 ML VIAL IV PRN (04:35)
[2024-04-08 07:22] LABS: Hematocrit (blood only) 29.7 % (42.0-52.0); Hemoglobin 9.6 g/dl (14.0-18.0); Mean Corpuscular Hemoglobin 28.6 pg (25.0-34.0); Mean Corpuscular Hgb Conc 32.3 g/dL (32.0-36.0); Mean Corpuscular Volume 88.4 fL (80.0-100.0); Platelet Count 225 K/uL (130-400); RDW Coefficient of Variation 15.2 % (11.5-14.5); RDW Standard Deviation 48.8 fL (36.4-46.3); Red Blood Count 3.36 M/uL (4.70-6.10); White Blood Count 8.35 K/ul (4.8-10.8)
[2024-04-08 07:44] LABS: BUN Creatinine Ratio 16.9 (10-20); Calcium 8.2 mg/dl (8.6-10.3); Creatinine Clr Calc Pharmacy 86.5 ml/min; Est GFR (African American) 99.9 ml/min; Est GFR (Non-African American) 86.2 ml/min; Potassium 3.4 mmol/L (3.5-5.1)
[2024-04-08 07:49] LABS: Prothrombin Time 20.5 Seconds (9.0-12.0)
[2024-04-08 08:04] LABS: Ferritin 103.7 ng/ml (8-388)
[2024-04-08 08:15] LABS: Folate (Folic Acid),Ser orPlas > 22.30 ng/ml (>5.38)
[2024-04-08 08:16] LABS: Vitamin B12 1320 pg/ml (180-914)
[2024-04-08 08:23] LABS: Estimated Average Glucose 148 mg/dl; Hemoglobin A1C 6.8 % (4.5-5.6)
[2024-04-08] MEDS: oxyCODONE HCL IR 5 MG TAB (IMMEDIATE RELEASE) PO PRN (08:49)
[2024-04-08] MEDS: IRON SUCROSE 200 MG in 0.9 % SODIUM CHLORIDE 100 ML IV ONE (10:24)
[2024-04-08] MEDS: POTASSIUM CHLORIDE CRTAB 20 MEQ TABCR PO STA (10:55)
--- NOTE | 2024-04-08 14:09 | Hospitalist Progress Note ---
Date of Service April 08, 2024 Assessment & Plan (1) AMS (altered mental status): Plan Pt is an 83-year-old male with past medical history significant for type 2 diabetes, intermittent asthma, multiple pulm nodules, chronic DVT, prostate cancer metastatic to bone, lumbar spinal stenosis, mild cognitive impairment, anxiety who was brought in by his because of confusion and weakness at home, noted fevers in the ED. Patient was recently admitted to hospital with a fall with nondisplaced fracture of right patella and left supracondylar humerus fracture. Left humerus fracture splinted in flexion and in sling for comfort. Right patella fracture is in the knee immobilizer. [facility] Was discharged home today in the AM on the day of admission. Patient was diagnosed with COVID a week ago at [facility]. Per when he was diagnosed with COVID he was very delirious . As per patient did okay in PT and was discharged home on 04/06/24. But at home patient seemed extremely weak. He was having trouble getting up. But he was eating okay. Mild cough. No nausea. Had diarrhea in the morning. Was having lot of pain at the injury sites. Later helped him to go to bathroom. In the bathroom he held faucet of the sink and seemed to blackout. He was mumbling something. And was very shaky. And the asked if he wants to go to the hospital and seemed to nod his head. She called EMS and was brought in here. In the ER he had a fever. Oxygen was 87% room air and saturating well on 2 L. BioFire COVID came back positive. Aspiration Pneumonia COVID infection Acute hypoxic respiratory failure Pt with noted fever on admission Biofire positive for COVID Per he was diagnosed with COVID more than a week ago Chest XRAY and CT chest noting concern for aspiration pneumonia CTA chest notes no PE VBG unremarkable UA unremarkable Blood Cx x2 sets NGTD Was started on empiric antibiotics Rocephin and Doxy but switched to IV Zosyn for anaerobic coverage On Decadron for covid IV fluids Isolation precautions Oxygen supplementation as needed, wean as tolerated Speech consult, appreciate recs -pt previously seen in Aug 2023 and minced and moist diet recommended at that time, noted silent aspiration on video swallow -recommending no straws, oral care, consider permissive aspiration Continue to monitor Acute metabolic Encephalopathy Head CT unremarkable Likely in setting of above Currently at baseline Delirium precautions. Frequent reorientation, avoid sedating medications Continue to monitor Currently at baseline Chronic Anemia hgb at 9- 10 range AM anemia panel noted iron deficiency anemia s/p IV venofer 200mg 1 bag on 04/08 Continue to monitor PCP follow up Hypokalemia replete as needed Type 2 diabetes Hgba1c of 7.2 in Dec repeat hgba1c of 6.8 Not on meds Diet control Sliding scale insulin while hospitalized Chronic DVT On warfarin Follow PT/INR Prostate cancer metastatic to bone On Lupron shots On chronic narcotic pain medications for pain control, resumed Follows with palliative care Continue to monitor mental status in setting of narcotic use left supracondylar humerus fracture Continue sling Nondisplaced fracture right patella. Continue Knee immobilizer Just got discharged from rehab PT OT when stable Lower extremity edema Lasix Mild dementia On Donepezil Monitor for delirium Anxiety/depression Continue venlafaxine Hyperlipidemia On statin Diet: Clears at this time DVT prophylaxis: On Coumadin. Follow PT/INR Disposition: PT/OT ordered for recs once more Admission and Anticipated Discharge Date Admission Date: April 07, 2024 Subjective pt was seen sitting in chair at bedside. States pain controlled, asking about going home. called and gave an update on 04/08 at about 3:50PM She states pt is adamant that he wants to go home...working with [facility] to get set up for home despite PT's recommendation for acute rehab Review of Systems Review of Systems: All systems reviewed & are unremarkable except as noted in Subjective Physical Exam Physical Exam: General: Alert, oriented. No acute distress Psych: Appropriate mood and affect Neuro: difficulty with movements, left arm in sling, right knee in splint HEENT: NC/AT CV: RRR Resp: Breath sounds clear bilaterally, no increased effort of breathing Abdomen: Soft Extremities:edema in lower extremity Results & Data Results & Data Vital Signs (Past 12 Hours) Vital Signs Temp Pulse Pulse Resp BP Pulse Ox O2 Del Method 04/08/24 11:39 36.7 C 63 16 135/89 93 Room Air 04/08/24 10:49 Room Air 04/08/24 07:55 36.6 C 67 16 167/83 H 97 Room Air 04/08/24 07:25 65 04/08/24 04:20 36.4 C L 65 18 146/72 H 93 Room Air
[2024-04-08 19:24] VITALS: RESP 18
[2024-04-08] MEDS: MELATONIN 3 MG TAB PO PRN (20:59)
[2024-04-09 07:16] LABS: Hematocrit (blood only) 30.9 % (42.0-52.0); Mean Corpuscular Hemoglobin 28.6 pg (25.0-34.0); Mean Corpuscular Hgb Conc 32.4 g/dL (32.0-36.0); Mean Corpuscular Volume 88.3 fL (80.0-100.0); Mean Platelet Volume 10.3 fL (9.4-12.4); Platelet Count 252 K/uL (130-400); RDW Standard Deviation 48.7 fL (36.4-46.3)
[2024-04-09 07:39] LABS: INR 2.6 (0.9-1.1); Prothrombin Time 26.3 Seconds (9.0-12.0)
[2024-04-09 07:40] LABS: Est GFR (African American) 99.9 ml/min; Est GFR (Non-African American) 86.2 ml/min; Potassium 3.4 mmol/L (3.5-5.1)
[2024-04-09 07:41] LABS: BUN Creatinine Ratio 18.3 (10-20); Calcium 8.6 mg/dl (8.6-10.3); Creatinine Clr Calc Pharmacy 85.9 ml/min; Phosphorus 2.9 mg/dl (2.5-4.9)
[2024-04-09 08:48] VITALS: O2SAT 94
[2024-04-09] MEDS: POTASSIUM CHLORIDE CRTAB 20 MEQ TABCR PO STA (09:14)
[2024-04-09 12:55] VITALS: BP 162/91; TEMP 98
--- NOTE | 2024-04-09 13:23 | Discharge Summary ---
Discharge Summary Date of Service April 09, 2024 Principal Dx & Hospital Course #1 = Principal Diagnosis (1) AMS (altered mental status): Plan Pt is an 83-year-old male with past medical history significant for type 2 diabetes, intermittent asthma, multiple pulm nodules, chronic DVT, prostate cancer metastatic to bone, lumbar spinal stenosis, mild cognitive impairment, anxiety who was brought in by his because of confusion and weakness at home, noted fevers in the ED. Patient was recently admitted to hospital with a fall with nondisplaced fracture of right patella and left supracondylar humerus fracture. Left humerus fracture splinted in flexion and in sling for comfort. Right patella fracture is in the knee immobilizer. Patient was discharged to [facility]hab on 03/26/24. Was discharged home today in the AM on the day of admission. Patient was diagnosed with COVID a week ago at [facility]. Per when he was diagnosed with COVID he was very delirious . As per patient did okay in PT and was discharged home on 04/06/24. But at home patient seemed extremely weak. He was having trouble getting up. But he was eating okay. Mild cough. No nausea. Had diarrhea in the morning. Was having lot of pain at the injury sites. Later helped him to go to bathroom. In the bathroom he held faucet of the sink and seemed to blackout. He was mumbling something. And was very shaky. And the asked if he wants to go to the hospital and seemed to nod his head. She called EMS and was brought in to [facility]. In the ER he had a fever. Oxygen was 87% room air and saturating well on 2 L. BioFire came back positive for covid. Pt was treated for aspiration pneumonia and covid and was hemodynamically stable on discharge. Pt was evaluated by PT/OT and they recommended acute rehab placement once more. However, pt adamant that he wants to go home and his is in agreement, noting it is better for his mental health. Pt was discharged home with home health services with eventual goal to transition to hospice care. Aspiration Pneumonia COVID infection Acute hypoxic respiratory failure Pt with noted fever on admission Biofire positive for COVID Per he was diagnosed with COVID more than a week ago Chest XRAY and CT chest noting concern for aspiration pneumonia CTA chest notes no PE VBG unremarkable UA unremarkable Blood Cx x2 sets NGTD Was started on empiric antibiotics Rocephin and Doxy but switched to IV Zosyn for anaerobic coverage On Decadron for covid IV fluids Isolation precautions Oxygen supplementation as needed, wean as tolerated Speech consult, appreciate recs -pt previously seen in Aug 2023 and minced and moist diet recommended at that time, noted silent aspiration on video swallow -recommending no straws, oral care, consider permissive aspiration Discharged home with 8 days of oral Augmentin 875mg BID Pt stable and on RA on discharge PCP followup Acute metabolic Encephalopathy Head CT unremarkable Likely in setting of above Currently at baseline Delirium precautions. Frequent reorientation, avoid sedating medications Currently at baseline PCP followup Chronic Anemia hgb at 9- 10 range AM anemia panel noted iron deficiency anemia s/p IV venofer 200mg 1 bag on 04/08 PCP follow up for continued monitoring Hypokalemia repleted as needed Type 2 diabetes Hgba1c of 7.2 in Aug repeat hgba1c of 6.8 Not on meds Diet control Sliding scale insulin while hospitalized PCP followup Chronic DVT On warfarin Follow PT/INR INR 2.6 on discharge PCP/Coumadin clinic followup Prostate cancer metastatic to bone On Lupron shots On chronic narcotic pain medications for pain control, resumed Follows with palliative care Continue to monitor mental status in setting of narcotic use PCP and specialist followup after discharge left supracondylar humerus fracture Continue sling Nondisplaced fracture right patella. Continue Knee immobilizer Just got discharged from rehab PT OT when stable Lower extremity edema Continue Lasix Mild dementia On Donepezil Monitor for delirium Anxiety/depression Continue venlafaxine Hyperlipidemia On statin Notes For Next Care Provider Please ensure follow up with PT after discharge Inpatient PT recommended acute rehab however, pt adamant that he wants to go home and his is in agreement, noting it is better for his mental health. Pt was discharged home with home health services with eventual goal to transition to hospice care. Continue to monitor INR, INR 2.6 on d/c Medication Changes From Visit Augmentin 875mg BID x 8 more days Admission HPI Per Admitting Provider 83-year-old male with past medical history significant for type 2 diabetes, int ermittent asthma, multiple pulm nodules, chronic DVT, prostate cancer metastatic to bone, lumbar spinal stenosis, mild cognitive impairment, anxiety was brought in by because of the confusion and in the ER was spiking temperatures. Patient was recently admitted to hospital with a fall with nondisplaced fracture of right patella and left supracondylar humerus fracture. Left humerus fracture splinted in flexion and on sling for comfort. Right patella fracture is in the knee immobilizer. Patient was discharged to [facility]hab on 03/26/24. Was discharged home today morning. Patient was diagnosed with COVID last Friday more than a week ago. Per when he was diagnosed with COVID he was very delirious . As per patient did okay in PT and discharged home today morning 04/06/24. But at home patient seemed extremely weak. He was having trouble getting up. But he was eating okay. Mild cough. No nausea. Had diarrhea in the morning. Was having lot of pain at the injury sites. Later helped him to go to bathroom. In the bathroom he held faucet of the sink and seemed to blackout. He was mumbling something. And was very shaky. And the asked if he wants to go to the hospital and seemed to nod his head. She called EMS and was brought in here. In the ER he was spiking temperature. Oxygen was 87% room air and on 2 L he saturating okay. BioFire COVID came back positive. Currently patient is very drowsy. On calling opens eyes. Can tell his name. Can lift his extremities on command except the left upper extremity which is in sling. But could not answer any other questions, goes back to sleep.. Past medical history. As mentioned above Past surgical history. Bone biopsy. Left Malar area skin flap. Laparoscopic bilateral repair of recurrent hernia. Repair of inguinal hernia. Social history. . Former use of smokeless tobacco. Alcohol occasional. No drug use. Family history. Father had [place]. Admission Exam Per Admitting Provider General- Drowsy Head- atraumatic Eyes- PERRL. ENT- oropharynx dry Neck- supple, no JVD. Lungs- clear to auscultation no wheezing or crackles Heart- regular rhythm; no murmur, no gallop. Abdomen- normal bowel sounds, soft, nontender, no distension. Extremities- no pretibial edema, left upper extremity in sling. Right knee immobilizer seen Neuro- Drowsy. can tell name on waking up.; PERRL, no facial palsy; no dysarthria; can lift extremities on command except left upper ext which is in sling from recent injury. Discharge Exam General: Alert, oriented. No acute distress Psych: Appropriate mood and affect Neuro: difficulty with movements, left arm in sling, right knee in splint HEENT: NC/AT CV: RRR Resp: Breath sounds clear bilaterally, no increased effort of breathing Abdomen: Soft Extremities:edema in lower extremity Updated Medication List Medication Instructions Recorded Confirmed Type acitretin 25 mg capsule 25 mg PO Q2D 04/07/24 04/07/24 History calcium carbonate 500 mg-vitamin 1 tab PO DAILY 04/07/24 04/07/24 History D3 3.125 mcg (125 unit) tablet cyanocobalamin (vitamin B-12) 1,000 mcg PO DAILY 04/07/24 04/07/24 History 1,000 mcg capsule donepezil 10 mg tablet 10 mg PO DAILY 04/07/24 04/07/24 History fentanyl 12 mcg/hr transdermal 12 mcg transdermal Q72H 04/07/24 04/07/24 History patch fentanyl 50 mcg/hr transdermal 50 mcg topical Q72H 04/07/24 04/07/24 History patch furosemide 20 mg tablet 20 mg PO DAILY 04/07/24 04/07/24 History leuprolide (3 month) 22.5 mg IM USEASDIRECTD 04/07/24 04/07/24 History multivitamin 1 tab PO DAILY 04/07/24 04/07/24 History naloxone 4 mg/actuation nasal spray 4 mg intranasal UD 04/07/24 04/07/24 History oxycodone 10 mg tablet 10 mg PO Q4H PRN Pain (Scale Score 04/07/24 04/07/24 History 7-10) rosuvastatin 5 mg tablet 5 mg PO DAILY 04/07/24 04/07/24 History venlafaxine 150 mg 150 mg PO DAILY 04/07/24 04/07/24 History capsule,extended release 24 hr venlafaxine 37.5 mg 37.5 mg PO DAILY 04/07/24 04/07/24 History capsule,extended release 24 hr warfarin 5 mg tablet 5 mg PO DAILY 04/07/24 04/07/24 History zoledronic acid 4 mg intravenous 4 mg IV UD 04/07/24 04/07/24 History solution amoxicillin 875 mg-potassium 1 tab PO BID #16 tabs 04/09/24 Rx clavulanate 125 mg tablet Hospital Stay Data Consultations 04/07/24 00:09 ED Decision to Admit Stat Diagnostic Imagining Performed 04/06/24 22:05 CT head/brain wo con Stat 04/07/24 01:11 CT angio chest PE protocol Urgent Head CT 04/06/24 22:05 Exam(s): CT HEAD Without Contrast EXAM: CT Head Without Intravenous Contrast CLINICAL HISTORY: Reason for exam: AMS. TECHNIQUE: Axial computed tomography images of the head/brain without intravenous contrast. CTDI is 38.03 mGy and DLP is 625.8 mGy-cm. Automated exposure control was utilized for the study. A dose lowering technique was utilized adhering to the principles of ALARA. COMPARISON: No relevant prior studies available. FINDINGS: No acute intracranial hemorrhage. No midline shift or mass effect. The territorial horton-white matter differentiation is maintained throughout. Age-related cerebral volume loss. Periventricular and subcortical white matter hypoattenuation, consistent with chronic microangiopathy. The visualized orbits appear grossly unremarkable. The calvarium is intact. The visualized paranasal sinuses and mastoid air cells are grossly clear. IMPRESSION: No acute intracranial hemorrhage, midline shift, or mass effect. Electronically signed by: Lucas Reddy MD 04/07/24 00:01 AM Chest X-Ray 04/06/24 23:01 XR chest 1V portable HISTORY: 83 years-old Male COVID, hypoxia acute shortness of breath COMPARISON: CTA chest of same day TECHNIQUE: AP view of the chest FINDINGS: Heart is mildly enlarged. Patchy right basilar consolidative opacities. No pneumothorax or pleural effusion. No overt pulmonary edema. Bones appear intact. IMPRESSION: Patchy right basilar opacities in conjunction with the mucous plugging seen on the same day CTA chest suggestive of aspiration pneumonia. ACT 112: Negative or not required by law. The above report was generated using voice recognition software. It may contain grammatical, syntax or spelling errors. Electronically signed by: Gregory Machado M.D. 04/07/2024 7:07 AM Chest CTA 04/07/24 01:11 Exam(s): CTA CHEST EXAM: CT Angiography Chest With Intravenous Contrast CLINICAL HISTORY: Reason for exam: PE. TECHNIQUE: Axial computed tomographic angiography images of the chest with intravenous contrast. CTDI is 26.5 mGy and DLP is 882.21 mGy-cm. Automated exposure control was utilized for the study. A dose lowering technique was utilized adhering to the principles of ALARA. MIP reconstructed images were created and reviewed. COMPARISON: No relevant prior studies available. FINDINGS: Pulmonary arteries: Unremarkable. No acute pulmonary embolism. Aorta: Atherosclerotic changes of the aorta. No thoracic aortic aneurysm. Lungs: Aspiration pneumonia at the RIGHT lung base. Aspirated debris occluding the RIGHT lower lobe bronchi. No mass. Pleural space: Unremarkable. No significant effusion. No pneumothorax. Heart: Unremarkable. No cardiomegaly. No significant pericardial effusion. No evidence of RV dysfunction. Bones/joints: Degenerative changes of the spine. No acute fracture. No dislocation. Soft tissues: Unremarkable. Lymph nodes: Unremarkable. No enlarged lymph nodes. IMPRESSION: 1. No acute pulmonary embolism. 2. Aspiration pneumonia at the RIGHT lung base. Aspirated debris occluding the RIGHT lower lobe bronchi. Electronically signed by: Lucas Reddy MD 04/07/24 02:18 AM Discharge Instructions Given to Patient (Per Discharging Provider) Mr. Quesada, You are being discharged home per your request. Physical Therapy is recommending acute rehab. However please continue with your home physical therapy services that you opted for. We are discharging you home with 8 more days of oral antibiotics, Augmentin. Please take as prescribed. Please keep close follow up with your primary care provider after discharge. Please do not hesitate to come back to the emergency room if your symptoms worsen or return. It was a pleasure taking care of you while you were here. Total Time Total Time Spent Total Time Spent (In Minutes): 65
[2024-04-09 16:20] VITALS: PULSE 57
== END 2024-04-09 16:22 | disposition home health service (06) | DRG 177 ==
LOC: ED 21:51 → 2N 04-07 01:11

== ENCOUNTER 2025-03-02 07:00 | Inpatient (IN) ==
--- NOTE | 2025-03-02 07:10 | Emergency Department Note ---
Impression & Plan Sepsis, Altered mental status, Elevated troponin, Complicated urinary tract infection ED Provider Note NAME: ARNOLD DEMPSEY AGE: 84 SEX: M : 1940 ARRIVES VIA: Ambulance INFORMANT: Patient ED PROVIDER(S): Bobby Mccarty MD CHIEF COMPLAINT: Confusion, generalized weakness, decreased responsiveness PLAN: Disposition: Admit MEDICAL DECISION MAKING: The patient is an 84-year-old gentleman with past medical history of metastatic prostate cancer to the bone, type 2 diabetes, chronic DVT on warfarin, asthma, dementia, chronic pain depression with anxiety who presents to the emergency department via EMS for altered mental status where the patient's found him minimally responsive this morning or EMS noted the patient to be febrile. Per the the patient had a ground-level fall a week ago but suffered no serious injury, did not hit his head or pass out and had been acting normally throughout the rest of the week. Per 's report the patient's urine has been looking dark and has been foul-smelling. On evaluation the patient is ill-appearing, febrile with heart in the 90s and vital signs otherwise stable. He appears clinically dry. He does awaken to loud voice and answers questions and follows commands. He moves all extremities equally with generalized weakness. EKG without overt acute ischemia. CXR negative for acute cardiopulmonary process per my personal preliminary review/interpretation. Lung bases better characterized on CT imaging consistent with atelectasis. WBC and platelets within normal limits. H/H similar to prior. Platelets within normal limits. INR therapeutic at 2.1. Chemistry without metabolic acidosis. BUNs/creatinine 21 consistent with patient's clinically dry appearance. Initial lactic acid 2.3 however improving to 1.2, within normal limits, following IV fluid hydration with 30 cc/KG IV fluids. Electrolytes without significant abnormality. Initial high-sensitivity troponin 78 with repeat increasing to 202, nonspecific and likely demand in setting of sepsis. Procalcitonin is elevated at 0.79 concerning for sepsis. UA obtained is consistent with infection with positive nitrites, WBCs and 4+ bacteria. Respiratory BioFire was negative. CT of the head and C-spine negative for acute abnormalities. CTA of the chest negative for PE or focal consolidation. CT of the abdomen pelvis consistent with cystitis. Blood cultures were obtained on arrival and empiric treatment initially with IV ceftriaxone which should be effective given no prior history of resistant organisms. Case was discussed with Sanjay Storey, with Jagjit Castaneda hospitalist who will evaluate the patient for admission. Further management per admitting team. Triage Nursing notes reviewed and agree them. Prior/external medical records reviewed Vital Signs: reviewed Differential diagnosis: Sepsis, UTI, pneumonia, metabolic, electrolyte abnormalities, cardiac sources, intracerebral event, toxicologic, neurologic, as well as other pathologies. ER treatment provided: See below. Diagnostics interpreted by me: ECG: Sinus tachycardia, 101 bpm, no ectopy, no overt ST ovation or depression, QTc 456, QRS 84. Cardiac Monitoring: An order for continuous cardiac monitoring was placed and demonstrated sinus tachycardia, 101 bpm, no ectopy. Laboratory studies: See below Imaging studies: See below Consultation(s): Sanjay Storey PAC, with Jagjit Grace [facility] hospitalist HPI: Per MDM. ROS: See above HPI for pertinent positives & negatives. A total of 10 systems reviewed and were otherwise negative. VITALS:See Below PHYSICAL EXAMINATION: GENERAL: Awake, alert, ill-appearing, in no distress HENT: Normocephalic, atraumatic. Oropharynx with dry mucous membranes and otherwise unremarkable. EYES: Normal conjunctiva. Sclera non-icteric. NECK: Supple. No nuchal rigidity. FROM. No JVD. RESPIRATORY: Clear to auscultation. CARDIAC: Regular rate, normal rhythm. Extremities warm and well perfused. Pulses equal. ABDOMEN: Soft, non-distended. Mild lower abdominal discomfort without discrete tenderness to palpation. No rebound or guarding. No masses. MUSCULOSKELETAL: Chest examination reveals no tenderness. The back is symmetrical on inspection without obvious abnormality. There is no CVA tenderness to palpation. No joint edema. LOWER EXTREMITIES: Calves are equal size bilaterally and non-tender. No edema. No discoloration. NEURO: Somnolent but awake and alert to loud voice, follows commands. Generalized weakness without focal extremity weakness. SKIN: No rash or jaundice noted. Bobby Mccarty MD Past Med/Surg History Problem List (Updated 03/02/25 @ 22:01 by Bobby Mccarty MD) Complicated urinary tract infection (Acute) Elevated troponin (Acute) Altered mental status (Acute) Sepsis (Acute) Hypokalemia Elevated troponin Severe sepsis Acute UTI (urinary tract infection) Metabolic encephalopathy Hypoxia (Acute) COVID (Acute) Pneumonia (Acute) AMS (altered mental status) Supracondylar fracture of humerus (Acute) Chronic deep vein thrombosis (DVT) of left lower extremity Nondisplaced fracture of right patella Left supracondylar humerus fracture Fall Low back pain Urinary retention (Acute) Malfunction of Lopez catheter (Acute) Palliative care by specialist Cancer related pain Chronic anticoagulation Sacroiliac joint pain Trochanteric bursitis Prostate cancer metastatic to bone (Chronic) Hypertension (Chronic) 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) Medical History MCI (mild cognitive impairment) Multiple pulmonary nodules Asthma Greater trochanteric pain syndrome Zenker diverticulum Avascular necrosis of bone of left hip (~06/26/23) History of DVT (deep vein thrombosis) Osteoarthritis of left hip History of skin cancer Prostate cancer Lumbar stenosis with neurogenic claudication Surgical History History of lumbar laminectomy History of hernia repair History of cataract extraction LEFT 2mg versed given without problem Family History Mother , age 70` s Diabetes Father , age 86 COPD (chronic obstructive pulmonary disease) smoked for many years Daughter , age 39 Breast cancer Daughter Genetic carrier of heritable cancer had bilateral mastectomy Social History Smoking Status: Unknown if ever smoked Second Hand Exposure: Yes; Do You Dip or Chew Tobacco: Yes (ON AND OFF, SINCE AGE 29. ADVISED TO HOLD DOS.); Preferred Language: Ecuadorean Communication Ability: Effective Communication Ability Comment: BASELINE DEMENTIA Visual Impairment: No Limitations Hearing Ability: Normal Crusher Required: No Beliefs That Will Affect Care: None marital status: Current Living Situation: Spouse Current Living Situation Comment: lives with current occupational status: retired current occupation: retired Other Information That Helps Us Care for You: No Feels Safe at Home: Yes Assistive Devices: Cane Assistive Devices Comment: UTO Allergies Allergies Allergy/AdvReac Type Severity Reaction Status Date / Time ragweed pollen Allergy Intermediate RASH Verified 11/03/24 09:31 house dust Allergy Mild ITCHY Verified 11/03/24 09:31 EYES, RUNNY NOSE Home Meds Home Medications Medication Instructions Recorded Confirmed acitretin 25 mg capsule 25 mg PO Q2D 04/07/24 03/02/25 calcium 500 mg (as 1 tab PO DAILY 04/07/24 03/02/25 carbonate)-vitamin D3 3.125 mcg (125 unit) tablet cyanocobalamin (vitamin B-12) 1,000 mcg PO DAILY 04/07/24 03/02/25 1,000 mcg capsule donepezil 10 mg tablet 10 mg PO DAILY 04/07/24 03/02/25 leuprolide (3 month) 22.5 mg IM USEASDIRECTD 04/07/24 03/02/25 multivitamin 1 tab PO DAILY 04/07/24 03/02/25 naloxone 4 mg/actuation nasal spray 4 mg intranasal UD PRN Narcotic 04/07/24 03/02/25 overdose rosuvastatin 5 mg tablet 5 mg PO DAILY 04/07/24 03/02/25 venlafaxine 150 mg 150 mg PO DAILY 04/07/24 03/02/25 capsule,extended release 24 hr zoledronic acid 4 mg intravenous 4 mg IV UD 04/07/24 03/02/25 solution abiraterone 500 mg tablet 500 mg PO BID 10/28/24 03/02/25 prednisone 5 mg tablet 5 mg PO BID 10/28/24 03/02/25 gabapentin 100 mg capsule 100 mg PO Q12H PRN Muscle Spasm 11/03/24 03/02/25 venlafaxine 37.5 mg 37.5 mg PO DAILY 11/25/24 03/02/25 capsule,extended release 24 hr memantine 5 mg tablet 5 mg PO DAILY 12/16/24 03/02/25 fentanyl 12 mcg/hr transdermal 12 mcg transdermal UD 03/02/25 03/02/25 patch fentanyl 50 mcg/hr transdermal 50 mcg topical UD 03/02/25 03/02/25 patch Previous Rx's Medication Instructions Recorded oxycodone 10 mg tablet 10 mg PO Q4H PRN Pain (Scale Score 02/10/25 7-10) 1 month #180 tabs warfarin 5 mg tablet See Rx Instructions PO UD #96 tabs 02/11/25 Results & Data (ED) Vital Signs Vital Signs - 24 hr 03/02/25 07:06 03/02/25 07:11 03/02/25 07:11 Temperature 39.5 C H Temperature Source Oral Pulse Rate 97 H 100 H Pulse Rate [Apical] Pulse Rate from SpO2 Sensor Respiratory Rate 16 Respiratory Effort / Characteristics Non-Labored Spontaneous Respiratory Depth Normal Respiratory Pattern Regular Blood Pressure 153/90 H Blood Pressure [Right Arm] Blood Pressure Mean 111 Blood Pressure Mean [Right Arm] Blood Pressure Position Sitting Blood Pressure Position [Right Arm] Pulse Oximetry 86 L 86 L Oxygen Delivery Method Room Air Room Air Oxygen Flow Rate Sepsis Recent Fever Within 48 Hours Yes Sepsis New/Unexplained Change in Mental Status Yes Sepsis Action Taken by Nursing Physician Notified Oxygen Flow Rate - Titration 3 Pulse Oximetry Post Tiitration 93 03/02/25 07:12 03/02/25 07:18 03/02/25 07:53 Temperature Temperature Source Pulse Rate 100 H Pulse Rate [Apical] 91 H Pulse Rate from SpO2 Sensor Respiratory Rate 20 16 Respiratory Effort / Characteristics Non-Labored Spontaneous Respiratory Depth Normal Respiratory Pattern Regular Blood Pressure 153/90 H Blood Pressure [Right Arm] 148/76 H Blood Pressure Mean 111 Blood Pressure Mean [Right Arm] 100 Blood Pressure Position Blood Pressure Position [Right Arm] Sitting Pulse Oximetry 95 95 95 Oxygen Delivery Method Nasal Cannula Nasal Cannula Nasal Cannula Oxygen Flow Rate 3 3 3 Sepsis Recent Fever Within 48 Hours Sepsis New/Unexplained Change in Mental Status Sepsis Action Taken by Nursing Oxygen Flow Rate - Titration Pulse Oximetry Post Tiitration 03/02/25 08:00 03/02/25 08:14 03/02/25 08:15 Temperature 36.5 C Temperature Source Oral Pulse Rate 94 H 79 Pulse Rate [Apical] Pulse Rate from SpO2 Sensor 76 Respiratory Rate 15 15 Respiratory Effort / Characteristics Respiratory Depth Respiratory Pattern Blood Pressure 137/71 128/60 Blood Pressure [Right Arm] Blood Pressure Mean 93 82 Blood Pressure Mean [Right Arm] Blood Pressure Position Blood Pressure Position [Right Arm] Pulse Oximetry 98 97 Oxygen Delivery Method Nasal Cannula Nasal Cannula Oxygen Flow Rate 3 2 Sepsis Recent Fever Within 48 Hours Sepsis New/Unexplained Change in Mental Status Sepsis Action Taken by Nursing Oxygen Flow Rate - Titration Pulse Oximetry Post Tiitration 03/02/25 08:51 Temperature Temperature Source Pulse Rate 82 Pulse Rate [Apical] Pulse Rate from SpO2 Sensor 82 Respiratory Rate 19 Respiratory Effort / Characteristics Respiratory Depth Respiratory Pattern Blood Pressure 128/62 Blood Pressure [Right Arm] Blood Pressure Mean 84 Blood Pressure Mean [Right Arm] Blood Pressure Position Blood Pressure Position [Right Arm] Pulse Oximetry 97 Oxygen Delivery Method Nasal Cannula Oxygen Flow Rate 2 Sepsis Recent Fever Within 48 Hours Sepsis New/Unexplained Change in Mental Status Sepsis Action Taken by Nursing Oxygen Flow Rate - Titration Pulse Oximetry Post Tiitration Laboratory Data Attestation: I reviewed the patient's lab results. 03/02/25 07:11 03/02/25 07:11 Lab Results 03/02/25 03/02/25 03/02/25 Range/Units 07:10 07:11 09:13 WBC 6.28 (4.8-10.8) K/ul RBC 3.56 L (4.70-6.10) M/uL Hgb 11.1 L (14.0-18.0) g/dl Hct 35.0 L (42.0-52.0) % MCV 98.3 (80.0-100.0) fL MCH 31.2 (25.0-34.0) pg MCHC 31.7 L (32.0-36.0) g/dL RDW Std Deviation 51.2 H (36.4-46.3) fL RDW Coeff of Melissa 14.1 (11.5-14.5) % Plt Count 171 (130-400) K/uL MPV 9.8 (9.4-12.4) fL Immature Gran % (Auto) 0.2 % Neut % (Auto) 89.7 % Lymph % (Auto) 6.7 % Grainger % (Auto) 1.6 % Eos % (Auto) 1.3 % Baso % (Auto) 0.5 % Neut # (Auto) 5.64 (1.40-6.50) K/uL Lymph # (Auto) 0.42 L (1.20-3.40) K/uL Grainger # (Auto) 0.10 L (0.11-0.59) K/uL Eos # (Auto) 0.08 (0.00-0.50) K/uL Baso # (Auto) 0.03 (0.00-0.20) K/uL Immature Gran # (Auto) 0.01 (0.01-0.20) K/uL PT 21.1 H (9.0-12.0) Seconds INR 2.1 H (0.9-1.1) Sodium 141 (136-145) mmol/L Potassium 3.4 L (3.5-5.1) mmol/L Chloride 105 (98-107) mmol/L Carbon Dioxide 28 (21-32) mmol/L Anion Gap 8 (3-11) BUN 19 (6-23) mg/dl Creatinine 0.89 (0.6-1.4) mg/dl Est Cr Clr Drug Dosing Not Reportable eGFR 83.98 BUN/Creatinine Ratio 21.3 H (10-20) Glucose 131 H (70-99(Fasting)) mg/dl POC Glucose 131 H (70-99) mg/dl Lactate 2.3 H* 1.2 (0.4-2.0) mmol/L Calcium 8.7 (8.6-10.3) mg/dl Phosphorus 2.6 (2.5-4.9) mg/dl Magnesium 1.7 (1.7-2.4) mg/dl Total Bilirubin 0.7 (0.2-1.0) mg/dl AST 17 (13-39) U/L ALT 13 (7-52) U/L Alkaline Phosphatase 79 (34-104) U/L Troponin I High Sens 78.1 H* 202.5 H* D (0-20) pg/ml Total Protein 6.0 (6.0-8.3) gm/dl Albumin 3.4 (3.4-5.0) gm/dl Globulin 2.6 (2.5-4.0) gm/dl Albumin/Globulin Ratio 1.3 (0.9-2) Lipase 16 (11-82) U/L Procalcitonin 0.79 H (0-0.5) ng/ml TSH 1.315 (0.300-4.500) uIu/ml Random Cortisol 0.67 mcg/dl Administered Medications Fentanyl (Fentanyl 50 Mcg/Hr Tdsy) 1 patch TD Q3D@1400 [facility]; Protocol Stop: 03/16/25 13:59 Last Admin: 03/02/25 14:46 Dose: 1 patch Documented By: KARLENE Fentanyl (Fentanyl 12 Mcg/Hr Tdsy) 1 patch TD Q3D@1400 [facility]; Protocol Stop: 03/16/25 13:59 Last Admin: 03/02/25 14:45 Dose: 1 patch Documented By: KARLENE Piperacillin Sod/Tazobactam Sod (Zosyn) 4.5 gm in 100 mls @ 25 mls/hr IV Q8H [facility]; Protocol Stop: 03/04/25 14:59 Last Admin: 03/02/25 15:24 Dose: 25 mls/hr Documented By: RACHID Lactated Ringer's (Lr) 1,000 mls @ 75 mls/hr IV .[id number] [facility] Stop: 03/03/25 00:04 Last Admin: 03/02/25 11:55 Dose: 75 mls/hr Documented By: OLIVER Miscellaneous (Abiraterone 500 Mg ~ Order Awaiting Action) 1 each N/A QS [facility] Stop: 04/01/25 15:59 Last Admin: 03/02/25 15:16 Dose: Not Given Documented By: RACHID Freitas (Check Fentanyl Patch Placement) 1 each N/A QS [facility]; Protocol Stop: 04/01/25 15:59 Last Admin: 03/02/25 15:16 Dose: 1 each Documented By: RACHID Freitas (Check Fentanyl Patch Placement) 1 each N/A QS [facility]; Protocol Stop: 04/01/25 15:59 Last Admin: 03/02/25 15:17 Dose: 1 each Documented By: RACHID Freitas (Fentanyl Patch Remove & Waste) 1 each N/A Q3D@1359 [facility]; Protocol Stop: 04/01/25 13:58 Last Admin: 03/02/25 14:46 Dose: Not Given Documented By: KARLENE Prednisone (Prednisone 5 Mg Tab) 5 mg PO BID [facility] Stop: 04/01/25 20:59 Last Admin: 03/02/25 20:01 Dose: 5 mg Documented By: JOHN Warfarin Sodium (Warfarin Sod 5 Mg Tab) 5 mg PO SuMoTuWeFrSa@1600 [facility] Stop: 04/01/25 15:59 Last Admin: 03/02/25 15:37 Dose: 5 mg Documented By: RACHID Discontinued Medications Sodium Chloride (Nss) 1,000 mls @ 999 mls/hr IV .Q1H1M [facility] Stop: 03/02/25 09:30 Last Infusion: 03/02/25 09:21 Dose: Infused Documented By: Admin: 03/02/25 08:14 Dose: 999 mls/hr Documented By: Infusion: 03/02/25 08:14 Dose: Infused Documented By: Admin: 03/02/25 07:35 Dose: 999 mls/hr Documented By: OLIVER Acetaminophen (Ofirmev) 1,000 mg in 100 mls @ 400 mls/hr IV NOW STA Stop: 03/02/25 07:34 Last Infusion: 03/02/25 07:55 Dose: Infused Documented By: Admin: 03/02/25 07:35 Dose: 400 mls/hr Documented By: OLIVER Ceftriaxone Sodium (Rocephin) 2,000 mg in 50 mls @ 100 mls/hr IV NOW STA Stop: 03/02/25 07:50 Last Infusion: 03/02/25 08:14 Dose: Infused Documented By: Admin: 03/02/25 07:35 Dose: 100 mls/hr Documented By: OLIVER Sodium Chloride (Nss) 1,000 mls @ 125 mls/hr IV .Q8H [facility] Stop: 03/05/25 09:29 Last Infusion: 03/02/25 11:56 Dose: Infused Documented By: Admin: 03/02/25 09:53 Dose: 125 mls/hr Documented By: OLIVER Potassium Chloride (K Chacho / Wtr) 10 meq in 100 mls @ 100 mls/hr IV Q1H [facility] Stop: 03/02/25 13:44 Last Infusion: 03/02/25 16:37 Dose: Infused Documented By: Admin: 03/02/25 15:24 Dose: 100 mls/hr Documented By: Infusion: 03/02/25 15:24 Dose: Infused Documented By: Admin: 03/02/25 14:42 Dose: 100 mls/hr Documented By: Infusion: 03/02/25 14:42 Dose: Infused Documented By: Admin: 03/02/25 13:49 Dose: 100 mls/hr Documented By: Infusion: 03/02/25 11:11 Dose: Infused Documented By: Admin: 03/02/25 09:53 Dose: 100 mls/hr Documented By: OLIVER Magnesium Sulfate/Dextrose (Magnesium Sulfate / D5w) 1 gm in 100 mls @ 100 mls/hr IV NOW STA Stop: 03/02/25 10:36 Last Infusion: 03/02/25 11:12 Dose: Infused Documented By: Admin: 03/02/25 09:53 Dose: 100 mls/hr Documented By: OLIVER Piperacillin Sod/Tazobactam Sod (Zosyn) 4.5 gm in 100 mls @ 200 mls/hr IV NOW ONE; Protocol Stop: 03/02/25 11:00 Last Infusion: 03/02/25 13:32 Dose: Infused Documented By: Admin: 03/02/25 11:36 Dose: 200 mls/hr Documented By: OLIVER Vancomycin HCl 2,000 mg/ (Sodium Chloride) 540 mls @ 200 mls/hr IV ONE ONE Stop: 03/02/25 13:26 Last Infusion: 03/02/25 14:38 Dose: Infused Documented By: Admin: 03/02/25 11:56 Dose: 200 mls/hr Documented By: OLIVER Insulin Aspart (Insulin Aspart Per Unit Charge) 0 units SC ACHS [facility] Stop: 04/01/25 11:29 Last Admin: 03/02/25 17:26 Dose: Not Given Documented By: Admin: 03/02/25 13:39 Dose: Not Given Documented By: KARLENE Ioversol (Optiray 320 125ml) 112 ml IV ONCE ONE Stop: 03/02/25 07:51 Last Admin: 03/02/25 07:51 Dose: 112 ml Documented By: KASIA Imaging Data Radiologist's Impression: Chest X-Ray 03/02/25 07:11 XR chest 1V portable CLINICAL HISTORY: Chest pain, nonspecific COMPARISON STUDY: 04/06/2024 FINDINGS: Heart size and pulmonary vasculature are normal. There is stable mild stranding opacity in the lung bases. No effusion, consolidation, or pneumothorax otherwise. IMPRESSION: Stable exam. ACT 112: Negative or not required by law. Electronically signed by: Brett Arteaga M.D. 03/02/2025 8:13 AM Abdomen/Pelvis CT 03/02/25 07:[address] WITH IV CONTRAST CT DOSE: 4158 HISTORY: ams, fever, ?uti TECHNIQUE: Multiaxial CT images of the abdomen and pelvis were performed following the IV administration of 112 cc of Optiray, A dose lowering technique was utilized adhering to the principles of ALARA. COMPARISON STUDY: 10/14/2023 FINDINGS: ABDOMEN: Liver, gallbladder, spleen, pancreas, and adrenal glands are unremarkable. Kidneys show no hydronephrosis or calculi. There are scattered atherosclerotic calcifications. No abdominal aortic aneurysm. Pelvis: Stable small diverticulum at the anterior aspect of the urinary bladder. There is mild diffuse urinary bladder wall thickening and inflammation consistent with cystitis. Prostate is mildly enlarged. There is mild sigmoid diverticulosis. No acute diverticulitis. No bowel examination or obstruction. Stable prior low ventral hernia repair. No free fluid or free air. No enlarged adenopathy. Osseous structures: Stable spinal degenerative changes with grade 1 anterolisthesis of L4 on 5. Stable moderate degenerative changes at the hips. Stable sclerosis at multiple mid and lower thoracic vertebral bodies, left ischium, and right pubis consistent with treated osseous metastatic disease. IMPRESSION: 1. Findings consistent with cystitis. 2. No other acute findings seen. Otherwise as described. ACT 112: Negative or not required by law. The above report was generated using voice recognition software. It may contain grammatical, syntax or spelling errors. Electronically signed by: Brett Arteaga M.D. 03/02/2025 9:[address] 03/02/25 07:18 CT cervical spine wo con CT DOSE: 4158.08 mGy.cm CLINICAL HISTORY: ams, fall. COMPARISON: 03/22/2024 TECHNIQUE: Multiple axial CT images of the cervical spine were obtained without contrast. A dose lowering technique was utilized adhering to the principles of ALARA. FINDINGS: There are stable diffuse degenerative changes with prominent anterior osteophytosis. Stable minimal anterolisthesis of C4 on 5 and C5 on C6. No cervical spine fracture seen. There is cerumen in the external auditory canals bilaterally. There are atherosclerotic calcifications. IMPRESSION: No cervical spine fracture seen. ACT 112: Negative or not required by law. The above report was generated using voice recognition software. It may contain grammatical, syntax or spelling errors. Electronically signed by: Brett Arteaga M.D. 03/02/2025 8:53 AM Chest CTA 03/02/25 07:18 CT ANGIOGRAM OF THE CHEST CLINICAL HISTORY: Fever. Altered mental status. Fall. Evaluate for pulmonary embolus. Prostate cancer. COMPARISON STUDY: Chest CT April 07, 2024. Chest radiograph performed earlier today. PSMA PET/CT October 14, 2024. TECHNIQUE: Following the IV administration of 112 cc of Optiray 320, CT angiogram of the chest was performed from the upper abdomen to the thoracic inlet utilizing the pulmonary embolus protocol. Images are reviewed in the axial, sagittal, and coronal planes. 3-D MIPS images are created and assessed. IV contrast was administered without complication. A dose lowering technique was utilized adhering to the principles of ALARA. FINDINGS: No pulmonary emboli are identified. There is no thoracic aortic dissection. Moderate cardiomegaly is unchanged. There is no pericardial effusion. No pneumothorax is present. There are trace bilateral pleural effusions. There is no consolidation to suggest pneumonia. Subpleural groundglass opacities favor atelectasis. There are no suspicious pulmonary nodules. Extensive anterior osteophytosis of the thoracic spine is noted. Sclerotic lesions within several adjacent anterior lower thoracic vertebra are similar in appearance to PET/CT of January 19, 2025. There are old bilateral rib fractures. No acute rib fractures are present. There are no acute thoracic spine fractures. The abdomen and pelvis CT will be reported separately. IMPRESSION: 1. No pulmonary emboli identified. 2. Subpleural groundglass opacities suggestive of atelectasis. No consolidation to suggest pneumonia. 3. No acute traumatic findings within the chest. 4. Redemonstration of several lower thoracic sclerotic skeletal lesions, similar in appearance to PET/CT of January 19, 2025. ACT 112: Negative or not required by law. Electronically signed by: Washington Henry M.D. 03/02/2025 9:[address] 03/02/25 07:18 CT SCAN OF THE BRAIN WITHOUT IV CONTRAST CLINICAL HISTORY: Fever. Altered mental status. Fall. COMPARISON STUDY: MRI of the brain April 02, 2016. Head CT April 06, 2024. TECHNIQUE: Unenhanced axial CT scan of the brain was performed from the vertex to the skull base. A dose lowering technique was utilized adhering to the principles of ALARA. FINDINGS: Brain parenchyma: This exam is mildly compromised by motion artifact. No acute intracranial hemorrhage, midline shift or mass effect is present. Diane-white matter differentiation is preserved. There are no extra-axial fluid collections. There are no findings to suggest acute dural sinus thrombosis or acute territorial infarct. White matter hypodensities are unchanged and favor small vessel disease. Ventricles, sulci, cisterns: There is no hydrocephalus. The ventricular system is stable. The basal cisterns are patent. Calvarium: No calvarial fractures. Sinuses and mastoids: There is mild polypoid sinus because thickening. The mastoid air cells are well pneumatized. Orbits: The bony orbits are grossly intact. IMPRESSION: 1. No acute intracranial findings. Mild motion artifact. 2. No calvarial fractures. ACT 112: Negative or not required by law. Electronically signed by: Washington Henry M.D. 03/02/2025 8:52 AM Discharge Plan Visit Data Chief Complaint: Altered Mental Status ED Provider: Bobby Mccarty Discharge Problem: Sepsis, Altered mental status, Elevated troponin, Complicated urinary tract infection Patient Disposition: Admitted As Inpatient Condition: Serious Discharge Instructions Interventions: ED Discharge Assessment Last Done: 03/02/25 12:14 Discharge Problem: Sepsis Qualifiers: Sepsis type: sepsis due to unspecified organism Sepsis acute organ dysfunction status: unspecified Qualified Code(s): A41.9 - Sepsis, unspecified organism Altered mental status Qualifiers: Altered mental status type: unspecified Qualified Code(s): R41.82 - Altered mental status, unspecified
[2025-03-02 07:25] LABS: Basophils # (auto) 0.03 K/uL (0.00-0.20); Basophils % (auto) 0.5 %; Eosinophils # (auto) 0.08 K/uL (0.00-0.50); Eosinophils % (auto) 1.3 %; Hemoglobin 11.1 g/dl (14.0-18.0); Immature Granulocytes # (auto) 0.01 K/uL (0.01-0.20); Immature Granulocytes % (auto) 0.2 %; Lymphocytes # (auto) 0.42 K/uL (1.20-3.40); Lymphocytes % (auto) 6.7 %; Mean Corpuscular Hemoglobin 31.2 pg (25.0-34.0); Mean Corpuscular Hgb Conc 31.7 g/dL (32.0-36.0); Mean Corpuscular Volume 98.3 fL (80.0-100.0); Mean Platelet Volume 9.8 fL (9.4-12.4); Monocytes % (auto) 1.6 %; Neutrophils # (auto) 5.64 K/uL (1.40-6.50); Neutrophils % (auto) 89.7 %; Platelet Count 171 K/uL (130-400); RDW Coefficient of Variation 14.1 % (11.5-14.5); RDW Standard Deviation 51.2 fL (36.4-46.3); Red Blood Count 3.56 M/uL (4.70-6.10); White Blood Count 6.28 K/ul (4.8-10.8)
[2025-03-02] MEDS: ACETAMINOPHEN 1,000 MG/100 ML VIAL IV STA (07:35)
[2025-03-02] MEDS: SODIUM CHLORIDE 0.9% 1,000 ML IV SCH ×2 (07:35→09:53)
[2025-03-02] MEDS: cefTRIAXone SODIUM 2,000 MG/50 ML BAG IV STA (07:35)
[2025-03-02 07:42] LABS: Alanine Aminotransferase 13 U/L (7-52); Albumin Globulin Ratio 1.3 (0.9-2); Albumin Level 3.4 gm/dl (3.4-5.0); Alkaline Phosphatase 79 U/L (34-104); Anion Gap 8 (3-11); Aspartate Aminotransferase 17 U/L (13-39); BUN Creatinine Ratio 21.3 (10-20); Bilirubin,Total 0.7 mg/dl (0.2-1.0); Blood Urea Nitrogen 19 mg/dl (6-23); Calcium 8.7 mg/dl (8.6-10.3); Carbon Dioxide 28 mmol/L (21-32); Chloride 105 mmol/L (98-107); Globulin 2.6 gm/dl (2.5-4.0); Glucose 131 mg/dl (70-99(Fasting)); Lipase 16 U/L (11-82); Magnesium 1.7 mg/dl (1.7-2.4); Phosphorus 2.6 mg/dl (2.5-4.9); Potassium 3.4 mmol/L (3.5-5.1); Sodium 141 mmol/L (136-145)
[2025-03-02] MEDS: OPTIRAY 320 125ml IV ONE (07:51)
[2025-03-02 07:52] LABS: Troponin I High Sensitivity 78.1 pg/ml (0-20)
[2025-03-02 07:53] LABS: INR 2.1 (0.9-1.1); Prothrombin Time 21.1 Seconds (9.0-12.0)
[2025-03-02 07:58] LABS: Thyroid Stimulating Hormone 1.315 uIu/ml (0.300-4.500)
--- NOTE | 2025-03-02 08:14 | XRay Report ---
XR chest 1V portable CLINICAL HISTORY: Chest pain, nonspecific COMPARISON STUDY: 04/06/2024 FINDINGS: Heart size and pulmonary vasculature are normal. There is stable mild stranding opacity in the lung bases. No effusion, consolidation, or pneumothorax otherwise. IMPRESSION: Stable exam. ACT 112: Negative or not required by law. Electronically signed by: Brett Arteaga M.D. 03/02/2025 8:13 AM
[2025-03-02 08:28] LABS: Appearance Urine Clear (Clear); Bacteria Urine Automated 4+ (None Seen); Bilirubin Urine Negative (Negative); Blood Urine Negative (Negative); Cast Urine Automated 0-2 /lpf (0-2); Color Urine Yellow; Epithelial Cell Urine Auto 0-2 /hpf (0-2); Glucose Urine UA Negative (Negative); Ketones Urine Negative (Negative); Leukocyte Esterase Urine 1+ (Negative); Nitrite Urine Positive (Negative); Protein Urine Negative (Negative); RBC Urine Automated 0-2 /hpf (0-2); Urobilinogen Urine Negative (Negative)
--- NOTE | 2025-03-02 08:53 | CT Scan Report ---
CT SCAN OF THE BRAIN WITHOUT IV CONTRAST CLINICAL HISTORY: Fever. Altered mental status. Fall. COMPARISON STUDY: MRI of the brain April 02, 2016. Head CT April 06, 2024. TECHNIQUE: Unenhanced axial CT scan of the brain was performed from the vertex to the skull base. A dose lowering technique was utilized adhering to the principles of ALARA. FINDINGS: Brain parenchyma: This exam is mildly compromised by motion artifact. No acute intracranial hemorrhag e, midline shift or mass effect is present. Diane-white matter differentiation is preserved. There are no extra-axial fluid collections. There are no findings to suggest acute dural sinus thrombosis or a cute territorial infarct. White matter hypodensities are unchanged and favor small vessel disease. Ventricles, sulci, cisterns: There is no hydrocephalus. The ventricular system is stable. The basal c isterns are patent. Calvarium: No calvarial fractures. Sinuses and mastoids: There is mild polypoid sinus because thickening. The mastoid air cells are well pneumatized. Orbits: The bony orbits are grossly intact. IMPRESSION: 1. No acute intracranial findings. Mild motion artifact. 2. No calvarial fractures. ACT 112: Negative or not required by law. Electronically signed by: Washington Henry M.D. 03/02/2025 8:52 AM
--- NOTE | 2025-03-02 08:55 | CT Scan Report ---
CT cervical spine wo con CT DOSE: 4158.08 mGy.cm CLINICAL HISTORY: ams, fall. COMPARISON: 03/22/2024 TECHNIQUE: Multiple axial CT images of the cervical spine were obtained without contrast. A dose low ering technique was utilized adhering to the principles of ALARA. FINDINGS: There are stable diffuse degenerative changes with prominent anterior osteophytosis. Stable minimal anterolisthesis of C4 on 5 and C5 on C6. No cervical spine fracture seen. There is cerumen i n the external auditory canals bilaterally. There are atherosclerotic calcifications. IMPRESSION: No cervical spine fracture seen. ACT 112: Negative or not required by law. The above report was generated using voice recognition software. It may contain grammatical, syntax o r spelling errors. Electronically signed by: Brett Arteaga M.D. 03/02/2025 8:53 AM
--- NOTE | 2025-03-02 09:01 | CT Scan Report ---
ABDOMEN AND PELVIS CT WITH IV CONTRAST CT DOSE: 4158 HISTORY: ams, fever, ?uti TECHNIQUE: Multiaxial CT images of the abdomen and pelvis were performed following the IV administrat ion of 112 cc of Optiray, A dose lowering technique was utilized adhering to the principles of ALARA . COMPARISON STUDY: 10/14/2023 FINDINGS: ABDOMEN: Liver, gallbladder, spleen, pancreas, and adrenal glands are unremarkable. Kidneys show no h ydronephrosis or calculi. There are scattered atherosclerotic calcifications. No abdominal aortic ane urysm. Pelvis: Stable small diverticulum at the anterior aspect of the urinary bladder. There is mild diffus e urinary bladder wall thickening and inflammation consistent with cystitis. Prostate is mildly enlar ged. There is mild sigmoid diverticulosis. No acute diverticulitis. No bowel examination or obstructi on. Stable prior low ventral hernia repair. No free fluid or free air. No enlarged adenopathy. Osseous structures: Stable spinal degenerative changes with grade 1 anterolisthesis of L4 on 5. Stabl e moderate degenerative changes at the hips. Stable sclerosis at multiple mid and lower thoracic vert ebral bodies, left ischium, and right pubis consistent with treated osseous metastatic disease. IMPRESSION: 1. Findings consistent with cystitis. 2. No other acute findings seen. Otherwise as described. ACT 112: Negative or not required by law. The above report was generated using voice recognition software. It may contain grammatical, syntax o r spelling errors. Electronically signed by: Brett Arteaga M.D. 03/02/2025 9:00 AM
--- NOTE | 2025-03-02 09:02 | CT Scan Report ---
CT ANGIOGRAM OF THE CHEST CLINICAL HISTORY: Fever. Altered mental status. Fall. Evaluate for pulmonary embolus. Prostate cancer . COMPARISON STUDY: Chest CT April 07, 2024. Chest radiograph performed earlier today. [facility] PET/CT 2024. TECHNIQUE: Following the IV administration of 112 cc of Optiray 320, CT angiogram of the chest was pe rformed from the upper abdomen to the thoracic inlet utilizing the pulmonary embolus protocol. Images are reviewed in the axial, sagittal, and coronal planes. 3-D MIPS images are created and assessed. I V contrast was administered without complication. A dose lowering technique was utilized adhering to the principles of ALARA. FINDINGS: No pulmonary emboli are identified. There is no thoracic aortic dissection. Moderate cardio megaly is unchanged. There is no pericardial effusion. No pneumothorax is present. There are trace bi lateral pleural effusions. There is no consolidation to suggest pneumonia. Subpleural groundglass opa cities favor atelectasis. There are no suspicious pulmonary nodules. Extensive anterior osteophytosis of the thoracic spine is noted. Sclerotic lesions within several adjacent anterior lower thoracic ve rtebra are similar in appearance to PET/CT of January 19, 2025. There are old bilateral rib fractures. No acute rib fractures are present. There are no acute thoracic spine fractures. The abdomen and pelvis CT will be reported separately. IMPRESSION: 1. No pulmonary emboli identified. 2. Subpleural groundglass opacities suggestive of atelectasis. No consolidation to suggest pneumonia. 3. No acute traumatic findings within the chest. 4. Redemonstration of several lower thoracic sclerotic skeletal lesions, similar in appearance to PET /CT of January 19, 2025. ACT 112: Negative or not required by law. Electronically signed by: Washington Henry M.D. 03/02/2025 9:00 AM
--- NOTE | 2025-03-02 09:25 | History & Physical Report ---
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 #Acute metabolic encephalopathy Head CT negative Suspect multifactorial ISO UTI, dehydration NPO for now until mentation improves --> will need to pass dysphagia screen, asp precautions #Severe sepsis --> meets criteria 2/2 fever, tachycardia, UTI + lactic acidosis #Lactic acidosis #Complicated UTI Procal 0.79 UA w/ evidence of infection CTAP: c/w cystitis S/p IV Rocephin in ED S/p 2L NSS in ED No prior urine cx reports IV vanc/Zosyn for now Follow blood, urine cxs Lactate improved -Additional 1L LR for now while NPO PRN IV Tylenol for fever #Elevated troponin Suspect demand ischemia ISO above EKG w/o ST changes Follow trop trend EKG w/ CP PRN Check TTE #Acute hypoxia O2 sat 86% on RA per EMS Currently saturating in mid 90s on 1L NC CXR negative Chest CTA: atelectasis, no PE/PNA Check VBG Encourage ISP as able Wean O2 as tolerated Check resp BioFire #Hypokalemia Repleted via IV in ED Continue to monitor, replete PRN #Chronic LLE DVT on Coumadin INR 2.1 Continue current Coumadin dosing ? possible need for IV heparin while NPO Follow daily PT/INR #Metastatic prostate cancer #Chronic prednisone therapy #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 Mcneil Continue combo Zytiga/prednisone therapy as able Continue current pain reg --> fentanyl patches, PRN oxy On Lupron/Zometa Q3mo (last doses in 01/2025) #DMII Hgb A1c 7% 3mo ago Not currently on any glycemic agents SSI while inpatient Check updated AM A1c Follow BSG checks ACHS #Dementia #Mild cognitive impairment Continue memantine, donepezil as able #HLD Continue rosuvastatin as able #Chronic anemia Hgb at baseline Continue to monitor H/H #Anxiety/depression Continue venlafaxine as able DVT Prophylaxis: Coumadin Code Status: FULL CODE - As per discussion with patient's /POA at bedside. Disposition: Admit to PCU Patient seen in collaboration with Dr. Danielson. Please see addendum. I spent a total of 74 minutes coordinating, documenting, and providing care for this patient excluding time spent in the performance of separately billed services or time spent by another provider/QHP. This included personally reviewing all current laboratories and imaging studies, medical reconciliation, outpatient chart review and discussion with specialists. This chart was completed in part utilizing Speech Voice Recognition Software. Grammatical errors, random word insertions, pronoun errors, and incomplete sentences are an occasional consequence of this system due to software limitations, ambient noise, and hardware issues. Any formal questions or concern s about the content, text, or information contained within the body of this dictation should be directly addressed to the provider for clarification. 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 History obtained from the patient's at bedside, Sarah. Patient remains A&O mostly to self however he does open his eyes to verbal stimuli and recognizes his . Verbalizes general yes/no answers to direct questioning. Not oriented to time, place or situation. Additional history obtained from the ED provider and associated chart review. mentions that he was "acting like himself" up until this morning when she noticed he was "shaking vigorously" in bed and was minimally responsive to verbal ques. Other than some mild fatigue over the past few days he has offered no complaints. He is quite independent at baseline. Uses a cane to ambulate occasionally but remains quite active and participates in tennis a few times a week. No reported fevers at home. Had sustained a mechanical fall while playing tennis about a week and a half ago where he struck his face off of the [place] court however there was no LOC. Sustained an abrasion to his right elbow. He was not evaluated in the ED following this fall. He does wear incontinence briefs on a daily basis. No known complaints of hematuria, dysuria or increased urinary frequency. However, per EMS report today, patient was noted to have dark and foul-smelling urine. He was also noted to be hypoxic on RA with O2 saturation down to 86%. He was subsequently placed on 3L NC by EMS. No prior supplemental O2 use at home. No reports of cough, congestion, SOB or chest pain. No reported appetite changes. No reported cigarette use. Former chewing tobacco use. No alcohol use. No recreational drug use. Allergies Allergy/AdvReac Type Severity Reaction Status Date / Time ragweed pollen Allergy Intermediate RASH Verified 11/03/24 09:31 house dust Allergy Mild ITCHY Verified 11/03/24 09:31 EYES, RUNNY NOSE Home Medications Medication Instructions Recorded Confirmed Type acitretin 25 mg capsule 25 mg PO Q2D 04/07/24 03/02/25 History calcium 500 mg (as 1 tab PO DAILY 04/07/24 03/02/25 History carbonate)-vitamin D3 3.125 mcg (125 unit) tablet cyanocobalamin (vitamin B-12) 1,000 mcg PO DAILY 04/07/24 03/02/25 History 1,000 mcg capsule donepezil 10 mg tablet 10 mg PO DAILY 04/07/24 03/02/25 History leuprolide (3 month) 22.5 mg IM USEASDIRECTD 04/07/24 03/02/25 History multivitamin 1 tab PO DAILY 04/07/24 03/02/25 History naloxone 4 mg/actuation nasal spray 4 mg intranasal UD PRN Narcotic 04/07/24 03/02/25 History overdose rosuvastatin 5 mg tablet 5 mg PO DAILY 04/07/24 03/02/25 History venlafaxine 150 mg 150 mg PO DAILY 04/07/24 03/02/25 History capsule,extended release 24 hr zoledronic acid 4 mg intravenous 4 mg IV UD 04/07/24 03/02/25 History solution abiraterone 500 mg tablet 500 mg PO BID 10/28/24 03/02/25 History prednisone 5 mg tablet 5 mg PO BID 10/28/24 03/02/25 History gabapentin 100 mg capsule 100 mg PO Q12H PRN Muscle Spasm 11/03/24 03/02/25 History venlafaxine 37.5 mg 37.5 mg PO DAILY 11/25/24 03/02/25 History capsule,extended release 24 hr memantine 5 mg tablet 5 mg PO DAILY 12/16/24 03/02/25 History oxycodone 10 mg tablet 10 mg PO Q4H PRN Pain (Scale Score 02/10/25 03/02/25 Rx 7-10) 1 month #180 tabs warfarin 5 mg tablet See Rx Instructions PO UD #96 tabs 02/11/25 03/02/25 Rx fentanyl 12 mcg/hr transdermal 12 mcg transdermal UD 03/02/25 03/02/25 History patch fentanyl 50 mcg/hr transdermal 50 mcg topical UD 03/02/25 03/02/25 History patch Past Med/Surg History Problem List (Updated 03/02/25 @ 11:08 by Donna Wolf PA-C) Hypokalemia Elevated troponin Severe sepsis Acute UTI (urinary tract infection) Metabolic encephalopathy Hypoxia (Acute) COVID (Acute) Pneumonia (Acute) AMS (altered mental status) Supracondylar fracture of humerus (Acute) Chronic deep vein thrombosis (DVT) of left lower extremity Nondisplaced fracture of right patella Left supracondylar humerus fracture Fall Low back pain Urinary retention (Acute) Malfunction of Lopez catheter (Acute) Palliative care by specialist Cancer related pain Chronic anticoagulation Sacroiliac joint pain Trochanteric bursitis Prostate cancer metastatic to bone (Chronic) Hypertension (Chronic) 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) Medical History MCI (mild cognitive impairment) Multiple pulmonary nodules Asthma Greater trochanteric pain syndrome Zenker diverticulum Avascular necrosis of bone of left hip (~06/26/23) History of DVT (deep vein thrombosis) Osteoarthritis of left hip History of skin cancer Prostate cancer Lumbar stenosis with neurogenic claudication Surgical History History of lumbar laminectomy History of hernia repair History of cataract extraction LEFT 2mg versed given without problem Family History Mother , age 70` s Diabetes Father , age 86 COPD (chronic obstructive pulmonary disease) smoked for many years Daughter , age 39 Breast cancer Daughter Genetic carrier of heritable cancer had bilateral mastectomy Social History Smoking Status: Never smoker Second Hand Exposure: Yes; Do You Dip or Chew Tobacco: Yes (ON AND OFF, SINCE AGE 29. ADVISED TO HOLD DOS.); Hx Alcohol Use: No Hx Substance Use: No Preferred Language: Romanian Communication Ability: Effective Communication Ability Comment: BASELINE DEMENTIA Visual Impairment: No Limitations Hearing Ability: Normal Terrestrial Ecologist Required: No Beliefs That Will Affect Care: None marital status: Current Living Situation: Spouse Current Living Situation Comment: lives with current occupational status: retired current occupation: retired Feels Safe at Home: Yes Assistive Devices: Cane Review of Systems Review of Systems: At least ten systems reviewed and negative, except as noted in the HPI. Physical Exam Physical Exam: General/Neurologic: Ill-appearing, elderly M. NAD. Laying down in bed. A&O mostly to self, not oriented to time/place/situation. Able to verbalize general yes/no responses to direct questioning with verbal and physical stimulation. Quite lethargic. Somnolent when not aroused by verbal or physical stimuli. at bedside. HEENT: Normocephalic, atraumatic. Conjunctivae normal. External ear and nose normal, oropharynx dry. Respiratory: Normal respiratory effort, lungs clear to auscultation bilaterally. On 1L NC and saturating in the mid 90s SpO2. No accessory muscle use. Cardiovascular: Regular rate and rhythm. No BLE edema. Abdomen/GI: Normal bowel sounds. Mildly distended but soft. Nontender to palpation in all quadrants. Extremities/MSK: No cyanosis or clubbing, actively moves all extremities. Unable to follow muscle strength testing commands. Results & Data Results & Data Vital Signs (Past 12 Hours) Vital Signs Temp Pulse Pulse Resp BP BP Pulse Ox 03/02/25 08:14 36.5 C 03/02/25 08:00 94 H 15 137/71 98 03/02/25 07:53 91 H 16 148/76 H 95 03/02/25 07:18 95 03/02/25 07:12 100 H 20 153/90 H 95 03/02/25 07:11 86 L 03/02/25 07:11 39.5 C H 100 H 16 153/90 H 86 L 03/02/25 07:06 97 H O2 Del Method O2 Flow Rate 03/02/25 08:14 03/02/25 08:00 Nasal Cannula 3 03/02/25 07:53 Nasal Cannula 3 03/02/25 07:18 Nasal Cannula 3 03/02/25 07:12 Nasal Cannula 3 03/02/25 07:11 Room Air 03/02/25 07:11 Room Air 03/02/25 07:06 Laboratory Results Short CBC 03/02/25 Range/Units 07:11 WBC 6.28 (4.8-10.8) K/ul Hgb 11.1 L (14.0-18.0) g/dl Hct 35.0 L (42.0-52.0) % Plt Count 171 (130-400) K/uL BMP 03/02/25 07:11 Sodium 141 Potassium 3.4 L Chloride 105 Carbon Dioxide 28 BUN 19 Creatinine 0.89 Glucose 131 H Calcium 8.7 Liver Function 03/02/25 Range/Units 07:11 Total Bilirubin 0.7 (0.2-1.0) mg/dl AST 17 (13-39) U/L ALT 13 (7-52) U/L Alkaline Phosphatase 79 (34-104) U/L Albumin 3.4 (3.4-5.0) gm/dl Urine 03/02/25 Range/Units Unknown Urine Color Yellow Urine Appearance Clear (Clear) Urine pH 7.0 (4.5-7.5) Ur Specific Palmer 1.010 (1.000-1.030) Urine Protein Negative (Negative) Urine Glucose (UA) Negative (Negative) Diagnostic Findings Chest X-Ray 03/02/25 07:11 XR chest 1V portable CLINICAL HISTORY: Chest pain, nonspecific COMPARISON STUDY: 04/06/2024 FINDINGS: Heart size and pulmonary vasculature are normal. There is stable mild stranding opacity in the lung bases. No effusion, consolidation, or pneumothorax otherwise. IMPRESSION: Stable exam. ACT 112: Negative or not required by law. Electronically signed by: Brett Arteaga M.D. 03/02/2025 8:13 AM Abdomen/Pelvis CT 03/02/25 07:[address] WITH IV CONTRAST CT DOSE: 4158 HISTORY: ams, fever, ?uti TECHNIQUE: Multiaxial CT images of the abdomen and pelvis were performed following the IV administration of 112 cc of Optiray, A dose lowering technique was utilized adhering to the principles of ALARA. COMPARISON STUDY: 10/14/2023 FINDINGS: ABDOMEN: Liver, gallbladder, spleen, pancreas, and adrenal glands are unremarkable. Kidneys show no hydronephrosis or calculi. There are scattered atherosclerotic calcifications. No abdominal aortic aneurysm. Pelvis: Stable small diverticulum at the anterior aspect of the urinary bladder. There is mild diffuse urinary bladder wall thickening and inflammation consistent with cystitis. Prostate is mildly enlarged. There is mild sigmoid diverticulosis. No acute diverticulitis. No bowel examination or obstruction. Stable prior low ventral hernia repair. No free fluid or free air. No enlarged adenopathy. Osseous structures: Stable spinal degenerative changes with grade 1 anterolisthesis of L4 on 5. Stable moderate degenerative changes at the hips. Stable sclerosis at multiple mid and lower thoracic vertebral bodies, left ischium, and right pubis consistent with treated osseous metastatic disease. IMPRESSION: 1. Findings consistent with cystitis. 2. No other acute findings seen. Otherwise as described. ACT 112: Negative or not required by law. The above report was generated using voice recognition software. It may contain grammatical, syntax or spelling errors. Electronically signed by: Brett Arteaga M.D. 03/02/2025 9:[address] 03/02/25 07:18 CT cervical spine wo con CT DOSE: 4158.08 mGy.cm CLINICAL HISTORY: ams, fall. COMPARISON: 03/22/2024 TECHNIQUE: Multiple axial CT images of the cervical spine were obtained without contrast. A dose lowering technique was utilized adhering to the principles of ALARA. FINDINGS: There are stable diffuse degenerative changes with prominent anterior osteophytosis. Stable minimal anterolisthesis of C4 on 5 and C5 on C6. No cervical spine fracture seen. There is cerumen in the external auditory canals bilaterally. There are atherosclerotic calcifications. IMPRESSION: No cervical spine fracture seen. ACT 112: Negative or not required by law. The above report was generated using voice recognition software. It may contain grammatical, syntax or spelling errors. Electronically signed by: Brett Arteaga M.D. 03/02/2025 8:53 AM Chest CTA 03/02/25 07:18 CT ANGIOGRAM OF THE CHEST CLINICAL HISTORY: Fever. Altered mental status. Fall. Evaluate for pulmonary embolus. Prostate cancer. COMPARISON STUDY: Chest CT April 07, 2024. Chest radiograph performed earlier today. PSMA PET/CT October 14, 2024. TECHNIQUE: Following the IV administration of 112 cc of Optiray 320, CT angiogram of the chest was performed from the upper abdomen to the thoracic inlet utilizing the pulmonary embolus protocol. Images are reviewed in the axial, sagittal, and coronal planes. 3-D MIPS images are created and assessed. IV contrast was administered without complication. A dose lowering technique was utilized adhering to the principles of ALARA. FINDINGS: No pulmonary emboli are identified. There is no thoracic aortic dissection. Moderate cardiomegaly is unchanged. There is no pericardial effusion. No pneumothorax is present. There are trace bilateral pleural effusions. There is no consolidation to suggest pneumonia. Subpleural groundglass opacities favor atelectasis. There are no suspicious pulmonary nodules. Extensive anterior osteophytosis of the thoracic spine is noted. Sclerotic lesions within several adjacent anterior lower thoracic vertebra are similar in appearance to PET/CT of January 19, 2025. There are old bilateral rib fractures. No acute rib fractures are present. There are no acute thoracic spine fractures. The abdomen and pelvis CT will be reported separately. IMPRESSION: 1. No pulmonary emboli identified. 2. Subpleural groundglass opacities suggestive of atelectasis. No consolidation to suggest pneumonia. 3. No acute traumatic findings within the chest. 4. Redemonstration of several lower thoracic sclerotic skeletal lesions, similar in appearance to PET/CT of January 19, 2025. ACT 112: Negative or not required by law. Electronically signed by: Washington Henry M.D. 03/02/2025 9:[address] 03/02/25 07:18 CT SCAN OF THE BRAIN WITHOUT IV CONTRAST CLINICAL HISTORY: Fever. Altered mental status. Fall. COMPARISON STUDY: MRI of the brain April 02, 2016. Head CT April 06, 2024. TECHNIQUE: Unenhanced axial CT scan of the brain was performed from the vertex to the skull base. A dose lowering technique was utilized adhering to the principles of ALARA. FINDINGS: Brain parenchyma: This exam is mildly compromised by motion artifact. No acute intracranial hemorrhage, midline shift or mass effect is present. Diane-white matter differentiation is preserved. There are no extra-axial fluid collections. There are no findings to suggest acute dural sinus thrombosis or acute territorial infarct. White matter hypodensities are unchanged and favor small vessel disease. Ventricles, sulci, cisterns: There is no hydrocephalus. The ventricular system is stable. The basal cisterns are patent. Calvarium: No calvarial fractures. Sinuses and mastoids: There is mild polypoid sinus because thickening. The mastoid air cells are well pneumatized. Orbits: The bony orbits are grossly intact. IMPRESSION: 1. No acute intracranial findings. Mild motion artifact. 2. No calvarial fractures. ACT 112: Negative or not required by law. Electronically signed by: Washington Henry M.D. 03/02/2025 8:52 AM Medications Administered Sodium Chloride (Nss) 1,000 mls @ 999 mls/hr IV .Q1H1M SABINE Stop: 03/02/25 09:30 Last Admin: 03/02/25 08:14 Dose: 999 mls/hr Documented By: Infusion: 03/02/25 08:14 Dose: Infused Documented By: Admin: 03/02/25 07:35 Dose: 999 mls/hr Documented By: OLIVER Discontinued Medications Acetaminophen (Ofirmev) 1,000 mg in 100 mls @ 400 mls/hr IV NOW STA Stop: 03/02/25 07:34 Last Infusion: 03/02/25 07:55 Dose: Infused Documented By: Admin: 03/02/25 07:35 Dose: 400 mls/hr Documented By: OLIVER Ceftriaxone Sodium (Rocephin) 2,000 mg in 50 mls @ 100 mls/hr IV NOW STA Stop: 03/02/25 07:50 Last Infusion: 03/02/25 08:14 Dose: Infused Documented By: Admin: 03/02/25 07:35 Dose: 100 mls/hr Documented By: OLIVER Ioversol (Optiray 320 125ml) 112 ml IV ONCE ONE Stop: 03/02/25 07:51 Last Admin: 03/02/25 07:51 Dose: 112 ml Documented By: KASIA Supervising Physician Co-Signing Physician Notes Patient seen and examined dependently. Discussed with above provider. Patient presents to the hospital with fever, chills and altered mental status. Urinalysis suggestive of UTI and CT abdomen suggestive of cystitis. No prior urine culture results available. Suspect severe sepsis secondary to UTI. Will start empiric Zosyn and vancomycin. Follow-up urine, blood culture and tailor antibiotic as per results. Patient denied any chest pain/discomfort. Elevated high sensitive troponin li mae secondary to demand ischemia. Plan to obtain echocardiogram, cycle troponin. Will need stress dose steroids if he became hypotensive due to relative adrenal insufficiency in setting of UTI. Continue IV fluids. Plan of care discussed with patient's at bedside. I have reviewed the advanced practitioner's documentation, and I agree with, and take responsibility for the plan of care I spent a total of 30 minutes coordinating, documenting, and providing care for this patient excluding time spent in the performance of separately billed services. All of the aforementioned completed while collaborating with the assigned advanced practitioner for a full treatment plan
[2025-03-02] MEDS ORDERED: CARBOHYDRATES FOR HYPOGLYCEMIA PO PRN (09:40)
[2025-03-02] MEDS ORDERED: GLUCAGON FOR INJ 1 MG VIAL SQ PRN (09:40)
[2025-03-02] MEDS ORDERED: GLUCOSE 40% GEL 15 GM TUBE PO PRN (09:40)
[2025-03-02] MEDS ORDERED: GLUCOSE 10 TAB/TUBE PO PRN (09:40)
[2025-03-02] MEDS ORDERED: DEXTROSE 50% 50 ML SYRINGE IV PRN (09:40)
[2025-03-02] MEDS: POTASSIUM CHLORIDE / WTR 10 MEQ/100 ML PLCT IV SCH (09:53)
[2025-03-02] MEDS: MAGNESIUM SULFATE / D5W 1 GM/100 ML BAG IV STA (09:53)
[2025-03-02] MEDS ORDERED: VANCOMYCIN CONSULT ACTIVE PRN (10:31)
[2025-03-02] MEDS ORDERED: oxyCODONE HCL IR 5 MG TAB (IMMEDIATE RELEASE) PO PRN ×2 (10:51→11:23)
[2025-03-02] MEDS: PIPERACILLIN/TAZOBACTAM 4.5 GM/100 ML BAG IV ONE (11:36)
[2025-03-02] MEDS: LACTATED RINGER'S 1,000 ML IV SCH (11:55)
[2025-03-02] MEDS: VANCOMYCIN HCL 2,000 MG in SODIUM CHLORIDE 0.9% 500 ML IV ONE (11:56)
[2025-03-02] MEDS ORDERED: ONDANSETRON INJ 2 MG/ML 2 ML VIAL IV PRN (13:11)
[2025-03-02] MEDS ORDERED: ACETAMINOPHEN 325 MG TAB PO PRN (13:11)
[2025-03-02] MEDS ORDERED: MAGNESIUM HYDROXIDE SUSP 30 ML UDC PO PRN (13:11)
[2025-03-02] MEDS ORDERED: POLYETHYLENE (MIRALAX) 17 GM PACK PO PRN (13:11)
[2025-03-02] MEDS: INSULIN ASPART PER UNIT CHARGE SC SCH (13:39)
--- NOTE | 2025-03-02 14:35 | Pharmacy Report ---
Pharmacy PK ABX Note - Date of Service March 02, 2025 - Assessment and Plan Assessment * 84 year old M receiving pip/tazo and vanco empirically x48 hours. Possible urinary source. * PMH: T2DM, DVT on warfarin, metastatic prostate cancer s/p thoracic spine radiation * Pertinent microbiologic data includes: blood and urine cultures pending * SCr is at/near baseline Plan Vancomycin * Loading dose: 2000 mg IV x 1 * Maintenance dose: 1500 mg IV every 24 hours * Target AUC/JACQUE of 400-600 mg/L.hr * Random level ordered for: 6/20 AM, in case vancomycin therapy is extended beyond 48 hours Pharmacy will continue to follow and will adjust dose/frequency as necessary. Thank you. Pharmacy has transitioned to AUC monitoring for vancomycin. AUC/JAQCUE is the preferred PK/PD target and is associated with decreased risk of nephrotoxicity compared to traditional trough targets.
[2025-03-02] MEDS: fentaNYL 12 MCG/HR TDSY TD SCH (14:45)
[2025-03-02] MEDS: fentaNYL 50 MCG/HR TDSY TD SCH (14:46)
[2025-03-02] MEDS: CHECK fentaNYL PATCH PLACEMENT SCH ×2 (15:16→15:17)
[2025-03-02] MEDS: PIPERACILLIN/TAZOBACTAM 4.5 GM/100 ML BAG IV SCH (15:24)
[2025-03-02] MEDS: WARFARIN SOD 5 MG TAB PO SCH (15:37)
[2025-03-02 16:00] LABS: Base Excess VBG 0.6 mEq/L; HCO3 VBG 27 mmol/L; Oxygen Saturation VBG < 60.0 %; PCO2 VBG 47 mmHg (38-50); PO2 VBG 27 mmHg; pH VBG 7.36 (7.36-7.41)
[2025-03-02 16:43] LABS: Adenovirus PCR Not Detected (NotDetected); Bordetella parapertussis PCR Not Detected (NotDetected); Bordetella pertussis PCR Not Detected (NotDetected); Chlamydia pneumoniae PCR Not Detected (NotDetected); Coronavirus 229E PCR Not Detected (NotDetected); Coronavirus CoV-2 (COVID19)PCR Not Detected (NotDetected); Coronavirus HKU1 PCR Not Detected (NotDetected); Coronavirus NL63 PCR Not Detected (NotDetected); Coronavirus OC43PCR Not Detected (NotDetected); Human Metapneumovirus PCR Not Detected (NotDetected); Influenza A PCR Not Detected (NotDetected); Influenza B PCR Not Detected (NotDetected); Mycoplasma pneumoniae PCR Not Detected (NotDetected); Parainfluenza Virus 1 PCR Not Detected (NotDetected); Parainfluenza Virus 2 PCR Not Detected (NotDetected); Parainfluenza Virus 3 PCR Not Detected (NotDetected); Parainfluenza Virus 4 PCR Not Detected (NotDetected); Respiratory Syncytial VirusPCR Not Detected (NotDetected); Rhinovirus/Enterovirus PCR Not Detected (NotDetected)
[2025-03-02] MEDS: predniSONE 5 MG TAB PO SCH (20:01)
[2025-03-02] MEDS ORDERED: OLANZapine 10 MG/2.1 ML SDV IM PRN (21:22)
--- NOTE | 2025-03-03 04:15 | Electrocardiogram Report ---
Test Reason : Blood Pressure : */* mmHG Vent. Rate : 101 BPM Atrial Rate : 101 BPM P-R Int : 148 ms QRS Dur : 84 ms QT Int : 352 ms P-R-T Axes : * 16 89 degrees QTcB Int : 456 ms Sinus tachycardia Septal infarct , age undetermined Nonspecific ST and T wave abnormality Abnormal ECG When compared with ECG of 06-Apr-2024 22:09, Septal infarct is now Present Confirmed by Carl Treviño ([id number]) on 03/03/2025 4:15:09 AM Referred By: REFERRED SELF Confirmed By: Carl Treviño
[2025-03-03 04:58] LABS: A calco-baum cmplx NotReported Not Detected (NotDetected); Bact fragilis Not Reported Not Detected (NotDetected); Blood Culture Id Panel See PCR Comment (NotDetected); C auris Not Reported Not Detected (NotDetected); Calbicans Not Reported Not Detected (NotDetected); Candida glabrata Not Reported Not Detected (NotDetected); Candida krusei Not Reported Not Detected (NotDetected); Cneoformans/gatti Not Reported Not Detected (NotDetected); Cparapsilosis Not Reported Not Detected (NotDetected); Ctropicalis Not Reported Not Detected (NotDetected); E cloacae compx Not Reported Not Detected (NotDetected); Efaecalis Not Reported Not Detected (NotDetected); Efaecium Not Reported Not Detected (NotDetected); Enterobacterales Not Reported Not Detected (NotDetected); Escherichia coli Not Reported Not Detected (NotDetected); H influenzae Not Reported Not Detected (NotDetected); K aerogenes Not Reported Not Detected (NotDetected); Koxytoca Not Reported Not Detected (NotDetected); Kpneumoniae grp Not Reported Not Detected (NotDetected); Lmonocyt Not Reported Not Detected (NotDetected); N meningitidis Not Reported Not Detected (NotDetected); P aeruginosa Not Reported Not Detected (NotDetected); Proteus spp Not Reported Not Detected (NotDetected); Salmonella spp Not Reported Not Detected (NotDetected); Staph lugdunensis Not Reported Not Detected (NotDetected); Staph spp. Not Reported DETECTED (NotDetected); Staphaureus Not Reported Not Detected (NotDetected); Staphepi Not Reported Not Detected (NotDetected); Stenmaltophilia Not Reported Not Detected (NotDetected); Strep agal(GrpB) Not Reported Not Detected (NotDetected); Strep pneum Not Reported Not Detected (NotDetected); Strep pyog (GrpA) Not Reported Not Detected (NotDetected); Strep spp Not Reported Not Detected (NotDetected)
[2025-03-03 05:13] LABS: Staphylococcus spp. DETECTED (NotDetected)
--- NOTE | 2025-03-03 07:41 | Hospitalist Progress Note ---
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 #Severe sepsis 2/2 UTI CTAP c/w cystitis Lactic acidosis resolved s/p IVF Prelim urine cx = E. coli 09/18 prelim blood cxs growing gram + cocci clusters -Suspect possible contaminant -Repeat blood cxs after 48hrs -Follow final blood cx results Continue IV Zosyn/vanc pending final urine cx results/sensitivities #Acute metabolic encephalopathy Head CT negative Suspect multifactorial ISO UTI, sepsis, dehydration Mentation improving this AM --> A&Ox2, tolerating diet Continue asp precautions #Elevated troponin Suspect demand ischemia ISO above EKG w/o ST changes Telemetry benign Trop max 202.5 --> downtrended to 69.1 TTE reviewed: LVEF = 55-60%, mild AV stenosis (progressed from prior TTE), mild AR EKG w/ CP PRN #Acute hypoxia - RESOLVED O2 sat 86% on RA per EMS Previously required 3L NC CXR negative Resp BioFire negative Chest CTA: atelectasis, no PE/PNA VBG reviewed and unremarkable Successfully weaned off O2 Encourage ISP as able #Chronic LLE DVT on Coumadin INR remains WNL Continue current Coumadin dosing Follow daily PT/INR #Metastatic prostate cancer #Chronic prednisone therapy #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 Mcneil Continue combo Zytiga/prednisone therapy Continue current pain reg --> fentanyl patches, PRN oxy On Lupron/Zometa Q3mo (last doses in 01/2025) Random cortisol 0.67 #DMII Hgb A1c 7% 3mo ago Updated Hgb A1c 7.7% this admission Not currently on any glycemic agents SSI while inpatient Follow BSG checks ACHS #Dementia #Delirium Continue memantine, donepezil Delirium precautions Utilize 1-1 sitter PRN Frequent reorientation Avoid sedating meds as able #HLD Continue rosuvastatin #Chronic anemia Hgb at baseline Continue to monitor H/H #Anxiety/depression Continue venlafaxine DVT Prophylaxis: Coumadin Code Status: FULL CODE Disposition: Obtain PT/OT evals for routine discharge planning needs. Discussed above plans of care w/ pt's . Patient seen in collaboration with Dr. Lopez. Please see addendum. I spent a total of 42 minutes coordinating, documenting, and providing care for this patient excluding time spent in the performance of separately billed services or time spent by another provider/QHP. This included personally reviewing all current laboratories and imaging studies, medical reconciliation, outpatient chart review and discussion with specialists. This chart was completed in part utilizing Speech Voice Recognition Software. Grammatical errors, random word insertions, pronoun errors, and incomplete sentences are an occasional consequence of this system due to software limitations, ambient noise, and hardware issues. Any formal questions or concerns about the content, text, or information contained within the body of this dictation should be directly addressed to the provider for clarification. Admission and Anticipated Discharge Date Admission Date: March 02, 2025 Supervising Physician Co-Signing Physician Notes Patient seen and examined at bedside. Patient sitting comfortably in room alert and oriented x3. Wants to go home as soon as possible. Favorite sport is tennis. On exam, noted fentanyl patch, no cachexia noted. 1 blood culture growing gram positive cocci in clusters, others no growth to date. Urine culture growing E. coli. Patient with severe sepsis and possible bacteremia causing metabolic encephalopathy, now improved on current management. PT/OT recs appreciated. Will await speciation and deescalate abx appropriately. Suspect short hospital course of 1-2 more days. I have seen and discussed the case with the collaborating advanced practitioner. I agree with the above H&P. I have reviewed and confirmed the patients medical history, the findings on physical examination, and the patients diagnosis and treatment plan with Donna Wolf PA-C and agree with the information documented. I spent a total of 20 minutes coordinating, documenting, and providing care for this patient excluding time spent in the performance of separately billed services. All of the aforementioned completed outside of collaborating with the assigned advanced practitioner for a full treatment plan. I have reviewed the advanced practitioner's documentation, and I agree with, and take responsibility for the plan of care Subjective Patient seen and examined in room E211-1. Mentation slowly improving. A&Ox2, answers well to direct yes/no questioning. Offers no complaints but does not feel he has much of an appetite. Denies any N/V or abdominal pain. Encouraged him to eat some breakfast this morning. Cooperative with nursing staff this morning. Eager to go home. , Mone, present at bedside. Per discussion with RN, patient was owning last evening. Attempted to remove medical equipment and get out of bed multiple times without assistance. Discussed this with the patient's . She mentions this is typical behavior for him when he is ill in the setting of his underlying dementia/MCI. Review of Systems Review of Systems: At least ten systems reviewed and negative, except as noted in the subjective section. Physical Exam Physical Exam: General/Neurologic: Elderly M. NAD. Sitting up in bed. Awake, A&Ox2. Answers yes/no questions appropriately. Appears somewhat tired. at bedside. No focal deficits. Able to follow verbal commands. Attempting to feed himself breakfast. HEENT: Normocephalic, atraumatic. Conjunctivae normal. External ear and nose normal, oropharynx less dry. Respiratory: Normal respiratory effort, lungs clear to auscultation bilaterally. On RA. No accessory muscle use. Cardiovascular: Regular rate and rhythm. Dependent BLE edema. Abdomen/GI: Normal bowel sounds. Soft. Nontender to palpation in all quadrants. Extremities/MSK: No cyanosis or clubbing, actively moves all extremities. Results & Data Results & Data Vital Signs (Past 12 Hours) Vital Signs Temp Pulse Pulse Resp BP BP Pulse Ox 03/03/25 07:28 36.5 C 56 L 18 139/85 98 03/03/25 03:49 36.4 C L 59 L 18 145/75 H 92 03/02/25 23:06 03/02/25 23:06 60 03/02/25 22:46 36.7 C 65 18 146/59 H 94 O2 Del Method 03/03/25 07:28 Room Air 03/03/25 03:49 Room Air 03/02/25 23:06 Room Air 03/02/25 23:06 03/02/25 22:46 Room Air Laboratory Results Short CBC 03/03/25 Range/Units 07:22 WBC 7.88 (4.8-10.8) K/ul Hgb 10.8 L (14.0-18.0) g/dl Hct 33.0 L (42.0-52.0) % Plt Count 158 (130-400) K/uL BMP 03/03/25 07:22 Sodium 139 Potassium 3.7 Chloride 107 Carbon Dioxide 28 BUN 15 Creatinine 0.83 Glucose 124 H Calcium 8.0 L (7) Chronic deep vein thrombosis (DVT) Affected thrombotic vein of extremity: unspecified vein of extremity DVT location: lower extremity Laterality: left Qualified Code(s): I82.502 - Chronic embolism and thrombosis of unspecified deep veins of left lower extremity
[2025-03-03 07:43] LABS: Basophils # (auto) 0.03 K/uL (0.00-0.20); Basophils % (auto) 0.4 %; Eosinophils # (auto) 0.12 K/uL (0.00-0.50); Eosinophils % (auto) 1.5 %; Hemoglobin 10.8 g/dl (14.0-18.0); Immature Granulocytes # (auto) 0.02 K/uL (0.01-0.20); Immature Granulocytes % (auto) 0.3 %; Lymphocytes # (auto) 0.64 K/uL (1.20-3.40); Lymphocytes % (auto) 8.1 %; Mean Corpuscular Hemoglobin 31.8 pg (25.0-34.0); Mean Corpuscular Hgb Conc 32.7 g/dL (32.0-36.0); Mean Corpuscular Volume 97.1 fL (80.0-100.0); Mean Platelet Volume 10.2 fL (9.4-12.4); Monocytes # (auto) 0.44 K/uL (0.11-0.59); Monocytes % (auto) 5.6 %; Neutrophils # (auto) 6.63 K/uL (1.40-6.50); Neutrophils % (auto) 84.1 %; Platelet Count 158 K/uL (130-400); RDW Coefficient of Variation 14.2 % (11.5-14.5); RDW Standard Deviation 50.3 fL (36.4-46.3); White Blood Count 7.88 K/ul (4.8-10.8)
[2025-03-03 08:03] LABS: BUN Creatinine Ratio 18.1 (10-20); Creatinine Clr Calc Pharmacy 75.2 ml/min; Magnesium 1.9 mg/dl (1.7-2.4); Phosphorus 3.2 mg/dl (2.5-4.9); Potassium 3.7 mmol/L (3.5-5.1)
[2025-03-03 08:06] LABS: INR 2.3 (0.9-1.1)
[2025-03-03 08:08] LABS: Estimated Average Glucose 174 mg/dl; Hemoglobin A1C 7.7 % (4.5-5.6)
[2025-03-03] MEDS: CYANOCOBALAMIN (B-12) 500 MCG TABLET PO SCH (09:10)
[2025-03-03] MEDS: MULTIVITAMIN TAB PO SCH (09:10)
[2025-03-03] MEDS: VENLAFAXINE HCL XR 150 MG CAPXR PO SCH (09:10)
[2025-03-03] MEDS: ROSUVASTATIN CALCIUM 5 MG TAB PO SCH (09:10)
[2025-03-03] MEDS: DONEPEZIL HCL 10 MG TAB PO SCH (09:10)
[2025-03-03] MEDS: CALCIUM 600MG + VIT D 400 IU TAB PO SCH (09:10)
[2025-03-03] MEDS: MEMANTINE HCL 5 MG TAB PO SCH (09:10)
[2025-03-03] MEDS: VENLAFAXINE HCL XR 37.5 MG CAPXR PO SCH (09:11)
[2025-03-03] MEDS: VANCOMYCIN HCL 1,500 MG in SODIUM CHLORIDE 0.9% 500 ML IV SCH (11:28)
--- NOTE | 2025-03-03 14:40 | Pharmacy Report ---
Pharmacy PK ABX Note - Date of Service March 03, 2025 - Assessment and Plan Assessment 03/04 * Blood cultures remain 1/ currently, will await further identification- possible contamination * Urine culture growing E. coli pending sensitivities * Vanco empirically adjusted this morning as AUC predicting below target AUC/JACQUE with current dose * 03/03 * 84 year old M receiving pip/tazo and vanco empirically x48 hours. Possible urinary source. * PMH: T2DM, DVT on warfarin, metastatic prostate cancer s/p thoracic spine radiation * Pertinent microbiologic data includes: blood and urine cultures pending * SCr is at/near baseline Plan Vancomycin * Loading dose: 2000 mg IV x 1 * Current Maintenance dose: 1500 mg IV every 24 hours * Will change to 1000 mg q12H * Target AUC/JACQUE of 400-600 mg/L.hr * Random level ordered for: 03/04 11:00- will cancel if vanc not extended Pharmacy will continue to follow and will adjust dose/frequency as necessary. Thank you. Pharmacy has transitioned to AUC monitoring for vancomycin. AUC/JACQUE is the pr eferred PK/PD target and is associated with decreased risk of nephrotoxicity compared to traditional trough targets.
[2025-03-03] MEDS: WARFARIN SOD 7.5 MG TAB PO SCH (16:46)
[2025-03-04] MEDS: VANCOMYCIN HCL 1,000 MG/270 ML BAG IV SCH (00:30)
[2025-03-04 06:22] LABS: Hematocrit (blood only) 33.8 % (42.0-52.0); Hemoglobin 10.9 g/dl (14.0-18.0); Mean Corpuscular Hemoglobin 31.2 pg (25.0-34.0); Mean Corpuscular Hgb Conc 32.2 g/dL (32.0-36.0); Mean Corpuscular Volume 96.8 fL (80.0-100.0); Mean Platelet Volume 10.4 fL (9.4-12.4); Platelet Count 158 K/uL (130-400); RDW Coefficient of Variation 13.9 % (11.5-14.5); RDW Standard Deviation 48.9 fL (36.4-46.3); Red Blood Count 3.49 M/uL (4.70-6.10); White Blood Count 7.34 K/ul (4.8-10.8)
[2025-03-04 06:46] LABS: INR 2.8 (0.9-1.1); Prothrombin Time 27.5 Seconds (9.0-12.0)
[2025-03-04 06:49] LABS: BUN Creatinine Ratio 15.5 (10-20); Calcium 8.3 mg/dl (8.6-10.3); Creatinine Clr Calc Pharmacy 86.2 ml/min; Magnesium 1.9 mg/dl (1.7-2.4); Potassium 3.6 mmol/L (3.5-5.1)
[2025-03-04 09:01] VITALS: RESP 16
[2025-03-04 11:57] VITALS: TEMP 98.8; O2SAT 98
--- NOTE | 2025-03-04 12:25 | Discharge Summary ---
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 #Severe sepsis 2/2 UTI CTAP c/w cystitis Lactic acidosis resolved s/p IVF Started on vanc/Zosyn Urine cx = pansensitive E. coli / initial blood cxs grew Staph hominis -Suspect likely contaminant -Follow repeat blood cxs Pt w/ notable clinical improvement Transition to po cipro on d/c to complete full 7-day course #Acute metabolic encephalopathy Head CT negative Suspect multifactorial ISO UTI, sepsis, dehydration Mentation appears to be back to baseline per discussion w/ pt's #Elevated troponin Suspect demand ischemia ISO above No reported chest pain EKG w/o ST changes Telemetry benign Trop max 202.5 --> downtrended to 69.1 TTE reviewed: LVEF = 55-60%, mild AV stenosis (progressed from prior TTE), mild AR #Acute hypoxia - RESOLVED O2 sat 86% on RA per EMS Previously required 3L NC CXR negative Resp BioFire negative Chest CTA: atelectasis, no PE/PNA VBG reviewed and unremarkable Successfully weaned off O2 #Chronic LLE DVT on Coumadin INR remains WNL Continue Coumadin #Metastatic prostate cancer #Chronic prednisone therapy #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 Mcneil Continue combo Zytiga/prednisone therapy Random cortisol 0.67 Continue current pain reg --> fentanyl patches, PRN oxy On Lupron/Zometa Q3mo (last doses in 01/2025) #DMII Updated Hgb A1c 7.7% this admission Not currently on any glycemic agents #Dementia #Delirium Continue memantine, donepezil Mentation back to baseline as per above #HLD Continue rosuvastatin #Chronic anemia Hgb remained around baseline #Anxiety/depression Continue venlafaxine Disposition: Pt is being d/c'd home in stable condition, lives w/ whom was updated on above plans of care and expressed understanding Patient seen in collaboration with Dr. Lopez. Please see addendum. I spent a total of 55 minutes coordinating, documenting, and providing care for this patient excluding time spent in the performance of separately billed services or time spent by another provider/QHP. This included personally rev iewing all current laboratories and imaging studies, medical reconciliation, outpatient chart review and discussion with specialists. This chart was completed in part utilizing Speech Voice Recognition Software. Grammatical errors, random word insertions, pronoun errors, and incomplete sentences are an occasional consequence of this system due to software limitations, ambient noise, and hardware issues. Any formal questions or concerns about the content, text, or information contained within the body of this dictation should be directly addressed to the provider for clarification. Notes For Next Care Provider Medication Changes From Visit Ciprofloxacin 500mg BID to complete full 7-day course Admission HPI Per Admitting Provider Patient is an 84-year-old male with past medical history significant for DM type II, asthma, multiple pulmonary nodules, chronic DVT of LLE on warfarin, metastatic prostate cancer, dementia, mild cognitive impairment, anxiety and other problems listed below who presented to the ED via EMS for evaluation of AMS after his found him to be minimally responsive in bed this morning. History obtained from the patient's at bedside, Sarah. Patient remains A&O mostly to self however he does open his eyes to verbal stimuli and recognizes his . Verbalizes general yes/no answers to direct questioning. Not oriented to time, place or situation. Additional history obtained from the ED provider and associated chart review. mentions that he was "acting like himself" up until this morning when she noticed he was "shaking vigorously" in bed and was minimally responsive to verbal ques. Other than some mild fatigue over the past few days he has offered no complaints. He is quite independent at baseline. Uses a cane to ambulate occasionally but remains quite active and participates in tennis a few times a week. No reported fevers at home. Had sustained a mechanical fall while playing tennis about a week and a half ago where he struck his face off of the [employer] court however there was no LOC. Sustained an abrasion to his right elbow. He was not evaluated in the ED following this fall. He does wear incontinence briefs on a daily basis. No known complaints of hematuria, dysuria or increased urinary frequency. However, per EMS report today, patient was noted to have dark and foul-smelling urine. He was also noted to be hypoxic on RA with O2 saturation down to 86%. He was subsequently placed on 3L NC by EMS. No prior supplemental O2 use at home. No reports of cough, congestion, SOB or chest pain. No reported appetite changes. No reported cigarette use. Former chewing tobacco use. No alcohol use. No recreational drug use. Admission Exam Per Admitting Provider General/Neurologic: Ill-appearing, elderly M. NAD. Laying down in bed. A&O mostly to self, not oriented to time/place/situation. Able to verbalize general yes/no responses to direct questioning with verbal and physical stimulation. Quite lethargic. Somnolent when not aroused by verbal or physical stimuli. at bedside. HEENT: Normocephalic, atraumatic. Conjunctivae normal. External ear and nose normal, oropharynx dry. Respiratory: Normal respiratory effort, lungs clear to auscultation bilaterally. On 1L NC and saturating in the mid 90s SpO2. No accessory muscle use. Cardiovascular: Regular rate and rhythm. No BLE edema. Abdomen/GI: Normal bowel sounds. Mildly distended but soft. Nontender to palpation in all quadrants. Extremities/MSK: No cyanosis or clubbing, actively moves all extremities. Unable to follow muscle strength testing commands. Discharge Exam General/Neurologic: Elderly M. NAD. Sitting up in chair at bedside. Awake, A&Ox2. Communicating well. Appears to be back to baseline mentation level. at bedside. No focal deficits. Able to follow verbal commands. Cooperative w/ staff. HEENT: Normocephalic, atraumatic. Conjunctivae normal. External ear and nose normal, oropharynx less dry. Respiratory: Normal respiratory effort, lungs clear to auscultation bilaterally. On RA. No accessory muscle use. Cardiovascular: Regular rate and rhythm. No BLE edema. Abdomen/GI: Normal bowel sounds. Soft. Nontender to palpation in all quadrants. Extremities/MSK: No cyanosis or clubbing, actively moves all extremities. Updated Medication List Medication Instructions Recorded Confirmed Type acitretin 25 mg capsule 25 mg PO Q2D 04/07/24 03/02/25 History calcium 500 mg (as 1 tab PO DAILY 04/07/24 03/02/25 History carbonate)-vitamin D3 3.125 mcg (125 unit) tablet cyanocobalamin (vitamin B-12) 1,000 mcg PO DAILY 04/07/24 03/02/25 History 1,000 mcg capsule donepezil 10 mg tablet 10 mg PO DAILY 04/07/24 03/02/25 History leuprolide (3 month) 22.5 mg IM USEASDIRECTD 04/07/24 03/02/25 History multivitamin 1 tab PO DAILY 04/07/24 03/02/25 History naloxone 4 mg/actuation nasal spray 4 mg intranasal UD PRN Narcotic 04/07/24 03/02/25 History overdose rosuvastatin 5 mg tablet 5 mg PO DAILY 04/07/24 03/02/25 History venlafaxine 150 mg 150 mg PO DAILY 04/07/24 03/02/25 History capsule,extended release 24 hr zoledronic acid 4 mg intravenous 4 mg IV UD 04/07/24 03/02/25 History solution abiraterone 500 mg tablet 500 mg PO BID 10/28/24 03/02/25 History prednisone 5 mg tablet 5 mg PO BID 10/28/24 03/02/25 History gabapentin 100 mg capsule 100 mg PO Q12H PRN Muscle Spasm 11/03/24 03/02/25 History venlafaxine 37.5 mg 37.5 mg PO DAILY 11/25/24 03/02/25 History capsule,extended release 24 hr memantine 5 mg tablet 5 mg PO DAILY 12/16/24 03/02/25 History oxycodone 10 mg tablet 10 mg PO Q4H PRN Pain (Scale Score 02/10/25 03/02/25 Rx 7-10) 1 month #180 tabs warfarin 5 mg tablet See Rx Instructions PO UD #96 tabs 02/11/25 03/02/25 Rx fentanyl 12 mcg/hr transdermal 12 mcg transdermal UD 03/02/25 03/02/25 History patch fentanyl 50 mcg/hr transdermal 50 mcg topical UD 03/02/25 03/02/25 History patch ciprofloxacin HCl 500 mg tablet 500 mg PO BID 4 days #8 tabs 03/04/25 Rx Hospital Stay Data Consultations 03/02/25 09:22 ED Decision to Admit Stat Diagnostic Imagining Performed 03/02/25 07:18 CT abd pelvis IV con only Stat CT angio chest PE protocol Stat CT cervical spine wo con Stat CT head/brain wo con Stat Discharge Instructions Given to Patient (Per Discharging Provider) MEDICATION CHANGES: Oral ciprofloxacin 500mg twice a day by mouth for 4 days with next dose TOMORROW MORNING, 03/05/2025. RECOMMENDATIONS FOR FOLLOW-UP Date & Time: 03/11/2025 @ 10:20 AM Provider: Kavon Melton DO Location: [facility] Internal Medicine @ [facility] Please attend your PCP follow-up appointment as outlined above. Please take good care of yourself. It has been a pleasure taking care of you. If you have any questions regarding your recent hospitalization, please contact [facility] and request a [facility] Hospitalist @ [phone]. Total Time Total Time Spent Total Time Spent (In Minutes): 55 Supervising Physician Co-Signing Physician Notes Patient seen and examined at bedside. Patient sitting comfortably in chair alert and oriented x3. Looking forward to going home today On exam, noted fentanyl patch, no cachexia noted. 1 blood culture growing Staph hominis (likely contaminant), others no growth to date. Urine culture growing E. coli wilson sensitive. Patient with severe sepsis from E. coli UTI, now much improved with fluids and abx. Will discharge on 7 days of abx total for complicated UTI. Medically stable for discharge at this time. I have seen and discussed the case with the collaborating advanced practitioner. I agree with the above H&P. I have reviewed and confirmed the patients medical history, the findings on physical examination, and the patients diagnosis and treatment plan with Donna Wolf PA-C and agree with the information documented. I spent a total of 20 minutes coordinating, documenting, and providing care for this patient excluding time spent in the performance of separately billed services. All of the aforementioned completed outside of collaborating with the assigned advanced practitioner for a full treatment plan. I have reviewed the advanced practitioner's documentation, and I agree with, and take responsibility for the plan of care
[2025-03-04 14:15] VITALS: BP 151/81; PULSE 62
== END 2025-03-04 15:02 | disposition home or self-care (01) | DRG 871 ==
LOC: ED 07:00 → SUATTDRO 09:28 → 2E 09:28